=== PATIENT | male | born 1955 | race Caucasian/White ===

== ENCOUNTER 2017-09-18 05:04 | Inpatient (IN) | payer OTHER ==
[~2017-09-18] VITALS: Ht 185.4 cm; Wt 100.8 kg
[2017-09-18] VITALS (7 sets, daily range): BP systolic 146–184; BP diastolic 72–104; PULSE 88–98; RESP 18–32; TEMP 101.2–103; O2SAT 94–100
[~2017-09-18 05:04] MED LIST: GLUC1000 PO
[2017-09-18] MEDS ORDERED: ACETAMINOPHEN 650 MG SUPP RECTAL ONE (05:15)
[2017-09-18 05:51] LABS: AUTOMATED NEUTROPHIL # 14.4 TH/MM3 (1.8-7.7); BASOPHIL % 0.2 % (0.0-2.0); EOSINOPHIL % 0.1 % (0.0-4.0); HEMATOCRIT 41.8 % (39.0-51.0); HEMOGLOBIN 14.5 GM/DL (13.0-17.0); LYMPH % 4.9 % (9.0-44.0); LYMPHOCYTE # 0.8 TH/MM3 (1.0-4.8); MEAN CELL VOLUME 85.2 FL (80.0-100.0); MEAN CORPUSCULAR HEMOGLOBIN 29.6 PG (27.0-34.0); MEAN CORPUSCULAR HGB CONC 34.7 % (32.0-36.0); MEAN PLATELET VOLUME 9.2 FL (7.0-11.0); MONO % 1.8 % (0.0-8.0); MONOCYTE # 0.3 TH/MM3 (0-0.9); PLATELET COUNT 199 TH/MM3 (150-450); RED CELL DISTRIBUTION WIDTH 13.9 % (11.6-17.2); WHITE BLOOD COUNT 15.5 TH/MM3 (4.0-11.0)
[2017-09-18] MEDS ORDERED: cefTRIAXone INJ 2,000 MG in SODIUM CHLORIDE 0.9% INJ 100 ML IV ONE (06:00)
[2017-09-18] MEDS ORDERED: VANCOMYCIN INJ 1,000 MG in SODIUM CHLOR 0.9% 250 ML INJ 250 ML IV ONE (06:00)
--- NOTE | 2017-09-18 06:04 | PD ---
HPI Chief Complaint: Altered Mental Status Time Seen by Provider: 05:13 Travel History International Travel<30 days: No Contact w/Intl Traveler<30days: No Traveled to known affect area: No History of Present Illness HPI Patient is a 62-year-old male who for the last week and half has had an upper respiratory like infection , with coughing & congested. also had similar symptoms. also was in our ER in June had diagnosis meningitis and was admitted However review of her cultures show it did not grow bacterial meningitis. The patient himself is febrile at 102.5 shaking altered mentally.. he is apparently Altered due to a infectious source, of FUO Pt presents for fever and AMS ..I will search for bacterial source by Looking for Lung vs Urine vs viral flu source or spinal fluid source for his altered mental status. ROS and HPI limited due to AMS PFSH Past Medical History Heart Rhythm Problems: No Cancer: No Cardiovascular Problems: Yes (aortic valve stenosis) High Cholesterol: No Chest Pain: No Congestive Heart Failure: No Diabetes: Yes Patient Takes Glucophage: No Endocrine: Yes Gastrointestinal Disorders: Yes Genitourinary: Yes (retention) Hypertension: No Musculoskeletal: No Neurologic: Yes (neuropathy) Psychiatric: No Respiratory: No Immunizations Current: Yes Past Surgical History Cardiac Surgery: Yes (CABG 2014, valve replacement) Other Surgery: Yes (NECK SURGERY) Social History Alcohol Use: No Tobacco Use: No Substance Use: No Allergies-Medications (Allergen,Severity, Reaction): Coded Allergies: bee venom protein (honey bee) (Unverified Allergy, Severe, Anaphylaxis, ) Reported Meds & Prescriptions Reported Meds & Active Scripts Active Glucophage (Metformin HCl) 1,000 Mg Tab 1,000 Mg PO BIDPC With a meal Glucophage 1000 mg (Metformin HCl) 1,000 Mg Tab 1,000 Mg PO BIDPC Review of Systems ROS Limitations: Altered Mental Status Physical Exam Narrative GENERAL: Patient is altered and he is not answering questions he is febrile at 102.5 SKIN: Warm and dry. Warm temperature 102.5 HEAD: Atraumatic. Normocephalic. EYES: Pupils equal and round. No scleral icterus. No injection or drainage. ENT: No nasal bleeding or discharge. Mucous membranes pink and moist. NECK: Trachea midline. No JVD. CARDIOVASCULAR: Regular rate and rhythm. RESPIRATORY: No accessory muscle use. Clear to auscultation. Breath sounds equal bilaterally. GASTROINTESTINAL: Abdomen soft, non-tender, nondistended. Hepatic and splenic margins not palpable. MUSCULOSKELETAL: Extremities without clubbing, cyanosis, or edema. No obvious deformities. NEUROLOGICAL: Awake but lethargic No obvious cranial nerve deficits. Motor grossly within normal limits. Five out of 5 muscle strength in the arms and legs. . PSYCHIATRIC: Patient is altered and is not responding to any questions but eyes are open and he is awake not responding when I call his name however he is looking at me Data Data Last Documented VS Vital Signs Date Time Temp Pulse Resp B/P (MAP) Pulse Ox O2 Delivery O2 Flow Rate FiO2 09/18/17 07:01 102.3 98 28 146/88 (107) 100 Nasal Cannula 2.00 Orders Orders Acetaminophen Supp (Tylenol Supp) (09/18/17 05:15) Complete Blood Count With Diff (09/18/17 05:14) Comprehensive Metabolic Panel (09/18/17 05:14) Lactic Acid Sepsis Protocol (09/18/17 05:14) Troponin I (09/18/17 05:14) Urinalysis - C+S If Indicated (09/18/17 05:14) Blood Culture (09/18/17 05:14) Chest, Single Ap (09/18/17 05:14) Blood Glucose (09/18/17 05:14) Ecg Monitoring (09/18/17 05:14) Iv Access Insert/Monitor (09/18/17 05:14) Oximetry (09/18/17 05:14) Oxygen Administration (09/18/17 05:14) Urinary Catheter Management RADHA.Q8H (09/18/17 05:32) Influenzae A/B Antigen (09/18/17 05:44) Ceftriaxone Inj (Rocephin Inj) (09/18/17 06:00) Vancomycin Inj (Vancomycin Inj) (09/18/17 06:00) Csf Cell Count + Differential (09/18/17 07:04) Glucose, Csf (09/18/17 07:04) Total Protein, Csf (09/18/17 07:04) Csf Culture And Gram Stain (09/18/17 07:04) Lumbar Puncture (09/18/17 ) Sodium Chlor 0.9% 1000 Ml Inj (Ns 1000 M (09/18/17 07:15) Insulin Human Regular Inj (Novolin R Inj (09/18/17 07:15) Electrocardiogram (09/18/17 ) Ondansetron Inj (Zofran Inj) (09/18/17 07:30) Ct Brain W/O Iv Contrast(Rout) (09/18/17 ) Sodium Chlor 0.9% 1000 Ml Inj (Ns 1000 M (09/18/17 07:30) Admit Order (Ed Use Only) (09/18/17 07:44) Labs Laboratory Tests Test 09/18/17 05:15 09/18/17 05:20 09/18/17 05:50 White Blood Count 15.5 TH/MM3 Red Blood Count 4.90 MIL/MM3 Hemoglobin 14.5 GM/DL Hematocrit 41.8 % Mean Corpuscular Volume 85.2 FL Mean Corpuscular Hemoglobin 29.6 PG Mean Corpuscular Hemoglobin Concent 34.7 % Red Cell Distribution Width 13.9 % Platelet Count 199 TH/MM3 Mean Platelet Volume 9.2 FL Neutrophils (%) (Auto) 93.0 % Lymphocytes (%) (Auto) 4.9 % Monocytes (%) (Auto) 1.8 % Eosinophils (%) (Auto) 0.1 % Basophils (%) (Auto) 0.2 % Neutrophils # (Auto) 14.4 TH/MM3 Lymphocytes # (Auto) 0.8 TH/MM3 Monocytes # (Auto) 0.3 TH/MM3 Eosinophils # (Auto) 0.0 TH/MM3 Basophils # (Auto) 0.0 TH/MM3 CBC Comment DIFF FINAL Differential Comment Hemoglobin A1c 13.8 % Blood Urea Nitrogen 25 MG/DL Creatinine 1.36 MG/DL Random Glucose 507 MG/DL Total Protein 7.7 GM/DL Albumin 3.6 GM/DL Calcium Level 8.8 MG/DL Alkaline Phosphatase 101 U/L Aspartate Amino Transf (AST/SGOT) 17 U/L Alanine Aminotransferase (ALT/SGPT) 37 U/L Total Bilirubin 0.7 MG/DL Sodium Level 134 MEQ/L Potassium Level 4.9 MEQ/L Chloride Level 97 MEQ/L Carbon Dioxide Level 23.9 MEQ/L Anion Gap 13 MEQ/L Estimat Glomerular Filtration Rate 53 ML/MIN Lactic Acid Level 3.3 mmol/L Troponin I 0.02 NG/ML Urine Color LIGHT-YELLOW Urine Turbidity CLEAR Urine pH 6.5 Urine Specific [place] 1.031 Urine Protein 100 mg/dL Urine Glucose (UA) 1000 mg/dL Urine Ketones 40 mg/dL Urine Occult Blood SMALL Urine Nitrite NEG Urine Bilirubin NEG Urine Urobilinogen LESS THAN 2.0 MG/DL Urine Leukocyte Esterase NEG Urine RBC 7 /hpf Urine WBC LESS THAN 1 /hpf Urine Mucus FEW /lpf Microscopic Urinalysis Comment CATH-CULT NOT IND MDM Medical Decision Making Medical Screen Exam Complete: Yes Emergency Medical Condition: Yes Differential Diagnosis Viral illness with fever-induced confusion versus meningitis viral versus bacterial versus urosepsis versus pneumonia with sepsis versus other Narrative Course Patient is given ceftriaxone and vancomycin and 2 L of fluid patient's LP is unsuccessful by this M.DAlanna and I order a interventional radiology LP and order CSF culture Gram stain and cell count glucose protein patient still remains altered and febrile in the ER I give report to tHE hospitalist attending in the hospitalist admit Procedures Procedure Narrative LP attempted and was unable to obtain spinal fluid , after 4 needle sticks I decided that IR fluoroscopy would be indicated , Ceftraixone and Vanco started Diagnosis Primary Impression: Altered mental state Additional Impression: Febrile illness Sebastien Lynn MD Sep 18, 2017 06:04
--- NOTE | 2017-09-18 06:06 | RADRPT ---
EXAM DATE/TIME: 09/18/2017 05:22 [facility] COMPARISON: CHEST SINGLE AP, April 01, 2016, 21:23. INDICATIONS : Fever. MEDICAL HISTORY : Cardiovascular disease. Diabetes mellitus type II. SURGICAL HISTORY : CABG. ENCOUNTER: Initial ACUITY: 1 day PAIN SCORE: 0/10 LOCATION: Bilateral chest FINDINGS: A single view of the chest demonstrates the lungs to be symmetrically aerated without evidence of mas s, infiltrate or effusion. The cardiomediastinal contours are unremarkable. Osseous structures are intact. Median sternotomy wires. CONCLUSION: No acute disease. Chad Tristan Jr., MD on September 18, 2017 at 6:04 Board Certified Radiologist. This report was verified electronically.
[2017-09-18 06:07] LABS: LACTIC ACID SEPSIS PROTOCOL 3.3 mmol/L (0.4-2.0)
[2017-09-18 06:11] LABS: BILIRUBIN, URINE NEG (NEG); BLOOD, URINE SMALL (NEG); GLUCOSE,URINE 1000 mg/dL (NEG); KETONE, URINE 40 mg/dL (NEG); MUCUS URINE FEW /lpf (OCC); NITRITE,URINE NEG (NEG); PH, URINE 6.5 (5.0-8.5); URINE COLOR LIGHT-YELLOW (YELLW/STRAW); URINE LEUKOCYTE ESTERASE NEG (NEG)
[2017-09-18 06:17] LABS: ALBUMIN 3.6 GM/DL (3.4-5.0); ALKALINE PHOSPHATASE 101 U/L (45-117); ALT (GPT) 37 U/L (12-78); AST (GOT) 17 U/L (15-37); BICARBONATE 23.9 MEQ/L (21.0-32.0); CALCIUM 8.8 MG/DL (8.5-10.1); CHLORIDE 97 MEQ/L (98-107); CREATININE 1.36 MG/DL (0.60-1.30); GLOMERULAR FILTRATION RATE 53 ML/MIN (>89); GLUCOSE,RANDOM 507 MG/DL (74-106); SODIUM (NA) 134 MEQ/L (136-145); TOTAL BILIRUBIN ADULT 0.7 MG/DL (0.2-1.0); TOTAL PROTEIN 7.7 GM/DL (6.4-8.2); TROPONIN I 0.02 NG/ML (0.02-0.05)
[2017-09-18 06:18] LABS: BLOOD UREA NITROGEN 25 MG/DL (7-18)
[2017-09-18] MEDS ORDERED: SODIUM CHLOR 0.9% 1000 ML INJ 1,000 ML IV ONE ×2 (07:15→07:30)
[2017-09-18] MEDS ORDERED: INSULIN HUMAN REGULAR 1,000 UNITS/10 ML VIAL IV PUSH ONE (07:15)
[2017-09-18] MEDS ORDERED: ONDANSETRON HCL 4 MG/2 ML VIAL IV PUSH ONE (07:30)
--- NOTE | 2017-09-18 08:28 | RADRPT ---
EXAM DATE/TIME: 09/18/2017 08:01 [facility] COMPARISON: CT BRAIN W/O CONTRAST, April 01, 2016, 22:03. INDICATIONS : Altered mental status, fever. RADIATION DOSE: 69.17 CTDIvol (mGy) MEDICAL HISTORY : Cardiovascular disease. Diabetes mellitus type 2. SURGICAL HISTORY : CABG ENCOUNTER: Initial ACUITY: 1 day PAIN SCALE: 0/10 LOCATION: cranial TECHNIQUE: Multiple contiguous axial images were obtained of the head. Using automated exposure control and adj ustment of the mA and/or kV according to patient size, radiation dose was kept as low as reasonably a chievable to obtain optimal diagnostic quality images. DICOM format image data is available electro nically for review and comparison. FINDINGS: Mild periventricular and subcortical white matter small vessel ischemic changes are noted bilaterally . The ventricles, sulci and cisterns are stable. There is no acute infarct, acute hemorrhage, mass ef fect or extra axial fluid collections. There is an air-fluid level within the left maxillary sinus an d a mucus retention cyst within right maxillary sinus. CONCLUSION: 1. Mild periventricular and subcortical white matter small vessel ischemic changes bilaterally. 2. No acute infarct, acute hemorrhage, mass effect or extra axial fluid collections. 3. Air-fluid level within the left maxillary sinus and mucous retention cyst within the right maxilla ry sinus. Bob Batista MD on September 18, 2017 at 8:22 Board Certified Radiologist. This report was verified electronically.
[2017-09-18] MEDS ORDERED: NALOXONE HCL 0.4 MG/ML AMP IV PUSH PRN (09:00)
[2017-09-18] MEDS ORDERED: SODIUM CHLORIDE 0.9% FLUSH 10 ML FLUSH IV FLUSH PRN (09:00)
[2017-09-18] MEDS: DOCUSATE SODIUM 50 MG/SENNA 8.6 MG TAB PO SCH ×2 (09:00→21:00)
[2017-09-18] MEDS ORDERED: ACETAMINOPHEN 325 MG TAB PO PRN ×2 (09:00)
[2017-09-18 09:40] LABS: INTERNATIONAL NORMALIZED RATIO 1.1 RATIO; PROTHROMBIN TIME - PATIENT 10.7 SEC (9.8-11.6)
[2017-09-18] MEDS ORDERED: DEXTROSE 50% IN WATER 50 ML VIAL(D50) IV PUSH PRN (09:45)
[2017-09-18] MEDS ORDERED: GLUCAGON 1 MG/ML VIAL OTHER PRN (09:45)
--- NOTE | 2017-09-18 10:57 | PD.RAD ---
Post Procedure Progress Note Pre Procedure Diagnosis: (1) Mental status change Post Procedure Diagnosis: (1) Mental status change Procedure Date: Sep 18, 2017 Supervising Radiologist: Silas Machuca Proceduralist/Assist: RT Neno(R), RT Mimi(R) Anesthesia: Local Plan of Activity Patient to Unit: Nursing Unit Patient Condition: Poor See PACS Report for procedural detail/treatment Spinal Procedure Lumbar Puncture L3-L4 Fluid Removal (CCs): 10 Fluid Description: Silas Kwon MD Sep 18, 2017 10:57
--- NOTE | 2017-09-18 11:21 | RADRPT ---
EXAM DATE/TIME: 09/18/2017 11:47 [facility] COMPARISON: No previous studies available for comparison. INDICATIONS : Patient who has had a upper respitory infection for aweek and half. Present s to ER with fever and A MS. MEDICAL HISTORY : 1. Aortic valve stenosis 2. urinary retention 3. DM 3. CAD SURGICAL HISTORY : 1. CABG 2. neck surgery ENCOUNTER: Initial ACUITY: 2 days PAIN SCORE: Nonresponsive. LUMBAR PUNCTURE TIME: 1053 hours FLUORO TIME: 0.6 minutes IMAGE SERIES: 1 ACCESS LEVEL: L3-4 FLUID: 10 cc of clear CSF was collected and sent to the laboratory for analysis. PROCEDURE : 1. Fluoroscopic guided lumbar puncture. The risks, benefits and alternatives to the procedure were explained and verbal and written consent w as obtained. The site was prepped in sterile fashion. Full sterile technique was used, including ca p, mask, sterile gloves and gown and a large sterile sheet. Hand hygiene and 2% chlorhexidine and/or betadine/alcohol prep was utilized per protocol for cutaneous antisepsis. The skin and subcutaneous tissues were infiltrated with local anesthetic solution. With fluoroscopic guidance the lumbar thecal sac was punctured at the level above. The fluid describ ed above was removed without difficulty. The patient tolerated the procedure well and there were no complications. CONCLUSION: Uncomplicated fluoroscopically guided lumbar puncture. Silas Machuca MD on September 18, 2017 at 11:19 Board Certified Radiologist. This report was verified electronically.
[2017-09-18 11:44] LABS: TOTAL PROTEIN,CSF 70.8 MG/DL (15.0-45.0)
[2017-09-18] MEDS: INSULIN ASPART SUPPLEMENTAL SCALE SQ SCH ×3 (12:00→21:00)
[2017-09-18] MEDS: SODIUM CHLORIDE 0.9% FLUSH 10 ML FLUSH IV FLUSH SCH ×2 (13:05→21:00)
[2017-09-18] MEDS: SODIUM CHLOR 0.9% 1000 ML INJ 1,000 ML IV SCH ×4 (13:06→22:00)
[2017-09-18 13:08] LABS: SUPERNATE COLOR TUBE #1 CLEAR (CLEAR); VOLUME TUBE # 1 2.5 ML
[2017-09-18 13:09] LABS: CSF LYMPHOCYTES 13 %; CSF MONOCYTES 13 %; CSF NEUTROPHILS 74 %; RBC TUBE #4 3 /MM3; WBC TUBE #4 12 /MM3 (0-10)
[2017-09-18] MEDS ORDERED: Vancomycin Consult Pharmacy 1 EA OTHER SCH ×2 (14:00→20:45)
[2017-09-18] MEDS ORDERED: AMPICILLIN INJ 2,000 MG in SODIUM CHLORIDE 0.9% INJ 100 ML IV SCH (14:00)
[2017-09-18] MEDS ORDERED: ACETAMINOPHEN 650 MG SUPP RECTAL PRN (14:15)
--- NOTE | 2017-09-18 14:15 | HHI.HP ---
[facility] No Primary Care Physician Admission Diagnosis Altered mental status Diagnoses: Chief Complaint: Altered mental status Travel History International Travel<30 Days: No Contact w/Intl Traveler <30 Da: No Traveled to Known Affected Are: No History of Present Illness The patient is a 62-year-old male with a past medical history of diabetes and CAD who is presenting to the hospital with altered mental status. He was unable to provide a history so his gave the history of present illness. Apparently the patient and his came down with the flu a couple of weeks ago. The patient's got better but the patient got worse. He continued to have flulike symptoms and has been sleeping a lot and going to bed early. He recently started vomiting a lot as well. He has been wobbly on ambulation and fell slowly to the ground with help from his . She does not believe he injured himself on that fall. She called for emergency services and they found the patient to have a high blood pressure, high blood sugar and elevated temperature. The patient's mental status started to get poor upon arrival of EMS. He was unable to answer questions correctly and by the time he arrived at the hospital he was completely unresponsive. The patient's states that in June she came down with suspected meningitis but was not told that they were able to find a causative organism. She is currently doing well. She reports that the patient has been having headaches on and off with his flulike prodrome. She mentions the patient has lost his insurance recently and since then his diabetes has been poorly controlled. Review of Systems ROS Limitations: Clinical Condition, Altered Mental Status, Unresponsive Past Family Social History Past Medical History CAD status post CABG 3 Diabetes type 2 Past Surgical History CABG 3 AVR with porcine valve Allergies: Coded Allergies: bee venom protein (honey bee) (Unverified Allergy, Severe, Anaphylaxis, ) Active Ordered Medications Current Medications Medications (Trade) Dose Ordered Sig/Génesis Route Start Time Stop Time Status Last Admin Sodium Chloride 1,000 ml @ 100 mls/hr Q10H IV 09/18/17 10:00 09/18/17 13:06 (NS Flush) 2 ml UNSCH PRN IV FLUSH 09/18/17 09:00 (NS Flush) 2 ml BID IV FLUSH 09/18/17 09:00 09/18/17 13:05 (Zofran Inj) 4 mg Q6H PRN IVP 09/18/17 09:00 (Roxicodone) 10 mg Q4H PRN PO 09/18/17 09:00 (Roxicodone) 5 mg Q4H PRN PO 09/18/17 09:00 (Narcan Inj) 0.4 mg UNSCH PRN IV PUSH 09/18/17 09:00 (Rozina-Colace) 1 tab BID PO 09/18/17 09:00 (NovoLOG SUPPLEMENTAL SCALE) 1 ACHS SLIDING SCALE SQ 09/18/17 12:00 09/18/17 12:00 (D50w (Vial) Inj) 50 ml UNSCH PRN IV PUSH 09/18/17 09:45 (Glucagon Inj) 1 mg UNSCH PRN OTHER 09/18/17 09:45 Ceftriaxone Sodium 2000 mg/ Sodium Chloride 100 ml @ 200 mls/hr Q12H IV 09/18/17 18:00 UNV (Tylenol Supp) 650 mg Q6H PRN RECTAL 09/18/17 14:15 UNV Family History The patient's father in his late 40s from a cardiac bypass procedure Social History The patient does not smoke, drink or use illicit substances. Physical Exam Vital Signs Vital Signs Date Time Temp Pulse Resp B/P (MAP) Pulse Ox O2 Delivery O2 Flow Rate FiO2 09/18/17 10:32 09/18/17 08:45 101.2 96 22 154/82 (106) 98 Nasal Cannula 2.00 09/18/17 08:05 94 24 181/83 (115) 97 Nasal Cannula 09/18/17 07:01 102.3 98 28 146/88 (107) 100 Nasal Cannula 2.00 09/18/17 05:21 99 Nasal Cannula 2.00 09/18/17 05:14 94 Room Air 09/18/17 05:08 102.7 88 32 184/104 (130) 94 Physical Exam GENERAL: Unresponsive. SKIN: Warm and dry. HEAD: Atraumatic. Normocephalic. EYES: Pupils equal and round. No scleral icterus. No injection or drainage. ENT: No nasal bleeding or discharge. Mucous membranes pink and moist. NECK: Trachea midline. No JVD. CARDIOVASCULAR: Tachycardic without obvious murmur. RESPIRATORY: No accessory muscle use. Clear to auscultation. Breath sounds equal bilaterally. GASTROINTESTINAL: Abdomen soft, non-tender, nondistended. Hepatic and splenic margins not palpable. MUSCULOSKELETAL: Extremities without clubbing, cyanosis, or edema. No obvious deformities. NEUROLOGICAL: Unresponsive. Appears to have horizontal nystagmus. Unable to participate in neurologic evaluation at this time. Laboratory Laboratory Tests Test 09/18/17 05:15 09/18/17 05:20 09/18/17 05:50 09/18/17 08:39 White Blood Count 15.5 Red Blood Count 4.90 Hemoglobin 14.5 Hematocrit 41.8 Mean Corpuscular Volume 85.2 Mean Corpuscular Hemoglobin 29.6 Mean Corpuscular Hemoglobin Concent 34.7 Red Cell Distribution Width 13.9 Platelet Count 199 Mean Platelet Volume 9.2 Neutrophils (%) (Auto) 93.0 Lymphocytes (%) (Auto) 4.9 Monocytes (%) (Auto) 1.8 Eosinophils (%) (Auto) 0.1 Basophils (%) (Auto) 0.2 Neutrophils # (Auto) 14.4 Lymphocytes # (Auto) 0.8 Monocytes # (Auto) 0.3 Eosinophils # (Auto) 0.0 Basophils # (Auto) 0.0 CBC Comment DIFF FINAL Differential Comment Blood Urea Nitrogen 25 Creatinine 1.36 Random Glucose 507 Total Protein 7.7 Albumin 3.6 Calcium Level 8.8 Alkaline Phosphatase 101 Aspartate Amino Transf (AST/SGOT) 17 Alanine Aminotransferase (ALT/SGPT) 37 Total Bilirubin 0.7 Sodium Level 134 Potassium Level 4.9 Chloride Level 97 Carbon Dioxide Level 23.9 Anion Gap 13 Estimat Glomerular Filtration Rate 53 Lactic Acid Level 3.3 Troponin I 0.02 Urine Color LIGHT-YELLOW Urine Turbidity CLEAR Urine pH 6.5 Urine Specific [place] 1.031 Urine Protein 100 Urine Glucose (UA) 1000 Urine Ketones 40 Urine Occult Blood SMALL Urine Nitrite NEG Urine Bilirubin NEG Urine Urobilinogen LESS THAN 2.0 Urine Leukocyte Esterase NEG Urine RBC 7 Urine WBC LESS THAN 1 Urine Mucus FEW Microscopic Urinalysis Comment CATH-CULT NOT IND Prothrombin Time 10.7 Prothromb Time International Ratio 1.1 Activated Partial Thromboplast Time 21.0 Test 1/4/18 10:53 CSF Volume (Tube 1) 2.5 CSF Supernatant Color (tube 1) CLEAR CSF Gross Blood (Tube 1) 0 CSF Volume (Tube 2) 2.8 CSF Supernatant Color (tube 2) CLEAR CSF Gross Blood (Tube 2) 0 CSF Volume (Tube 3) 2.0 CSF Supernatant Color (tube 3) CLEAR CSF Gross Blood (Tube 3) 0 CSF Volume (Tube 4) 1.5 CSF Supernatant Color (tube 4) CLEAR CSF Gross Blood (Tube 4) 0 CSF WBC (Tube 4) 12 CSF RBC (Tube 4) 3 CSF Neutrophils 74 CSF Lymphocytes 13 CSF Monocytes 13 CSF Glucose 232 CSF Total Protein 70.8 Date/Time Source Procedure Growth Status 09/18/17 05:20 Blood Peripheral Aerobic Blood Culture Pending Received 09/18/17 05:20 Blood Peripheral Anaerobic Blood Culture Pending Received 09/18/17 10:53 Cerebral Spinal Fluid Lumbar Puncture Gram Stain - Final Resulted 09/18/17 10:53 Cerebral Spinal Fluid Lumbar Puncture CSF Culture Pending Resulted 09/18/17 05:50 Nasal Aspirate Influenza Types A,B Antigen (MARKO) - Final NEGATIVE FOR FLU A AND B ANTIGEN.... Complete Result Diagram: 09/18/17 0515 09/18/17 0520 Imaging Last Impressions Chest X-Ray 09/18/17 0514 Signed Impressions: Service Date/Time: September 05:22 - CONCLUSION: No acute disease. Chad Tristan Jr., MD Lumbar Puncture Fluoroscopy 09/18/17 0000 Signed Impressions: Service Date/Time: September 11:47 - CONCLUSION: Uncomplicated fluoroscopically guided lumbar puncture. Silas Machuca MD Head CT 09/18/17 0000 Signed Impressions: Service Date/Time: September 08:01 - CONCLUSION: 1. Mild periventricular and subcortical white matter small vessel ischemic changes bilaterally. 2. No acute infarct, acute hemorrhage, mass effect or extra axial fluid collections. 3. Air-fluid level within the left maxillary sinus and mucous retention cyst within the right maxillary sinus. Bob Batista MD Captopheri VTE Risk Assessment Caprini VTE Risk Assessment: Mod/High Risk (score >= 2) Caprini Risk Assessment Model Point Value = 1 Point Value = 2 Point Value = 3 Point Value = 5 Age 41-60 Minor surgery BMI > 25 kg/m2 Swollen legs Varicose veins or History of unexplained or recurrent spontaneous Oral contraceptives or hormone replacement Sepsis (< 1 month) Serious lung disease, including pneumonia (< 1 month) Abnormal pulmonary function Acute myocardial infarction Congestive heart failure (< 1 month) History of inflammatory bowel disease Medical patient at bed rest Age 61-74 Arthroscopic surgery Major open surgery (> 45 min) Laparoscopic surgery (> 45 min) Malignancy Confined to bed (> 72 hours) Immobilizing plaster cast Central venous access Age >= 75 History of VTE Family history of VTE Factor V Leiden Prothrombin [id number] Lupus anticoagulant Anticardiolipin antibodies Elevated serum homocysteine Heparin-induced thrombocytopenia Other congenital or acquired thrombophilia Stroke (< 1 month) Elective arthroplasty Hip, pelvis, or leg fracture Acute spinal cord injury (< 1 month) Prophylaxis Regimen Total Risk Factor Score Risk Level Prophylaxis Regimen 0-1 Low Early ambulation 2 Moderate Order ONE of the following: *Sequential Compression Device (SCD) *Heparin 5000 units SQ BID 3-4 Higher Order ONE of the following medications: *Heparin 5000 units SQ TID *Enoxaparin/Lovenox 40 mg SQ daily (WT < 150 kg, CrCl > 30 mL/min) *Enoxaparin/Lovenox 30 mg SQ daily (WT < 150 kg, CrCl > 10-29 mL/min) *Enoxaparin/Lovenox 30 mg SQ BID (WT < 150 kg, CrCl > 30 mL/min) AND/OR *Sequential Compression Device (SCD) 5 or more Highest Order ONE of the following medications: *Heparin 5000 units SQ TID (Preferred with Epidurals) *Enoxaparin/Lovenox 40 mg SQ daily (WT < 150 kg, CrCl > 30 mL/min) *Enoxaparin/Lovenox 30 mg SQ daily (WT < 150 kg, CrCl > 10-29 mL/min) *Enoxaparin/Lovenox 30 mg SQ BID (WT < 150 kg, CrCl > 30 mL/min) AND *Sequential Compression Device (SCD) Assessment and Plan Assessment and Plan Acute metabolic encephalopathy/ Sepsis The patient was in with altered mental status, fever, leukocytosis, tachycardia and tachypnea. He is currently unresponsive. CT of the head was unremarkable except for left maxillary sinusitis. LP performed by interventional radiology not currently indicative of bacterial etiology. He did recently have a viral infection so aseptic meningitis is a possibility. The patient may also be having continuous seizures. - Continue IV ceftriaxone 2 g every 12 hours. - Follow LP studies including culture data. - Blood and urine cultures pending. - Infectious disease consult has been requested. - Neuro checks and seizure precautions. - IV fluids. Keep the patient nothing by mouth. - MRI of the brain requested. - Neurology consult if no improvement. - check an ABG. Uncontrolled type 2 diabetes Glucose was over 500 on admission. He did not have an anion gap. - Continue IV fluids. - Insulin sliding scale along with Levemir 10 units daily. Adjust as needed. - Hold metformin. Hematuria Pinto catheter with reddish urine and what appears to be clots. - Repeat UA. - Follow CBC and transfuse as needed. Acute renal injury Likely prerenal. - IV fluids and follow BMP. - Avoid nephrotoxins. CAD Status post CABG. EKG with sinus tachycardia. The patient is not on medication secondary to lack of insurance. - Telemetry. PPx: SCDs Code Status DNR Discussed Condition With Pt's , nurse, Dr. Lynn Physician Certification 2 Midnight Certification Type: Admission for Inpatient Services Order for Inpatient Services The services are ordered in accordance with Medicare regulations or non- Medicare payer requirements, as applicable. In the case of services not specified as inpatient-only, they are appropriately provided as inpatient services in accordance with the 2-midnight benchmark. Estimated LOS (days): 2 days is the estimated time the patient will need to remain in the hospital, assuming treatment plan goals are met and no additional complications. Post-Hospital Plan: Not yet determined Terrance Kern DO Sep 18, 2017 14:15
[2017-09-18 14:32] LABS: CSF LYMPHOCYTES 19 %; CSF MONOCYTES 4 %; CSF NEUTROPHILS 77 %; SUPERNATE COLOR TUBE #1 CLEAR (CLEAR); VOLUME TUBE # 1 2.5 ML
[2017-09-18 14:33] LABS: RBC TUBE #1 3 /MM3; WBC TUBE #1 13 /MM3 (0-10)
[2017-09-18 15:05] LABS: ALBUMIN 3.4 GM/DL (3.4-5.0); ALKALINE PHOSPHATASE 80 U/L (45-117); ALT (GPT) 31 U/L (12-78); AST (GOT) 17 U/L (15-37); BICARBONATE 20.5 MEQ/L (21.0-32.0); BLOOD UREA NITROGEN 30 MG/DL (7-18); CALCIUM 8.5 MG/DL (8.5-10.1); CHLORIDE 105 MEQ/L (98-107); CREATININE 1.45 MG/DL (0.60-1.30); GLOMERULAR FILTRATION RATE 49 ML/MIN (>89); GLUCOSE,RANDOM 398 MG/DL (74-106); SODIUM (NA) 139 MEQ/L (136-145); TOTAL BILIRUBIN ADULT 0.6 MG/DL (0.2-1.0); TOTAL PROTEIN 7.5 GM/DL (6.4-8.2)
--- NOTE | 2017-09-18 16:15 | MG ---
cc: RAFIQ COTA M.D. AL WILL[facility] Lab No: [id number] Date: 09/18/2017 Age: Sex: M TECHNIQUE 17-channel EEG. DESCRIPTION The background rhythm reveals generalized slowing mainly in delta and theta frequencies ranging from 3-5 Hz. Amplitude is 30-40 microvolts. There is slightly more prominent slowing over the left hemisphere than over the right hemisphere. No other features are seen. No epileptiform discharges are identified. INTERPRETATION Abnormal study consistent with a moderate degree of encephalopathy of generalized slowing, worse over the left hemisphere. Would recommend correlating with an imaging study to rule out structural process of the left hemisphere. MD OBDULIA Conde/FABIO /3:43 PM /3:47 PM
[2017-09-18] MEDS ORDERED: POTASSIUM CHLOR 20 MEQ PREMIX 100 ML IV PRN ×6 (16:30)
[2017-09-18] MEDS ORDERED: POTASSIUM CHLOR 40 MEQ PREMIX 100 ML IV PRN ×2 (16:30)
[2017-09-18] MEDS ORDERED: SODIUM PHOSPHATE INJ 15 MMOL in SODIUM CHLORIDE 0.9% INJ 100 ML IV PRN (16:30)
[2017-09-18] MEDS ORDERED: INSULIN REGULAR (IV INFUSION) 100 UNITS in SODIUM CHLORIDE 0.9% INJ 99 ML IV PRN (16:30)
[2017-09-18] MEDS ORDERED: SODIUM BICARBONATE 8.4% SOLN 50 MEQ/50 ML VIAL IV PUSH PRN ×2 (16:30)
[2017-09-18] MEDS ORDERED: MISCELLANEOUS NURSING INFORMATION XX SCH (16:30)
[2017-09-18] MEDS ORDERED: CHLORHEXIDINE GLUCONATE 2 % 1 PACK (2 CLOTHS) TOP PRN (16:30)
[2017-09-18] MEDS ORDERED: GADODIAMIDE PF 287 MG/ML 5 ML VIAL (for RAD MRI) IV PUSH ONE (16:56)
--- NOTE | 2017-09-18 17:21 | RADRPT ---
EXAM DATE/TIME: 09/18/2017 16:43 [place] COMPARISON: CT BRAIN W/O CONTRAST, September 18, 2017, 8:01. INDICATIONS : Meningitis. CONTRAST: 17 cc Omniscan (gadodiamide) IV MEDICAL HISTORY : Diabetes. SURGICAL HISTORY : Cardiac valve transplant. ENCOUNTER: Subsequent ACUITY: 1 day PAIN SCORE: 0/10 LOCATION: cranial TECHNIQUE: Multiplanar, multisequence MRI of the brain was performed both prior to and following the administrat ion of paramagnetic contrast. FINDINGS: There is no evidence for intracranial hemorrhage, mass effect, mass lesions, edema, or extra-axial fl uid collections. There are no signs of acute infarction for technique. The postcontrast portion is u nremarkable. There is a punctate area of bright signal in the left parietal periventricular white mat ter tract on the diffusion portion probably due to shine through since there is no restriction diffus ion capacity Slight degree of brain atrophy is seen. Slight periventricular white matter changes are seen nonspecific mostly consistent with chronic small vessel ischemic changes. There is opacification of multiple sinuses worse involving the left maxillary sinus chronic in nature. CONCLUSION: Chronic atrophic and small vessel ischemic changes without any evidence for acute hemorrhage or mass effect, and chronic sinusitis. Aaron Nice MD on September 18, 2017 at 17:14 Board Certified Radiologist. This report was verified electronically.
[2017-09-18] MEDS: DEXT 5%-NACL 0.9% 1000 ML INJ 1,000 ML IV SCH ×2 (18:00→23:00)
[2017-09-18] MEDS ORDERED: VANCOMYCIN INJ 1,250 MG in SODIUM CHLOR 0.9% 250 ML INJ 250 ML IV SCH (18:00)
[2017-09-18] MEDS ORDERED: cefTRIAXone INJ 2,000 MG in SODIUM CHLORIDE 0.9% INJ 100 ML IV SCH (18:00)
[2017-09-18] MEDS ORDERED: LORazepam 2 MG/ML VIAL IV PUSH ONE (18:30)
[2017-09-18 18:58] LABS: HEMOGLOBIN A1C 13.8 % (4.3-6.0)
[2017-09-18] MEDS ORDERED: ACETAMINOPHEN 1000 MG/100 ML 65 ML IV ONE (19:30)
--- NOTE | 2017-09-18 20:36 | HHI.PR ---
Addendum to Inpatient Note Additional Information pt seen and examined around 2029 today full note to follow MA/fever/102-103/ mild pleocytosis of CSF sp AVR 2 yrs ago cont CFTX cont vanco add acyclovir P HSV CSF results dw RN, @ b/s Modesta Bhagat MD Sep 18, 2017 20:36
--- NOTE | 2017-09-18 20:39 | PD.ID.CON ---
History of Present Illness Service ID Consult Requested By Dr Kern Reason for Consult meningitis Primary Care Physician No Primary Care Physician Diagnoses: History of Present Illness Pt is obtunded and unable to provide hstory History obtained from @ bedside and from the chart 62 yo male with h/o CABG and AVR 2 yrs ago developped flu like smx simultaneously with his spouse about 2 weeks ago At some point he developped worsening headacha and in the last 24-48 hrs mental status changeHe was admitted to ICU He had MRI that showed nothing acute and a LP that showed elevated protein and mild neutrophilic pleocytosis HIgh fever noted in 102-103 range Blood clx P CSF Gstain showed no organisms Review of Systems ROS Limitations: Altered Mental Status Past Family Social History Allergies: Coded Allergies: bee venom protein (honey bee) (Unverified Allergy, Severe, Anaphylaxis, ) Past Medical History Heart Rhythm Problems: No Cancer: No Cardiovascular Problems: Yes (aortic valve stenosis) High Cholesterol: No Chest Pain: No Congestive Heart Failure: No Diabetes: Yes Patient Takes Glucophage: No Endocrine: Yes Gastrointestinal Disorders: Yes Genitourinary: Yes (retention) Hypertension: No Musculoskeletal: No Neurologic: Yes (neuropathy) Psychiatric: No Respiratory: No Immunizations Current: Yes Past Surgical History Cardiac Surgery: Yes (CABG 2014, aortic valve replacement) Other Surgery: Yes (NECK SURGERY) Active Ordered Medications Medications where reviewed in EMR Antibiotics Include: CFTX 2 g q 12 Family History reviewed Non-Contributory. Social History Alcohol Use: No Tobacco Use: No Substance Use: No Physical Exam Vital Signs Vital Signs Date Time Temp Pulse Resp B/P (MAP) Pulse Ox O2 Delivery O2 Flow Rate FiO2 09/18/17 14:33 102.8 97 18 146/80 (102) 97 09/18/17 10:32 09/18/17 08:45 101.2 96 22 154/82 (106) 98 Nasal Cannula 2.00 09/18/17 08:05 94 24 181/83 (115) 97 Nasal Cannula 09/18/17 07:01 102.3 98 28 146/88 (107) 100 Nasal Cannula 2.00 09/18/17 05:21 99 Nasal Cannula 2.00 09/18/17 05:14 94 Room Air 09/18/17 05:08 102.7 88 32 184/104 (130) 94 Physical Exam CONSTITUTIONAL/GENERAL: This is an adequately nourished patient, in no apparent distress. TUBES/LINES/DRAINS: SKIN: No jaundice, rashes, or lesions. Skin temperature appropriate. Not diaphoretic. No Janeway lesions, no splinter hemorages HEAD: Atraumatic. Normocephalic. EYES: Pupils equal and round and reactive. Extraocular motions intact. No scleral icterus. No injection or drainage. Fundi not examined. ENT: Hearing not tested. Nose without bleeding or purulent drainage. Throat without visible erythema, exudates, masses, or lesions. NECK: Trachea midline. ? neck rigidity present , nontender. No palpable thyroid enlargement or nodularity. CARDIOVASCULAR: Regular rate and rhythm without murmurs, gallops, or rubs. No JVD. Peripheral pulses symmetric. RESPIRATORY/CHEST: Symmetric, unlabored respirations. Clear to auscultation. Breath sounds equal bilaterally. No wheezes, rales, or rhonchi. GASTROINTESTINAL: Abdomen soft, non-tender, nondistended. No hepato-splenomegaly , or palpable masses. No guarding. Bowel sounds present. GENITOURINARY: Without palpable bladder distension. Pinto catheter in place with clear yellow urine MUSCULOSKELETAL: Extremities without clubbing, cyanosis, or edema. No joint tenderness or effusion noted. No calf tenderness. No mottling or clubbing. LYMPHATICS: No palpable cervical or supraclavicular adenopathy. NEUROLOGICAL: Obtunded. Eyes closed. Not follows commands. No verbal response. Moves all extremities. PSYCHIATRIC: unable to assess Laboratory Laboratory Tests Test 09/18/17 05:15 09/18/17 05:20 09/18/17 05:50 09/18/17 08:39 White Blood Count 15.5 Red Blood Count 4.90 Hemoglobin 14.5 Hematocrit 41.8 Mean Corpuscular Volume 85.2 Mean Corpuscular Hemoglobin 29.6 Mean Corpuscular Hemoglobin Concent 34.7 Red Cell Distribution Width 13.9 Platelet Count 199 Mean Platelet Volume 9.2 Neutrophils (%) (Auto) 93.0 Lymphocytes (%) (Auto) 4.9 Monocytes (%) (Auto) 1.8 Eosinophils (%) (Auto) 0.1 Basophils (%) (Auto) 0.2 Neutrophils # (Auto) 14.4 Lymphocytes # (Auto) 0.8 Monocytes # (Auto) 0.3 Eosinophils # (Auto) 0.0 Basophils # (Auto) 0.0 CBC Comment DIFF FINAL Differential Comment Blood Urea Nitrogen 25 Creatinine 1.36 Random Glucose 507 Total Protein 7.7 Albumin 3.6 Calcium Level 8.8 Alkaline Phosphatase 101 Aspartate Amino Transf (AST/SGOT) 17 Alanine Aminotransferase (ALT/SGPT) 37 Total Bilirubin 0.7 Sodium Level 134 Potassium Level 4.9 Chloride Level 97 Carbon Dioxide Level 23.9 Anion Gap 13 Estimat Glomerular Filtration Rate 53 Lactic Acid Level 3.3 Troponin I 0.02 Urine Color LIGHT-YELLOW Urine Turbidity CLEAR Urine pH 6.5 Urine Specific Smith 1.031 Urine Protein 100 Urine Glucose (UA) 1000 Urine Ketones 40 Urine Occult Blood SMALL Urine Nitrite NEG Urine Bilirubin NEG Urine Urobilinogen LESS THAN 2.0 Urine Leukocyte Esterase NEG Urine RBC 7 Urine WBC LESS THAN 1 Urine Mucus FEW Microscopic Urinalysis Comment CATH-CULT NOT IND Prothrombin Time 10.7 Prothromb Time International Ratio 1.1 Activated Partial Thromboplast Time 21.0 Test 09/18/17 10:53 09/18/17 14:21 09/18/17 14:51 CSF Volume (Tube 1) 2.5 CSF Supernatant Color (tube 1) CLEAR CSF Gross Blood (Tube 1) 0 CSF WBC (Tube 1) 13 CSF RBC (Tube 1) 3 CSF Volume (Tube 2) 2.8 CSF Supernatant Color (tube 2) CLEAR CSF Gross Blood (Tube 2) 0 CSF Volume (Tube 3) 2.0 CSF Supernatant Color (tube 3) CLEAR CSF Gross Blood (Tube 3) 0 CSF Volume (Tube 4) 1.5 CSF Supernatant Color (tube 4) CLEAR CSF Gross Blood (Tube 4) 0 CSF WBC (Tube 4) 12 CSF RBC (Tube 4) 3 CSF Neutrophils 77 CSF Lymphocytes 19 CSF Monocytes 4 CSF Glucose 232 CSF Total Protein 70.8 Blood Urea Nitrogen 30 Creatinine 1.45 Random Glucose 398 Total Protein 7.5 Albumin 3.4 Calcium Level 8.5 Alkaline Phosphatase 80 Aspartate Amino Transf (AST/SGOT) 17 Alanine Aminotransferase (ALT/SGPT) 31 Total Bilirubin 0.6 Sodium Level 139 Potassium Level 4.7 Chloride Level 105 Carbon Dioxide Level 20.5 Anion Gap 14 Estimat Glomerular Filtration Rate 49 Lactic Acid Level 1.7 B-Hydroxybutyrate 6.14 Blood Gas Puncture Site LT BRACHIAL Blood Gas Patient Temperature 98.6 Blood Gas HCO3 19 Blood Gas Base Excess -4.5 Blood Gas Oxygen Saturation 91 Arterial Blood pH 7.43 Arterial Blood Partial Pressure CO2 30 Arterial Blood Partial Pressure O2 68 Arterial Blood Oxygen Content 17.5 Arterial Blood Carboxyhemoglobin 1.9 Arterial Blood Methemoglobin 1.3 Blood Gas Hemoglobin 13.6 Oxygen Delivery Device NASAL CANNULA Blood Gas Liter Flow 2 Date/Time Source Procedure Growth Status 09/18/17 05:20 Blood Peripheral Aerobic Blood Culture Pending Received 09/18/17 05:20 Blood Peripheral Anaerobic Blood Culture Pending Received 09/18/17 10:53 Cerebral Spinal Fluid Lumbar Puncture Gram Stain - Final Resulted 09/18/17 10:53 Cerebral Spinal Fluid Lumbar Puncture CSF Culture Pending Resulted 09/18/17 05:50 Nasal Aspirate Influenza Types A,B Antigen (MARKO) - Final NEGATIVE FOR FLU A AND B ANTIGEN.... Complete Result Diagram: 09/18/17 0515 09/18/17 1421 Imaging Last Impressions Chest X-Ray 09/18/17 0514 Signed Impressions: Service Date/Time: September 05:22 - CONCLUSION: No acute disease. Chad Tristan Jr., MD Lumbar Puncture Fluoroscopy 09/18/17 0000 Signed Impressions: Service Date/Time: September 11:47 - CONCLUSION: Uncomplicated fluoroscopically guided lumbar puncture. Silas Machuca MD Head CT 09/18/17 0000 Signed Impressions: Service Date/Time: September 08:01 - CONCLUSION: 1. Mild periventricular and subcortical white matter small vessel ischemic changes bilaterally. 2. No acute infarct, acute hemorrhage, mass effect or extra axial fluid collections. 3. Air-fluid level within the left maxillary sinus and mucous retention cyst within the right maxillary sinus. Bob Batista MD Brain MRI 09/18/17 0000 Signed Impressions: Service Date/Time: September 16:43 - CONCLUSION: Chronic atrophic and small vessel ischemic changes without any evidence for acute hemorrhage or mass effect, and chronic sinusitis. Aaron Nice MD Assessment and Plan Assessment and Plan Febrile illness with mental status change - prosthetic aortic valve ? POssible aseptic/viral meningtitis Acute L maxial sinusitis cont high dose CFTX start vancomycin add acyclovitr P results of HSV fu blood clx fu CSF clx Discussed Condition With RN spouse @ b/s Modesta Bhagat MD Sep 18, 2017 20:39
[2017-09-18] MEDS: CHLORHEXIDINE GLUCONATE 2 % 1 PACK (2 CLOTHS) TOP SCH (21:34)
[2017-09-18] MEDS: ACYCLOVIR IV SCH (22:00)
[2017-09-18] MEDS: VANCOMYCIN INJ 1,500 MG in SODIUM CHLORID 0.9% 500 ML INJ 500 ML IV SCH (22:00)
[2017-09-18] MEDS: SODIUM CHLORIDE 0.9% IV SCH (22:00)
[2017-09-18 22:29] LABS: BICARBONATE 23.2 MEQ/L (21.0-32.0); CALCIUM 8.4 MG/DL (8.5-10.1); CREATININE 1.74 MG/DL (0.60-1.30)
[2017-09-18 22:30] LABS: PHOSPHORUS 1.9 MG/DL (2.5-4.9)
[2017-09-19] VITALS (12 sets, daily range): BP systolic 144–215; BP diastolic 71–97; PULSE 75–100; RESP 21–25; TEMP 98–102.8; O2SAT 97–100
[2017-09-19] MEDS: SODIUM CHLOR 0.9% 1000 ML INJ 1,000 ML IV SCH ×6 (00:47→21:55)
[2017-09-19 03:55] LABS: AUTOMATED NEUTROPHIL # 17.7 TH/MM3 (1.8-7.7); BASOPHIL # 0.1 TH/MM3 (0-0.2); BASOPHIL % 0.6 % (0.0-2.0); EOSINOPHIL % 0.1 % (0.0-4.0); HEMATOCRIT 42.2 % (39.0-51.0); HEMOGLOBIN 14.4 GM/DL (13.0-17.0); LYMPH % 6.4 % (9.0-44.0); LYMPHOCYTE # 1.3 TH/MM3 (1.0-4.8); MEAN CELL VOLUME 83.7 FL (80.0-100.0); MEAN CORPUSCULAR HEMOGLOBIN 28.5 PG (27.0-34.0); MEAN PLATELET VOLUME 8.7 FL (7.0-11.0); MONO % 4.6 % (0.0-8.0); MONOCYTE # 0.9 TH/MM3 (0-0.9); NEUT % 88.3 % (16.0-70.0); PLATELET COUNT 184 TH/MM3 (150-450); RED BLOOD COUNT 5.04 MIL/MM3 (4.50-5.90); RED CELL DISTRIBUTION WIDTH 14.4 % (11.6-17.2)
[2017-09-19 04:22] LABS: ALBUMIN 3.4 GM/DL (3.4-5.0); ALKALINE PHOSPHATASE 67 U/L (45-117); ALT (GPT) 30 U/L (12-78); AST (GOT) 16 U/L (15-37); BICARBONATE 24.8 MEQ/L (21.0-32.0); BICARBONATE 25.3 MEQ/L (21.0-32.0); BLOOD UREA NITROGEN 29 MG/DL (7-18); CALCIUM 8.4 MG/DL (8.5-10.1); CALCIUM 8.5 MG/DL (8.5-10.1); CHLORIDE 110 MEQ/L (98-107); CREATININE 1.33 MG/DL (0.60-1.30); CREATININE 1.46 MG/DL (0.60-1.30); GLOMERULAR FILTRATION RATE 54 ML/MIN (>89); GLUCOSE,RANDOM 181 MG/DL (74-106); MAGNESIUM 2.1 MG/DL (1.5-2.5); PHOSPHORUS 1.3 MG/DL (2.5-4.9); SODIUM (NA) 144 MEQ/L (136-145); TOTAL BILIRUBIN ADULT 0.4 MG/DL (0.2-1.0); TOTAL PROTEIN 7.5 GM/DL (6.4-8.2)
[2017-09-19] MEDS: DEXT 5%-NACL 0.9% 1000 ML INJ 1,000 ML IV SCH (05:33)
[2017-09-19] MEDS ORDERED: LORazepam 2 MG/ML VIAL IV PUSH ONE (06:00)
[2017-09-19] MEDS: ACYCLOVIR IV SCH (06:00)
[2017-09-19] MEDS: SODIUM CHLORIDE 0.9% IV SCH (06:00)
[2017-09-19] MEDS ORDERED: hydrALAZINE HCL 20 MG/ML VIAL IV PUSH ONE (06:30)
[2017-09-19] MEDS ORDERED: PHENYTOIN INJ 1,000 MG in SODIUM CHLORIDE 0.9% INJ 100 ML IV ONE (09:00)
[2017-09-19] MEDS: DOCUSATE SODIUM 50 MG/SENNA 8.6 MG TAB PO SCH ×2 (09:00→19:57)
[2017-09-19] MEDS: SODIUM CHLORIDE 0.9% FLUSH 10 ML FLUSH IV FLUSH SCH ×2 (10:25→21:55)
[2017-09-19] MEDS: INSULIN DETEMIR 100 UNITS/ML VIAL SQ SCH (10:25)
[2017-09-19 10:32] LABS: HSV 1,PCR Negative (Negative)
--- NOTE | 2017-09-19 11:21 | HHI.PR ---
Subjective Remarks The patient's was at the bedside. The patient was able to wake up and shouting pain and also say phrases but was unable to continue a conversation. Discussed with nursing at the bedside. Objective Vitals Vital Signs Date Time Temp Pulse Resp B/P (MAP) Pulse Ox O2 Delivery O2 Flow Rate FiO2 09/19/17 06:00 82 09/19/17 04:00 99.8 86 25 215/97 (136) 99 09/19/17 04:00 86 09/19/17 02:00 90 09/19/17 00:00 102.8 100 23 154/72 (99) 99 09/19/17 00:00 100 09/18/17 22:00 94 09/18/17 20:00 94 09/18/17 20:00 103.0 94 25 148/72 (97) 100 09/18/17 14:33 102.8 97 18 146/80 (102) 97 I/O 09/18/17 09/18/17 09/18/17 09/19/17 09/19/17 09/19/17 07:00 15:00 23:00 07:00 15:00 23:00 Intake Total 1565 ml 1750 ml Output Total 1100 ml 1375 ml Balance -1100 ml 1565 ml 375 ml Intake IV Total 1565 ml 1750 ml Output Urine Total 1100 ml 1375 ml # Bowel Movements 0 Result Diagram: 09/19/17 0337 09/19/17 0337 Imaging Last Impressions Chest X-Ray 09/18/17 0514 Signed Impressions: Service Date/Time: September 05:22 - CONCLUSION: No acute disease. Chad Tristan Jr., MD Lumbar Puncture Fluoroscopy 09/18/17 0000 Signed Impressions: Service Date/Time: September 11:47 - CONCLUSION: Uncomplicated fluoroscopically guided lumbar puncture. Silas Machuca MD Head CT 09/18/17 0000 Signed Impressions: Service Date/Time: September 08:01 - CONCLUSION: 1. Mild periventricular and subcortical white matter small vessel ischemic changes bilaterally. 2. No acute infarct, acute hemorrhage, mass effect or extra axial fluid collections. 3. Air-fluid level within the left maxillary sinus and mucous retention cyst within the right maxillary sinus. Bob Btaista MD Brain MRI 09/18/17 0000 Signed Impressions: Service Date/Time: September 16:43 - CONCLUSION: Chronic atrophic and small vessel ischemic changes without any evidence for acute hemorrhage or mass effect, and chronic sinusitis. Aarno Nice MD Objective Remarks GENERAL: Uncomfortable when awake. SKIN: Warm and dry. HEAD: Atraumatic. Normocephalic. EYES: Pupils equal and round. No scleral icterus. No injection or drainage. ENT: No nasal bleeding or discharge. Mucous membranes pink and moist. NECK: Trachea midline. No JVD. CARDIOVASCULAR: Tachycardic without obvious murmur. RESPIRATORY: No accessory muscle use. Clear to auscultation. Breath sounds equal bilaterally. GASTROINTESTINAL: Abdomen soft, non-tender, nondistended. Hepatic and splenic margins not palpable. MUSCULOSKELETAL: Extremities without clubbing, cyanosis, or edema. No obvious deformities. NEUROLOGICAL: Awakens with sternal rub and cries out in pain. Lethargic. Moves upper and lower extremities. Medications and IVs Current Medications Medications (Trade) Dose Ordered Sig/Génesis Route Start Time Stop Time Status Last Admin Sodium Chloride 1,000 ml @ 150 mls/hr Q6H40M IV 09/18/17 10:00 09/19/17 10:27 (NS Flush) 2 ml UNSCH PRN IV FLUSH 09/18/17 09:00 (NS Flush) 2 ml BID IV FLUSH 09/18/17 09:00 09/19/17 10:25 (Zofran Inj) 4 mg Q6H PRN IVP 09/18/17 09:00 (Roxicodone) 10 mg Q4H PRN PO 09/18/17 09:00 (Roxicodone) 5 mg Q4H PRN PO 09/18/17 09:00 (Narcan Inj) 0.4 mg UNSCH PRN IV PUSH 09/18/17 09:00 (Rozina-Colace) 1 tab BID PO 09/18/17 09:00 (D50w (Vial) Inj) 50 ml UNSCH PRN IV PUSH 09/18/17 09:45 (Glucagon Inj) 1 mg UNSCH PRN OTHER 09/18/17 09:45 Potassium Chloride 100 ml @ 100 mls/hr Q1H PRN IV 09/18/17 16:30 Potassium Chloride 100 ml @ 50 mls/hr Q2H PRN IV 09/18/17 16:30 Potassium Chloride 100 ml @ 100 mls/hr Q1H PRN IV 09/18/17 16:30 Potassium Chloride 100 ml @ 100 mls/hr Q1H PRN IV 09/18/17 16:30 Potassium Chloride 100 ml @ 50 mls/hr Q2H PRN IV 09/18/17 16:30 Potassium Chloride 100 ml @ 50 mls/hr Q2H PRN IV 09/18/17 16:30 Potassium Chloride 100 ml @ 50 mls/hr Q2H PRN IV 09/18/17 16:30 Potassium Chloride 100 ml @ 50 mls/hr Q2H PRN IV 09/18/17 16:30 (Sodium Bicarbonate 8.4% Inj) 100 meq UNSCH PRN IV PUSH 09/18/17 16:30 (Sodium Bicarbonate 8.4% Inj) 50 meq UNSCH PRN IV PUSH 09/18/17 16:30 Sodium Phosphate 15 mmol/Sodium Chloride 105 ml @ 25 mls/hr UNSCH PRN IV 09/18/17 16:30 Miscellaneous Information 1 Q361D XX 09/18/17 16:30 09/18/17 19:30 (Chlorhexidine 2% Cloth) 3 pack Taper DAILY@04 TOP 09/19/17 04:00 09/15/18 03:59 (Chlorhexidine 2% Cloth) 3 pack UNSCH PRN TOP 09/18/17 16:30 Pharmacy Profile Note 0 ml @ 0 mls/hr UNSCH OTHER 09/18/17 20:45 Acyclovir Sodium 880 mg/Sodium Chloride 150 ml @ 150 mls/hr Q8H IV 09/18/17 22:00 09/19/17 06:00 Vancomycin HCl 1500 mg/Sodium Chloride 515 ml @ 250 mls/hr Q18H IV 09/18/17 22:00 09/18/17 22:00 Miscellaneous Information SPECIFIC LAB TO BE DRAWN:[facility] TROUGH DATE TO BE DRAlanna.. ONCE ONCE .XX 09/20/17 09:45 09/20/17 09:46 Ceftriaxone Sodium 2000 mg/ Sodium Chloride 100 ml @ 200 mls/hr Q12H IV 09/19/17 00:00 09/19/17 00:00 (Levemir Inj) 15 units DAILY SQ 09/19/17 09:00 09/19/17 10:25 (NovoLOG SUPPLEMENTAL SCALE) 1 ACHS SLIDING SCALE SQ 09/19/17 12:00 (Apresoline Inj) 10 mg Q4H PRN IV PUSH 09/19/17 08:45 Acetaminophen 100 ml @ 400 mls/hr Q8H PRN IV 09/19/17 08:45 A/P Assessment and Plan Acute metabolic encephalopathy/ Sepsis The patient was in with altered mental status, fever, leukocytosis, tachycardia and tachypnea. He is currently unresponsive. CT of the head was unremarkable except for left maxillary sinusitis. LP performed by interventional radiology not currently indicative of bacterial etiology. He did recently have a viral infection so aseptic meningitis is a possibility. ID consult appreciated. EEG with slowing, worse in the left hemisphere. MRI of the brain without acute process. - Continue IV ceftriaxone 2 g every 12 hours and IV vancomycin per ID. - Follow LP studies including culture data. - Blood and urine cultures pending. - neurology consult pending. - Neuro checks and seizure precautions. - IV fluids. Keep the patient nothing by mouth. - continue monitoring in the ICU. DKA Glucose was over 500 on admission. He did not have an anion gap. Started on DKA protocol and transferred to ICU. - Continue IV fluids. - D/c insulin gtt. Start insulin sliding scale along with Levemir daily. Adjust as needed. - Hold metformin. - follow BMP. Replete electrolytes as needed. Hematuria Pinto catheter with reddish urine and what appears to be clots. - Repeat UA. - Follow CBC and transfuse as needed. Acute renal injury Likely prerenal. Stable. - IV fluids and follow BMP. - Avoid nephrotoxins. CAD Status post CABG. EKG with sinus tachycardia. The patient is not on medication secondary to lack of insurance. - Telemetry. PPx: Heparin, SCDs Terrance Kern DO Sep 19, 2017 11:21
[2017-09-19] MEDS: cefTRIAXone INJ 2,000 MG in SODIUM CHLORIDE 0.9% INJ 100 ML IV SCH ×4 (12:00→23:37)
[2017-09-19] MEDS: INSULIN ASPART SUPPLEMENTAL SCALE SQ SCH ×3 (12:00→21:55)
[2017-09-19 12:57] LABS: BICARBONATE 23.2 MEQ/L (21.0-32.0); CALCIUM 8.1 MG/DL (8.5-10.1); CREATININE 1.25 MG/DL (0.60-1.30); PHOSPHORUS 2.2 MG/DL (2.5-4.9)
[2017-09-19] MEDS: HEPARIN SODIUM - SQ 10,000 UNITS/ML VIAL SQ SCH ×2 (13:08→21:56)
[2017-09-19] MEDS: VANCOMYCIN INJ 1,500 MG in SODIUM CHLORID 0.9% 500 ML INJ 500 ML IV SCH (15:30)
--- NOTE | 2017-09-19 16:20 | ECHRPT ---
Indication: VEGETATIONS CONCLUSIONS Normal LV systolic function LVH No significant valvulopathies No pericardial effusion No vegeations noted BP: 215 / 97 HR: 86 Rhythm: Sinus MEASUREMENTS (Male / Female) Normal Values Technical Quality:Fair 2D ECHO LV Diastolic Diameter PLAX 3.7 cm 4.2 - 5.9 / 3.9 - 5.3 cm LV Systolic Diameter PLAX 2.6 cm IVS Diastolic Thickness 1.2 cm 0.6 - 1.0 / 0.6 - 0.9 cm LVPW Diastolic Thickness 1.2 cm 0.6 - 1.0 / 0.6 - 0.9 cm LV Relative Wall Thickness 0.6 RV Internal Dim ED PLAX 3.0 cm LVOT Diameter 2.2 cm Aortic Root Diameter 2.9 cm DOPPLER AV Peak Velocity 194.5 cm/s AV Peak Gradient 15.1 mmHg AV Mean Gradient 8.5 mmHg AV Velocity Time Integral 35.0 cm LVOT Peak Velocity 118.0 cm/s LVOT Peak Gradient 5.6 mmHg LVOT Velocity Time Integral 24.7 cm LVOT Cardiac Index 3649.0 cm/minm AV Area Cont Eq vti 2.7 cm AV Area Cont Eq pk 2.3 cm Mitral E Point Velocity 107.0 cm/s Mitral A Point Velocity 96.3 cm/s Mitral E to A Ratio 1.1 LV E' Lateral Velocity 14.1 cm/s Mitral E to LV E' Lateral Ratio 7.6 LV E' Septal Velocity 4.8 cm/s Mitral E to LV E' Septal Ratio 22.4 PV Peak Velocity 85.7 cm/s PV Peak Gradient 2.9 mmHg FINDINGS LEFT VENTRICLE Normal left ventricular size. Mild concentric left ventricular hypertrophy. The left ventricular systolic function is normal with an estimated ejection fraction in the range of 55-60%. RIGHT VENTRICLE Normal right ventricular size and systolic function. LEFT ATRIUM The left atrial size is normal. RIGHT ATRIUM The right atrial size is normal. ATRIAL SEPTUM Normal atrial septal thickness without atrial level shunting by limited color doppler interrogation. AORTA The aortic root and proximal ascending aorta are normal in size on limited imaging. MITRAL VALVE No mitral valve regurgitation. AORTIC VALVE Trileaflet aortic valve. No aortic valve stenosis or regurgitation. TRICUSPID VALVE There is trace tricuspid valve regurgitation. PULMONARY VALVE The pulmonary valve is not well visualized. VESSELS The inferior vena cava is normal in size. PERICARDIUM No pericardial effusion. Arie Leiva MD (Electronically Signed) Final Date:19 September 2017 16:18
[2017-09-19] MEDS ORDERED: PHENYTOIN INJ 100 MG/2 ML VIAL IVS SCH (17:00)
[2017-09-19] MEDS: hydrALAZINE HCL 20 MG/ML VIAL IV PUSH PRN (17:33)
--- NOTE | 2017-09-19 17:40 | HHI.IDPN ---
Subjective Subjective Remarks clinically better with improved MS (though still confused, but now talks and follows commands) and much less februile (down to low grade temps) Blood and CSF clx are negative to date HSV 1/2 in CSF negative Antibiotics vanco CFTX high dose Allergies: Coded Allergies: bee venom protein (honey bee) (Unverified Allergy, Severe, Anaphylaxis, ) Objective . Vital Signs Date Time Temp Pulse Resp B/P (MAP) Pulse Ox O2 Delivery O2 Flow Rate FiO2 09/19/17 16:00 98.3 77 25 182/85 (117) 97 09/19/17 16:00 77 09/19/17 14:00 83 09/19/17 12:00 98.6 79 23 153/77 (102) 99 09/19/17 12:00 83 09/19/17 10:00 83 09/19/17 08:00 99.0 77 21 170/79 (109) 100 09/19/17 08:00 100 2.00 09/19/17 08:00 83 09/19/17 06:00 82 09/19/17 04:00 99.8 86 25 215/97 (136) 99 09/19/17 04:00 86 09/19/17 02:00 90 09/19/17 00:00 102.8 100 23 154/72 (99) 99 09/19/17 00:00 100 09/18/17 22:00 94 09/18/17 20:00 94 09/18/17 20:00 103.0 94 25 148/72 (97) 100 . Laboratory Tests Test 09/18/17 05:15 09/19/17 03:37 White Blood Count 15.5 TH/MM3 20.0 TH/MM3 Red Blood Count 4.90 MIL/MM3 5.04 MIL/MM3 Hemoglobin 14.5 GM/DL 14.4 GM/DL Hematocrit 41.8 % 42.2 % Mean Corpuscular Volume 85.2 FL 83.7 FL Mean Corpuscular Hemoglobin 29.6 PG 28.5 PG Mean Corpuscular Hemoglobin Concent 34.7 % 34.0 % Red Cell Distribution Width 13.9 % 14.4 % Platelet Count 199 TH/MM3 184 TH/MM3 Mean Platelet Volume 9.2 FL 8.7 FL Neutrophils (%) (Auto) 93.0 % 88.3 % Lymphocytes (%) (Auto) 4.9 % 6.4 % Monocytes (%) (Auto) 1.8 % 4.6 % Eosinophils (%) (Auto) 0.1 % 0.1 % Basophils (%) (Auto) 0.2 % 0.6 % Neutrophils # (Auto) 14.4 TH/MM3 17.7 TH/MM3 Lymphocytes # (Auto) 0.8 TH/MM3 1.3 TH/MM3 Monocytes # (Auto) 0.3 TH/MM3 0.9 TH/MM3 Eosinophils # (Auto) 0.0 TH/MM3 0.0 TH/MM3 Basophils # (Auto) 0.0 TH/MM3 0.1 TH/MM3 CBC Comment DIFF FINAL DIFF FINAL Differential Comment Laboratory Tests Test 09/18/17 05:15 09/18/17 05:20 09/18/17 14:21 09/18/17 21:30 Hemoglobin A1c 13.8 % Blood Urea Nitrogen 25 MG/DL 30 MG/DL 32 MG/DL Creatinine 1.36 MG/DL 1.45 MG/DL 1.74 MG/DL Random Glucose 507 MG/DL 398 MG/DL 324 MG/DL Total Protein 7.7 GM/DL 7.5 GM/DL Albumin 3.6 GM/DL 3.4 GM/DL Calcium Level 8.8 MG/DL 8.5 MG/DL 8.4 MG/DL Alkaline Phosphatase 101 U/L 80 U/L Aspartate Amino Transf (AST/SGOT) 17 U/L 17 U/L Alanine Aminotransferase (ALT/SGPT) 37 U/L 31 U/L Total Bilirubin 0.7 MG/DL 0.6 MG/DL Sodium Level 134 MEQ/L 139 MEQ/L 140 MEQ/L Potassium Level 4.9 MEQ/L 4.7 MEQ/L 4.0 MEQ/L Chloride Level 97 MEQ/L 105 MEQ/L 106 MEQ/L Carbon Dioxide Level 23.9 MEQ/L 20.5 MEQ/L 23.2 MEQ/L Anion Gap 13 MEQ/L 14 MEQ/L 11 MEQ/L Estimat Glomerular Filtration Rate 53 ML/MIN 49 ML/MIN 40 ML/MIN Lactic Acid Level 3.3 mmol/L 1.7 mmol/L Troponin I 0.02 NG/ML Phosphorus Level 1.9 MG/DL Magnesium Level 2.0 MG/DL Vitamin B12 Level 976 PG/ML Thyroid Stimulating Hormone 3rd Gen 0.964 uIU/ML Test 09/19/17 03:37 09/19/17 11:46 Blood Urea Nitrogen 29 MG/DL 29 MG/DL Creatinine 1.33 MG/DL 1.25 MG/DL Random Glucose 181 MG/DL 274 MG/DL Total Protein 7.5 GM/DL Albumin 3.4 GM/DL Calcium Level 8.4 MG/DL 8.1 MG/DL Phosphorus Level 1.3 MG/DL 2.2 MG/DL Magnesium Level 2.0 MG/DL 2.0 MG/DL Alkaline Phosphatase 67 U/L Aspartate Amino Transf (AST/SGOT) 16 U/L Alanine Aminotransferase (ALT/SGPT) 30 U/L Total Bilirubin 0.4 MG/DL Sodium Level 144 MEQ/L 145 MEQ/L Potassium Level 3.6 MEQ/L 3.7 MEQ/L Chloride Level 110 MEQ/L 112 MEQ/L Carbon Dioxide Level 25.3 MEQ/L 23.2 MEQ/L Anion Gap 9 MEQ/L 10 MEQ/L Estimat Glomerular Filtration Rate 54 ML/MIN 58 ML/MIN Microbiology Date/Time Source Procedure Growth Status 09/18/17 05:20 Blood Peripheral Aerobic Blood Culture - Preliminary NO GROWTH IN 1 DAY Resulted 09/18/17 05:20 Blood Peripheral Anaerobic Blood Culture - Preliminary NO GROWTH IN 1 DAY Resulted 09/18/17 05:15 Blood Peripheral Aerobic Blood Culture - Preliminary NO GROWTH IN 1 DAY Resulted 09/18/17 05:15 Blood Peripheral Anaerobic Blood Culture - Preliminary NO GROWTH IN 1 DAY Resulted 09/18/17 10:53 Cerebral Spinal Fluid Lumbar Puncture Gram Stain - Final Resulted 09/18/17 10:53 Cerebral Spinal Fluid Lumbar Puncture CSF Culture - Preliminary NO GROWTH IN 24 HOURS. Resulted 09/18/17 05:50 Nasal Aspirate Influenza Types A,B Antigen (MARKO) - Final NEGATIVE FOR FLU A AND B ANTIGEN.... Complete 09/18/17 05:50 Urine Clean Catch Legionella Antigen - Final PRESUMPTIVE NEGATIVE FOR LEGIONELLA P... Complete 09/18/17 05:50 Urine Clean Catch Streptococcus pneumoniae Antigen (M - Final PRESUMPTIVE NEGATIVE FOR STREPTOCOCCU... Complete Imaging Last Impressions Chest X-Ray 09/18/17 0514 Signed Impressions: Service Date/Time: September 05:22 - CONCLUSION: No acute disease. Chad Tristan Jr., MD Lumbar Puncture Fluoroscopy 09/18/17 0000 Signed Impressions: Service Date/Time: September 11:47 - CONCLUSION: Uncomplicated fluoroscopically guided lumbar puncture. Silas Machuca MD Head CT 09/18/17 0000 Signed Impressions: Service Date/Time: September 08:01 - CONCLUSION: 1. Mild periventricular and subcortical white matter small vessel ischemic changes bilaterally. 2. No acute infarct, acute hemorrhage, mass effect or extra axial fluid collections. 3. Air-fluid level within the left maxillary sinus and mucous retention cyst within the right maxillary sinus. Bob Batista MD Brain MRI 09/18/17 0000 Signed Impressions: Service Date/Time: September 16:43 - CONCLUSION: Chronic atrophic and small vessel ischemic changes without any evidence for acute hemorrhage or mass effect, and chronic sinusitis. Aaron Nice MD Physical Exam CONSTITUTIONAL/GENERAL: This is an adequately nourished patient, in no apparent distress. TUBES/LINES/DRAINS: SKIN: No jaundice, rashes, or lesions. Skin temperature appropriate. Not diaphoretic. No Janeway lesions, no splinter hemorages HEAD: Atraumatic. Normocephalic. EYES: Pupils equal and round and reactive. Extraocular motions intact. No scleral icterus. No injection or drainage. Fundi not examined. ENT: Hearing not tested. Nose without bleeding or purulent drainage. Throat without visible erythema, exudates, masses, or lesions. NECK: Trachea midline. ? neck rigidity present , nontender. CARDIOVASCULAR: Regular rate and rhythm without murmurs, gallops, or rubs. No JVD. Peripheral pulses symmetric. RESPIRATORY/CHEST: Symmetric, unlabored respirations. Clear to auscultation. Breath sounds equal bilaterally. No wheezes, rales, or rhonchi. GASTROINTESTINAL: Abdomen soft, non-tender, nondistended. No hepato-splenomegaly , or palpable masses. No guarding. Bowel sounds present. GENITOURINARY: Without palpable bladder distension. Pnito catheter in place with clear yellow urine MUSCULOSKELETAL: Extremities without clubbing, cyanosis, or edema. No joint tenderness or effusion noted. No calf tenderness. No mottling or clubbing. NEUROLOGICAL: Lethargic, easily arousabnle Eyes opened. + f ollows commands. + verbal response, incoherent, confused. Moves all extremities. PSYCHIATRIC: calm Assessment & Plan Remarks Febrile illness with mental status change - prosthetic aortic valve 2 D echo negative ? POssible aseptic/viral meningtitis HSV negative Acute L maxial sinusitis cont high dose CFTX cont vancomycin dc acyclovitr fu blood clx untill final fu CSF clx further abx rec's per clx results Modesta Bhagat MD Sep 19, 2017 17:40
[2017-09-19] MEDS ORDERED: POTASSIUM PHOSPHATE INJ 15 MMOL in SODIUM CHLORIDE 0.9% INJ 150 ML IV ONE (18:00)
[2017-09-19] MEDS: LORazepam 2 MG/ML VIAL IV PUSH PRN (18:23)
--- NOTE | 2017-09-19 19:35 | MB ---
cc: RAFIQ COTA M.D. DATE OF CONSULTATION: 09/19/2017. REASON FOR CONSULTATION: Mental status change. HISTORY OF PRESENT ILLNESS: The patient is a 62-year-old man who presents with a two to three day history of mental status decline with decreasing mental status and more confusion. He had flu symptoms a couple weeks ago but improved and then over the past coupe of days became progressively more lethargic and was running fevers and hypertensive. PAST MEDICAL HISTORY: 1. 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 2. CABG x3. 3. Diabetes type 2. ALLERGIES: BEE VENOM. CURRENT MEDICATIONS: 1. Potassium. 2. Subcutaneous heparin 5000 units q. 8 hours. 3. Insulin. 4. Apresoline as needed. 5. Tylenol as needed. 6. Ceftriaxone 2000 milligrams IV q. 12 hours. 7. Vancomycin. 8. Acyclovir. NEUROLOGICAL EXAMINATION: VITAL SIGNS: His blood pressure is 170/79, pulse 77, respiratory rate is 21, temperature is 99 degrees. HIGHER CORTICAL FUNCTIONS: He is alert, disoriented, he follows only simple commands. He is very confused. Very agitated. CRANIAL NERVES: Intact. NECK: The neck is supple. MOTOR EXAM: No focal deficits. He does have swelling of the right hand with pain. REFLEXES: Symmetric. IMAGING STUDIES: Brain MRI shows chronic atrophy. No acute change present. No stroke. CT brain shows mild periventricular small vessel ischemic change. No acute change. LABORATORY DATA: The white count is 20,000, hemoglobin 14.4, hematocrit 42%, platelets 184,000. Sodium is 145, potassium 3.7, chloride 112, CO2 23, the BUN is 29, creatinine 1.25, GFR is 58, glucose 274. TSH 0.96. B12 976. PT of 10.7, INR 1.1, APTT 21. CSF analysis: 13 WBCs are identified, 3 RBCs, glucose 232, protein 70.8. Differential of the WBC count was 77% neutrophils, 19% lymphocytes, 4% monocytes. Herpes simplex PCR is negative. RPR nonreactive. IMPRESSION: Probable aseptic meningitis. RECOMMENDATIONS: 1. Continue antibiotics until cultures come back negative. 2. Will obtain an EEG as well. 3. Herpes negative; therefore, no sign of herpes encephalitis. MD OBDULIA Conde/RENATO /5:43 PM /7:05 PM
[2017-09-19] MEDS: ONDANSETRON HCL 4 MG/2 ML VIAL IVP PRN (21:55)
[2017-09-19] MEDS: ACETAMINOPHEN 1000 MG/100 ML 100 ML IV PRN (21:56)
--- NOTE | 2017-09-19 23:16 | EKG ---
Date Performed: 09/18/2017 Time Performed: 05:08:24 PTAGE: 62 years EKG: Sinus rhythm POSSIBLE LEFT ATRIAL ENLARGEMENT INFERIOR MYOCARDIAL INFARCTION ABNORMAL ECG PREVIOUS TRACING : 04/01/2016 21.54 DOCTOR: Tavon Wynne Interpretating Date/Time 09/19/2017 23:15:45
[2017-09-20] VITALS (12 sets, daily range): BP systolic 133–181; BP diastolic 69–86; PULSE 65–75; RESP 15–27; TEMP 97.2–98.8; O2SAT 96–100
[2017-09-20] MEDS: LORazepam 2 MG/ML VIAL IV PUSH PRN ×3 (02:12→19:56)
[2017-09-20] MEDS: CHLORHEXIDINE GLUCONATE 2 % 1 PACK (2 CLOTHS) TOP SCH (04:00)
[2017-09-20] MEDS: hydrALAZINE HCL 20 MG/ML VIAL IV PUSH PRN (04:04)
[2017-09-20] MEDS: ONDANSETRON HCL 4 MG/2 ML VIAL IVP PRN (04:05)
[2017-09-20] MEDS: SODIUM CHLOR 0.9% 1000 ML INJ 1,000 ML IV SCH ×2 (05:01→10:59)
[2017-09-20] MEDS: HEPARIN SODIUM - SQ 10,000 UNITS/ML VIAL SQ SCH ×3 (05:02→22:00)
[2017-09-20 06:31] LABS: HEMATOCRIT 40.1 % (39.0-51.0); HEMOGLOBIN 13.8 GM/DL (13.0-17.0); MEAN CELL VOLUME 84.3 FL (80.0-100.0); MEAN CORPUSCULAR HGB CONC 34.3 % (32.0-36.0); MEAN PLATELET VOLUME 9.2 FL (7.0-11.0); PLATELET COUNT 131 TH/MM3 (150-450); RED BLOOD COUNT 4.76 MIL/MM3 (4.50-5.90); RED CELL DISTRIBUTION WIDTH 14.7 % (11.6-17.2); WHITE BLOOD COUNT 12.3 TH/MM3 (4.0-11.0)
[2017-09-20 07:16] LABS: BICARBONATE 23.3 MEQ/L (21.0-32.0); CALCIUM 7.9 MG/DL (8.5-10.1); CREATININE 0.96 MG/DL (0.60-1.30); MAGNESIUM 2.1 MG/DL (1.5-2.5)
[2017-09-20] MEDS: INSULIN ASPART SUPPLEMENTAL SCALE SQ SCH ×4 (08:00→20:18)
[2017-09-20] MEDS: DOCUSATE SODIUM 50 MG/SENNA 8.6 MG TAB PO SCH ×2 (09:00→19:56)
[2017-09-20] MEDS: INSULIN DETEMIR 100 UNITS/ML VIAL SQ SCH (09:00)
[2017-09-20] MEDS: SODIUM CHLORIDE 0.9% FLUSH 10 ML FLUSH IV FLUSH SCH ×2 (09:00→19:57)
[2017-09-20] MEDS ORDERED: PHARMACY ORDERED LAB ONE (09:45)
[2017-09-20] MEDS: VANCOMYCIN INJ 1,500 MG in SODIUM CHLORID 0.9% 500 ML INJ 500 ML IV SCH (10:59)
[2017-09-20] MEDS: cefTRIAXone INJ 2,000 MG in SODIUM CHLORIDE 0.9% INJ 100 ML IV SCH ×2 (11:00→23:36)
[2017-09-20] MEDS: SODIUM CHLOR 0.45% 1000 ML INJ 1,000 ML IV SCH ×2 (12:00→21:58)
--- NOTE | 2017-09-20 12:50 | HHI.PR ---
Subjective Remarks The patient was awake and alert. He was confused about what happened. He denied any pain. Discussed with his and nursing at the bedside. Objective Vitals Vital Signs Date Time Temp Pulse Resp B/P (MAP) Pulse Ox O2 Delivery O2 Flow Rate FiO2 09/20/17 07:00 96 Room Air 09/20/17 06:00 75 09/20/17 04:00 97.2 67 24 181/86 (117) 96 09/20/17 04:00 67 09/20/17 02:00 70 09/20/17 00:00 98.8 65 17 133/69 (90) 100 09/20/17 00:00 65 09/19/17 22:00 75 09/19/17 20:00 80 09/19/17 20:00 98.0 80 24 144/71 (95) 98 09/19/17 19:00 99 Nasal Cannula 2.00 09/19/17 18:00 85 09/19/17 16:00 98.3 77 25 182/85 (117) 97 09/19/17 16:00 77 09/19/17 14:00 83 I/O 09/19/17 09/19/17 09/19/17 09/20/17 09/20/17 09/20/17 06:59 14:59 22:59 06:59 14:59 22:59 Intake Total 1750 ml 1100 ml 350 ml 750 ml Output Total 1375 ml 675 ml 325 ml Balance 375 ml 425 ml 25 ml 750 ml Intake IV Total 1750 ml 1100 ml 350 ml 750 ml Output Urine Total 1375 ml 675 ml 325 ml # Bowel Movements 0 Result Diagram: 09/20/17 0600 09/20/17 0600 Imaging Last Impressions Chest X-Ray 09/18/17 0514 Signed Impressions: Service Date/Time: September 05:22 - CONCLUSION: No acute disease. Chad Tristan Jr., MD Lumbar Puncture Fluoroscopy 09/18/17 0000 Signed Impressions: Service Date/Time: September 11:47 - CONCLUSION: Uncomplicated fluoroscopically guided lumbar puncture. Silas Machuca MD Head CT 09/18/17 0000 Signed Impressions: Service Date/Time: September 08:01 - CONCLUSION: 1. Mild periventricular and subcortical white matter small vessel ischemic changes bilaterally. 2. No acute infarct, acute hemorrhage, mass effect or extra axial fluid collections. 3. Air-fluid level within the left maxillary sinus and mucous retention cyst within the right maxillary sinus. Bob Batista MD Brain MRI 09/18/17 0000 Signed Impressions: Service Date/Time: September 16:43 - CONCLUSION: Chronic atrophic and small vessel ischemic changes without any evidence for acute hemorrhage or mass effect, and chronic sinusitis. K. Abdoul Nice MD Objective Remarks GENERAL: Resting comfortably. SKIN: Warm and dry. HEAD: Atraumatic. Normocephalic. EYES: Pupils equal and round. No scleral icterus. No injection or drainage. ENT: No nasal bleeding or discharge. Mucous membranes pink and moist. NECK: Trachea midline. No JVD. CARDIOVASCULAR: Regular rate and rhythm without obvious murmur. RESPIRATORY: No accessory muscle use. Clear to auscultation. Breath sounds equal bilaterally. GASTROINTESTINAL: Abdomen soft, non-tender, nondistended. Hepatic and splenic margins not palpable. MUSCULOSKELETAL: Extremities without clubbing, cyanosis, or edema. No obvious deformities. NEUROLOGICAL: Awake and alert but confused. Moves upper and lower extremities spontaneously. Medications and IVs Current Medications Medications (Trade) Dose Ordered Sig/Génesis Route Start Time Stop Time Status Last Admin (NS Flush) 2 ml UNSCH PRN IV FLUSH 09/18/17 09:00 (NS Flush) 2 ml BID IV FLUSH 09/18/17 09:00 09/20/17 09:00 (Zofran Inj) 4 mg Q6H PRN IVP 09/18/17 09:00 09/20/17 04:05 (Roxicodone) 10 mg Q4H PRN PO 09/18/17 09:00 (Roxicodone) 5 mg Q4H PRN PO 09/18/17 09:00 (Narcan Inj) 0.4 mg UNSCH PRN IV PUSH 09/18/17 09:00 (Rozina-Colace) 1 tab BID PO 09/18/17 09:00 (D50w (Vial) Inj) 50 ml UNSCH PRN IV PUSH 09/18/17 09:45 (Glucagon Inj) 1 mg UNSCH PRN OTHER 09/18/17 09:45 Potassium Chloride 100 ml @ 100 mls/hr Q1H PRN IV 09/18/17 16:30 Potassium Chloride 100 ml @ 50 mls/hr Q2H PRN IV 09/18/17 16:30 Potassium Chloride 100 ml @ 100 mls/hr Q1H PRN IV 09/18/17 16:30 Potassium Chloride 100 ml @ 100 mls/hr Q1H PRN IV 09/18/17 16:30 Potassium Chloride 100 ml @ 50 mls/hr Q2H PRN IV 09/18/17 16:30 Potassium Chloride 100 ml @ 50 mls/hr Q2H PRN IV 09/18/17 16:30 Potassium Chloride 100 ml @ 50 mls/hr Q2H PRN IV 09/18/17 16:30 Potassium Chloride 100 ml @ 50 mls/hr Q2H PRN IV 09/18/17 16:30 (Sodium Bicarbonate 8.4% Inj) 100 meq UNSCH PRN IV PUSH 09/18/17 16:30 (Sodium Bicarbonate 8.4% Inj) 50 meq UNSCH PRN IV PUSH 09/18/17 16:30 Sodium Phosphate 15 mmol/Sodium Chloride 105 ml @ 25 mls/hr UNSCH PRN IV 09/18/17 16:30 Miscellaneous Information 1 Q361D XX 09/18/17 16:30 09/18/17 19:30 (Chlorhexidine 2% Cloth) 3 pack Taper DAILY@04 TOP 09/19/17 04:00 09/15/18 03:59 (Chlorhexidine 2% Cloth) 3 pack UNSCH PRN TOP 09/18/17 16:30 Pharmacy Profile Note 0 ml @ 0 mls/hr UNSCH OTHER 09/18/17 20:45 Vancomycin HCl 1500 mg/Sodium Chloride 515 ml @ 250 mls/hr Q18H IV 09/18/17 22:00 09/20/17 10:59 Ceftriaxone Sodium 2000 mg/ Sodium Chloride 100 ml @ 200 mls/hr Q12H IV 09/19/17 00:00 09/20/17 11:00 (Levemir Inj) 15 units DAILY SQ 09/19/17 09:00 09/19/17 10:25 (NovoLOG SUPPLEMENTAL SCALE) 1 ACHS SLIDING SCALE SQ 09/19/17 12:00 09/20/17 08:00 (Apresoline Inj) 10 mg Q4H PRN IV PUSH 09/19/17 08:45 1/6/18 04:04 Acetaminophen 100 ml @ 400 mls/hr Q8H PRN IV 09/19/17 08:45 09/19/17 21:56 (Heparin Inj) 5,000 units Q8HR SQ 09/19/17 14:00 09/20/17 05:02 (Ativan Inj) 1 mg Q6H PRN IV PUSH 09/19/17 18:00 09/20/17 09:27 Sodium Chloride 1,000 ml @ 100 mls/hr Q10H IV 09/20/17 12:00 09/21/17 07:59 09/20/17 12:00 A/P Assessment and Plan Acute metabolic encephalopathy/ sepsis/ aseptic meningitis The patient was in with altered mental status, fever, leukocytosis, tachycardia and tachypnea. He is currently unresponsive. CT of the head was unremarkable except for left maxillary sinusitis. LP performed by interventional radiology not currently indicative of bacterial etiology. He did recently have a viral infection so aseptic meningitis is a possibility. ID consult appreciated. EEG with slowing, worse in the left hemisphere. MRI of the brain without acute process. Neurology consultation appreciated. - Continue IV ceftriaxone 2 g every 12 hours and IV vancomycin per ID. - Follow LP studies including culture data. - Blood and urine cultures pending. No growth to date. - neurology following. - Neuro checks and seizure precautions. - IV fluids. - Advance diet per speech therapy. Add cognitive evaluation. - PT/ OT requested. DKA Glucose was over 500 on admission. He did not have an anion gap. Started on DKA protocol and transferred to ICU. - Continue IV fluids. - D/c insulin gtt. Start insulin sliding scale along with Levemir daily. Adjust as needed. - Hold metformin. - follow BMP. Replete electrolytes as needed. Hematuria Pinto catheter with reddish urine and what appears to be clots. - Repeat UA. - Follow CBC and transfuse as needed. Acute renal injury Likely prerenal. Resolved with fluids. - IV fluids and follow BMP. - Avoid nephrotoxins. CAD Status post CABG. EKG with sinus tachycardia. The patient is not on medication secondary to lack of insurance. - Telemetry. Hypernatremia Secondary to normal saline and decreased by mouth intake. - Change fluids to half-normal saline and monitor BMP. Start D5W if no improvement. Hypertension May be a stress reaction. - Clonidine as needed. - start PO antihypertensive if sustained. PPx: Heparin, SCDs Discharge Planning Transfer to the floor Terrance Kern DO Sep 20, 2017 12:50
[2017-09-20 13:57] LABS: BACTERIA, URINE MANY /hpf; BILIRUBIN, URINE NEG (NEG); BLOOD, URINE LARGE (NEG); GLUCOSE,URINE 1000 mg/dL (NEG); KETONE, URINE 40 mg/dL (NEG); MUCUS URINE MANY /lpf (OCC); NITRITE,URINE NEG (NEG); PH, URINE 5.5 (5.0-8.5); URINE COLOR RED (YELLW/STRAW); URINE LEUKOCYTE ESTERASE SMALL (NEG)
[2017-09-20] MEDS: cloNIDine HCL 0.1 MG TAB PO PRN (14:32)
--- NOTE | 2017-09-20 15:11 | HHI.PR ---
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 Diagnosis/Plan: Subjective Subjective Comments No acute events reported Active Medications Current Medications Medications (Trade) Dose Ordered Sig/Génesis Route Start Time Stop Time Status Last Admin (NS Flush) 2 ml UNSCH PRN IV FLUSH 09/18/17 09:00 (NS Flush) 2 ml BID IV FLUSH 09/18/17 09:00 09/20/17 09:00 (Zofran Inj) 4 mg Q6H PRN IVP 09/18/17 09:00 09/20/17 04:05 (Roxicodone) 10 mg Q4H PRN PO 09/18/17 09:00 (Roxicodone) 5 mg Q4H PRN PO 09/18/17 09:00 (Narcan Inj) 0.4 mg UNSCH PRN IV PUSH 09/18/17 09:00 (Rozina-Colace) 1 tab BID PO 09/18/17 09:00 (D50w (Vial) Inj) 50 ml UNSCH PRN IV PUSH 09/18/17 09:45 (Glucagon Inj) 1 mg UNSCH PRN OTHER 09/18/17 09:45 Potassium Chloride 100 ml @ 100 mls/hr Q1H PRN IV 09/18/17 16:30 Potassium Chloride 100 ml @ 50 mls/hr Q2H PRN IV 09/18/17 16:30 Potassium Chloride 100 ml @ 100 mls/hr Q1H PRN IV 09/18/17 16:30 Potassium Chloride 100 ml @ 100 mls/hr Q1H PRN IV 09/18/17 16:30 Potassium Chloride 100 ml @ 50 mls/hr Q2H PRN IV 09/18/17 16:30 Potassium Chloride 100 ml @ 50 mls/hr Q2H PRN IV 09/18/17 16:30 Potassium Chloride 100 ml @ 50 mls/hr Q2H PRN IV 09/18/17 16:30 Potassium Chloride 100 ml @ 50 mls/hr Q2H PRN IV 09/18/17 16:30 (Sodium Bicarbonate 8.4% Inj) 100 meq UNSCH PRN IV PUSH 09/18/17 16:30 (Sodium Bicarbonate 8.4% Inj) 50 meq UNSCH PRN IV PUSH 09/18/17 16:30 Sodium Phosphate 15 mmol/Sodium Chloride 105 ml @ 25 mls/hr UNSCH PRN IV 09/18/17 16:30 Miscellaneous Information 1 Q361D XX 09/18/17 16:30 09/18/17 19:30 (Chlorhexidine 2% Cloth) 3 pack Taper DAILY@04 TOP 09/19/17 04:00 09/15/18 03:59 (Chlorhexidine 2% Cloth) 3 pack UNSCH PRN TOP 09/18/17 16:30 Pharmacy Profile Note 0 ml @ 0 mls/hr UNSCH OTHER 09/18/17 20:45 Vancomycin HCl 1500 mg/Sodium Chloride 515 ml @ 250 mls/hr Q18H IV 09/18/17 22:00 09/20/17 10:59 Ceftriaxone Sodium 2000 mg/ Sodium Chloride 100 ml @ 200 mls/hr Q12H IV 09/19/17 00:00 09/20/17 11:00 (Levemir Inj) 15 units DAILY SQ 09/19/17 09:00 09/19/17 10:25 (NovoLOG SUPPLEMENTAL SCALE) 1 ACHS SLIDING SCALE SQ 09/19/17 12:00 09/20/17 08:00 Acetaminophen 100 ml @ 400 mls/hr Q8H PRN IV 09/19/17 08:45 09/19/17 21:56 (Heparin Inj) 5,000 units Q8HR SQ 09/19/17 14:00 09/20/17 14:32 (Ativan Inj) 1 mg Q6H PRN IV PUSH 09/19/17 18:00 09/20/17 09:27 Sodium Chloride 1,000 ml @ 100 mls/hr Q10H IV 09/20/17 12:00 09/21/17 07:59 09/20/17 12:00 (Catapres) 0.1 mg Q6H PRN PO 09/20/17 13:00 09/20/17 14:32 Allergies Allergies Coded Allergies bee venom protein (honey bee) (Unverified Allergy, Severe, Anaphylaxis, ) Exam I&O / VS 09/20/17 09/20/17 09/21/17 15:00 23:00 07:00 Intake Total 750 ml Balance 750 ml Intake IV Total 750 ml Vital Signs Date Time Temp Pulse Resp B/P (MAP) Pulse Ox O2 Delivery O2 Flow Rate FiO2 09/20/17 08:00 72 09/20/17 08:00 97.9 72 27 168/77 (107) 98 09/20/17 07:00 96 Room Air 09/20/17 06:00 75 09/20/17 04:00 97.2 67 24 181/86 (117) 96 09/20/17 04:00 67 09/20/17 02:00 70 09/20/17 00:00 98.8 65 17 133/69 (90) 100 09/20/17 00:00 65 09/19/17 22:00 75 09/19/17 20:00 80 09/19/17 20:00 98.0 80 24 144/71 (95) 98 09/19/17 19:00 99 Nasal Cannula 2.00 09/19/17 18:00 85 09/19/17 16:00 98.3 77 25 182/85 (117) 97 09/19/17 16:00 77 Exam Comments more alert, disoriented to place and date Cn intact Motor 5/5 BUE and BLE Objective Micro and Labs Laboratory Tests Test 09/20/17 06:00 09/20/17 10:06 09/20/17 13:37 White Blood Count 12.3 Red Blood Count 4.76 Hemoglobin 13.8 Hematocrit 40.1 Mean Corpuscular Volume 84.3 Mean Corpuscular Hemoglobin 29.0 Mean Corpuscular Hemoglobin Concent 34.3 Red Cell Distribution Width 14.7 Platelet Count 131 Mean Platelet Volume 9.2 Blood Urea Nitrogen 29 Creatinine 0.96 Random Glucose 204 Calcium Level 7.9 Magnesium Level 2.1 Sodium Level 149 Potassium Level 4.0 Chloride Level 116 Carbon Dioxide Level 23.3 Anion Gap 10 Estimat Glomerular Filtration Rate 79 Phosphorus Level 2.6 Vancomycin Level Trough 9.8 Urine Color RED Urine Turbidity CLOUDY Urine pH 5.5 Urine Specific [place] 1.024 Urine Protein 100 Urine Glucose (UA) 1000 Urine Ketones 40 Urine Occult Blood LARGE Urine Nitrite NEG Urine Bilirubin NEG Urine Urobilinogen LESS THAN 2.0 Urine Leukocyte Esterase SMALL Urine RBC Urine WBC 46 Urine Bacteria MANY Urine Mucus MANY Urine Yeast (Budding) MANY Microscopic Urinalysis Comment CATH-CULTURE IND Date/Time Source Procedure Growth Status 09/18/17 05:20 Blood Peripheral Aerobic Blood Culture - Preliminary NO GROWTH IN 2 DAYS Resulted 09/18/17 05:20 Blood Peripheral Anaerobic Blood Culture - Preliminary NO GROWTH IN 2 DAYS Resulted 09/18/17 10:53 Cerebral Spinal Fluid Lumbar Puncture Gram Stain - Final Resulted 09/18/17 10:53 Cerebral Spinal Fluid Lumbar Puncture CSF Culture - Preliminary NO GROWTH IN 48 HOURS. Resulted 09/18/17 05:50 Nasal Aspirate Influenza Types A,B Antigen (MARKO) - Final NEGATIVE FOR FLU A AND B ANTIGEN.... Complete 09/20/17 13:37 Urine Catheterized Urine Urine Culture Pending Received Néstor Covarrubias MD PhD Sep 20, 2017 15:11
--- NOTE | 2017-09-20 16:08 | MG ---
cc: RAFIQ COTA M.D. Lab No: [id number] Date: 09/20/2017 Age: Sex: M Race: TECHNIQUE: This is a 17 channel EEG. DESCRIPTION: Background rhythm reveals symmetrical alpha rhythm. Frequency 8 to 9 Hz. There is slowing as well in the tracing in the theta range. There are no lateralizing features. There are no epileptiform features present. There is some muscle artifact present. Photic results in a fairly well-developed driving response. INTERPRETATION: Overall normal EEG. MD OBDULIA Conde/RENATO /3:45 PM /3:52 PM
[2017-09-20 18:41] LABS: BICARBONATE 24.2 MEQ/L (21.0-32.0); CALCIUM 7.5 MG/DL (8.5-10.1); CREATININE 0.89 MG/DL (0.60-1.30)
[2017-09-20 23:07] LABS: ENTEROVIRUS PCR RESULT Negative (Negative); ENTEROVIRUS PCR SPEC SOURCE CSF
[2017-09-21] VITALS (12 sets, daily range): BP systolic 107–197; BP diastolic 58–95; PULSE 57–70; RESP 16–20; TEMP 96.2–98.6; O2SAT 96–99
[2017-09-21] MEDS: ACETAMINOPHEN 1000 MG/100 ML 100 ML IV PRN (01:37)
[2017-09-21] MEDS: VANCOMYCIN INJ 1,500 MG in SODIUM CHLORID 0.9% 500 ML INJ 500 ML IV SCH ×2 (01:37→14:27)
[2017-09-21] MEDS: CHLORHEXIDINE GLUCONATE 2 % 1 PACK (2 CLOTHS) TOP SCH (01:43)
[2017-09-21] MEDS: HEPARIN SODIUM - SQ 10,000 UNITS/ML VIAL SQ SCH ×3 (05:29→20:07)
[2017-09-21 06:05] LABS: HEMATOCRIT 32.1 % (39.0-51.0); HEMOGLOBIN 11.2 GM/DL (13.0-17.0); MEAN CORPUSCULAR HEMOGLOBIN 29.4 PG (27.0-34.0); MEAN PLATELET VOLUME 9.4 FL (7.0-11.0); PLATELET COUNT 125 TH/MM3 (150-450); RED BLOOD COUNT 3.82 MIL/MM3 (4.50-5.90); RED CELL DISTRIBUTION WIDTH 13.7 % (11.6-17.2); WHITE BLOOD COUNT 7.5 TH/MM3 (4.0-11.0)
[2017-09-21 06:31] LABS: BICARBONATE 23.4 MEQ/L (21.0-32.0); CALCIUM 7.3 MG/DL (8.5-10.1); CREATININE 0.66 MG/DL (0.60-1.30); MAGNESIUM 1.8 MG/DL (1.5-2.5)
[2017-09-21 06:58] LABS: CALCIUM-PROTEIN CORRECTED 8.5 MG/DL (8.5-10.1)
[2017-09-21] MEDS: INSULIN ASPART SUPPLEMENTAL SCALE SQ SCH ×4 (08:00→20:12)
[2017-09-21] MEDS: DOCUSATE SODIUM 50 MG/SENNA 8.6 MG TAB PO SCH ×2 (09:00→20:06)
[2017-09-21] MEDS: SODIUM CHLORIDE 0.9% FLUSH 10 ML FLUSH IV FLUSH SCH ×2 (09:00→20:07)
[2017-09-21] MEDS: INSULIN DETEMIR 100 UNITS/ML VIAL SQ SCH (09:00)
--- NOTE | 2017-09-21 10:06 | HHI.PR ---
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 Diagnosis/Plan: Subjective Subjective Comments No acute events reported No headache more alert today Active Medications Current Medications Medications (Trade) Dose Ordered Sig/Génesis Route Start Time Stop Time Status Last Admin (NS Flush) 2 ml UNSCH PRN IV FLUSH 09/18/17 09:00 (NS Flush) 2 ml BID IV FLUSH 09/18/17 09:00 09/20/17 19:57 (Zofran Inj) 4 mg Q6H PRN IVP 09/18/17 09:00 09/20/17 04:05 (Roxicodone) 10 mg Q4H PRN PO 09/18/17 09:00 (Roxicodone) 5 mg Q4H PRN PO 09/18/17 09:00 (Narcan Inj) 0.4 mg UNSCH PRN IV PUSH 09/18/17 09:00 (Rozina-Colace) 1 tab BID PO 09/18/17 09:00 09/20/17 19:56 (D50w (Vial) Inj) 50 ml UNSCH PRN IV PUSH 09/18/17 09:45 (Glucagon Inj) 1 mg UNSCH PRN OTHER 09/18/17 09:45 Potassium Chloride 100 ml @ 100 mls/hr Q1H PRN IV 09/18/17 16:30 Potassium Chloride 100 ml @ 50 mls/hr Q2H PRN IV 09/18/17 16:30 Potassium Chloride 100 ml @ 100 mls/hr Q1H PRN IV 09/18/17 16:30 Potassium Chloride 100 ml @ 100 mls/hr Q1H PRN IV 09/18/17 16:30 Potassium Chloride 100 ml @ 50 mls/hr Q2H PRN IV 09/18/17 16:30 Potassium Chloride 100 ml @ 50 mls/hr Q2H PRN IV 09/18/17 16:30 Potassium Chloride 100 ml @ 50 mls/hr Q2H PRN IV 09/18/17 16:30 Potassium Chloride 100 ml @ 50 mls/hr Q2H PRN IV 09/18/17 16:30 (Sodium Bicarbonate 8.4% Inj) 100 meq UNSCH PRN IV PUSH 09/18/17 16:30 (Sodium Bicarbonate 8.4% Inj) 50 meq UNSCH PRN IV PUSH 1/4/18 16:30 Sodium Phosphate 15 mmol/Sodium Chloride 105 ml @ 25 mls/hr UNSCH PRN IV 09/18/17 16:30 Miscellaneous Information 1 Q361D XX 09/18/17 16:30 09/18/17 19:30 (Chlorhexidine 2% Cloth) 3 pack Taper DAILY@04 TOP 09/19/17 04:00 09/15/18 03:59 (Chlorhexidine 2% Cloth) 3 pack UNSCH PRN TOP 09/18/17 16:30 Pharmacy Profile Note 0 ml @ 0 mls/hr UNSCH OTHER 09/18/17 20:45 Ceftriaxone Sodium 2000 mg/ Sodium Chloride 100 ml @ 200 mls/hr Q12H IV 09/19/17 00:00 09/20/17 23:36 (Levemir Inj) 15 units DAILY SQ 09/19/17 09:00 09/19/17 10:25 (NovoLOG SUPPLEMENTAL SCALE) 1 ACHS SLIDING SCALE SQ 09/19/17 12:00 09/20/17 20:18 Acetaminophen 100 ml @ 400 mls/hr Q8H PRN IV 09/19/17 08:45 09/21/17 01:37 (Heparin Inj) 5,000 units Q8HR SQ 09/19/17 14:00 09/21/17 05:29 (Ativan Inj) 1 mg Q6H PRN IV PUSH 09/19/17 18:00 09/20/17 19:56 (Catapres) 0.1 mg Q6H PRN PO 09/20/17 13:00 09/20/17 14:32 Vancomycin HCl 1500 mg/Sodium Chloride 515 ml @ 250 mls/hr Q12H IV 09/21/17 02:00 09/21/17 01:37 Allergies Allergies Coded Allergies bee venom protein (honey bee) (Unverified Allergy, Severe, Anaphylaxis, ) Exam I&O / VS 09/21/17 09/21/17 09/22/17 15:00 23:00 07:00 Intake Total 150 ml Balance 150 ml IV Total 150 ml Vital Signs Date Time Temp Pulse Resp B/P (MAP) Pulse Ox O2 Delivery O2 Flow Rate FiO2 09/21/17 07:00 99 Room Air 09/21/17 06:00 68 09/21/17 04:00 98.0 57 16 107/58 (74) 96 09/21/17 04:00 57 09/21/17 02:00 65 09/21/17 00:00 67 09/21/17 00:00 97.9 67 20 146/65 (92) 97 09/20/17 22:00 65 09/20/17 20:00 67 09/20/17 20:00 97.6 67 18 150/76 (100) 97 09/20/17 20:00 97 Room Air 09/20/17 18:00 74 09/20/17 16:00 97.8 74 15 162/76 (104) 99 09/20/17 16:00 74 09/20/17 14:00 70 09/20/17 12:00 74 09/20/17 12:00 97.3 74 17 179/85 (116) 99 Exam Comments more alert, disoriented to place not to date. speech is fluent and he follows commands Cn intact Motor 5/5 BUE and BLE Objective Micro and Labs Laboratory Tests Test 09/20/17 10:06 09/20/17 13:37 09/20/17 17:44 09/21/17 04:42 Vancomycin Level Trough 9.8 Urine Color RED Urine Turbidity CLOUDY Urine pH 5.5 Urine Specific [place] 1.024 Urine Protein 100 Urine Glucose (UA) 1000 Urine Ketones 40 Urine Occult Blood LARGE Urine Nitrite NEG Urine Bilirubin NEG Urine Urobilinogen LESS THAN 2.0 Urine Leukocyte Esterase SMALL Urine RBC Urine WBC 46 Urine Bacteria MANY Urine Mucus MANY Urine Yeast (Budding) MANY Microscopic Urinalysis Comment CATH-CULTURE IND Blood Urea Nitrogen 22 19 Creatinine 0.89 0.66 Random Glucose 211 145 Calcium Level 7.5 7.3 Sodium Level 141 142 Potassium Level 3.7 3.6 Chloride Level 111 111 Carbon Dioxide Level 24.2 23.4 Anion Gap 6 8 Estimat Glomerular Filtration Rate 86 122 White Blood Count 7.5 Red Blood Count 3.82 Hemoglobin 11.2 Hematocrit 32.1 Mean Corpuscular Volume 84.0 Mean Corpuscular Hemoglobin 29.4 Mean Corpuscular Hemoglobin Concent 35.0 Red Cell Distribution Width 13.7 Platelet Count 125 Mean Platelet Volume 9.4 Total Protein 5.0 Magnesium Level 1.8 Protein Corrected Calcium 8.5 Date/Time Source Procedure Growth Status 09/18/17 05:20 Blood Peripheral Aerobic Blood Culture - Preliminary NO GROWTH IN 2 DAYS Resulted 09/18/17 05:20 Blood Peripheral Anaerobic Blood Culture - Preliminary NO GROWTH IN 2 DAYS Resulted 09/18/17 10:53 Cerebral Spinal Fluid Lumbar Puncture Gram Stain - Final Complete 09/18/17 10:53 Cerebral Spinal Fluid Lumbar Puncture CSF Culture - Final NO GROWTH IN 72 HOURS Complete 09/18/17 05:50 Nasal Aspirate Influenza Types A,B Antigen (MARKO) - Final NEGATIVE FOR FLU A AND B ANTIGEN.... Complete 09/20/17 13:37 Urine Catheterized Urine Urine Culture Pending Received Néstor Covarrubias MD PhD Sep 21, 2017 10:06
[2017-09-21] MEDS: cefTRIAXone INJ 2,000 MG in SODIUM CHLORIDE 0.9% INJ 100 ML IV SCH ×2 (11:50→23:28)
[2017-09-21] MEDS: cloNIDine HCL 0.1 MG TAB PO PRN (16:00)
--- NOTE | 2017-09-21 16:09 | HHI.PR ---
Subjective Remarks The patient was awake and alert, but had a hard time getting certain words and questions out. Family at the bedside. The patient wants a regular diet. Discussed with nursing. Objective Vitals Vital Signs Date Time Temp Pulse Resp B/P (MAP) Pulse Ox O2 Delivery O2 Flow Rate FiO2 09/21/17 14:00 66 09/21/17 12:00 97.9 68 18 162/82 (108) 96 09/21/17 12:00 68 09/21/17 10:00 68 09/21/17 08:00 69 09/21/17 08:00 98.6 69 19 127/59 (81) 96 09/21/17 07:00 99 Room Air 09/21/17 06:00 68 09/21/17 04:00 98.0 57 16 107/58 (74) 96 09/21/17 04:00 57 09/21/17 02:00 65 09/21/17 00:00 67 09/21/17 00:00 97.9 67 20 146/65 (92) 97 09/20/17 22:00 65 09/20/17 20:00 67 09/20/17 20:00 97.6 67 18 150/76 (100) 97 09/20/17 20:00 97 Room Air 09/20/17 18:00 74 I/O 09/20/17 09/20/17 09/20/17 09/21/17 09/21/17 09/21/17 07:00 15:00 23:00 07:00 15:00 23:00 Intake Total 350 ml 1350 ml 2520 ml 915 ml 150 ml Output Total 325 ml 700 ml 500 ml Balance 25 ml 1350 ml 1820 ml 415 ml 150 ml Intake Oral 960 ml 200 ml IV Total 350 ml 1350 ml 1560 ml 715 ml 150 ml Output Urine Total 325 ml 700 ml 500 ml Result Diagram: 09/21/172 09/21/17 0442 Imaging Last Impressions Chest X-Ray 09/18/17 0514 Signed Impressions: Service Date/Time: September 05:22 - CONCLUSION: No acute disease. Chad Tristan Jr., MD Lumbar Puncture Fluoroscopy 09/18/17 0000 Signed Impressions: Service Date/Time: September 11:47 - CONCLUSION: Uncomplicated fluoroscopically guided lumbar puncture. Silas Machuca MD Head CT 09/18/17 0000 Signed Impressions: Service Date/Time: September 08:01 - CONCLUSION: 1. Mild periventricular and subcortical white matter small vessel ischemic changes bilaterally. 2. No acute infarct, acute hemorrhage, mass effect or extra axial fluid collections. 3. Air-fluid level within the left maxillary sinus and mucous retention cyst within the right maxillary sinus. Bob Batista MD Brain MRI 09/18/17 0000 Signed Impressions: Service Date/Time: September 16:43 - CONCLUSION: Chronic atrophic and small vessel ischemic changes without any evidence for acute hemorrhage or mass effect, and chronic sinusitis. Aaron Nice MD Objective Remarks GENERAL: Resting comfortably. SKIN: Warm and dry. HEAD: Atraumatic. Normocephalic. EYES: Pupils equal and round. No scleral icterus. No injection or drainage. ENT: No nasal bleeding or discharge. Mucous membranes pink and moist. NECK: Trachea midline. No JVD. CARDIOVASCULAR: Regular rate and rhythm without obvious murmur. RESPIRATORY: No accessory muscle use. Clear to auscultation. Breath sounds equal bilaterally. GASTROINTESTINAL: Abdomen soft, non-tender, nondistended. Hepatic and splenic margins not palpable. MUSCULOSKELETAL: Extremities without clubbing, cyanosis, or edema. No obvious deformities. NEUROLOGICAL: Awake and alert but has a hard time getting questions out. Moves upper and lower extremities spontaneously. Medications and IVs Current Medications Medications (Trade) Dose Ordered Sig/Génesis Route Start Time Stop Time Status Last Admin (NS Flush) 2 ml UNSCH PRN IV FLUSH 09/18/17 09:00 (NS Flush) 2 ml BID IV FLUSH 09/18/17 09:00 09/21/17 09:00 (Zofran Inj) 4 mg Q6H PRN IVP 09/18/17 09:00 09/20/17 04:05 (Roxicodone) 10 mg Q4H PRN PO 09/18/17 09:00 (Roxicodone) 5 mg Q4H PRN PO 09/18/17 09:00 (Narcan Inj) 0.4 mg UNSCH PRN IV PUSH 09/18/17 09:00 (Rozina-Colace) 1 tab BID PO 09/18/17 09:00 09/21/17 09:00 (D50w (Vial) Inj) 50 ml UNSCH PRN IV PUSH 09/18/17 09:45 (Glucagon Inj) 1 mg UNSCH PRN OTHER 09/18/17 09:45 Potassium Chloride 100 ml @ 100 mls/hr Q1H PRN IV 09/18/17 16:30 Potassium Chloride 100 ml @ 50 mls/hr Q2H PRN IV 09/18/17 16:30 Potassium Chloride 100 ml @ 100 mls/hr Q1H PRN IV 09/18/17 16:30 Potassium Chloride 100 ml @ 100 mls/hr Q1H PRN IV 09/18/17 16:30 Potassium Chloride 100 ml @ 50 mls/hr Q2H PRN IV 09/18/17 16:30 Potassium Chloride 100 ml @ 50 mls/hr Q2H PRN IV 09/18/17 16:30 Potassium Chloride 100 ml @ 50 mls/hr Q2H PRN IV 09/18/17 16:30 Potassium Chloride 100 ml @ 50 mls/hr Q2H PRN IV 09/18/17 16:30 (Sodium Bicarbonate 8.4% Inj) 100 meq UNSCH PRN IV PUSH 09/18/17 16:30 (Sodium Bicarbonate 8.4% Inj) 50 meq UNSCH PRN IV PUSH 09/18/17 16:30 Sodium Phosphate 15 mmol/Sodium Chloride 105 ml @ 25 mls/hr UNSCH PRN IV 09/18/17 16:30 Miscellaneous Information 1 Q361D XX 09/18/17 16:30 09/18/17 19:30 (Chlorhexidine 2% Cloth) 3 pack Taper DAILY@04 TOP 09/19/17 04:00 09/15/18 03:59 (Chlorhexidine 2% Cloth) 3 pack UNSCH PRN TOP 09/18/17 16:30 Pharmacy Profile Note 0 ml @ 0 mls/hr UNSCH OTHER 09/18/17 20:45 Ceftriaxone Sodium 2000 mg/ Sodium Chloride 100 ml @ 200 mls/hr Q12H IV 09/19/17 00:00 09/21/17 11:50 (Levemir Inj) 15 units DAILY SQ 09/19/17 09:00 09/21/17 09:00 (NovoLOG SUPPLEMENTAL SCALE) 1 ACHS SLIDING SCALE SQ 09/19/17 12:00 1/7/18 11:51 Acetaminophen 100 ml @ 400 mls/hr Q8H PRN IV 09/19/17 08:45 09/21/17 01:37 (Heparin Inj) 5,000 units Q8HR SQ 09/19/17 14:00 09/21/17 14:27 (Ativan Inj) 1 mg Q6H PRN IV PUSH 09/19/17 18:00 09/20/17 19:56 (Catapres) 0.1 mg Q6H PRN PO 09/20/17 13:00 09/21/17 16:00 Vancomycin HCl 1500 mg/Sodium Chloride 515 ml @ 250 mls/hr Q12H IV 09/21/17 02:00 09/21/17 14:27 Miscellaneous Information SPECIFIC LAB TO BE DRAWN:VANCOMYCIN TROUGH DATE TO... ONCE ONCE .XX 09/22/17 13:45 09/22/17 13:46 A/P Assessment and Plan Acute metabolic encephalopathy/ sepsis/ aseptic meningitis The patient was in with altered mental status, fever, leukocytosis, tachycardia and tachypnea. He is currently unresponsive. CT of the head was unremarkable except for left maxillary sinusitis. LP performed by interventional radiology not currently indicative of bacterial etiology. He did recently have a viral infection so aseptic meningitis is a possibility. ID consult appreciated. EEG with slowing, worse in the left hemisphere. MRI of the brain without acute process. Neurology consultation appreciated. - Continue IV ceftriaxone 2 g every 12 hours and IV vancomycin per ID. - Follow LP studies and culture data. No growth to date. - neurology following. - Neuro checks and seizure precautions. - Status post IV fluids. - Advance diet per speech therapy. Added cognitive evaluation. - PT/ OT requested. DKA Glucose was over 500 on admission. He did not have an anion gap. Started on DKA protocol and transferred to ICU. Hemoglobin A1c 13.8%. Glucose is well- controlled at this time. - D/c insulin gtt. Start insulin sliding scale along with Levemir daily. Adjust as needed. - Hold metformin. - follow BMP. Replete electrolytes as needed. Hematuria Pinto catheter with reddish urine and what appears to be clots. Repeat UA indicative of an infection. - Follow CBC and transfuse as needed. - continue antibiotics and follow urine culture. Acute renal injury Likely prerenal. Resolved with fluids. - follow BMP. - Avoid nephrotoxins. CAD Status post CABG. EKG with sinus tachycardia. The patient is not on medication secondary to lack of insurance. - Telemetry. Hypernatremia Secondary to normal saline and decreased by mouth intake. - Changed fluids to half-normal saline. Improved. Monitor. Hypertension May be a stress reaction. - Clonidine as needed. - start PO antihypertensive if sustained. PPx: Heparin, SCDs Discharge Planning Transfer to the floor. D/c home when cleared by ID and neurology. Will likely need rehab. Terrance Kern DO Sep 21, 2017 16:09
[2017-09-21] MEDS ORDERED: ENALAPRILAT 2.5 MG/2 ML VIAL IV PUSH PRN (18:00)
[2017-09-21] MEDS: LISINOPRIL 10 MG TAB PO SCH (20:12)
[2017-09-21] MEDS: ACETAMINOPHEN 325 MG TAB PO PRN (23:27)
[2017-09-22] VITALS (7 sets, daily range): BP systolic 129–177; BP diastolic 60–89; PULSE 67–86; RESP 18–20; TEMP 95.1–97.9; O2SAT 95–98
[2017-09-22] MEDS: CHLORHEXIDINE GLUCONATE 2 % 1 PACK (2 CLOTHS) TOP SCH (02:11)
[2017-09-22] MEDS: VANCOMYCIN INJ 1,500 MG in SODIUM CHLORID 0.9% 500 ML INJ 500 ML IV SCH (03:22)
[2017-09-22] MEDS: HEPARIN SODIUM - SQ 10,000 UNITS/ML VIAL SQ SCH ×3 (06:21→21:25)
[2017-09-22 07:28] LABS: HEMATOCRIT 32.6 % (39.0-51.0); HEMOGLOBIN 11.3 GM/DL (13.0-17.0); MEAN CELL VOLUME 83.6 FL (80.0-100.0); MEAN CORPUSCULAR HGB CONC 34.7 % (32.0-36.0); MEAN PLATELET VOLUME 9.4 FL (7.0-11.0); PLATELET COUNT 132 TH/MM3 (150-450); RED CELL DISTRIBUTION WIDTH 13.9 % (11.6-17.2); WHITE BLOOD COUNT 5.5 TH/MM3 (4.0-11.0)
[2017-09-22 07:46] LABS: BICARBONATE 23.5 MEQ/L (21.0-32.0); CALCIUM 7.7 MG/DL (8.5-10.1); CREATININE 0.73 MG/DL (0.60-1.30); MAGNESIUM 1.9 MG/DL (1.5-2.5)
[2017-09-22] MEDS: INSULIN ASPART SUPPLEMENTAL SCALE SQ SCH ×4 (08:00→21:00)
[2017-09-22] MEDS: LISINOPRIL 10 MG TAB PO SCH ×2 (09:03→21:19)
[2017-09-22] MEDS: DOCUSATE SODIUM 50 MG/SENNA 8.6 MG TAB PO SCH ×2 (09:03→21:19)
[2017-09-22] MEDS: INSULIN DETEMIR 100 UNITS/ML VIAL SQ SCH (09:03)
[2017-09-22] MEDS: SODIUM CHLORIDE 0.9% FLUSH 10 ML FLUSH IV FLUSH SCH ×2 (09:04→21:19)
--- NOTE | 2017-09-22 10:49 | HHI.PR ---
Subjective Remarks seen with at bedside still with occasional headaches, no neck pain still having difficulty with word finding and expression but defiitely per marked improvement and more spontaneous no difficulty swallowing Objective Vitals Vital Signs Date Time Temp Pulse Resp B/P (MAP) Pulse Ox O2 Delivery O2 Flow Rate FiO2 09/22/17 07:53 95.1 67 18 177/78 (111) 95 09/22/17 05:20 97.6 75 18 134/62 (86) 97 09/22/17 00:21 96.3 86 20 168/88 (114) 97 09/21/17 20:19 Room Air 09/21/17 20:03 96.2 69 152/78 (102) 99 09/21/17 20:00 70 09/21/17 18:02 182/90 (120) 09/21/17 16:30 96.7 67 19 197/95 (129) 98 09/21/17 14:00 66 09/21/17 12:00 97.9 68 18 162/82 (108) 96 09/21/17 12:00 68 I/O 09/21/17 09/21/17 09/21/17 09/22/17 09/22/17 09/22/17 07:00 15:00 23:00 07:00 15:00 23:00 Intake Total 915 ml 150 ml 515 ml 680 ml Output Total 500 ml 125 ml 800 ml Balance 415 ml 150 ml 390 ml -120 ml Intake Oral 200 ml 580 ml IV Total 715 ml 150 ml 515 ml 100 ml Output Urine Total 500 ml 125 ml 800 ml # Voids 1 Result Diagram: 09/22/17 0545 09/22/17 0545 Imaging Last Impressions Chest X-Ray 09/18/17 0514 Signed Impressions: Service Date/Time: September 05:22 - CONCLUSION: No acute disease. Chad Tristan Jr., MD Lumbar Puncture Fluoroscopy 09/18/17 0000 Signed Impressions: Service Date/Time: September 11:47 - CONCLUSION: Uncomplicated fluoroscopically guided lumbar puncture. Silas Machuca MD Head CT 09/18/17 0000 Signed Impressions: Service Date/Time: September 08:01 - CONCLUSION: 1. Mild periventricular and subcortical white matter small vessel ischemic changes bilaterally. 2. No acute infarct, acute hemorrhage, mass effect or extra axial fluid collections. 3. Air-fluid level within the left maxillary sinus and mucous retention cyst within the right maxillary sinus. Bob Batista MD Brain MRI 09/18/17 0000 Signed Impressions: Service Date/Time: September 16:43 - CONCLUSION: Chronic atrophic and small vessel ischemic changes without any evidence for acute hemorrhage or mass effect, and chronic sinusitis. Aaron Nice MD Objective Remarks awake and alert, oriented x 3, mild expressive aphasia- some difficulty with word finding anicteric no nuchal rigidity no rales regular rhythm abdomen soft, nontender extremities no edema motor- 5/5 all extremities gait slow but steady Procedures 09/18- LP A/P Assessment and Plan 62 years old male Acute encephalopathy/ sepsis/ aseptic meningitis - MS much improved The patient was in with altered mental status, fever, leukocytosis, tachycardia and tachypnea. He is currently unresponsive. CT of the head was unremarkable except for left maxillary sinusitis. LP performed by interventional radiology not currently indicative of bacterial etiology. He did recently have a viral infection so aseptic meningitis is a possibility. ID consult appreciated. EEG with slowing, worse in the left hemisphere. MRI of the brain without acute process. Neurology consultation appreciated. - Continue IV ceftriaxone 2 g every 12 hours and IV vancomycin per ID. - Follow LP studies culture data. No growth to date. - neurology following. - Neuro checks and seizure precautions. - Status post IV fluids. - Speech therapy ff- for cognitive evaluation - PT/ OT requested. DM type 2 uncontrolled DKA- resolved Glucose was over 500 on admission. He did not have an anion gap. Started on DKA protocol and transferred to ICU. Hemoglobin A1c 13.8%. Glucose is well-controlled at this time. - Started insulin sliding scale along with Levemir daily. - will d/w diabetes nurse- - no insurance Adjust as needed. - Hold metformin. - follow BMP. Replete electrolytes as needed. - center consultant consult Hematuria- resolved Pinto catheter with reddish urine and what appears to be clots. Repeat UA indicative of an infection. - Follow CBC and transfuse as needed. - continue antibiotics and follow urine culture. Acute renal injury- Likely prerenal. Resolved with fluids. - follow BMP. - Avoid nephrotoxins. CAD Status post CABG. EKG with sinus tachycardia. The patient is not on medication secondary to lack of insurance. HYpertesnion - Telemetry. - Lisinorpil 10 mg po- up to bid Hypernatremia- resolved Secondary to normal saline and decreased by mouth intake. - Changed fluids to half-normal saline. Improved. Monitor. PPx: Heparin, SCDs Discharge Planning CM consult Will likely need rehab. Tony Lopez MD Sep 22, 2017 10:49
[2017-09-22] MEDS ORDERED: POTASSIUM CHLORIDE 10 MEQ CONTROLLED RELEASE TAB PO ONE (11:00)
[2017-09-22] MEDS ORDERED: POTASSIUM CHLOR 10 MEQ PREMIX 100 ML IV ONE (12:00)
--- NOTE | 2017-09-22 13:12 | HHI.IDPN ---
Subjective Subjective Remarks doing well Fully awake, ambulating, talks normally no fever co dizziness, balance issues All cultures remain negative (CSF and blood) Antibiotics vanco CFTX high dose Allergies: Coded Allergies: bee venom protein (honey bee) (Unverified Allergy, Severe, Anaphylaxis, ) Objective . Vital Signs Date Time Temp Pulse Resp B/P (MAP) Pulse Ox O2 Delivery O2 Flow Rate FiO2 09/22/17 12:00 96.2 69 18 170/80 (110) 98 09/22/17 08:30 Room Air 09/22/17 07:53 95.1 67 18 177/78 (111) 95 09/22/17 05:20 97.6 75 18 134/62 (86) 97 09/22/17 00:21 96.3 86 20 168/88 (114) 97 09/21/17 20:19 Room Air 09/21/17 20:03 96.2 69 152/78 (102) 99 09/21/17 20:00 70 09/21/17 18:02 182/90 (120) 09/21/17 16:30 96.7 67 19 197/95 (129) 98 09/21/17 14:00 66 . Laboratory Tests Test 09/21/17 04:42 09/22/17 05:45 White Blood Count 7.5 TH/MM3 5.5 TH/MM3 Red Blood Count 3.82 MIL/MM3 3.90 MIL/MM3 Hemoglobin 11.2 GM/DL 11.3 GM/DL Hematocrit 32.1 % 32.6 % Mean Corpuscular Volume 84.0 FL 83.6 FL Mean Corpuscular Hemoglobin 29.4 PG 29.0 PG Mean Corpuscular Hemoglobin Concent 35.0 % 34.7 % Red Cell Distribution Width 13.7 % 13.9 % Platelet Count 125 TH/MM3 132 TH/MM3 Mean Platelet Volume 9.4 FL 9.4 FL Laboratory Tests Test 09/20/17 17:44 09/21/17 04:42 09/22/17 05:45 Blood Urea Nitrogen 22 MG/DL 19 MG/DL 14 MG/DL Creatinine 0.89 MG/DL 0.66 MG/DL 0.73 MG/DL Random Glucose 211 MG/DL 145 MG/DL 79 MG/DL Calcium Level 7.5 MG/DL 7.3 MG/DL 7.7 MG/DL Sodium Level 141 MEQ/L 142 MEQ/L 142 MEQ/L Potassium Level 3.7 MEQ/L 3.6 MEQ/L 3.1 MEQ/L Chloride Level 111 MEQ/L 111 MEQ/L 109 MEQ/L Carbon Dioxide Level 24.2 MEQ/L 23.4 MEQ/L 23.5 MEQ/L Anion Gap 6 MEQ/L 8 MEQ/L 10 MEQ/L Estimat Glomerular Filtration Rate 86 ML/MIN 122 ML/MIN 108 ML/MIN Total Protein 5.0 GM/DL Magnesium Level 1.8 MG/DL 1.9 MG/DL Protein Corrected Calcium 8.5 MG/DL Microbiology Date/Time Source Procedure Growth Status 09/20/17 13:37 Urine Catheterized Urine Urine Culture - Final NO GROWTH IN 48 HOURS. Complete Imaging Last Impressions Chest X-Ray 09/18/17 0514 Signed Impressions: Service Date/Time: September 05:22 - CONCLUSION: No acute disease. Chad Tristan Jr., MD Lumbar Puncture Fluoroscopy 09/18/17 0000 Signed Impressions: Service Date/Time: September 11:47 - CONCLUSION: Uncomplicated fluoroscopically guided lumbar puncture. Silas Machuca MD Head CT 09/18/17 0000 Signed Impressions: Service Date/Time: September 08:01 - CONCLUSION: 1. Mild periventricular and subcortical white matter small vessel ischemic changes bilaterally. 2. No acute infarct, acute hemorrhage, mass effect or extra axial fluid collections. 3. Air-fluid level within the left maxillary sinus and mucous retention cyst within the right maxillary sinus. Bob Batista MD Brain MRI 09/18/17 0000 Signed Impressions: Service Date/Time: September 16:43 - CONCLUSION: Chronic atrophic and small vessel ischemic changes without any evidence for acute hemorrhage or mass effect, and chronic sinusitis. Aaron Nice MD Physical Exam CONSTITUTIONAL/GENERAL: This is an adequately nourished patient, in no apparent distress. TUBES/LINES/DRAINS: SKIN: No jaundice, rashes, or lesions. Skin temperature appropriate. Not diaphoretic. No [place] lesions, no splinter hemorages CARDIOVASCULAR: Regular rate and rhythm without murmurs, gallops, or rubs. No JVD. Peripheral pulses symmetric. RESPIRATORY/CHEST: Symmetric, unlabored respirations. Clear to auscultation. Breath sounds equal bilaterally. No wheezes, rales, or rhonchi. GASTROINTESTINAL: Abdomen soft, non-tender, nondistended. No hepato-splenomegaly , or palpable masses. No guarding. Bowel sounds present. GENITOURINARY: Without palpable bladder distension. Pinto catheter in place with clear yellow urine MUSCULOSKELETAL: Extremities without clubbing, cyanosis, or edema. No joint tenderness or effusion noted. No calf tenderness. No mottling or clubbing. NEUROLOGICAL: awake, alert, non focal, fully oriented follows commands; + normal speech PSYCHIATRIC: calm and cooperative Assessment & Plan Remarks Febrile illness with mental status change - prosthetic aortic valve 2 D echo negative ? POssible aseptic/viral meningtitis HSV negative Acute L maxial sinusitis change abx to augmentin to complete sinusitis tx dw pt, @ b/s Modesta Bhagat MD Sep 22, 2017 13:12
[2017-09-22] MEDS ORDERED: PHARMACY ORDERED LAB ONE (13:45)
[2017-09-22] MEDS: AMOXICILLIN/CLAVULANATE K 500 MG TAB PO SCH ×2 (15:37→21:24)
[2017-09-22] MEDS: INSULIN HUMAN NPH/R 70/30 1,000 UNITS/10 ML VIAL SQ SCH (17:25)
[2017-09-23] VITALS (8 sets, daily range): BP systolic 112–184; BP diastolic 60–91; PULSE 60–83; RESP 17–18; TEMP 96.7–99.5; O2SAT 94–97
[2017-09-23] MEDS: CHLORHEXIDINE GLUCONATE 2 % 1 PACK (2 CLOTHS) TOP SCH ×2 (03:29→22:33)
[2017-09-23] MEDS: HEPARIN SODIUM - SQ 10,000 UNITS/ML VIAL SQ SCH ×3 (06:10→22:27)
[2017-09-23] MEDS: AMOXICILLIN/CLAVULANATE K 500 MG TAB PO SCH ×3 (06:10→22:25)
[2017-09-23] MEDS: INSULIN ASPART SUPPLEMENTAL SCALE SQ SCH ×4 (08:00→22:33)
[2017-09-23 08:03] LABS: BICARBONATE 27.9 MEQ/L (21.0-32.0); CALCIUM 8.5 MG/DL (8.5-10.1); CREATININE 0.9 MG/DL (0.60-1.30)
--- NOTE | 2017-09-23 09:20 | HHI.PR ---
Subjective Remarks feels and looks great no complains except for slight congestion around nasal area no fever no chills, no sputum production Objective Vitals Vital Signs Date Time Temp Pulse Resp B/P (MAP) Pulse Ox O2 Delivery O2 Flow Rate FiO2 09/23/17 07:56 97.2 68 17 180/90 (120) 97 09/23/17 04:00 96.7 62 18 130/60 (83) 96 09/23/17 00:00 99.5 83 18 112/69 (83) 94 09/22/17 20:00 97.9 70 18 176/89 (118) 96 09/22/17 18:38 Room Air 09/22/17 16:00 96.3 73 18 129/60 (83) 96 09/22/17 12:00 96.2 69 18 170/80 (110) 98 I/O 09/22/17 09/22/17 09/22/17 09/23/17 09/23/17 09/23/17 07:00 15:00 23:00 07:00 15:00 23:00 Intake Total 680 ml 960 ml 360 ml Output Total 800 ml Balance -120 ml 960 ml 360 ml Intake Oral 580 ml 960 ml 360 ml IV Total 100 ml Output Urine Total 800 ml # Voids 3 3 # Bowel Movements 1 0 Result Diagram: 09/22/17 0545 09/23/17 0710 Imaging Last Impressions Chest X-Ray 09/18/17 0514 Signed Impressions: Service Date/Time: September 05:22 - CONCLUSION: No acute disease. Chad Tristan Jr., MD Lumbar Puncture Fluoroscopy 09/18/17 Signed Impressions: Service Date/Time: September 11:47 - CONCLUSION: Uncomplicated fluoroscopically guided lumbar puncture. Silas Machuca MD Head CT 09/18/17 Signed Impressions: Service Date/Time: September 08:01 - CONCLUSION: 1. Mild periventricular and subcortical white matter small vessel ischemic changes bilaterally. 2. No acute infarct, acute hemorrhage, mass effect or extra axial fluid collections. 3. Air-fluid level within the left maxillary sinus and mucous retention cyst within the right maxillary sinus. Bob Batista MD Brain MRI 09/18/17 Signed Impressions: Service Date/Time: September 16:43 - CONCLUSION: Chronic atrophic and small vessel ischemic changes without any evidence for acute hemorrhage or mass effect, and chronic sinusitis. Aaron Nice MD Objective Remarks awake and alert, oriented x 3, speech more spontaneous anicteric no nuchal rigidity no rales regular rhythm abdomen soft, nontender extremities no edema motor- 5/5 all extremities gait slow but steady Procedures /- LP A/P Assessment and Plan 62 years old male Acute encephalopathy/ sepsis/ aseptic meningitis - MS - improved, speech improved The patient was in with altered mental status, fever, leukocytosis, tachycardia and tachypnea. He is currently unresponsive. CT of the head was unremarkable except for left maxillary sinusitis. LP performed by interventional radiology not currently indicative of bacterial etiology. He did recently have a viral infection so aseptic meningitis is a possibility. ID consult appreciated. EEG with slowing, worse in the left hemisphere. MRI of the brain without acute process. Neurology consultation appreciated. - Continue IV ceftriaxone 2 g every 12 hours and IV vancomycin per ID. - Follow LP studies culture data. No growth to date. - neurology following. - Neuro checks and seizure precautions. - Status post IV fluids. - Speech therapy ff- for cognitive evaluation - PT/ OT requested. DM type 2 uncontrolled DKA- resolved Glucose was over 500 on admission. He did not have an anion gap. Started on DKA protocol and transferred to ICU. Hemoglobin A1c 13.8%. Glucose is well-controlled at this time. - Started insulin sliding scale along with Levemir daily. - will d/w diabetes nurse- - no insurance Adjust as needed. - follow BMP. Replete electrolytes as needed. - dietitian consulted - started on 70/30 5 units SQ bid - had a long discussion with them- they want to be switched back to Metformin- on further discussion in the past was on Insulin and improved and switched to metformin 2x- d/w them that his A1C is very high on Metformin alone - and not well controlled- they admit too - non compliance with diet Hematuria- resolved Pinto catheter with reddish urine and what appears to be clots. Repeat UA indicative of an infection. - Follow CBC and transfuse as needed. - continue antibiotics and follow urine culture. Acute renal injury- Likely prerenal. Resolved with fluids. - follow BMP. - Avoid nephrotoxins. CAD Status post CABG. EKG with sinus tachycardia. The patient is not on medication secondary to lack of insurance. HYpertension - start Lisinopril 10 mg bid - ASA 81 mg daily Hypernatremia- resolved PPx: Heparin, SCDs Discharge Planning CM consult Will likely need rehab. d/w and patient- no insurance- needs a PCP and meds that are free in [facility] Tony Lopez MD Sep 23, 2017 09:20
[2017-09-23] MEDS: INSULIN HUMAN NPH/R 70/30 1,000 UNITS/10 ML VIAL SQ SCH ×2 (09:35→17:57)
[2017-09-23] MEDS: LISINOPRIL 10 MG TAB PO SCH ×2 (09:35→22:25)
[2017-09-23] MEDS: SODIUM CHLORIDE 0.9% FLUSH 10 ML FLUSH IV FLUSH SCH ×2 (09:36→22:30)
[2017-09-23] MEDS: DOCUSATE SODIUM 50 MG/SENNA 8.6 MG TAB PO SCH ×2 (09:36→22:25)
[2017-09-23] MEDS: FLUTICASONE PROPIONATE 50 MCG/ACT 16 GM NASAL SPRAY NASAL SCH ×2 (12:45→22:25)
[2017-09-23] MEDS: cloNIDine HCL 0.1 MG TAB PO PRN (12:50)
[2017-09-24] VITALS: BP 171/80; PULSE 65; RESP 18; TEMP 97.7; O2SAT 96
[2017-09-24 04:00] VITALS: BP 143/73; PULSE 66; RESP 18; TEMP 97.3; O2SAT 94
[2017-09-24] MEDS: AMOXICILLIN/CLAVULANATE K 500 MG TAB PO SCH (05:43)
[2017-09-24] MEDS: HEPARIN SODIUM - SQ 10,000 UNITS/ML VIAL SQ SCH (05:43)
[2017-09-24] MEDS: ACETAMINOPHEN 325 MG TAB PO PRN (06:06)
[2017-09-24 06:22] VITALS: PULSE 59
[2017-09-24 08:00] VITALS: BP 156/83; PULSE 65; PULSE 66; RESP 16; TEMP 97.7; O2SAT 96
[2017-09-24] MEDS: INSULIN HUMAN NPH/R 70/30 1,000 UNITS/10 ML VIAL SQ SCH (08:30)
[2017-09-24] MEDS: INSULIN ASPART SUPPLEMENTAL SCALE SQ SCH (08:32)
[2017-09-24] MEDS: FLUTICASONE PROPIONATE 50 MCG/ACT 16 GM NASAL SPRAY NASAL SCH (08:33)
[2017-09-24] MEDS: DOCUSATE SODIUM 50 MG/SENNA 8.6 MG TAB PO SCH (08:35)
[2017-09-24] MEDS: LISINOPRIL 10 MG TAB PO SCH (08:36)
[2017-09-24] MEDS: SODIUM CHLORIDE 0.9% FLUSH 10 ML FLUSH IV FLUSH SCH (08:37)
[2017-09-24] MEDS ORDERED: ASPIRIN 81 MG CHEW TAB CHEW SCH (09:00)
--- NOTE | 2017-09-24 09:46 | HHI.PR ---
Subjective Remarks no fever or chills no headaches no nauea or vomiting speech clear Objective Vitals Vital Signs Date Time Temp Pulse Resp B/P (MAP) Pulse Ox O2 Delivery O2 Flow Rate FiO2 09/24/17 08:00 97.7 66 16 156/83 (107) 96 09/24/17 06:22 59 09/24/17 04:00 97.3 66 18 143/73 (96) 94 09/24/17 00:00 97.7 65 18 171/80 (110) 96 09/23/17 20:00 97.4 82 18 177/88 (117) 96 09/23/17 17:55 177/91 (119) 09/23/17 16:00 60 09/23/17 16:00 96.9 64 17 184/82 (116) 95 09/23/17 12:00 97.2 69 17 170/80 (110) 95 I/O 09/23/17 09/23/17 09/23/17 09/24/17 09/24/17 09/24/17 07:00 15:00 23:00 07:00 15:00 23:00 Intake Total 360 ml 960 ml 720 ml Balance 360 ml 960 ml 720 ml Intake Oral 360 ml 960 ml 720 ml # Voids 3 3 4 # Bowel Movements 0 0 0 Result Diagram: 09/22/17 0545 09/23/17 0710 Imaging Last Impressions Chest X-Ray 09/18/17 0514 Signed Impressions: Service Date/Time: September 05:22 - CONCLUSION: No acute disease. Chad Tristan Jr., MD Lumbar Puncture Fluoroscopy 09/18/17 0000 Signed Impressions: Service Date/Time: September 11:47 - CONCLUSION: Uncomplicated fluoroscopically guided lumbar puncture. Silas Machuca MD Head CT 09/18/17 0000 Signed Impressions: Service Date/Time: September 08:01 - CONCLUSION: 1. Mild periventricular and subcortical white matter small vessel ischemic changes bilaterally. 2. No acute infarct, acute hemorrhage, mass effect or extra axial fluid collections. 3. Air-fluid level within the left maxillary sinus and mucous retention cyst within the right maxillary sinus. Bob Batista MD Brain MRI 09/18/17 0000 Signed Impressions: Service Date/Time: September 16:43 - CONCLUSION: Chronic atrophic and small vessel ischemic changes without any evidence for acute hemorrhage or mass effect, and chronic sinusitis. Aaron Nice MD Objective Remarks awake and alert, oriented x 3, speech clear and spontaneous anicteric no nuchal rigidity no rales regular rhythm abdomen soft, nontender extremities no edema motor- 5/5 all extremities gait slow but steady Procedures /- LP A/P Assessment and Plan 62 years old male Acute encephalopathy/ sepsis/ aseptic meningitis - MS - improved, speech improved The patient was in with altered mental status, fever, leukocytosis, tachycardia and tachypnea. He is currently unresponsive. CT of the head was unremarkable except for left maxillary sinusitis. LP performed by interventional radiology not currently indicative of bacterial etiology. He did recently have a viral infection so aseptic meningitis is a possibility. ID consult appreciated. EEG with slowing, worse in the left hemisphere. MRI of the brain without acute process. Neurology consultation appreciated. - Continue IV ceftriaxone 2 g every 12 hours and IV vancomycin per ID. - Follow LP studies culture data. No growth to date. - neurology following. - Neuro checks and seizure precautions. - Status post IV fluids. - Speech therapy ff- for cognitive evaluation - PT daily DM type 2 uncontrolled DKA- resolved Glucose was over 500 on admission. He did not have an anion gap. Started on DKA protocol and transferred to ICU. Hemoglobin A1c 13.8%. Glucose is well-controlled at this time. - Started insulin sliding scale along with Levemir daily. - will d/w diabetes nurse- - no insurance Adjust as needed. - follow BMP. Replete electrolytes as needed. - dietitian consulted - started on 70/30 5 units SQ bid- better readings - had a long discussion with them- they want to be switched back to Metformin- on further discussion in the past was on Insulin and improved and switched to metformin 2x- d/w them that his A1C is very high on Metformin alone - and not well controlled- they admit too - non compliance with diet Hematuria- resolved Pinto catheter with reddish urine and what appears to be clots. Repeat UA indicative of an infection. - Follow CBC and transfuse as needed. - continue antibiotics and follow urine culture. Acute renal injury- Likely prerenal. Resolved with fluids. - follow BMP. - Avoid nephrotoxins. CAD, HYpertension Status post CABG. EKG with sinus tachycardia. The patient is not on medication secondary to lack of insurance. HYpertension - start Lisinopril 10 mg bid- increase to 20 mg bid - ASA 81 mg daily Hypernatremia- resolved PPx: Heparin, SCDs Discharge Planning CM consult- jayne for OP PT- free visits d/w and patient- no insurance- needs a PCP and meds that are free in [facility] Tony Lopez MD Sep 24, 2017 09:46
[2017-09-24] MEDS ORDERED: NOVO7030P2 SQ (09:56)
[2017-09-24] MEDS ORDERED: FLUT50SP NASAL (09:56)
[2017-09-24] MEDS ORDERED: LISI-515 PO (09:56)
[2017-09-24] MEDS ORDERED: ASPI81 CHEW (09:56)
[2017-09-24] MEDS ORDERED: Amoxicil-Clavulanate PO (09:56)
[2017-09-24] MEDS ORDERED: WALKER WHEELS/F1 MIS (09:59)
--- NOTE | 2017-09-24 10:43 | HHI.FF ---
Face to Face Verification Diagnosis: (1) aseptic menhingtis (2) DM Home Health Nursing Order: Medical education Signs/symptoms of disease process Nursing assessment with vital signs [employer] Order: To Evaluate: Living conditions/environment, Support services Order: To Provide: Community services I have seen patient Néstor Anderson on 09/24/17. My clinical findings support the need for the requested home health care services because: Ltd mobility - disease progression Need for psychosocial assistance I certify that my clinical findings support that this patient is homebound because: Need for psychosocial assistance Tony Lopez MD Sep 24, 2017 10:43
--- NOTE | 2017-09-24 10:45 | HHI.DS ---
Discharge Summary Admission Date Sep 18, 2017 at 07:48 Discharge Date: Sep 24, 2017 Admitting Diagnosis Altered mental status (1) aseptic menhingtis Diagnosis: Principal (2) DM Diagnosis: Secondary Procedures 09/18- LP Brief History - From Admission The patient is a 62-year-old male with a past medical history of diabetes and CAD who is presenting to the hospital with altered mental status. He was unable to provide a history so his gave the history of present illness. Apparently the patient and his came down with the flu a couple of weeks ago. The patient's got better but the patient got worse. He continued to have flulike symptoms and has been sleeping a lot and going to bed early. He recently started vomiting a lot as well. He has been wobbly on ambulation and fell slowly to the ground with help from his . She does not believe he injured himself on that fall. She called for emergency services and they found the patient to have a high blood pressure, high blood sugar and elevated temperature. The patient's mental status started to get poor upon arrival of EMS. He was unable to answer questions correctly and by the time he arrived at the hospital he was completely unresponsive. The patient's states that in June she came down with suspected meningitis but was not told that they were able to find a causative organism. She is currently doing well. She reports that the patient has been having headaches on and off with his flulike prodrome. She mentions the patient has lost his insurance recently and since then his diabetes has been poorly controlled. CBC/BMP: 09/22/17 0545 09/23/17 0710 Significant Findings Laboratory Tests Test 09/22/17 05:45 09/23/17 07:10 Red Blood Count 3.90 MIL/MM3 (4.50-5.90) Hemoglobin 11.3 GM/DL (13.0-17.0) Hematocrit 32.6 % (39.0-51.0) Platelet Count 132 TH/MM3 (150-450) Calcium Level 7.7 MG/DL (8.5-10.1) Potassium Level 3.1 MEQ/L (3.5-5.1) Chloride Level 109 MEQ/L (98-107) 109 MEQ/L (98-107) Random Glucose 129 MG/DL (74-106) Estimat Glomerular Filtration Rate 85 ML/MIN (>89) Imaging Last Impressions Chest X-Ray 09/18/17 0514 Signed Impressions: Service Date/Time: September 05:22 - CONCLUSION: No acute disease. Chad Tristan Jr., MD Lumbar Puncture Fluoroscopy 09/18/17 0000 Signed Impressions: Service Date/Time: September 11:47 - CONCLUSION: Uncomplicated fluoroscopically guided lumbar puncture. Silas Machuca MD Head CT 09/18/17 0000 Signed Impressions: Service Date/Time: September 08:01 - CONCLUSION: 1. Mild periventricular and subcortical white matter small vessel ischemic changes bilaterally. 2. No acute infarct, acute hemorrhage, mass effect or extra axial fluid collections. 3. Air-fluid level within the left maxillary sinus and mucous retention cyst within the right maxillary sinus. Bob Batista MD Brain MRI 09/18/17 Signed Impressions: Service Date/Time: September 16:43 - CONCLUSION: Chronic atrophic and small vessel ischemic changes without any evidence for acute hemorrhage or mass effect, and chronic sinusitis. Aaron Nice MD PE at Discharge awake and alert, oriented x 3, speech clear and spontaneous anicteric no nuchal rigidity no rales regular rhythm abdomen soft, nontender extremities no edema motor- 5/5 all extremities gait slow but steady Pt update on day of discharge awake and alert, oriented x 3 speech spontaneous Hospital Course 62 years old male Acute encephalopathy/ sepsis/ aseptic meningitis - MS - improved, speech improved The patient was in with altered mental status, fever, leukocytosis, tachycardia and tachypnea. He is currently unresponsive. CT of the head was unremarkable except for left maxillary sinusitis. LP performed by interventional radiology not currently indicative of bacterial etiology. He did recently have a viral infection so aseptic meningitis is a possibility. ID consult appreciated. EEG with slowing, worse in the left hemisphere. MRI of the brain without acute process. Neurology consultation appreciated. - Continue IV ceftriaxone 2 g every 12 hours and IV vancomycin per ID. - Follow LP studies culture data. No growth to date. - neurology following. - Neuro checks and seizure precautions. - Status post IV fluids. - Speech therapy ff- for cognitive evaluation - PT daily DM type 2 uncontrolled DKA- resolved Glucose was over 500 on admission. He did not have an anion gap. Started on DKA protocol and transferred to ICU. Hemoglobin A1c 13.8%. Glucose is well-controlled at this time. - Started insulin sliding scale along with Levemir daily. - will d/w diabetes nurse- - no insurance Adjust as needed. - follow BMP. Replete electrolytes as needed. - dietitian consulted - started on 70/30 5 units SQ bid- better readings - had a long discussion with them- they want to be switched back to Metformin- on further discussion in the past was on Insulin and improved and switched to metformin 2x- d/w them that his A1C is very high on Metformin alone - and not well controlled- they admit too - non compliance with diet Hematuria- resolved Acute renal injury- Likely prerenal. Resolved with fluids. - follow BMP. - Avoid nephrotoxins. CAD, HYpertension Status post CABG. EKG with sinus tachycardia. The patient is not on medication secondary to lack of insurance. HYpertension - start Lisinopril 10 mg bid- increase to 20 mg bid - ASA 81 mg daily Hypernatremia- resolved PPx: Heparin, SCDs Discharge Planning CM consult- jayne for OP PT- free visits d/w and patient- no insurance- needs a PCP and meds that are free in [facility] Pt Condition on Discharge: Stable Discharge Disposition: Disch w/ Home Health Serv Discharge Time: <= 30 minutes Discharge Instructions DIET: Follow Instructions for: Heart Healthy Diet, Diabetic Diet Speech Therapy-Diet Recommends: Regular Activities you can perform: Weight Bearing as Sayra Follow up Referrals: PCP Follow-up - 1 Week with PCP[facility] PCP Follow-up New Medications: Walker with Front Wheels (Walker with Front Wheels) 1 Mis Mis EA .ROUTE DIRECTED for ambu, #1 0 Refills Aspirin (Tgt Aspirin) 81 Mg Chw 81 MG CHEW DAILY for CAD for 30 Days, #10 EA Fluticasone Nasal [place] (Fluticasone Nasal [place]) 50 Mcg/Act Naspr 1 SPRAY NASAL BID for RHI for 30 Days, #1 BOTTLE 50 mcg/spray Insulin Human Isophane-Regular 70-30 Inj (Novolin 70-30 Inj) 1,000 Unit/10 Ml Vial 5 UNITS SQ BID@08,17 for DM for 30 Days, INJECTION Lisinopril (Lisinopril) 20 Mg Tab 20 MG PO Q12HR for HTN for 30 Days, TAB [Amoxicil-Clavulanate] () 500 MG TAB 500 MG PO Q8HR for Infection for 6 Days Tony Lopez MD Sep 24, 2017 10:45
[2017-09-24] MEDS ORDERED: LISINOPRIL 20 MG TAB PO SCH (21:00)
[2017-09-25] MEDS ORDERED: LISINOPRIL 20 MG TAB PO SCH (09:00)
== END 2017-09-24 11:52 | disposition home health service (06) | DRG 871 ==
LOC: NEPC 05:04 → NEDA 07:48 → N05A 11:28 → N03B 16:25 → N03A 18:30 → N07A 09-21 16:27
PROVIDERS: ADMIT Internal Medicine; ATTEND Internal Medicine
PROC: 009U3ZX Drainage of Spinal Canal, Percutaneous Approach, Diagnostic (ICD-10-PCS; principal; 2017-09-18)
PROC: 00JU3ZZ Inspection of Spinal Canal, Percutaneous Approach (ICD-10-PCS; 2017-09-18)
DX: A41.9 Sepsis, unspecified organism (principal); G93.41 Metabolic encephalopathy; E11.10 Type 2 diabetes mellitus with ketoacidosis without coma; G03.0 Nonpyogenic meningitis; N17.9 Acute kidney failure, unspecified; E87.0 Hyperosmolality and hypernatremia; E11.42 Type 2 diabetes mellitus with diabetic polyneuropathy; I25.10 Atherosclerotic heart disease of native coronary artery without angina pectoris; R00.0 Tachycardia, unspecified; R31.9 Hematuria, unspecified; Z66 Do not resuscitate; J01.00 Acute maxillary sinusitis, unspecified; R06.82 Tachypnea, not elsewhere classified; I10 Essential (primary) hypertension; Z79.84 Long term (current) use of oral hypoglycemic drugs; Z95.1 Presence of aortocoronary bypass graft; Z95.3 Presence of xenogenic heart valve
CPT/HCPCS: 36600; 51702; 62270; 70450; 70553; 71045; 76937; 77003; 80048; 80053; 80202; 81001; 82010; 82607; 82805; 82945; 82948; 83036; 83605; 83735; 84100; 84155; 84157; 84443; 84484; 85025; 85027; 85610; 85730; 86592; 87040; 87070; 87086; 87205; 87449; 87498; 87529; 87804; 89051; 93005; 93308; 95819; 96365; 96375; A9579; J0131; J0133; J0360; J0696; J1644; J1815; J1817; J2060; J2405; J3370; J3480; J7030; J7040; J7042; J7050

== ENCOUNTER 2018-05-22 13:39 | Inpatient (IN) ==
[2018-05-22] MEDS ORDERED: Sod Chloride 0.9% Inj 1,000 ML IV.SIG ONE (16:51)
[2018-05-22] MEDS ORDERED: Vancomycin Inj 1 GM/200 ML PIGGYBACK IV.SIG ONE (16:51)
[2018-05-22] MEDS ORDERED: Piperacil/Tazo 4.5 GM Premix 4.5 GM/100 ML BAG IV.SIG ONE (16:51)
[2018-05-22] MEDS ORDERED: Morphine Inj 4 MG/ML Vial IV.PUSH ONE (16:53)
--- NOTE | 2018-05-22 16:57 | ED ---
HPI General Chief Complaint: Extremity Injury, Lower Stated Complaint: R Foot Complaint Time Seen by Provider: 05/22/18 16:21 Source: patient Mode of arrival: ambulatory Limitations: no limitations History of Present Illness HPI Narrative: 63-year-old man with PMH of CHF, bovine MVR, DM, neuropathy presents to the ED for "weeks long" history of wound of the right foot. The patient states that the wounds started as blisters, no known injury. He states that he has been treated outpatient with cipro, bactrim and clindamycin with some improvement of redness, but no resolution of the wounds. HE states that his PCP ([facility]) told him that his wound cultures grew MRSA and was sent today for IV antibiotics. On presentation he endorses chills. He endorses 8/10 pain in the right foot. He reports increased edema of the right lower extremity. He reports decreased activity since the onset of this problem. He denies headaches, dizziness, chest pain, palpitations, shortness of breath, abdominal pain, nausea, vomiting, dysuria. The pain is aching, worsened by touch. No alleviating factors reported. He treated at home with clindamycin with no improvement of symptoms. Related Data Home Medications Medication Instructions Recorded Confirmed aspirin [Aspir-81] 81 mg PO DAILY 05/22/18 06/04/18 benzonatate [Tessalon Perles] 200 mg PO BID PRN 05/22/18 06/04/18 fluconazole 150 mg PO WEEKLY 05/22/18 06/04/18 furosemide [Lasix] 40 mg PO DAILY 05/22/18 06/04/18 rosuvastatin 20 mg PO DAILY 05/22/18 06/04/18 Previous Rx's Medication Instructions Recorded amlodipine [Norvasc] 5 mg PO DAILY tab 06/02/18 hydrocodone-acetaminophen 1 tab PO Q4H PRN #20 tab 06/02/18 insulin detemir U-100 [Levemir 16 unit SUB-Q BID ml 06/02/18 U-100 Insulin] lisinopril 20 mg PO DAILY tab 06/02/18 metoprolol tartrate 25 mg PO BID tab 06/02/18 metronidazole [Flagyl] 500 mg PO QID #120 tab 06/02/18 tamsulosin 0.4 mg PO DAILY cap 06/02/18 vancomycin 1,750 mg IV Q24H ea 06/02/18 Allergies Allergy/AdvReac Type Severity Reaction Status Date / Time bee venom protein (honey bee) Allergy Severe Anaphylaxis Verified 05/22/18 20:28 Review of Systems ROS: all other systems reviewed are negative PMFSH Social History Social History Substance History: No History of Abuse Second Hand Smoke Exposure: No Smoking Status: Never smoker How Often Do You Have a Drink Containing Alcohol: Never Hx Recent Travel: No Recent Travel in [facility] [[email or web address]] within the Last 8 Weeks: No Recent Out of Country Travel within the Last 8 Weeks: No Exam Narrative Exam Narrative: GENERAL: Well-nourished, well-developed white male in no acute distress. SKIN: Focused skin assessment warm/dry. Multiple shallow wounds of the dorsum of the foot with surrounding erythema, edema, tenderness and warmth. There is a line of demarcation of the distal third of the calf. Focused right lower extremity exam: HEAD: Atraumatic. Normocephalic. EYES: Pupils equal and round. No scleral icterus. No injection or drainage. ENT: No nasal bleeding or discharge. Mucous membranes pink and moist. NECK: Trachea midline. No JVD. CARDIOVASCULAR: Regular rate and rhythm. No murmur appreciated. RESPIRATORY: No accessory muscle use. Clear to auscultation. Breath sounds equal bilaterally. GASTROINTESTINAL: Abdomen soft, non-tender, nondistended. Hepatic and splenic margins not palpable. MUSCULOSKELETAL: No obvious deformities. No clubbing. No cyanosis. No edema. FOCUSED RIGHT LOWER EXTREMITY EXAM: 2+ DP pulse. Homans sign positive. Patient retains flexion and extension of the ankle. He is able to wiggle the toes. Neurovascularly intact distally. NEUROLOGICAL: Awake and alert. No obvious cranial nerve deficits. Motor grossly within normal limits. Normal speech. PSYCHIATRIC: Appropriate mood and affect; insight and judgment normal. Course Initial Documented Vital Signs Temperature 98.2 F 05/22/18 13:51 Pulse Rate 62 05/22/18 13:51 Respiratory Rate 16 05/22/18 13:51 Blood Pressure 119/60 05/22/18 13:51 Pulse Oximetry 99 05/22/18 13:51 Last Documented Vital Signs Temperature 97.7 F 06/04/18 12:00 Pulse Rate 53 L 06/04/18 12:00 Respiratory Rate 16 06/04/18 12:00 Blood Pressure 154/73 H 06/04/18 12:00 Pulse Oximetry 99 06/04/18 12:00 Medical Decision Making MDM Narrative Medical decision making narrative: 63-year-old diabetic male presents the ED for evaluation of chronic foot wounds of the right foot. Present for 3 weeks, treated outpatient with Cipro, Bactrim and clindamycin. His [place] doctors called him today and told him that his cultures grew MRSA, instructed to come to the emergency room. Afebrile on presentation. There are several shallow wounds of the right foot with cellulitic changes that extend to the distal calf. There is tender edema to the knee. IV was established. Patient was ministered 4 mg morphine, 4 mg Zofran, 1 L normal saline. Blood cultures and wound cultures were acquired. IV vancomycin and Zosyn was administered. X-ray of the foot reveals no evidence of osteomyelitis. Ultrasound reveals no evidence of DVT. Lab work revealed leukocytosis, acute kidney injury. I discussed the results of workup with the patient as well as the recommendation for admission. He and his are agreeable. Consult placed with Dr. Carson , information writer. I spoke with Dr. Gonzales who agrees to accept the patient the medicine service. Please see medicine notes for disposition. Medical Screen Exam Complete: Yes Emergency Medical Condition: Yes Differential Diagnosis Differential Diagnosis: Diabetic foot wound versus cellulitis versus sepsis versus DVT versus CHF exacerbation versus other Lab Data Result diagrams: 06/01/18 06:03 06/01/18 06:03 Lab Results 05/22/18 05/22/18 05/22/18 Range/Units 17:15 17:15 17:15 WBC 15.6 H (4.0-11.0) th/mm3 RBC 3.50 L (4.50-5.90) mil/mm3 Hgb 10.1 L (13.0-17.0) gm/dL Hct 29.2 L (39.0-51.0) % MCV 83.5 (80.0-100.0) fL MCH 28.8 (27.0-34.0) pg MCHC 34.5 (32.0-36.0) % RDW 13.1 (11.6-17.2) % Plt Count 241 (150-450) th/mm3 MPV 8.4 (7.0-11.0) fL Neut % (Auto) 86.7 H (16.0-70.0) % Lymph % (Auto) 5.3 L (9.0-44.0) % [place] % (Auto) 7.2 (0.0-8.0) % Eos % (Auto) 0.6 (0.0-4.0) % Baso % (Auto) 0.2 (0.0-2.0) % Neut # (Auto) 13.5 H (1.8-7.7) th/mm3 Lymph # (Auto) 0.8 L (1.0-4.8) th/mm3 [place] # (Auto) 1.1 H (0.0-0.9) th/mm3 Eos # (Auto) 0.1 (0.0-0.4) th/mm3 Baso # (Auto) 0.0 (0.0-0.2) th/mm3 WBC Differential . Differential Comment Auto diff final ESR (0-20) mm/hr PT (9.8-11.6) sec INR Ratio Sodium 134 L (136-145) meq/L Potassium 5.1 (3.5-5.1) meq/L Chloride 100 (98-107) meq/L Carbon Dioxide 24.2 (21.0-32.0) meq/L Anion Gap 10 (5-15) meq/L BUN 51 H (7-18) mg/dL Creatinine 2.44 H (0.60-1.30) mg/dL Estimated GFR 27 L (>89) mL/min POC Glucose (68-110) mg/dl Random Glucose 346 H (74-106) mg/dL Hemoglobin A1c (4.3-6.0) % Lactic Acid 0.9 (0.4-2.0) mmol/L Calcium 8.6 (8.5-10.1) mg/dL Phosphorus (2.5-4.9) mg/dL Magnesium (1.5-2.5) mg/dL Total Bilirubin (0.2-1.0) mg/dL AST (15-37) U/L ALT (12-78) U/L Alkaline Phosphatase (45-117) U/L Total Creatine Kinase (39-308) U/L C-Reactive Protein (0.00-0.30) mg/dL B-Natriuretic Peptide (0-100) pg/mL Total Protein (6.4-8.2) g/dL Albumin (3.4-5.0) g/dL TSH (0.358-3.740) uIU/mL Free T4 (0.76-1.46) ng/dL Vancomycin Trough (5.0-10.0) mcg/mL Random Vancomycin Comment 05/22/18 05/22/18 05/22/18 Range/Units 17:15 17:15 17:15 WBC (4.0-11.0) th/mm3 RBC (4.50-5.90) mil/mm3 Hgb (13.0-17.0) gm/dL Hct (39.0-51.0) % MCV (80.0-100.0) fL MCH (27.0-34.0) pg MCHC (32.0-36.0) % RDW (11.6-17.2) % Plt Count (150-450) th/mm3 MPV (7.0-11.0) fL Neut % (Auto) (16.0-70.0) % Lymph % (Auto) (9.0-44.0) % [place] % (Auto) (0.0-8.0) % Eos % (Auto) (0.0-4.0) % Baso % (Auto) (0.0-2.0) % Neut # (Auto) (1.8-7.7) th/mm3 Lymph # (Auto) (1.0-4.8) th/mm3 [place] # (Auto) (0.0-0.9) th/mm3 Eos # (Auto) (0.0-0.4) th/mm3 Baso # (Auto) (0.0-0.2) th/mm3 WBC Differential Differential Comment ESR Greater than 140 H (0-20) mm/hr PT (9.8-11.6) sec INR Ratio Sodium (136-145) meq/L Potassium (3.5-5.1) meq/L Chloride (98-107) meq/L Carbon Dioxide (21.0-32.0) meq/L Anion Gap (5-15) meq/L BUN (7-18) mg/dL Creatinine (0.60-1.30) mg/dL Estimated GFR (>89) mL/min POC Glucose (68-110) mg/dl Random Glucose (74-106) mg/dL Hemoglobin A1c (4.3-6.0) % Lactic Acid (0.4-2.0) mmol/L Calcium (8.5-10.1) mg/dL Phosphorus (2.5-4.9) mg/dL Magnesium (1.5-2.5) mg/dL Total Bilirubin (0.2-1.0) mg/dL AST (15-37) U/L ALT (12-78) U/L Alkaline Phosphatase (45-117) U/L Total Creatine Kinase (39-308) U/L C-Reactive Protein 17.00 H (0.00-0.30) mg/dL B-Natriuretic Peptide 269 H (0-100) pg/mL Total Protein (6.4-8.2) g/dL Albumin (3.4-5.0) g/dL TSH (0.358-3.740) uIU/mL Free T4 (0.76-1.46) ng/dL Vancomycin Trough (5.0-10.0) mcg/mL Random Vancomycin Comment 05/22/18 05/23/18 05/23/18 Range/Units 20:41 02:48 04:38 WBC 12.2 H (4.0-11.0) th/mm3 RBC 2.93 L (4.50-5.90) mil/mm3 Hgb 8.3 L (13.0-17.0) gm/dL Hct 24.6 L (39.0-51.0) % MCV 84.1 (80.0-100.0) fL MCH 28.3 (27.0-34.0) pg MCHC 33.7 (32.0-36.0) % RDW 13.2 (11.6-17.2) % Plt Count 209 (150-450) th/mm3 MPV 8.5 (7.0-11.0) fL Neut % (Auto) 85.2 H (16.0-70.0) % Lymph % (Auto) 6.5 L (9.0-44.0) % [place] % (Auto) 7.5 (0.0-8.0) % Eos % (Auto) 0.4 (0.0-4.0) % Baso % (Auto) 0.4 (0.0-2.0) % Neut # (Auto) 10.4 H (1.8-7.7) th/mm3 Lymph # (Auto) 0.8 L (1.0-4.8) th/mm3 [place] # (Auto) 0.9 (0.0-0.9) th/mm3 Eos # (Auto) 0.0 (0.0-0.4) th/mm3 Baso # (Auto) 0.1 (0.0-0.2) th/mm3 WBC Differential . Differential Comment Auto diff final ESR (0-20) mm/hr PT (9.8-11.6) sec INR Ratio Sodium (136-145) meq/L Potassium (3.5-5.1) meq/L Chloride (98-107) meq/L Carbon Dioxide (21.0-32.0) meq/L Anion Gap (5-15) meq/L BUN (7-18) mg/dL Creatinine (0.60-1.30) mg/dL Estimated GFR (>89) mL/min POC Glucose 322 H 186 H (68-110) mg/dl Random Glucose (74-106) mg/dL Hemoglobin A1c (4.3-6.0) % Lactic Acid (0.4-2.0) mmol/L Calcium (8.5-10.1) mg/dL Phosphorus (2.5-4.9) mg/dL Magnesium (1.5-2.5) mg/dL Total Bilirubin (0.2-1.0) mg/dL AST (15-37) U/L ALT (12-78) U/L Alkaline Phosphatase (45-117) U/L Total Creatine Kinase (39-308) U/L C-Reactive Protein (0.00-0.30) mg/dL B-Natriuretic Peptide (0-100) pg/mL Total Protein (6.4-8.2) g/dL Albumin (3.4-5.0) g/dL TSH (0.358-3.740) uIU/mL Free T4 (0.76-1.46) ng/dL Vancomycin Trough (5.0-10.0) mcg/mL Random Vancomycin Comment 05/23/18 05/23/18 05/23/18 Range/Units 04:38 04:38 04:38 WBC (4.0-11.0) th/mm3 RBC (4.50-5.90) mil/mm3 Hgb (13.0-17.0) gm/dL Hct (39.0-51.0) % MCV (80.0-100.0) fL MCH (27.0-34.0) pg MCHC (32.0-36.0) % RDW (11.6-17.2) % Plt Count (150-450) th/mm3 MPV (7.0-11.0) fL Neut % (Auto) (16.0-70.0) % Lymph % (Auto) (9.0-44.0) % [place] % (Auto) (0.0-8.0) % Eos % (Auto) (0.0-4.0) % Baso % (Auto) (0.0-2.0) % Neut # (Auto) (1.8-7.7) th/mm3 Lymph # (Auto) (1.0-4.8) th/mm3 [place] # (Auto) (0.0-0.9) th/mm3 Eos # (Auto) (0.0-0.4) th/mm3 Baso # (Auto) (0.0-0.2) th/mm3 WBC Differential Differential Comment ESR (0-20) mm/hr PT 11.1 (9.8-11.6) sec INR 1.1 Ratio Sodium 140 (136-145) meq/L Potassium 5.1 (3.5-5.1) meq/L Chloride 107 (98-107) meq/L Carbon Dioxide 22.6 (21.0-32.0) meq/L Anion Gap 10 (5-15) meq/L BUN 44 H (7-18) mg/dL Creatinine 2.02 H (0.60-1.30) mg/dL Estimated GFR 33 L (>89) mL/min POC Glucose (68-110) mg/dl Random Glucose 151 H D (74-106) mg/dL Hemoglobin A1c 8.6 H (4.3-6.0) % Lactic Acid (0.4-2.0) mmol/L Calcium 7.8 L D (8.5-10.1) mg/dL Phosphorus 3.3 (2.5-4.9) mg/dL Magnesium 2.3 (1.5-2.5) mg/dL Total Bilirubin 0.2 (0.2-1.0) mg/dL AST 9 L (15-37) U/L ALT 16 (12-78) U/L Alkaline Phosphatase 62 (45-117) U/L Total Creatine Kinase (39-308) U/L C-Reactive Protein (0.00-0.30) mg/dL B-Natriuretic Peptide (0-100) pg/mL Total Protein 6.6 (6.4-8.2) g/dL Albumin 2.2 L (3.4-5.0) g/dL TSH 0.984 (0.358-3.740) uIU/mL Free T4 1.21 (0.76-1.46) ng/dL Vancomycin Trough (5.0-10.0) mcg/mL Random Vancomycin 7.2 Comment 05/23/18 05/23/18 05/23/18 Range/Units 08:05 11:44 13:49 WBC (4.0-11.0) th/mm3 RBC (4.50-5.90) mil/mm3 Hgb (13.0-17.0) gm/dL Hct (39.0-51.0) % MCV (80.0-100.0) fL MCH (27.0-34.0) pg MCHC (32.0-36.0) % RDW (11.6-17.2) % Plt Count (150-450) th/mm3 MPV (7.0-11.0) fL Neut % (Auto) (16.0-70.0) % Lymph % (Auto) (9.0-44.0) % [place] % (Auto) (0.0-8.0) % Eos % (Auto) (0.0-4.0) % Baso % (Auto) (0.0-2.0) % Neut # (Auto) (1.8-7.7) th/mm3 Lymph # (Auto) (1.0-4.8) th/mm3 [place] # (Auto) (0.0-0.9) th/mm3 Eos # (Auto) (0.0-0.4) th/mm3 Baso # (Auto) (0.0-0.2) th/mm3 WBC Differential Differential Comment ESR (0-20) mm/hr PT (9.8-11.6) sec INR Ratio Sodium (136-145) meq/L Potassium (3.5-5.1) meq/L Chloride (98-107) meq/L Carbon Dioxide (21.0-32.0) meq/L Anion Gap (5-15) meq/L BUN (7-18) mg/dL Creatinine (0.60-1.30) mg/dL Estimated GFR (>89) mL/min POC Glucose 155 H 173 H 188 H (68-110) mg/dl Random Glucose (74-106) mg/dL Hemoglobin A1c (4.3-6.0) % Lactic Acid (0.4-2.0) mmol/L Calcium (8.5-10.1) mg/dL Phosphorus (2.5-4.9) mg/dL Magnesium (1.5-2.5) mg/dL Total Bilirubin (0.2-1.0) mg/dL AST (15-37) U/L ALT (12-78) U/L Alkaline Phosphatase (45-117) U/L Total Creatine Kinase (39-308) U/L C-Reactive Protein (0.00-0.30) mg/dL B-Natriuretic Peptide (0-100) pg/mL Total Protein (6.4-8.2) g/dL Albumin (3.4-5.0) g/dL TSH (0.358-3.740) uIU/mL Free T4 (0.76-1.46) ng/dL Vancomycin Trough (5.0-10.0) mcg/mL Random Vancomycin Comment 05/23/18 05/23/18 05/24/18 Range/Units 16:43 20:22 04:26 WBC (4.0-11.0) th/mm3 RBC (4.50-5.90) mil/mm3 Hgb (13.0-17.0) gm/dL Hct (39.0-51.0) % MCV (80.0-100.0) fL MCH (27.0-34.0) pg MCHC (32.0-36.0) % RDW (11.6-17.2) % Plt Count (150-450) th/mm3 MPV (7.0-11.0) fL Neut % (Auto) (16.0-70.0) % Lymph % (Auto) (9.0-44.0) % [place] % (Auto) (0.0-8.0) % Eos % (Auto) (0.0-4.0) % Baso % (Auto) (0.0-2.0) % Neut # (Auto) (1.8-7.7) th/mm3 Lymph # (Auto) (1.0-4.8) th/mm3 [place] # (Auto) (0.0-0.9) th/mm3 Eos # (Auto) (0.0-0.4) th/mm3 Baso # (Auto) (0.0-0.2) th/mm3 WBC Differential Differential Comment ESR (0-20) mm/hr PT (9.8-11.6) sec INR Ratio Sodium (136-145) meq/L Potassium (3.5-5.1) meq/L Chloride (98-107) meq/L Carbon Dioxide (21.0-32.0) meq/L Anion Gap (5-15) meq/L BUN (7-18) mg/dL Creatinine (0.60-1.30) mg/dL Estimated GFR (>89) mL/min POC Glucose 175 H 157 H 113 H (68-110) mg/dl Random Glucose (74-106) mg/dL Hemoglobin A1c (4.3-6.0) % Lactic Acid (0.4-2.0) mmol/L Calcium (8.5-10.1) mg/dL Phosphorus (2.5-4.9) mg/dL Magnesium (1.5-2.5) mg/dL Total Bilirubin (0.2-1.0) mg/dL AST (15-37) U/L ALT (12-78) U/L Alkaline Phosphatase (45-117) U/L Total Creatine Kinase (39-308) U/L C-Reactive Protein (0.00-0.30) mg/dL B-Natriuretic Peptide (0-100) pg/mL Total Protein (6.4-8.2) g/dL Albumin (3.4-5.0) g/dL TSH (0.358-3.740) uIU/mL Free T4 (0.76-1.46) ng/dL Vancomycin Trough (5.0-10.0) mcg/mL Random Vancomycin Comment 05/24/18 05/24/18 05/24/18 Range/Units 04:41 04:41 07:29 WBC 12.6 H (4.0-11.0) th/mm3 RBC 3.31 L (4.50-5.90) mil/mm3 Hgb 9.3 L (13.0-17.0) gm/dL Hct 28.3 L (39.0-51.0) % MCV 85.5 (80.0-100.0) fL MCH 28.1 (27.0-34.0) pg MCHC 32.8 (32.0-36.0) % RDW 13.2 (11.6-17.2) % Plt Count 267 (150-450) th/mm3 MPV 8.6 (7.0-11.0) fL Neut % (Auto) 83.4 H (16.0-70.0) % Lymph % (Auto) 9.1 (9.0-44.0) % [place] % (Auto) 6.1 (0.0-8.0) % Eos % (Auto) 0.5 (0.0-4.0) % Baso % (Auto) 0.9 (0.0-2.0) % Neut # (Auto) 10.5 H (1.8-7.7) th/mm3 Lymph # (Auto) 1.1 (1.0-4.8) th/mm3 [place] # (Auto) 0.8 (0.0-0.9) th/mm3 Eos # (Auto) 0.1 (0.0-0.4) th/mm3 Baso # (Auto) 0.1 (0.0-0.2) th/mm3 WBC Differential . Differential Comment Auto diff final ESR (0-20) mm/hr PT (9.8-11.6) sec INR Ratio Sodium 138 (136-145) meq/L Potassium 5.1 (3.5-5.1) meq/L Chloride 107 (98-107) meq/L Carbon Dioxide 23.1 (21.0-32.0) meq/L Anion Gap 8 (5-15) meq/L BUN 38 H (7-18) mg/dL Creatinine 1.78 H (0.60-1.30) mg/dL Estimated GFR 39 L (>89) mL/min POC Glucose 136 H (68-110) mg/dl Random Glucose 97 (74-106) mg/dL Hemoglobin A1c (4.3-6.0) % Lactic Acid (0.4-2.0) mmol/L Calcium 8.6 D (8.5-10.1) mg/dL Phosphorus (2.5-4.9) mg/dL Magnesium (1.5-2.5) mg/dL Total Bilirubin (0.2-1.0) mg/dL AST (15-37) U/L ALT (12-78) U/L Alkaline Phosphatase (45-117) U/L Total Creatine Kinase (39-308) U/L C-Reactive Protein (0.00-0.30) mg/dL B-Natriuretic Peptide (0-100) pg/mL Total Protein (6.4-8.2) g/dL Albumin (3.4-5.0) g/dL TSH (0.358-3.740) uIU/mL Free T4 (0.76-1.46) ng/dL Vancomycin Trough (5.0-10.0) mcg/mL Random Vancomycin Comment 05/24/18 05/24/18 05/24/18 Range/Units 11:40 16:33 21:49 WBC (4.0-11.0) th/mm3 RBC (4.50-5.90) mil/mm3 Hgb (13.0-17.0) gm/dL Hct (39.0-51.0) % MCV (80.0-100.0) fL MCH (27.0-34.0) pg MCHC (32.0-36.0) % RDW (11.6-17.2) % Plt Count (150-450) th/mm3 MPV (7.0-11.0) fL Neut % (Auto) (16.0-70.0) % Lymph % (Auto) (9.0-44.0) % [place] % (Auto) (0.0-8.0) % Eos % (Auto) (0.0-4.0) % Baso % (Auto) (0.0-2.0) % Neut # (Auto) (1.8-7.7) th/mm3 Lymph # (Auto) (1.0-4.8) th/mm3 [place] # (Auto) (0.0-0.9) th/mm3 Eos # (Auto) (0.0-0.4) th/mm3 Baso # (Auto) (0.0-0.2) th/mm3 WBC Differential Differential Comment ESR (0-20) mm/hr PT (9.8-11.6) sec INR Ratio Sodium (136-145) meq/L Potassium (3.5-5.1) meq/L Chloride (98-107) meq/L Carbon Dioxide (21.0-32.0) meq/L Anion Gap (5-15) meq/L BUN (7-18) mg/dL Creatinine (0.60-1.30) mg/dL Estimated GFR (>89) mL/min POC Glucose 152 H 209 H 175 H (68-110) mg/dl Random Glucose (74-106) mg/dL Hemoglobin A1c (4.3-6.0) % Lactic Acid (0.4-2.0) mmol/L Calcium (8.5-10.1) mg/dL Phosphorus (2.5-4.9) mg/dL Magnesium (1.5-2.5) mg/dL Total Bilirubin (0.2-1.0) mg/dL AST (15-37) U/L ALT (12-78) U/L Alkaline Phosphatase (45-117) U/L Total Creatine Kinase (39-308) U/L C-Reactive Protein (0.00-0.30) mg/dL B-Natriuretic Peptide (0-100) pg/mL Total Protein (6.4-8.2) g/dL Albumin (3.4-5.0) g/dL TSH (0.358-3.740) uIU/mL Free T4 (0.76-1.46) ng/dL Vancomycin Trough (5.0-10.0) mcg/mL Random Vancomycin Comment 05/25/18 05/25/18 05/25/18 Range/Units 02:36 05:30 05:30 WBC 8.0 (4.0-11.0) th/mm3 RBC 2.98 L (4.50-5.90) mil/mm3 Hgb 8.6 L (13.0-17.0) gm/dL Hct 24.4 L (39.0-51.0) % MCV 81.9 D (80.0-100.0) fL MCH 28.9 (27.0-34.0) pg MCHC 35.3 (32.0-36.0) % RDW 13.5 (11.6-17.2) % Plt Count 221 (150-450) th/mm3 MPV 8.1 (7.0-11.0) fL Neut % (Auto) 76.4 H (16.0-70.0) % Lymph % (Auto) 12.4 (9.0-44.0) % [place] % (Auto) 8.8 H (0.0-8.0) % Eos % (Auto) 1.5 (0.0-4.0) % Baso % (Auto) 0.9 (0.0-2.0) % Neut # (Auto) 6.1 (1.8-7.7) th/mm3 Lymph # (Auto) 1.0 (1.0-4.8) th/mm3 [place] # (Auto) 0.7 (0.0-0.9) th/mm3 Eos # (Auto) 0.1 (0.0-0.4) th/mm3 Baso # (Auto) 0.1 (0.0-0.2) th/mm3 WBC Differential . Differential Comment Auto diff final ESR (0-20) mm/hr PT (9.8-11.6) sec INR Ratio Sodium 139 (136-145) meq/L Potassium 4.9 (3.5-5.1) meq/L Chloride 106 (98-107) meq/L Carbon Dioxide 23.1 (21.0-32.0) meq/L Anion Gap 10 (5-15) meq/L BUN 31 H (7-18) mg/dL Creatinine 1.58 H (0.60-1.30) mg/dL Estimated GFR 44 L (>89) mL/min POC Glucose 138 H (68-110) mg/dl Random Glucose 134 H (74-106) mg/dL Hemoglobin A1c (4.3-6.0) % Lactic Acid (0.4-2.0) mmol/L Calcium 8.4 L (8.5-10.1) mg/dL Phosphorus (2.5-4.9) mg/dL Magnesium (1.5-2.5) mg/dL Total Bilirubin (0.2-1.0) mg/dL AST (15-37) U/L ALT (12-78) U/L Alkaline Phosphatase (45-117) U/L Total Creatine Kinase (39-308) U/L C-Reactive Protein (0.00-0.30) mg/dL B-Natriuretic Peptide (0-100) pg/mL Total Protein (6.4-8.2) g/dL Albumin (3.4-5.0) g/dL TSH (0.358-3.740) uIU/mL Free T4 (0.76-1.46) ng/dL Vancomycin Trough (5.0-10.0) mcg/mL Random Vancomycin Comment 05/25/18 05/25/18 05/25/18 Range/Units 05:30 07:32 11:25 WBC (4.0-11.0) th/mm3 RBC (4.50-5.90) mil/mm3 Hgb (13.0-17.0) gm/dL Hct (39.0-51.0) % MCV (80.0-100.0) fL MCH (27.0-34.0) pg MCHC (32.0-36.0) % RDW (11.6-17.2) % Plt Count (150-450) th/mm3 MPV (7.0-11.0) fL Neut % (Auto) (16.0-70.0) % Lymph % (Auto) (9.0-44.0) % [place] % (Auto) (0.0-8.0) % Eos % (Auto) (0.0-4.0) % Baso % (Auto) (0.0-2.0) % Neut # (Auto) (1.8-7.7) th/mm3 Lymph # (Auto) (1.0-4.8) th/mm3 [place] # (Auto) (0.0-0.9) th/mm3 Eos # (Auto) (0.0-0.4) th/mm3 Baso # (Auto) (0.0-0.2) th/mm3 WBC Differential Differential Comment ESR (0-20) mm/hr PT (9.8-11.6) sec INR Ratio Sodium (136-145) meq/L Potassium (3.5-5.1) meq/L Chloride (98-107) meq/L Carbon Dioxide (21.0-32.0) meq/L Anion Gap (5-15) meq/L BUN (7-18) mg/dL Creatinine (0.60-1.30) mg/dL Estimated GFR (>89) mL/min POC Glucose 163 H 134 H (68-110) mg/dl Random Glucose (74-106) mg/dL Hemoglobin A1c (4.3-6.0) % Lactic Acid (0.4-2.0) mmol/L Calcium (8.5-10.1) mg/dL Phosphorus (2.5-4.9) mg/dL Magnesium (1.5-2.5) mg/dL Total Bilirubin (0.2-1.0) mg/dL AST (15-37) U/L ALT (12-78) U/L Alkaline Phosphatase (45-117) U/L Total Creatine Kinase 92 (39-308) U/L C-Reactive Protein (0.00-0.30) mg/dL B-Natriuretic Peptide (0-100) pg/mL Total Protein (6.4-8.2) g/dL Albumin (3.4-5.0) g/dL TSH (0.358-3.740) uIU/mL Free T4 (0.76-1.46) ng/dL Vancomycin Trough (5.0-10.0) mcg/mL Random Vancomycin Comment 05/25/18 05/25/18 05/26/18 Range/Units 16:28 20:04 02:40 WBC (4.0-11.0) th/mm3 RBC (4.50-5.90) mil/mm3 Hgb (13.0-17.0) gm/dL Hct (39.0-51.0) % MCV (80.0-100.0) fL MCH (27.0-34.0) pg MCHC (32.0-36.0) % RDW (11.6-17.2) % Plt Count (150-450) th/mm3 MPV (7.0-11.0) fL Neut % (Auto) (16.0-70.0) % Lymph % (Auto) (9.0-44.0) % [place] % (Auto) (0.0-8.0) % Eos % (Auto) (0.0-4.0) % Baso % (Auto) (0.0-2.0) % Neut # (Auto) (1.8-7.7) th/mm3 Lymph # (Auto) (1.0-4.8) th/mm3 [place] # (Auto) (0.0-0.9) th/mm3 Eos # (Auto) (0.0-0.4) th/mm3 Baso # (Auto) (0.0-0.2) th/mm3 WBC Differential Differential Comment ESR (0-20) mm/hr PT (9.8-11.6) sec INR Ratio Sodium (136-145) meq/L Potassium (3.5-5.1) meq/L Chloride (98-107) meq/L Carbon Dioxide (21.0-32.0) meq/L Anion Gap (5-15) meq/L BUN (7-18) mg/dL Creatinine (0.60-1.30) mg/dL Estimated GFR (>89) mL/min POC Glucose 155 H 166 H 117 H (68-110) mg/dl Random Glucose (74-106) mg/dL Hemoglobin A1c (4.3-6.0) % Lactic Acid (0.4-2.0) mmol/L Calcium (8.5-10.1) mg/dL Phosphorus (2.5-4.9) mg/dL Magnesium (1.5-2.5) mg/dL Total Bilirubin (0.2-1.0) mg/dL AST (15-37) U/L ALT (12-78) U/L Alkaline Phosphatase (45-117) U/L Total Creatine Kinase (39-308) U/L C-Reactive Protein (0.00-0.30) mg/dL B-Natriuretic Peptide (0-100) pg/mL Total Protein (6.4-8.2) g/dL Albumin (3.4-5.0) g/dL TSH (0.358-3.740) uIU/mL Free T4 (0.76-1.46) ng/dL Vancomycin Trough (5.0-10.0) mcg/mL Random Vancomycin Comment 05/26/18 05/26/18 05/26/18 Range/Units 04:35 07:20 12:25 WBC (4.0-11.0) th/mm3 RBC (4.50-5.90) mil/mm3 Hgb (13.0-17.0) gm/dL Hct (39.0-51.0) % MCV (80.0-100.0) fL MCH (27.0-34.0) pg MCHC (32.0-36.0) % RDW (11.6-17.2) % Plt Count (150-450) th/mm3 MPV (7.0-11.0) fL Neut % (Auto) (16.0-70.0) % Lymph % (Auto) (9.0-44.0) % [place] % (Auto) (0.0-8.0) % Eos % (Auto) (0.0-4.0) % Baso % (Auto) (0.0-2.0) % Neut # (Auto) (1.8-7.7) th/mm3 Lymph # (Auto) (1.0-4.8) th/mm3 [place] # (Auto) (0.0-0.9) th/mm3 Eos # (Auto) (0.0-0.4) th/mm3 Baso # (Auto) (0.0-0.2) th/mm3 WBC Differential Differential Comment ESR (0-20) mm/hr PT (9.8-11.6) sec INR Ratio Sodium (136-145) meq/L Potassium (3.5-5.1) meq/L Chloride (98-107) meq/L Carbon Dioxide (21.0-32.0) meq/L Anion Gap (5-15) meq/L BUN (7-18) mg/dL Creatinine 1.66 H (0.60-1.30) mg/dL Estimated GFR 42 L (>89) mL/min POC Glucose 152 H 113 H (68-110) mg/dl Random Glucose (74-106) mg/dL Hemoglobin A1c (4.3-6.0) % Lactic Acid (0.4-2.0) mmol/L Calcium (8.5-10.1) mg/dL Phosphorus (2.5-4.9) mg/dL Magnesium (1.5-2.5) mg/dL Total Bilirubin (0.2-1.0) mg/dL AST (15-37) U/L ALT (12-78) U/L Alkaline Phosphatase (45-117) U/L Total Creatine Kinase (39-308) U/L C-Reactive Protein (0.00-0.30) mg/dL B-Natriuretic Peptide (0-100) pg/mL Total Protein (6.4-8.2) g/dL Albumin (3.4-5.0) g/dL TSH (0.358-3.740) uIU/mL Free T4 (0.76-1.46) ng/dL Vancomycin Trough (5.0-10.0) mcg/mL Random Vancomycin Comment 05/26/18 05/26/18 05/27/18 Range/Units 16:21 20:17 04:38 WBC (4.0-11.0) th/mm3 RBC (4.50-5.90) mil/mm3 Hgb (13.0-17.0) gm/dL Hct (39.0-51.0) % MCV (80.0-100.0) fL MCH (27.0-34.0) pg MCHC (32.0-36.0) % RDW (11.6-17.2) % Plt Count (150-450) th/mm3 MPV (7.0-11.0) fL Neut % (Auto) (16.0-70.0) % Lymph % (Auto) (9.0-44.0) % [place] % (Auto) (0.0-8.0) % Eos % (Auto) (0.0-4.0) % Baso % (Auto) (0.0-2.0) % Neut # (Auto) (1.8-7.7) th/mm3 Lymph # (Auto) (1.0-4.8) th/mm3 [place] # (Auto) (0.0-0.9) th/mm3 Eos # (Auto) (0.0-0.4) th/mm3 Baso # (Auto) (0.0-0.2) th/mm3 WBC Differential Differential Comment ESR (0-20) mm/hr PT (9.8-11.6) sec INR Ratio Sodium (136-145) meq/L Potassium (3.5-5.1) meq/L Chloride (98-107) meq/L Carbon Dioxide (21.0-32.0) meq/L Anion Gap (5-15) meq/L BUN (7-18) mg/dL Creatinine (0.60-1.30) mg/dL Estimated GFR (>89) mL/min POC Glucose 101 234 H 197 H (68-110) mg/dl Random Glucose (74-106) mg/dL Hemoglobin A1c (4.3-6.0) % Lactic Acid (0.4-2.0) mmol/L Calcium (8.5-10.1) mg/dL Phosphorus (2.5-4.9) mg/dL Magnesium (1.5-2.5) mg/dL Total Bilirubin (0.2-1.0) mg/dL AST (15-37) U/L ALT (12-78) U/L Alkaline Phosphatase (45-117) U/L Total Creatine Kinase (39-308) U/L C-Reactive Protein (0.00-0.30) mg/dL B-Natriuretic Peptide (0-100) pg/mL Total Protein (6.4-8.2) g/dL Albumin (3.4-5.0) g/dL TSH (0.358-3.740) uIU/mL Free T4 (0.76-1.46) ng/dL Vancomycin Trough (5.0-10.0) mcg/mL Random Vancomycin Comment 05/27/18 05/27/18 05/27/18 Range/Units 05:44 07:50 11:52 WBC (4.0-11.0) th/mm3 RBC (4.50-5.90) mil/mm3 Hgb (13.0-17.0) gm/dL Hct (39.0-51.0) % MCV (80.0-100.0) fL MCH (27.0-34.0) pg MCHC (32.0-36.0) % RDW (11.6-17.2) % Plt Count (150-450) th/mm3 MPV (7.0-11.0) fL Neut % (Auto) (16.0-70.0) % Lymph % (Auto) (9.0-44.0) % [place] % (Auto) (0.0-8.0) % Eos % (Auto) (0.0-4.0) % Baso % (Auto) (0.0-2.0) % Neut # (Auto) (1.8-7.7) th/mm3 Lymph # (Auto) (1.0-4.8) th/mm3 [place] # (Auto) (0.0-0.9) th/mm3 Eos # (Auto) (0.0-0.4) th/mm3 Baso # (Auto) (0.0-0.2) th/mm3 WBC Differential Differential Comment ESR (0-20) mm/hr PT (9.8-11.6) sec INR Ratio Sodium (136-145) meq/L Potassium (3.5-5.1) meq/L Chloride (98-107) meq/L Carbon Dioxide (21.0-32.0) meq/L Anion Gap (5-15) meq/L BUN (7-18) mg/dL Creatinine 1.45 H (0.60-1.30) mg/dL Estimated GFR 49 L (>89) mL/min POC Glucose 199 H 194 H (68-110) mg/dl Random Glucose (74-106) mg/dL Hemoglobin A1c (4.3-6.0) % Lactic Acid (0.4-2.0) mmol/L Calcium (8.5-10.1) mg/dL Phosphorus (2.5-4.9) mg/dL Magnesium (1.5-2.5) mg/dL Total Bilirubin (0.2-1.0) mg/dL AST (15-37) U/L ALT (12-78) U/L Alkaline Phosphatase (45-117) U/L Total Creatine Kinase (39-308) U/L C-Reactive Protein (0.00-0.30) mg/dL B-Natriuretic Peptide (0-100) pg/mL Total Protein (6.4-8.2) g/dL Albumin (3.4-5.0) g/dL TSH (0.358-3.740) uIU/mL Free T4 (0.76-1.46) ng/dL Vancomycin Trough (5.0-10.0) mcg/mL Random Vancomycin Comment 05/27/18 05/27/18 05/27/18 Range/Units 14:45 17:21 20:39 WBC (4.0-11.0) th/mm3 RBC (4.50-5.90) mil/mm3 Hgb (13.0-17.0) gm/dL Hct (39.0-51.0) % MCV (80.0-100.0) fL MCH (27.0-34.0) pg MCHC (32.0-36.0) % RDW (11.6-17.2) % Plt Count (150-450) th/mm3 MPV (7.0-11.0) fL Neut % (Auto) (16.0-70.0) % Lymph % (Auto) (9.0-44.0) % [place] % (Auto) (0.0-8.0) % Eos % (Auto) (0.0-4.0) % Baso % (Auto) (0.0-2.0) % Neut # (Auto) (1.8-7.7) th/mm3 Lymph # (Auto) (1.0-4.8) th/mm3 [place] # (Auto) (0.0-0.9) th/mm3 Eos # (Auto) (0.0-0.4) th/mm3 Baso # (Auto) (0.0-0.2) th/mm3 WBC Differential Differential Comment ESR (0-20) mm/hr PT (9.8-11.6) sec INR Ratio Sodium (136-145) meq/L Potassium (3.5-5.1) meq/L Chloride (98-107) meq/L Carbon Dioxide (21.0-32.0) meq/L Anion Gap (5-15) meq/L BUN (7-18) mg/dL Creatinine (0.60-1.30) mg/dL Estimated GFR (>89) mL/min POC Glucose 217 H 233 H (68-110) mg/dl Random Glucose (74-106) mg/dL Hemoglobin A1c (4.3-6.0) % Lactic Acid (0.4-2.0) mmol/L Calcium (8.5-10.1) mg/dL Phosphorus (2.5-4.9) mg/dL Magnesium (1.5-2.5) mg/dL Total Bilirubin (0.2-1.0) mg/dL AST (15-37) U/L ALT (12-78) U/L Alkaline Phosphatase (45-117) U/L Total Creatine Kinase (39-308) U/L C-Reactive Protein (0.00-0.30) mg/dL B-Natriuretic Peptide (0-100) pg/mL Total Protein (6.4-8.2) g/dL Albumin (3.4-5.0) g/dL TSH (0.358-3.740) uIU/mL Free T4 (0.76-1.46) ng/dL Vancomycin Trough 14.9 H (5.0-10.0) mcg/mL Random Vancomycin Comment 05/28/18 05/28/18 05/28/18 Range/Units 03:29 04:30 07:44 WBC (4.0-11.0) th/mm3 RBC (4.50-5.90) mil/mm3 Hgb (13.0-17.0) gm/dL Hct (39.0-51.0) % MCV (80.0-100.0) fL MCH (27.0-34.0) pg MCHC (32.0-36.0) % RDW (11.6-17.2) % Plt Count (150-450) th/mm3 MPV (7.0-11.0) fL Neut % (Auto) (16.0-70.0) % Lymph % (Auto) (9.0-44.0) % [place] % (Auto) (0.0-8.0) % Eos % (Auto) (0.0-4.0) % Baso % (Auto) (0.0-2.0) % Neut # (Auto) (1.8-7.7) th/mm3 Lymph # (Auto) (1.0-4.8) th/mm3 [place] # (Auto) (0.0-0.9) th/mm3 Eos # (Auto) (0.0-0.4) th/mm3 Baso # (Auto) (0.0-0.2) th/mm3 WBC Differential Differential Comment ESR (0-20) mm/hr PT (9.8-11.6) sec INR Ratio Sodium (136-145) meq/L Potassium (3.5-5.1) meq/L Chloride (98-107) meq/L Carbon Dioxide (21.0-32.0) meq/L Anion Gap (5-15) meq/L BUN (7-18) mg/dL Creatinine 1.49 H (0.60-1.30) mg/dL Estimated GFR 47 L (>89) mL/min POC Glucose 182 H 163 H (68-110) mg/dl Random Glucose (74-106) mg/dL Hemoglobin A1c (4.3-6.0) % Lactic Acid (0.4-2.0) mmol/L Calcium (8.5-10.1) mg/dL Phosphorus (2.5-4.9) mg/dL Magnesium (1.5-2.5) mg/dL Total Bilirubin (0.2-1.0) mg/dL AST (15-37) U/L ALT (12-78) U/L Alkaline Phosphatase (45-117) U/L Total Creatine Kinase (39-308) U/L C-Reactive Protein (0.00-0.30) mg/dL B-Natriuretic Peptide (0-100) pg/mL Total Protein (6.4-8.2) g/dL Albumin (3.4-5.0) g/dL TSH (0.358-3.740) uIU/mL Free T4 (0.76-1.46) ng/dL Vancomycin Trough (5.0-10.0) mcg/mL Random Vancomycin Comment 05/28/18 05/28/18 05/28/18 Range/Units 11:20 16:48 20:11 WBC (4.0-11.0) th/mm3 RBC (4.50-5.90) mil/mm3 Hgb (13.0-17.0) gm/dL Hct (39.0-51.0) % MCV (80.0-100.0) fL MCH (27.0-34.0) pg MCHC (32.0-36.0) % RDW (11.6-17.2) % Plt Count (150-450) th/mm3 MPV (7.0-11.0) fL Neut % (Auto) (16.0-70.0) % Lymph % (Auto) (9.0-44.0) % [place] % (Auto) (0.0-8.0) % Eos % (Auto) (0.0-4.0) % Baso % (Auto) (0.0-2.0) % Neut # (Auto) (1.8-7.7) th/mm3 Lymph # (Auto) (1.0-4.8) th/mm3 [place] # (Auto) (0.0-0.9) th/mm3 Eos # (Auto) (0.0-0.4) th/mm3 Baso # (Auto) (0.0-0.2) th/mm3 WBC Differential Differential Comment ESR (0-20) mm/hr PT (9.8-11.6) sec INR Ratio Sodium (136-145) meq/L Potassium (3.5-5.1) meq/L Chloride (98-107) meq/L Carbon Dioxide (21.0-32.0) meq/L Anion Gap (5-15) meq/L BUN (7-18) mg/dL Creatinine (0.60-1.30) mg/dL Estimated GFR (>89) mL/min POC Glucose 99 149 H 193 H (68-110) mg/dl Random Glucose (74-106) mg/dL Hemoglobin A1c (4.3-6.0) % Lactic Acid (0.4-2.0) mmol/L Calcium (8.5-10.1) mg/dL Phosphorus (2.5-4.9) mg/dL Magnesium (1.5-2.5) mg/dL Total Bilirubin (0.2-1.0) mg/dL AST (15-37) U/L ALT (12-78) U/L Alkaline Phosphatase (45-117) U/L Total Creatine Kinase (39-308) U/L C-Reactive Protein (0.00-0.30) mg/dL B-Natriuretic Peptide (0-100) pg/mL Total Protein (6.4-8.2) g/dL Albumin (3.4-5.0) g/dL TSH (0.358-3.740) uIU/mL Free T4 (0.76-1.46) ng/dL Vancomycin Trough (5.0-10.0) mcg/mL Random Vancomycin Comment 05/29/18 05/29/18 05/29/18 Range/Units 02:09 05:59 07:36 WBC (4.0-11.0) th/mm3 RBC (4.50-5.90) mil/mm3 Hgb (13.0-17.0) gm/dL Hct (39.0-51.0) % MCV (80.0-100.0) fL MCH (27.0-34.0) pg MCHC (32.0-36.0) % RDW (11.6-17.2) % Plt Count (150-450) th/mm3 MPV (7.0-11.0) fL Neut % (Auto) (16.0-70.0) % Lymph % (Auto) (9.0-44.0) % [place] % (Auto) (0.0-8.0) % Eos % (Auto) (0.0-4.0) % Baso % (Auto) (0.0-2.0) % Neut # (Auto) (1.8-7.7) th/mm3 Lymph # (Auto) (1.0-4.8) th/mm3 [place] # (Auto) (0.0-0.9) th/mm3 Eos # (Auto) (0.0-0.4) th/mm3 Baso # (Auto) (0.0-0.2) th/mm3 WBC Differential Differential Comment ESR (0-20) mm/hr PT (9.8-11.6) sec INR Ratio Sodium 142 (136-145) meq/L Potassium 4.5 (3.5-5.1) meq/L Chloride 108 H (98-107) meq/L Carbon Dioxide 26.9 (21.0-32.0) meq/L Anion Gap 7 (5-15) meq/L BUN 23 H (7-18) mg/dL Creatinine 1.37 H (0.60-1.30) mg/dL Estimated GFR 52 L (>89) mL/min POC Glucose 131 H 140 H (68-110) mg/dl Random Glucose 123 H (74-106) mg/dL Hemoglobin A1c (4.3-6.0) % Lactic Acid (0.4-2.0) mmol/L Calcium 8.3 L (8.5-10.1) mg/dL Phosphorus (2.5-4.9) mg/dL Magnesium (1.5-2.5) mg/dL Total Bilirubin (0.2-1.0) mg/dL AST (15-37) U/L ALT (12-78) U/L Alkaline Phosphatase (45-117) U/L Total Creatine Kinase (39-308) U/L C-Reactive Protein (0.00-0.30) mg/dL B-Natriuretic Peptide (0-100) pg/mL Total Protein (6.4-8.2) g/dL Albumin (3.4-5.0) g/dL TSH (0.358-3.740) uIU/mL Free T4 (0.76-1.46) ng/dL Vancomycin Trough (5.0-10.0) mcg/mL Random Vancomycin Comment 05/29/18 05/29/18 05/29/18 Range/Units 11:48 17:38 21:49 WBC (4.0-11.0) th/mm3 RBC (4.50-5.90) mil/mm3 Hgb (13.0-17.0) gm/dL Hct (39.0-51.0) % MCV (80.0-100.0) fL MCH (27.0-34.0) pg MCHC (32.0-36.0) % RDW (11.6-17.2) % Plt Count (150-450) th/mm3 MPV (7.0-11.0) fL Neut % (Auto) (16.0-70.0) % Lymph % (Auto) (9.0-44.0) % [place] % (Auto) (0.0-8.0) % Eos % (Auto) (0.0-4.0) % Baso % (Auto) (0.0-2.0) % Neut # (Auto) (1.8-7.7) th/mm3 Lymph # (Auto) (1.0-4.8) th/mm3 [place] # (Auto) (0.0-0.9) th/mm3 Eos # (Auto) (0.0-0.4) th/mm3 Baso # (Auto) (0.0-0.2) th/mm3 WBC Differential Differential Comment ESR (0-20) mm/hr PT (9.8-11.6) sec INR Ratio Sodium (136-145) meq/L Potassium (3.5-5.1) meq/L Chloride (98-107) meq/L Carbon Dioxide (21.0-32.0) meq/L Anion Gap (5-15) meq/L BUN (7-18) mg/dL Creatinine (0.60-1.30) mg/dL Estimated GFR (>89) mL/min POC Glucose 149 H 176 H 181 H (68-110) mg/dl Random Glucose (74-106) mg/dL Hemoglobin A1c (4.3-6.0) % Lactic Acid (0.4-2.0) mmol/L Calcium (8.5-10.1) mg/dL Phosphorus (2.5-4.9) mg/dL Magnesium (1.5-2.5) mg/dL Total Bilirubin (0.2-1.0) mg/dL AST (15-37) U/L ALT (12-78) U/L Alkaline Phosphatase (45-117) U/L Total Creatine Kinase (39-308) U/L C-Reactive Protein (0.00-0.30) mg/dL B-Natriuretic Peptide (0-100) pg/mL Total Protein (6.4-8.2) g/dL Albumin (3.4-5.0) g/dL TSH (0.358-3.740) uIU/mL Free T4 (0.76-1.46) ng/dL Vancomycin Trough (5.0-10.0) mcg/mL Random Vancomycin Comment 05/30/18 05/30/18 05/30/18 Range/Units 03:00 04:27 07:37 WBC (4.0-11.0) th/mm3 RBC (4.50-5.90) mil/mm3 Hgb (13.0-17.0) gm/dL Hct (39.0-51.0) % MCV (80.0-100.0) fL MCH (27.0-34.0) pg MCHC (32.0-36.0) % RDW (11.6-17.2) % Plt Count (150-450) th/mm3 MPV (7.0-11.0) fL Neut % (Auto) (16.0-70.0) % Lymph % (Auto) (9.0-44.0) % [place] % (Auto) (0.0-8.0) % Eos % (Auto) (0.0-4.0) % Baso % (Auto) (0.0-2.0) % Neut # (Auto) (1.8-7.7) th/mm3 Lymph # (Auto) (1.0-4.8) th/mm3 [place] # (Auto) (0.0-0.9) th/mm3 Eos # (Auto) (0.0-0.4) th/mm3 Baso # (Auto) (0.0-0.2) th/mm3 WBC Differential Differential Comment ESR (0-20) mm/hr PT (9.8-11.6) sec INR Ratio Sodium 143 (136-145) meq/L Potassium 4.5 (3.5-5.1) meq/L Chloride 109 H (98-107) meq/L Carbon Dioxide 26.3 (21.0-32.0) meq/L Anion Gap 8 (5-15) meq/L BUN 19 H (7-18) mg/dL Creatinine 1.45 H (0.60-1.30) mg/dL Estimated GFR 49 L (>89) mL/min POC Glucose 148 H 145 H (68-110) mg/dl Random Glucose 128 H (74-106) mg/dL Hemoglobin A1c (4.3-6.0) % Lactic Acid (0.4-2.0) mmol/L Calcium 8.5 (8.5-10.1) mg/dL Phosphorus (2.5-4.9) mg/dL Magnesium (1.5-2.5) mg/dL Total Bilirubin (0.2-1.0) mg/dL AST (15-37) U/L ALT (12-78) U/L Alkaline Phosphatase (45-117) U/L Total Creatine Kinase (39-308) U/L C-Reactive Protein (0.00-0.30) mg/dL B-Natriuretic Peptide (0-100) pg/mL Total Protein (6.4-8.2) g/dL Albumin (3.4-5.0) g/dL TSH (0.358-3.740) uIU/mL Free T4 (0.76-1.46) ng/dL Vancomycin Trough (5.0-10.0) mcg/mL Random Vancomycin Comment 05/30/18 05/30/18 05/30/18 Range/Units 11:31 16:05 18:29 WBC 10.5 (4.0-11.0) th/mm3 RBC 4.03 L (4.50-5.90) mil/mm3 Hgb 11.4 L (13.0-17.0) gm/dL Hct 34.1 L (39.0-51.0) % MCV 84.7 (80.0-100.0) fL MCH 28.2 (27.0-34.0) pg MCHC 33.3 (32.0-36.0) % RDW 13.5 (11.6-17.2) % Plt Count 312 D (150-450) th/mm3 MPV 7.5 (7.0-11.0) fL Neut % (Auto) 80.8 H (16.0-70.0) % Lymph % (Auto) 11.0 (9.0-44.0) % [place] % (Auto) 6.0 (0.0-8.0) % Eos % (Auto) 1.0 (0.0-4.0) % Baso % (Auto) 1.2 (0.0-2.0) % Neut # (Auto) 8.5 H (1.8-7.7) th/mm3 Lymph # (Auto) 1.2 (1.0-4.8) th/mm3 [place] # (Auto) 0.6 (0.0-0.9) th/mm3 Eos # (Auto) 0.1 (0.0-0.4) th/mm3 Baso # (Auto) 0.1 (0.0-0.2) th/mm3 WBC Differential . Differential Comment Auto diff final ESR (0-20) mm/hr PT (9.8-11.6) sec INR Ratio Sodium (136-145) meq/L Potassium (3.5-5.1) meq/L Chloride (98-107) meq/L Carbon Dioxide (21.0-32.0) meq/L Anion Gap (5-15) meq/L BUN (7-18) mg/dL Creatinine (0.60-1.30) mg/dL Estimated GFR (>89) mL/min POC Glucose 138 H 124 H (68-110) mg/dl Random Glucose (74-106) mg/dL Hemoglobin A1c (4.3-6.0) % Lactic Acid (0.4-2.0) mmol/L Calcium (8.5-10.1) mg/dL Phosphorus (2.5-4.9) mg/dL Magnesium (1.5-2.5) mg/dL Total Bilirubin (0.2-1.0) mg/dL AST (15-37) U/L ALT (12-78) U/L Alkaline Phosphatase (45-117) U/L Total Creatine Kinase (39-308) U/L C-Reactive Protein (0.00-0.30) mg/dL B-Natriuretic Peptide (0-100) pg/mL Total Protein (6.4-8.2) g/dL Albumin (3.4-5.0) g/dL TSH (0.358-3.740) uIU/mL Free T4 (0.76-1.46) ng/dL Vancomycin Trough (5.0-10.0) mcg/mL Random Vancomycin Comment 05/30/18 05/30/18 05/31/18 Range/Units 18:29 21:28 03:42 WBC (4.0-11.0) th/mm3 RBC (4.50-5.90) mil/mm3 Hgb (13.0-17.0) gm/dL Hct (39.0-51.0) % MCV (80.0-100.0) fL MCH (27.0-34.0) pg MCHC (32.0-36.0) % RDW (11.6-17.2) % Plt Count (150-450) th/mm3 MPV (7.0-11.0) fL Neut % (Auto) (16.0-70.0) % Lymph % (Auto) (9.0-44.0) % [place] % (Auto) (0.0-8.0) % Eos % (Auto) (0.0-4.0) % Baso % (Auto) (0.0-2.0) % Neut # (Auto) (1.8-7.7) th/mm3 Lymph # (Auto) (1.0-4.8) th/mm3 [place] # (Auto) (0.0-0.9) th/mm3 Eos # (Auto) (0.0-0.4) th/mm3 Baso # (Auto) (0.0-0.2) th/mm3 WBC Differential Differential Comment ESR (0-20) mm/hr PT (9.8-11.6) sec INR Ratio Sodium 141 (136-145) meq/L Potassium 4.2 (3.5-5.1) meq/L Chloride 105 (98-107) meq/L Carbon Dioxide 25.9 (21.0-32.0) meq/L Anion Gap 10 (5-15) meq/L BUN 15 (7-18) mg/dL Creatinine 1.25 (0.60-1.30) mg/dL Estimated GFR 58 L (>89) mL/min POC Glucose 128 H 129 H (68-110) mg/dl Random Glucose 119 H (74-106) mg/dL Hemoglobin A1c (4.3-6.0) % Lactic Acid (0.4-2.0) mmol/L Calcium 8.8 (8.5-10.1) mg/dL Phosphorus (2.5-4.9) mg/dL Magnesium (1.5-2.5) mg/dL Total Bilirubin 0.5 (0.2-1.0) mg/dL AST 34 (15-37) U/L ALT 36 (12-78) U/L Alkaline Phosphatase 56 (45-117) U/L Total Creatine Kinase (39-308) U/L C-Reactive Protein (0.00-0.30) mg/dL B-Natriuretic Peptide (0-100) pg/mL Total Protein 7.4 (6.4-8.2) g/dL Albumin 2.8 L (3.4-5.0) g/dL TSH (0.358-3.740) uIU/mL Free T4 (0.76-1.46) ng/dL Vancomycin Trough (5.0-10.0) mcg/mL Random Vancomycin Comment 05/31/18 05/31/18 05/31/18 Range/Units 05:34 07:21 11:13 WBC (4.0-11.0) th/mm3 RBC (4.50-5.90) mil/mm3 Hgb (13.0-17.0) gm/dL Hct (39.0-51.0) % MCV (80.0-100.0) fL MCH (27.0-34.0) pg MCHC (32.0-36.0) % RDW (11.6-17.2) % Plt Count (150-450) th/mm3 MPV (7.0-11.0) fL Neut % (Auto) (16.0-70.0) % Lymph % (Auto) (9.0-44.0) % [place] % (Auto) (0.0-8.0) % Eos % (Auto) (0.0-4.0) % Baso % (Auto) (0.0-2.0) % Neut # (Auto) (1.8-7.7) th/mm3 Lymph # (Auto) (1.0-4.8) th/mm3 [place] # (Auto) (0.0-0.9) th/mm3 Eos # (Auto) (0.0-0.4) th/mm3 Baso # (Auto) (0.0-0.2) th/mm3 WBC Differential Differential Comment ESR (0-20) mm/hr PT (9.8-11.6) sec INR Ratio Sodium 140 (136-145) meq/L Potassium 3.8 (3.5-5.1) meq/L Chloride 105 (98-107) meq/L Carbon Dioxide 27.9 (21.0-32.0) meq/L Anion Gap 7 (5-15) meq/L BUN 14 (7-18) mg/dL Creatinine 1.23 (0.60-1.30) mg/dL Estimated GFR 59 L (>89) mL/min POC Glucose 127 H 125 H (68-110) mg/dl Random Glucose 113 H (74-106) mg/dL Hemoglobin A1c (4.3-6.0) % Lactic Acid (0.4-2.0) mmol/L Calcium 8.8 (8.5-10.1) mg/dL Phosphorus (2.5-4.9) mg/dL Magnesium (1.5-2.5) mg/dL Total Bilirubin (0.2-1.0) mg/dL AST (15-37) U/L ALT (12-78) U/L Alkaline Phosphatase (45-117) U/L Total Creatine Kinase (39-308) U/L C-Reactive Protein (0.00-0.30) mg/dL B-Natriuretic Peptide (0-100) pg/mL Total Protein (6.4-8.2) g/dL Albumin (3.4-5.0) g/dL TSH (0.358-3.740) uIU/mL Free T4 (0.76-1.46) ng/dL Vancomycin Trough (5.0-10.0) mcg/mL Random Vancomycin Comment 05/31/18 05/31/18 06/01/18 Range/Units 16:12 19:48 02:52 WBC (4.0-11.0) th/mm3 RBC (4.50-5.90) mil/mm3 Hgb (13.0-17.0) gm/dL Hct (39.0-51.0) % MCV (80.0-100.0) fL MCH (27.0-34.0) pg MCHC (32.0-36.0) % RDW (11.6-17.2) % Plt Count (150-450) th/mm3 MPV (7.0-11.0) fL Neut % (Auto) (16.0-70.0) % Lymph % (Auto) (9.0-44.0) % [place] % (Auto) (0.0-8.0) % Eos % (Auto) (0.0-4.0) % Baso % (Auto) (0.0-2.0) % Neut # (Auto) (1.8-7.7) th/mm3 Lymph # (Auto) (1.0-4.8) th/mm3 [place] # (Auto) (0.0-0.9) th/mm3 Eos # (Auto) (0.0-0.4) th/mm3 Baso # (Auto) (0.0-0.2) th/mm3 WBC Differential Differential Comment ESR (0-20) mm/hr PT (9.8-11.6) sec INR Ratio Sodium (136-145) meq/L Potassium (3.5-5.1) meq/L Chloride (98-107) meq/L Carbon Dioxide (21.0-32.0) meq/L Anion Gap (5-15) meq/L BUN (7-18) mg/dL Creatinine (0.60-1.30) mg/dL Estimated GFR (>89) mL/min POC Glucose 128 H 145 H 103 (68-110) mg/dl Random Glucose (74-106) mg/dL Hemoglobin A1c (4.3-6.0) % Lactic Acid (0.4-2.0) mmol/L Calcium (8.5-10.1) mg/dL Phosphorus (2.5-4.9) mg/dL Magnesium (1.5-2.5) mg/dL Total Bilirubin (0.2-1.0) mg/dL AST (15-37) U/L ALT (12-78) U/L Alkaline Phosphatase (45-117) U/L Total Creatine Kinase (39-308) U/L C-Reactive Protein (0.00-0.30) mg/dL B-Natriuretic Peptide (0-100) pg/mL Total Protein (6.4-8.2) g/dL Albumin (3.4-5.0) g/dL TSH (0.358-3.740) uIU/mL Free T4 (0.76-1.46) ng/dL Vancomycin Trough (5.0-10.0) mcg/mL Random Vancomycin Comment 06/01/1818 06/01/18 Range/Units 06:03 06:03 09:08 WBC 9.0 (4.0-11.0) th/mm3 RBC 3.42 L (4.50-5.90) mil/mm3 Hgb 9.6 L (13.0-17.0) gm/dL Hct 29.3 L (39.0-51.0) % MCV 85.5 (80.0-100.0) fL MCH 28.1 (27.0-34.0) pg MCHC 32.9 (32.0-36.0) % RDW 13.9 (11.6-17.2) % Plt Count 251 (150-450) th/mm3 MPV 7.7 (7.0-11.0) fL Neut % (Auto) 80.1 H (16.0-70.0) % Lymph % (Auto) 9.6 (9.0-44.0) % [place] % (Auto) 8.2 H (0.0-8.0) % Eos % (Auto) 1.6 (0.0-4.0) % Baso % (Auto) 0.5 (0.0-2.0) % Neut # (Auto) 7.2 (1.8-7.7) th/mm3 Lymph # (Auto) 0.9 L (1.0-4.8) th/mm3 [place] # (Auto) 0.7 (0.0-0.9) th/mm3 Eos # (Auto) 0.1 (0.0-0.4) th/mm3 Baso # (Auto) 0.0 (0.0-0.2) th/mm3 WBC Differential . Differential Comment Auto diff final ESR (0-20) mm/hr PT (9.8-11.6) sec INR Ratio Sodium 142 (136-145) meq/L Potassium 4.0 (3.5-5.1) meq/L Chloride 107 (98-107) meq/L Carbon Dioxide 26.1 (21.0-32.0) meq/L Anion Gap 9 (5-15) meq/L BUN 15 (7-18) mg/dL Creatinine 1.20 (0.60-1.30) mg/dL Estimated GFR 61 L (>89) mL/min POC Glucose 103 (68-110) mg/dl Random Glucose 91 (74-106) mg/dL Hemoglobin A1c (4.3-6.0) % Lactic Acid (0.4-2.0) mmol/L Calcium 8.2 L (8.5-10.1) mg/dL Phosphorus (2.5-4.9) mg/dL Magnesium (1.5-2.5) mg/dL Total Bilirubin (0.2-1.0) mg/dL AST (15-37) U/L ALT (12-78) U/L Alkaline Phosphatase (45-117) U/L Total Creatine Kinase (39-308) U/L C-Reactive Protein (0.00-0.30) mg/dL B-Natriuretic Peptide (0-100) pg/mL Total Protein (6.4-8.2) g/dL Albumin (3.4-5.0) g/dL TSH (0.358-3.740) uIU/mL Free T4 (0.76-1.46) ng/dL Vancomycin Trough (5.0-10.0) mcg/mL Random Vancomycin Comment 06/01/18 06/02/18 06/02/18 Range/Units 19:51 02:53 07:54 WBC (4.0-11.0) th/mm3 RBC (4.50-5.90) mil/mm3 Hgb (13.0-17.0) gm/dL Hct (39.0-51.0) % MCV (80.0-100.0) fL MCH (27.0-34.0) pg MCHC (32.0-36.0) % RDW (11.6-17.2) % Plt Count (150-450) th/mm3 MPV (7.0-11.0) fL Neut % (Auto) (16.0-70.0) % Lymph % (Auto) (9.0-44.0) % [place] % (Auto) (0.0-8.0) % Eos % (Auto) (0.0-4.0) % Baso % (Auto) (0.0-2.0) % Neut # (Auto) (1.8-7.7) th/mm3 Lymph # (Auto) (1.0-4.8) th/mm3 [place] # (Auto) (0.0-0.9) th/mm3 Eos # (Auto) (0.0-0.4) th/mm3 Baso # (Auto) (0.0-0.2) th/mm3 WBC Differential Differential Comment ESR (0-20) mm/hr PT (9.8-11.6) sec INR Ratio Sodium (136-145) meq/L Potassium (3.5-5.1) meq/L Chloride (98-107) meq/L Carbon Dioxide (21.0-32.0) meq/L Anion Gap (5-15) meq/L BUN (7-18) mg/dL Creatinine (0.60-1.30) mg/dL Estimated GFR (>89) mL/min POC Glucose 79 75 88 (68-110) mg/dl Random Glucose (74-106) mg/dL Hemoglobin A1c (4.3-6.0) % Lactic Acid (0.4-2.0) mmol/L Calcium (8.5-10.1) mg/dL Phosphorus (2.5-4.9) mg/dL Magnesium (1.5-2.5) mg/dL Total Bilirubin (0.2-1.0) mg/dL AST (15-37) U/L ALT (12-78) U/L Alkaline Phosphatase (45-117) U/L Total Creatine Kinase (39-308) U/L C-Reactive Protein (0.00-0.30) mg/dL B-Natriuretic Peptide (0-100) pg/mL Total Protein (6.4-8.2) g/dL Albumin (3.4-5.0) g/dL TSH (0.358-3.740) uIU/mL Free T4 (0.76-1.46) ng/dL Vancomycin Trough (5.0-10.0) mcg/mL Random Vancomycin Comment 06/02/18 06/02/18 06/02/18 Range/Units 11:28 15:00 16:34 WBC (4.0-11.0) th/mm3 RBC (4.50-5.90) mil/mm3 Hgb (13.0-17.0) gm/dL Hct (39.0-51.0) % MCV (80.0-100.0) fL MCH (27.0-34.0) pg MCHC (32.0-36.0) % RDW (11.6-17.2) % Plt Count (150-450) th/mm3 MPV (7.0-11.0) fL Neut % (Auto) (16.0-70.0) % Lymph % (Auto) (9.0-44.0) % [place] % (Auto) (0.0-8.0) % Eos % (Auto) (0.0-4.0) % Baso % (Auto) (0.0-2.0) % Neut # (Auto) (1.8-7.7) th/mm3 Lymph # (Auto) (1.0-4.8) th/mm3 [place] # (Auto) (0.0-0.9) th/mm3 Eos # (Auto) (0.0-0.4) th/mm3 Baso # (Auto) (0.0-0.2) th/mm3 WBC Differential Differential Comment ESR (0-20) mm/hr PT (9.8-11.6) sec INR Ratio Sodium (136-145) meq/L Potassium (3.5-5.1) meq/L Chloride (98-107) meq/L Carbon Dioxide (21.0-32.0) meq/L Anion Gap (5-15) meq/L BUN (7-18) mg/dL Creatinine (0.60-1.30) mg/dL Estimated GFR (>89) mL/min POC Glucose 96 173 H (68-110) mg/dl Random Glucose (74-106) mg/dL Hemoglobin A1c (4.3-6.0) % Lactic Acid (0.4-2.0) mmol/L Calcium (8.5-10.1) mg/dL Phosphorus (2.5-4.9) mg/dL Magnesium (1.5-2.5) mg/dL Total Bilirubin (0.2-1.0) mg/dL AST (15-37) U/L ALT (12-78) U/L Alkaline Phosphatase (45-117) U/L Total Creatine Kinase (39-308) U/L C-Reactive Protein (0.00-0.30) mg/dL B-Natriuretic Peptide (0-100) pg/mL Total Protein (6.4-8.2) g/dL Albumin (3.4-5.0) g/dL TSH (0.358-3.740) uIU/mL Free T4 (0.76-1.46) ng/dL Vancomycin Trough 16.0 H (5.0-10.0) mcg/mL Random Vancomycin Comment 06/02/18 06/03/18 06/03/18 Range/Units 21:10 03:42 07:36 WBC (4.0-11.0) th/mm3 RBC (4.50-5.90) mil/mm3 Hgb (13.0-17.0) gm/dL Hct (39.0-51.0) % MCV (80.0-100.0) fL MCH (27.0-34.0) pg MCHC (32.0-36.0) % RDW (11.6-17.2) % Plt Count (150-450) th/mm3 MPV (7.0-11.0) fL Neut % (Auto) (16.0-70.0) % Lymph % (Auto) (9.0-44.0) % [place] % (Auto) (0.0-8.0) % Eos % (Auto) (0.0-4.0) % Baso % (Auto) (0.0-2.0) % Neut # (Auto) (1.8-7.7) th/mm3 Lymph # (Auto) (1.0-4.8) th/mm3 [place] # (Auto) (0.0-0.9) th/mm3 Eos # (Auto) (0.0-0.4) th/mm3 Baso # (Auto) (0.0-0.2) th/mm3 WBC Differential Differential Comment ESR (0-20) mm/hr PT (9.8-11.6) sec INR Ratio Sodium (136-145) meq/L Potassium (3.5-5.1) meq/L Chloride (98-107) meq/L Carbon Dioxide (21.0-32.0) meq/L Anion Gap (5-15) meq/L BUN (7-18) mg/dL Creatinine (0.60-1.30) mg/dL Estimated GFR (>89) mL/min POC Glucose 198 H 116 H 101 (68-110) mg/dl Random Glucose (74-106) mg/dL Hemoglobin A1c (4.3-6.0) % Lactic Acid (0.4-2.0) mmol/L Calcium (8.5-10.1) mg/dL Phosphorus (2.5-4.9) mg/dL Magnesium (1.5-2.5) mg/dL Total Bilirubin (0.2-1.0) mg/dL AST (15-37) U/L ALT (12-78) U/L Alkaline Phosphatase (45-117) U/L Total Creatine Kinase (39-308) U/L C-Reactive Protein (0.00-0.30) mg/dL B-Natriuretic Peptide (0-100) pg/mL Total Protein (6.4-8.2) g/dL Albumin (3.4-5.0) g/dL TSH (0.358-3.740) uIU/mL Free T4 (0.76-1.46) ng/dL Vancomycin Trough (5.0-10.0) mcg/mL Random Vancomycin Comment 06/03/18 06/03/18 06/03/18 Range/Units 11:02 17:39 21:11 WBC (4.0-11.0) th/mm3 RBC (4.50-5.90) mil/mm3 Hgb (13.0-17.0) gm/dL Hct (39.0-51.0) % MCV (80.0-100.0) fL MCH (27.0-34.0) pg MCHC (32.0-36.0) % RDW (11.6-17.2) % Plt Count (150-450) th/mm3 MPV (7.0-11.0) fL Neut % (Auto) (16.0-70.0) % Lymph % (Auto) (9.0-44.0) % [place] % (Auto) (0.0-8.0) % Eos % (Auto) (0.0-4.0) % Baso % (Auto) (0.0-2.0) % Neut # (Auto) (1.8-7.7) th/mm3 Lymph # (Auto) (1.0-4.8) th/mm3 [place] # (Auto) (0.0-0.9) th/mm3 Eos # (Auto) (0.0-0.4) th/mm3 Baso # (Auto) (0.0-0.2) th/mm3 WBC Differential Differential Comment ESR (0-20) mm/hr PT (9.8-11.6) sec INR Ratio Sodium (136-145) meq/L Potassium (3.5-5.1) meq/L Chloride (98-107) meq/L Carbon Dioxide (21.0-32.0) meq/L Anion Gap (5-15) meq/L BUN (7-18) mg/dL Creatinine (0.60-1.30) mg/dL Estimated GFR (>89) mL/min POC Glucose 133 H 175 H 178 H (68-110) mg/dl Random Glucose (74-106) mg/dL Hemoglobin A1c (4.3-6.0) % Lactic Acid (0.4-2.0) mmol/L Calcium (8.5-10.1) mg/dL Phosphorus (2.5-4.9) mg/dL Magnesium (1.5-2.5) mg/dL Total Bilirubin (0.2-1.0) mg/dL AST (15-37) U/L ALT (12-78) U/L Alkaline Phosphatase (45-117) U/L Total Creatine Kinase (39-308) U/L C-Reactive Protein (0.00-0.30) mg/dL B-Natriuretic Peptide (0-100) pg/mL Total Protein (6.4-8.2) g/dL Albumin (3.4-5.0) g/dL TSH (0.358-3.740) uIU/mL Free T4 (0.76-1.46) ng/dL Vancomycin Trough (5.0-10.0) mcg/mL Random Vancomycin Comment 06/04/18 06/04/18 06/04/18 Range/Units 03:10 07:40 11:22 WBC (4.0-11.0) th/mm3 RBC (4.50-5.90) mil/mm3 Hgb (13.0-17.0) gm/dL Hct (39.0-51.0) % MCV (80.0-100.0) fL MCH (27.0-34.0) pg MCHC (32.0-36.0) % RDW (11.6-17.2) % Plt Count (150-450) th/mm3 MPV (7.0-11.0) fL Neut % (Auto) (16.0-70.0) % Lymph % (Auto) (9.0-44.0) % [place] % (Auto) (0.0-8.0) % Eos % (Auto) (0.0-4.0) % Baso % (Auto) (0.0-2.0) % Neut # (Auto) (1.8-7.7) th/mm3 Lymph # (Auto) (1.0-4.8) th/mm3 [place] # (Auto) (0.0-0.9) th/mm3 Eos # (Auto) (0.0-0.4) th/mm3 Baso # (Auto) (0.0-0.2) th/mm3 WBC Differential Differential Comment ESR (0-20) mm/hr PT (9.8-11.6) sec INR Ratio Sodium (136-145) meq/L Potassium (3.5-5.1) meq/L Chloride (98-107) meq/L Carbon Dioxide (21.0-32.0) meq/L Anion Gap (5-15) meq/L BUN (7-18) mg/dL Creatinine (0.60-1.30) mg/dL Estimated GFR (>89) mL/min POC Glucose 124 H 119 H 111 H (68-110) mg/dl Random Glucose (74-106) mg/dL Hemoglobin A1c (4.3-6.0) % Lactic Acid (0.4-2.0) mmol/L Calcium (8.5-10.1) mg/dL Phosphorus (2.5-4.9) mg/dL Magnesium (1.5-2.5) mg/dL Total Bilirubin (0.2-1.0) mg/dL AST (15-37) U/L ALT (12-78) U/L Alkaline Phosphatase (45-117) U/L Total Creatine Kinase (39-308) U/L C-Reactive Protein (0.00-0.30) mg/dL B-Natriuretic Peptide (0-100) pg/mL Total Protein (6.4-8.2) g/dL Albumin (3.4-5.0) g/dL TSH (0.358-3.740) uIU/mL Free T4 (0.76-1.46) ng/dL Vancomycin Trough (5.0-10.0) mcg/mL Random Vancomycin Comment 06/04/18 06/04/18 Range/Units 15:40 16:59 WBC (4.0-11.0) th/mm3 RBC (4.50-5.90) mil/mm3 Hgb (13.0-17.0) gm/dL Hct (39.0-51.0) % MCV (80.0-100.0) fL MCH (27.0-34.0) pg MCHC (32.0-36.0) % RDW (11.6-17.2) % Plt Count (150-450) th/mm3 MPV (7.0-11.0) fL Neut % (Auto) (16.0-70.0) % Lymph % (Auto) (9.0-44.0) % [place] % (Auto) (0.0-8.0) % Eos % (Auto) (0.0-4.0) % Baso % (Auto) (0.0-2.0) % Neut # (Auto) (1.8-7.7) th/mm3 Lymph # (Auto) (1.0-4.8) th/mm3 [place] # (Auto) (0.0-0.9) th/mm3 Eos # (Auto) (0.0-0.4) th/mm3 Baso # (Auto) (0.0-0.2) th/mm3 WBC Differential Differential Comment ESR (0-20) mm/hr PT (9.8-11.6) sec INR Ratio Sodium (136-145) meq/L Potassium (3.5-5.1) meq/L Chloride (98-107) meq/L Carbon Dioxide (21.0-32.0) meq/L Anion Gap (5-15) meq/L BUN (7-18) mg/dL Creatinine (0.60-1.30) mg/dL Estimated GFR (>89) mL/min POC Glucose 163 H (68-110) mg/dl Random Glucose (74-106) mg/dL Hemoglobin A1c (4.3-6.0) % Lactic Acid (0.4-2.0) mmol/L Calcium (8.5-10.1) mg/dL Phosphorus (2.5-4.9) mg/dL Magnesium (1.5-2.5) mg/dL Total Bilirubin (0.2-1.0) mg/dL AST (15-37) U/L ALT (12-78) U/L Alkaline Phosphatase (45-117) U/L Total Creatine Kinase (39-308) U/L C-Reactive Protein (0.00-0.30) mg/dL B-Natriuretic Peptide (0-100) pg/mL Total Protein (6.4-8.2) g/dL Albumin (3.4-5.0) g/dL TSH (0.358-3.740) uIU/mL Free T4 (0.76-1.46) ng/dL Vancomycin Trough 15.6 H (5.0-10.0) mcg/mL Random Vancomycin Comment Imaging Data Radiologist's impression: Foot MRI 05/22/18 00:00 CONCLUSION: 1. Subcutaneous collection of air and fluid along the medial aspect of the right foot adjacent to the distal shaft and head of the first metatarsal which measures 2.4 x 1.8 cm raising possibility of abscess. Contrast-enhanced MRI would be helpful for confirmation if clinically indicated. No definite underlying marrow edema to suggest osteomyelitis is noted. 2. 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 Chest X-Ray 05/22/18 16:51 CONCLUSION: No evidence of pneumonia. Foot X-Ray 05/22/18 16:51 CONCLUSION: Negative Venous Doppler Study 05/22/18 16:58 CONCLUSION: 1. No evidence of thrombus, however, there is extensive subcutaneous edema identified throughout the right calf. Abdomen X-Ray 05/25/18 00:00 CONCLUSION: Nonspecific bowel gas pattern with moderate stool throughout the colon Abdomen/Bladder Ultrasound 05/28/18 00:00 CONCLUSION: 1. Urinary bladder is distended despite attempted voiding. 2. Heterogeneous prostate enlargement Abdomen X-Ray 05/30/18 00:00 CONCLUSION: Moderate amount of stool. Abdomen/Pelvis CT 05/30/18 00:00 CONCLUSION: 1. Bilateral pleural effusions right greater than left and anasarca. Question fluid overload or hypoalbuminemia. 2. Markedly enlarged prostate and distended urinary bladder. 3. Osteoarthritic findings of the hips and degenerative findings of the lumbar spine. Knee X-Ray 06/01/18 00:00 CONCLUSION: 1. Mild osteoarthritis involving the patellofemoral and femorotibial joints. 2. No acute fracture or dislocation. Discharge Plan Discharge Disposition Patient Disposition: 01 Discharge Home Discharge Condition Condition: Good Discharge Order Discharge Orders: Discharge Order (Routine); Ordered 06/02/18 Ordered By: Luiz Lafleur Discharge Details Anticipated Discharge Date: 06/02/18 Discharge Comment: discharge when cleared by infectious disease and antibiotics RX is in. Diagnosis: Cellulitis of leg, right, Acute kidney injury Physicians Team ED Provider: Bob Beyer ED Midlevel Provider: Phyllis Zacarias Primary Care Provider: Primary Care Adriana Jeffrey Attending Provider: Luiz Lafleur Other Providers: Modesta Bhagat ; Jose Martin Carson ; Vee Baxter ; Michele [facility] ; Lisa Becerra Status ED Status: Left Department Discharge Information Discharge Date/Time: 05/22/18 21:50
--- NOTE | 2018-05-22 17:24 | XR ---
EXAM DATE: 05/22/2018 5:22 PM EDT AGE/SEX: 63 years / Male INDICATIONS: Fever. CLINICAL DATA: This is the patient's initial encounter. Patient reports that signs and symptoms have been present for 1 day and indicates a pain score of 0/10. MEDICAL/SURGICAL HISTORY: Diabetes mellitus type II. Congestive heart failure. CABG. COMPARISON: No prior exams available for comparison. FINDINGS: Single AP portable upright view of the chest demonstrates intact median sternotomy wires. Heart size appears normal. The lungs are mildly hypoinflated but clear. Osseous structures are unremarkable. CONCLUSION: No evidence of pneumonia. Electronically signed by: Selena Craven MD 05/22/2018 5:22 PM EDT
--- NOTE | 2018-05-22 17:38 | XR ---
EXAM DATE: 05/22/2018 5:27 PM EDT AGE/SEX: 63 years / Male INDICATIONS: Right foot pain, swelling and redness. No injury. CLINICAL DATA: This is the patient's initial encounter. Patient reports that signs and symptoms have been present for 1 day and indicates a pain score of 10/10. MEDICAL/SURGICAL HISTORY: Diabetes mellitus type II. Congestive heart failure. CABG. COMPARISON: [facility], XR FOOT (MIN 3 VIEWS), RIGHT, 05/13/2018. . FINDINGS: Bone density is normal lungs anatomic fracture not appreciated. CONCLUSION: Negative Electronically signed by: Oli Sarmiento MD 05/22/2018 5:36 PM EDT
[2018-05-22] MEDS ORDERED: Vancomycin Inj 1,000 MG in Sodium Chlor 0.9% Inj 250 ML IV.SIG ONE (17:45)
[2018-05-22 17:49] LABS: Baso % (Auto) 0.2 % (0.0-2.0); Eos # (Auto) 0.1 th/mm3 (0.0-0.4); Eos % (Auto) 0.6 % (0.0-4.0); Hematocrit 29.2 % (39.0-51.0); Hemoglobin 10.1 gm/dL (13.0-17.0); Lymph # (Auto) 0.8 th/mm3 (1.0-4.8); Lymph % (Auto) 5.3 % (9.0-44.0); Mean Corpuscular HGB Conc 34.5 % (32.0-36.0); Mean Corpuscular Hemoglobin 28.8 pg (27.0-34.0); Mean Corpuscular Volume 83.5 fL (80.0-100.0); Mean Platelet Volume 8.4 fL (7.0-11.0); Mono # (Auto) 1.1 th/mm3 (0.0-0.9); Mono % (Auto) 7.2 % (0.0-8.0); Neut # (Auto) 13.5 th/mm3 (1.8-7.7); Neut % (Auto) 86.7 % (16.0-70.0); Platelet Count 241 th/mm3 (150-450); Red Cell Distribution Width 13.1 % (11.6-17.2); White Blood Count 15.6 th/mm3 (4.0-11.0)
--- NOTE | 2018-05-22 17:58 | US ---
EXAM DATE: 05/22/2018 5:55 PM EDT AGE/SEX: 63 years / Male INDICATIONS: Right leg swelling. CLINICAL DATA: This is the patient's initial encounter. Patient reports that signs and symptoms have been present for 3 weeks and indicates a pain score of 8/10. MEDICAL/SURGICAL HISTORY: None. None. COMPARISON: No prior exams available for comparison. TECHNIQUE: Venous ultrasound of both lower extremities was performed from the inguinal ligament to t he proximal calf. Real-time, color Doppler and spectral tracing, compression and augmentation techni ques were used. FINDINGS: Normal compression of the deep venous system from the inguinal region to the proximal calf . No echogenic clot is seen. Normal response of the venous system to augmentation and respiration. Th ere is extensive subcutaneous edema identified within the posterior soft tissues of the right calf. CONCLUSION: 1. No evidence of thrombus, however, there is extensive subcutaneous edema identified throughout the right calf. Electronically signed by: Selena Craven MD 05/22/2018 5:57 PM EDT
[2018-05-22 18:04] LABS: Calcium 8.6 mg/dL (8.5-10.1); Carbon Dioxide 24.2 meq/L (21.0-32.0); Potassium 5.1 meq/L (3.5-5.1)
[2018-05-22] MEDS ORDERED: Temazepam 15 MG Capsule PO PRN (18:39)
[2018-05-22] MEDS ORDERED: Bisacodyl 10 MG Supp RECTAL PRN (18:39)
[2018-05-22] MEDS ORDERED: Acetaminophen 325 MG Tablet PO PRN (18:39)
[2018-05-22] MEDS ORDERED: Vancomycin Consult Pharmacy OTHER PRN (18:42)
[2018-05-22] MEDS ORDERED: Dextrose 50% in Water 50 ML Vial IV.PUSH PRN (18:43)
--- NOTE | 2018-05-22 19:06 | P.HPIM ---
History of Present Illness Service: [facility] Primary Care Physician: No Primary Care Physician Chief Complaint: RIGHT FOOT DIABETIC FOOT WOUND REPORTED MRSA POSITIVE PER OUTPT CULTURES History of Present Illness: Patient is a 63-year-old male past medical history of CHF and history of bullying mitral valve replacement and CABG of 3 vessels as well as diabetes mellitus and neuropathy who presented to the emergency department for multiple weeks long history of a wound on the right foot. Patient states the wound started as a blisters cannot tell why he had an injury but was walking multiple miles a day. He states that is been treated outpatient with Cipro, Bactrim and now clindamycin. With only some mild improvement of the redness. But no resolution of the wounds. He states that his PCP which is [facility] told him that his wound cultures grew MRSA and was sent today for IV antibiotics. He states that he has had some chills. An 8 out of 10 pain in the right foot. Has had increased edema of the right lower extremity. Has had decreased activity since the onset of this problem. He denies any headache or dizziness or chest pain or palpitations or shortness of breath or abdominal pain or nausea or vomiting or dysuria. He describes the pain is aching worsened by touch. No alleviating factors. He was treated with clindamycin without any real improvement as well as the Bactrim and the Cipro. Found to be in acute renal failure on labs We will continue with fluids and hold his lisinopril and Lasix Has been started on vancomycin and Zosyn Podiatry has been consult Family history of hypertension and diabetes Inpatient Certification: I certify that the inpatient services were ordered in accordance with Medicare regulations governing the order. This includes certification that hospital inpatient services are reasonable and necessary and in the case of services not specified as inpatient-only under 42 CFR 419.22(n), that they are appropriately provided as inpatient services in accordance to with the 2-midnight benchmark under 43 CFR 412.3(e) Estimated Total Length of Stay (Days): 5 Plans for Post Hospital Care: Not yet determined Review of Systems All other systems reviewed negative except as stated in HPI PMFSH - History History Provided By: Patient, Family Member - Medical History Medical History: Medical History (Last Updated 05/22/18 @ 18:59 by Oli Gonzales DO) CAD (coronary artery disease) Diabetes Diabetic foot infection Diabetic neuropathy Hyperlipidemia Hypertension - Surgical History Surgical History: Surgical History (Last Updated 05/22/18 @ 18:59 by Oli Gonzales DO) Mitral valve replaced S/P CABG x 3 - Family History Family History: Family History (Last Updated 05/22/18 @ 18:59 by Oli Gonzales DO) Other Family history of diabetes mellitus Family history of hypertension - Tobacco History Second Hand Smoke Exposure: No Tobacco Use In Past 30 Days: No Smoking Status: Never smoker - Alcohol History How Often Do You Have a Drink Containing Alcohol: Never - Substance Use History Substance History: No History of Abuse - Travel History History of Recent Travel: No Recent Travel in the [place] Within the Last 8 Weeks: No Recent Travel Out of the Country Within the Last 8 Weeks: No - Immunization History Tetanus Immunization: <5 Years Medications and Allergies Active Medications: Active Medications Acetaminophen (Tylenol) 650 mg PO Q4H PRN PRN Reason: Temp > 100.4 Al Hydroxide/Mg Hydroxide (Milk Of Magnesia Liq) 30 ml PO Q12H PRN PRN Reason: Mild Constipation Aspirin (Ecotrin) 81 mg PO DAILY EBONY Bisacodyl (Dulcolax Supp) 10 mg RECTAL DAILY PRN PRN Reason: SEVERE CONSITIPATION Dextrose (D50w Vial) 50 ml IV.PUSH UNSCH PRN PRN Reason: PER HYPOGLYCEMIA PROTOCOL Glucagon (Glucagon Inj) 1 mg OTHER PRN PRN PRN Reason: for Hypoglycemia Protocol Heparin Sodium (Porcine) (Heparin Inj) 5,000 units SQ Q12H EBONY Sodium Chloride (Ns Inj) 1,000 mls @ 100 mls/hr IV.CONT .Q10H [facility] Pharmacy Profile Note (Vancomycin Consult Pharmacy) 0 mls @ 0 mls/hr OTHER UNSCH EBONY Piperacillin/Tazobactam/Dextrose (Zosyn 3.375 Gm Premix) 50 mls @ 100 mls/hr IV.SIG Q8H EBONY Insulin Aspart (Novolog Insulin Correctional Sugar Inj) 0 unit SQ ACHS AND 3AM EBONY; Protocol Lactulose (Lactulose Liq) 30 ml PO DAILY PRN PRN Reason: SEVERE CONSITIPATION Metoprolol Tartrate (Lopressor) 25 mg PO DAILY EBONY Non-Formulary Medication (Insulin Degludec [Tresiba Flextouch U-100]) 8 unit SQ DAILY EBONY Non-Formulary Medication (Rosuvastatin [Rosuvastatin]) 20 mg PO DAILY EBONY Ondansetron HCl (Zofran Inj) 4 mg IV.PUSH Q6H PRN PRN Reason: NAUSEA OR VOMITING Pharmacy Profile Note (Vancomycin Consult Pharmacy) 1 each OTHER UNSCH PRN PRN Reason: Pharmacy to dose Senna/Docusate Sodium (Rozina-Colace) 1 tab PO BID EBONY Sennosides (Senokot) 17.2 mg PO Q12H PRN PRN Reason: Moderate Constipation Temazepam (Restoril) 15 mg PO HS PRN PRN Reason: INSOMNIA Allergies Allergy/AdvReac Type Severity Reaction Status Date / Time bee venom protein (honey bee) Allergy Severe Anaphylaxis Unverified 04/30/17 01: 56 Home Medications Medication Instructions Recorded Confirmed Type aspirin [Aspir-81] 81 mg PO DAILY 05/22/18 05/22/18 History benzonatate [Tessalon Perles] 200 mg PO BID PRN 05/22/18 05/22/18 History clindamycin HCl 300 mg PO QID 05/22/18 05/22/18 History fluconazole 150 mg PO WEEKLY 05/22/18 05/22/18 History furosemide [Lasix] 40 mg PO DAILY 05/22/18 05/22/18 History insulin degludec [Tresiba 8 unit SUB-Q DAILY 05/22/18 05/22/18 History FlexTouch U-100] lisinopril 5 mg PO DAILY 05/22/18 05/22/18 History metoprolol tartrate 25 mg PO DAILY 05/22/18 05/22/18 History rosuvastatin 20 mg PO DAILY 05/22/18 05/22/18 History Exam Vital signs: Vital Signs 05/22/18 13:51 05/22/18 16:20 Temperature 98.2 F 98.6 F Pulse Rate 62 82 Respiratory Rate 16 18 Blood Pressure 119/60 143/67 H Pulse Oximetry 99 96 Intake & Output 05/21/18 05/22/18 05/22/18 18:59 06:59 18:59 Intake Total 1100 / 1100 Balance 1100 / 1100 Weight 95.254 kg Intake: IV 1100 / 1100 Zosyn 4.5 GM Premix 4.5 gm In 100 / 100 100 ml @ 200 mls/hr IV.SIG ONCE ONE Rx#:[id number] NS Inj 1,000 ML @ Wide Open IV. 1000 / 1000 SIG BOLUS ONE Rx#:[id number] Narrative: GENERAL: Awake alert and oriented 3 talkative and cooperative quite anxious SKIN: Warm and dry. Right diabetic foot wound on the medial aspect of the plantar region with large 4-5 cm wound with necrosis HEAD: Atraumatic. Normocephalic. EYES: Pupils equal and round. No scleral icterus. No injection or drainage. EOMI ENT: No nasal bleeding or discharge. Mucous membranes pink and moist. Tongue is midline NECK: Trachea midline. No JVD. Supple CARDIOVASCULAR: Regular rate and rhythm. S1-S2 no S3 or S4 RESPIRATORY: No accessory muscle use. Clear to auscultation. Breath sounds equal bilaterally. GASTROINTESTINAL: Abdomen soft, non-tender, nondistended. Hepatic and splenic margins not palpable. Obese MUSCULOSKELETAL: Extremities without clubbing, cyanosis, positive edema of the right lower extremity 2-3+ edema with pitting and the large diabetic foot wound- - no obvious deformities. NEUROLOGICAL: Awake and alert. No obvious cranial nerve deficits. Motor grossly within normal limits. Five out of 5 muscle strength in the arms and legs. Normal speech. PSYCHIATRIC: Appropriate mood and affect; insight and judgment normal. Results - Labs CBC & Chem 7: 05/22/18 17:15 05/22/18 17:15 Labs: Short CBC 05/22/18 Range/Units 17:15 WBC 15.6 H (4.0-11.0) th/mm3 Hgb 10.1 L (13.0-17.0) gm/dL Hct 29.2 L (39.0-51.0) % Plt Count 241 (150-450) th/mm3 BMP 05/22/18 17:15 Sodium 134 L Potassium 5.1 Chloride 100 Carbon Dioxide 24.2 BUN 51 H Creatinine 2.44 H Calcium 8.6 - Imaging Impressions Chest X-Ray 05/22/18 16:51 CONCLUSION: No evidence of pneumonia. Foot X-Ray 05/22/18 16:51 CONCLUSION: Negative Venous Doppler Study 05/22/18 16:58 CONCLUSION: 1. No evidence of thrombus, however, there is extensive subcutaneous edema identified throughout the right calf. Caprini VTE Risk Assessment Caprini VTE Risk Assessment: Moderate/High Risk (score >= 2) Caprini Risk Assessment Model: Point Value = 1 Point Value = 2 Point Value = 3 Point Value = 5 Age 41-60 Minor surgery BMI > 25 kg/m2 Swollen legs Varicose veins or History of unexplained or recurrent spontaneous Oral contraceptives or hormone replacement Sepsis (< 1 month) Serious lung disease, including pneumonia (< 1 month) Abnormal pulmonary function Acute myocardial infarction Congestive heart failure (< 1 month) History of inflammatory bowel disease Medical patient at bed rest Age 61-74 Arthroscopic surgery Major open surgery (> 45 min) Laparoscopic surgery (> 45 min) Malignancy Confined to bed (> 72 hours) Immobilizing plaster cast Central venous access Age >= 75 History of VTE Family history of VTE Factor V Leiden Prothrombin [id number] Lupus anticoagulant Anticardiolipin antibodies Elevated serum homocysteine Heparin-induced thrombocytopenia Other congenital or acquired thrombophilia Stroke (< 1 month) Elective arthroplasty Hip, pelvis, or leg fracture Acute spinal cord injury (< 1 month) Prophylaxis Regimen: Total Risk Factor Score Risk Level Prophylaxis Regimen 0-1 Low Early ambulation 2 Moderate Order ONE of the following: *Sequential Compression Device (SCD) *Heparin 5000 units SQ BID 3-4 Higher Order ONE of the following medications: *Heparin 5000 units SQ TID *Enoxaparin/Lovenox 40 mg SQ daily (WT < 150 kg, CrCl > 30 mL/min) *Enoxaparin/Lovenox 30 mg SQ daily (WT < 150 kg, CrCl > 10-29 mL/min) *Enoxaparin/Lovenox 30 mg SQ BID (WT < 150 kg, CrCl > 30 mL/min) AND/OR *Sequential Compression Device (SCD) 5 or more Highest Order ONE of the following medications: *Heparin 5000 units SQ TID (Preferred with Epidurals) *Enoxaparin/Lovenox 40 mg SQ daily (WT < 150 kg, CrCl > 30 mL/min) *Enoxaparin/Lovenox 30 mg SQ daily (WT < 150 kg, CrCl > 10-29 mL/min) *Enoxaparin/Lovenox 30 mg SQ BID (WT < 150 kg, CrCl > 30 mL/min) AND *Sequential Compression Device (SCD) Assessment and Plan - Plan Diabetic foot wound medial aspect of right plantar region chronically ongoing for at least 3 weeks Cellulitis Failed outpatient therapy Possible history of MRSA Consult infectious disease Continue with vancomycin and Zosyn with pharmacy to dose the vancomycin Consult podiatry Wound cultures have been ordered Acute renal failure Continue on fluids Discontinue MEGAN inhibitors and Lasix A.m. labs Leukocytosis suspect secondary to the diabetic foot wound Continue on antibiotics Had the failed outpatient treatment Anemia monitor labs Uncontrolled diabetes Continue on Accu-Cheks before meals and at bedtime and q. 3 AM Sliding scale coverage Continue on long-acting insulin Diabetic cardiac diet Hyperlipidemia continue on statin Hypertension continue on metoprolol We will hold lisinopril and Lasix at this time due to renal insufficiency/ failure DVT prophylaxis with subcu heparin GI prophylaxis with Pepcid Code Status: Full code Discussed Condition With: RN and patient and and emergency room physician legal document assistant Discharge Planning: Pending clearance by infectious disease and podiatry
[2018-05-22] MEDS ORDERED: Morphine Inj 4 MG/ML Vial IV.PUSH PRN (19:07)
[2018-05-22] MEDS ORDERED: Morphine Sulfate Inj 2 MG/ML Vial IV.PUSH PRN (19:07)
[2018-05-22] MEDS ORDERED: oxyCODONE/Acetaminophen 10/325 Tablet PO PRN (19:07)
[2018-05-22] MEDS ORDERED: Naloxone Inj 0.4 MG/ML Vial IV.PUSH PRN (19:07)
[2018-05-22] MEDS ORDERED: Vancomycin Consult Pharmacy 1 EACH OTHER SCH (20:30)
[2018-05-22] MEDS: Insulin NovoLOG Aspart Correctional Sugar Inj SQ SCH (20:50)
[2018-05-22] MEDS: Sod Chloride 0.9% Inj 1,000 ML IV.CONT SCH (21:20)
[2018-05-22] MEDS: Famotidine 20 MG Tablet PO SCH (22:43)
[2018-05-22] MEDS: Heparin - SQ 10,000 UNITS/ML Vial SQ SCH (22:44)
[2018-05-22] MEDS: Senna/Docusate Sodium 8.6/50 MG Tablet PO SCH (22:44)
--- NOTE | 2018-05-22 22:59 | MR ---
EXAM DATE: 05/22/2018 10:14 PM EDT AGE/SEX: 63 years / Male INDICATIONS: . Cellulitis on entire planter surface by MTPJ. CLINICAL DATA: This is the patient's initial encounter. Patient reports that signs and symptoms have been present for 3 weeks and indicates a pain score of 9/10. MEDICAL/SURGICAL HISTORY: Hypertension. Diabetes mellitus type II. CABG. Left foot sx. [place] [facility] [place]22/[place]. . TECHNIQUE: Multiplanar, multisequence MRI examination was performed without contrast. FINDINGS: Bones: The osseous structures are in normal alignment. No evidence of fracture or bony edema. There are no obvious erosions present. Mild osteoarthritis is noted involving the right first metatarsophal angeal joint. Joint Spaces: No joint effusion or loose bodies are seen. The joint spaces are preserved. Tendons: The flexor tendons are intact. Soft Tissues: There is a subcutaneous collection of air and fluid along the medial aspect of the righ t foot adjacent to the distal shaft and head of the first metatarsal which measures 2.4 x 1.8 cm rais ing possibility of abscess. Contrast-enhanced MRI would be helpful for confirmation if clinically ind icated. Other: The plantar fascia is intact. No signal abnormalities are seen in the plantar musculature. CONCLUSION: 1. Subcutaneous collection of air and fluid along the medial aspect of the right foot adjacent to th e distal shaft and head of the first metatarsal which measures 2.4 x 1.8 cm raising possibility of ab scess. Contrast-enhanced MRI would be helpful for confirmation if clinically indicated. No definite u nderlying marrow edema to suggest osteomyelitis is noted. 2. 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 Electronically signed by: Bob Batista MD 05/22/2018 10:57 PM EDT
[2018-05-23] MEDS: Piperacil/Tazo 3.375 GM Premix 50 ML IV.SIG SCH ×3 (02:44→17:04)
[2018-05-23] MEDS: Insulin NovoLOG Aspart Correctional Sugar Inj SQ SCH ×5 (02:50→20:38)
[2018-05-23] MEDS: Sod Chloride 0.9% Inj 1,000 ML IV.CONT SCH (05:05)
[2018-05-23] MEDS ORDERED: Pharmacy Ordered Lab Info OTHER ONE (06:00)
[2018-05-23] MEDS ORDERED: Chlorhexidine Gluconate 2% 1 Pack (2 Cloths) TOPICAL ONE (06:28)
[2018-05-23 07:24] LABS: Baso # (Auto) 0.1 th/mm3 (0.0-0.2); Baso % (Auto) 0.4 % (0.0-2.0); Eos % (Auto) 0.4 % (0.0-4.0); Hematocrit 24.6 % (39.0-51.0); Hemoglobin 8.3 gm/dL (13.0-17.0); Lymph # (Auto) 0.8 th/mm3 (1.0-4.8); Lymph % (Auto) 6.5 % (9.0-44.0); Mean Corpuscular HGB Conc 33.7 % (32.0-36.0); Mean Corpuscular Hemoglobin 28.3 pg (27.0-34.0); Mean Corpuscular Volume 84.1 fL (80.0-100.0); Mean Platelet Volume 8.5 fL (7.0-11.0); Mono # (Auto) 0.9 th/mm3 (0.0-0.9); Mono % (Auto) 7.5 % (0.0-8.0); Neut # (Auto) 10.4 th/mm3 (1.8-7.7); Neut % (Auto) 85.2 % (16.0-70.0); Platelet Count 209 th/mm3 (150-450); Red Blood Count 2.93 mil/mm3 (4.50-5.90); Red Cell Distribution Width 13.2 % (11.6-17.2); White Blood Count 12.2 th/mm3 (4.0-11.0)
[2018-05-23 07:31] LABS: INR 1.1 Ratio; Prothrombin Time 11.1 sec (9.8-11.6)
[2018-05-23] MEDS: Heparin - SQ 10,000 UNITS/ML Vial SQ SCH ×2 (07:47→20:19)
[2018-05-23 08:35] LABS: Alanine Aminotransferase 16 U/L (12-78); Albumin 2.2 g/dL (3.4-5.0); Alkaline Phosphatase 62 U/L (45-117); Anion Gap 10 meq/L (5-15); Aspartate Aminotransferase 9 U/L (15-37); Blood Urea Nitrogen 44 mg/dL (7-18); Calcium 7.8 mg/dL (8.5-10.1); Carbon Dioxide 22.6 meq/L (21.0-32.0); Chloride 107 meq/L (98-107); Free T4 (Free Thyroxine) 1.21 ng/dL (0.76-1.46); Glomerular Filtration Rate 33 mL/min (>89); Glucose,Random 151 mg/dL (74-106); Magnesium 2.3 mg/dL (1.5-2.5); Phosphorus 3.3 mg/dL (2.5-4.9); Potassium 5.1 meq/L (3.5-5.1); Sodium 140 meq/L (136-145); Thyroid Stimulating Hormone 0.984 uIU/mL (0.358-3.740); Total Protein 6.6 g/dL (6.4-8.2); Vancomycin,Random 7.2 Comment
[2018-05-23] MEDS ORDERED: INSULIN DEGLUDEC SQ SCH (09:00)
[2018-05-23] MEDS ORDERED: Metoprolol Tartrate 25 MG Tablet PO SCH (09:00)
[2018-05-23] MEDS: Famotidine 20 MG Tablet PO SCH ×2 (09:54→21:48)
[2018-05-23] MEDS: Senna/Docusate Sodium 8.6/50 MG Tablet PO SCH ×2 (09:57→21:48)
--- NOTE | 2018-05-23 10:38 | P.PNIM ---
Subjective Interval history: Follow-up for right foot infection. at bedside. Patient was told he may be having surgery today and is nervous. He has been having lower extremity swelling lately, and PCP has referred him to his cardiothoracic surgeon, Dr. Hogan to [facility] for CHF, patient was to have echocardiogram this week. Physical Exam Vital signs: Vital Signs 05/22/18 13:51 05/22/18 16:20 05/22/18 18:40 Temperature 98.2 F 98.6 F Pulse Rate 62 82 82 Respiratory Rate 16 18 17 Blood Pressure 119/60 143/67 H 143/67 H Pulse Oximetry 99 96 96 05/22/18 21:14 05/23/18 00:17 05/23/18 01:00 Temperature 98.6 F 98.0 F Pulse Rate 64 66 Respiratory Rate 19 18 18 Blood Pressure 159/72 H 158/72 H Pulse Oximetry 94 L 05/23/18 01:46 05/23/18 08:00 Temperature 97.7 F Pulse Rate 57 L Respiratory Rate 19 Blood Pressure 160/77 H Pulse Oximetry 94 L 94 L Intake & Output 05/22/18 05/23/18 05/23/18 18:59 06:59 18:59 Intake Total 1100 / 1100 300 / 300 1000 / 1000 Output Total 500 / 500 Balance 1100 / 1100 -200 / -200 1000 / 1000 Weight 210 lb 209 lb 7.026 oz Intake: IV 1100 / 1100 300 / 300 1000 / 1000 NS Inj 1,000 ML @ 100 mls/hr IV 1000 / 1000 .CONT .Q10H [facility] Rx#:[id number] Zosyn 3.375 GM Premix 50 ML @ 50 / 50 100 mls/hr IV.SIG Q8H [facility] Rx#: [id number] Zosyn 4.5 GM Premix 4.5 gm In 100 / 100 100 ml @ 200 mls/hr IV.SIG ONCE ONE Rx#:[id number] NS Inj 1,000 ML @ Wide Open IV. 1000 / 1000 SIG BOLUS ONE Rx#:[id number] Vancomycin Inj 1,000 MG In NS 250 / 250 Inj 250 ML @ 250 mls/hr IV.SIG ONCE ONE Rx#:[id number] Output: Urine 500 / 500 Other: Date of Last Bowel Movement 05/22/18 Narrative: GENERAL: Well-developed well-nourished. In no acute distress. SKIN: Warm and dry. No lesions noted. CARDIOVASCULAR: Regular rate and rhythm. 2/6 systolic murmur appreciated. RESPIRATORY: No accessory muscle use. Clear to auscultation. Breath sounds equal bilaterally. GASTROINTESTINAL: Abdomen soft, non-tender, nondistended. Bowel sounds x4. MUSCULOSKELETAL: Right foot plantar wound with serous drainage on dressing. 3+ edema in the left leg and 2+ on the right. NEUROLOGICAL: Awake and alert. Moves upper and lower extremities spontaneously. Normal speech. PSYCHIATRIC: Appropriate mood and affect; insight and judgment normal. Results - Labs CBC & Chem 7: 05/23/18 04:38 05/23/18 04:38 Laboratory Results - last 24 hr 05/22/18 05/22/18 05/22/18 17:15 17:15 17:15 WBC 15.6 H RBC 3.50 L Hgb 10.1 L Hct 29.2 L MCV 83.5 MCH 28.8 MCHC 34.5 RDW 13.1 Plt Count 241 MPV 8.4 Neut % (Auto) 86.7 H Lymph % (Auto) 5.3 L [place] % (Auto) 7.2 Eos % (Auto) 0.6 Baso % (Auto) 0.2 Neut # (Auto) 13.5 H Lymph # (Auto) 0.8 L [place] # (Auto) 1.1 H Eos # (Auto) 0.1 Baso # (Auto) 0.0 WBC Differential . Differential Comment Auto diff final ESR PT INR Sodium 134 L Potassium 5.1 Chloride 100 Carbon Dioxide 24.2 Anion Gap 10 BUN 51 H Creatinine 2.44 H Estimated GFR 27 L POC Glucose Random Glucose 346 H Lactic Acid 0.9 Calcium 8.6 Phosphorus Magnesium Total Bilirubin AST ALT Alkaline Phosphatase C-Reactive Protein B-Natriuretic Peptide Total Protein Albumin TSH Free T4 Random Vancomycin 05/22/18 05/22/18 05/22/18 17:15 17:15 17:15 WBC RBC Hgb Hct MCV MCH MCHC RDW Plt Count MPV Neut % (Auto) Lymph % (Auto) [place] % (Auto) Eos % (Auto) Baso % (Auto) Neut # (Auto) Lymph # (Auto) [place] # (Auto) Eos # (Auto) Baso # (Auto) WBC Differential Differential Comment ESR Greater than 140 H PT INR Sodium Potassium Chloride Carbon Dioxide Anion Gap BUN Creatinine Estimated GFR POC Glucose Random Glucose Lactic Acid Calcium Phosphorus Magnesium Total Bilirubin AST ALT Alkaline Phosphatase C-Reactive Protein 17.00 H B-Natriuretic Peptide 269 H Total Protein Albumin TSH Free T4 Random Vancomycin 05/22/18 05/23/18 05/23/18 20:41 02:48 04:38 WBC 12.2 H RBC 2.93 L Hgb 8.3 L Hct 24.6 L MCV 84.1 MCH 28.3 MCHC 33.7 RDW 13.2 Plt Count 209 MPV 8.5 Neut % (Auto) 85.2 H Lymph % (Auto) 6.5 L [place] % (Auto) 7.5 Eos % (Auto) 0.4 Baso % (Auto) 0.4 Neut # (Auto) 10.4 H Lymph # (Auto) 0.8 L [place] # (Auto) 0.9 Eos # (Auto) 0.0 Baso # (Auto) 0.1 WBC Differential . Differential Comment Auto diff final ESR PT INR Sodium Potassium Chloride Carbon Dioxide Anion Gap BUN Creatinine Estimated GFR POC Glucose 322 H 186 H Random Glucose Lactic Acid Calcium Phosphorus Magnesium Total Bilirubin AST ALT Alkaline Phosphatase C-Reactive Protein B-Natriuretic Peptide Total Protein Albumin TSH Free T4 Random Vancomycin 05/23/18 05/23/18 05/23/18 04:38 04:38 08:05 WBC RBC Hgb Hct MCV MCH MCHC RDW Plt Count MPV Neut % (Auto) Lymph % (Auto) [place] % (Auto) Eos % (Auto) Baso % (Auto) Neut # (Auto) Lymph # (Auto) [place] # (Auto) Eos # (Auto) Baso # (Auto) WBC Differential Differential Comment ESR PT 11.1 INR 1.1 Sodium 140 Potassium 5.1 Chloride 107 Carbon Dioxide 22.6 Anion Gap 10 BUN 44 H Creatinine 2.02 H Estimated GFR 33 L POC Glucose 155 H Random Glucose 151 H D Lactic Acid Calcium 7.8 L D Phosphorus 3.3 Magnesium 2.3 Total Bilirubin 0.2 AST 9 L ALT 16 Alkaline Phosphatase 62 C-Reactive Protein B-Natriuretic Peptide Total Protein 6.6 Albumin 2.2 L TSH 0.984 Free T4 1.21 Random Vancomycin 7.2 Microbiology 05/22/18 17:00 Wound - Foot Gram Stain - Final - Imaging Impressions Foot MRI 05/22/18 00:00 CONCLUSION: 1. Subcutaneous collection of air and fluid along the medial aspect of the right foot adjacent to the distal shaft and head of the first metatarsal which measures 2.4 x 1.8 cm raising possibility of abscess. Contrast-enhanced MRI would be helpful for confirmation if clinically indicated. No definite underlying marrow edema to suggest osteomyelitis is noted. 2. 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 Chest X-Ray 05/22/18 16:51 CONCLUSION: No evidence of pneumonia. Foot X-Ray 05/22/18 16:51 CONCLUSION: Negative Venous Doppler Study 05/22/18 16:58 CONCLUSION: 1. No evidence of thrombus, however, there is extensive subcutaneous edema identified throughout the right calf. Assessment and Plan - Plan Diabetic foot wound ongoing for at least 3 weeks Foot MRI concerning for first metatarsal abscess, no osteomyelitis noted Failed outpatient antibiotic therapy Reportedly outpatient culture showed MRSA -Consulted infectious disease -Continue with vancomycin and Zosyn with pharmacy to dose the vancomycin -Consulted podiatry, n.p.o. for probable intervention -Cultures pending Acute renal failure Creatinine trending down with IVF -DC IVF with lower extremity edema -Discontinue MEGAN inhibitors and Lasix -A.m. labs Leukocytosis suspect secondary to the diabetic foot wound -Continue on antibiotics -Monitor CBC Anemia, normocytic probable delusional component -monitor labs Diabetes mellitus -Continue on Accu-Cheks before meals and at bedtime and q. 3 AM -Sliding scale coverage -Continue on long-acting insulin -Diabetic cardiac diet Hyperlipidemia -continue on statin Hypertension -continue on metoprolol -We will hold lisinopril and Lasix at this time due to renal insufficiency/ failure Lower extremity swelling -Recommend compression stockings -Monitor volume status History of prosthetic valve replacement -Monitor volume status -Continue plans for outpatient follow-up with CT surgery DVT prophylaxis with subcu heparin GI prophylaxis with Pepcid
[2018-05-23] MEDS ORDERED: Neomycin/Polymyxin G.U. Irrigant 1 ML Ampul ONE (12:29)
[2018-05-23] MEDS ORDERED: Succinylcholine Inj 100 MG/5 ML Syringe IV.PUSH ONE (12:50)
[2018-05-23] MEDS ORDERED: Lidocaine PF 1% Inj 5 ML Syringe INFILTRATN ONE (12:50)
--- NOTE | 2018-05-23 12:55 | P.CONPOD ---
History of Present Illness Service: Podiatry Consult date: 05/23/18 Reason for Consult: right foot infection Primary Care Provider: No Primary Care Physician Chief Complaint: RIGHT FOOT DIABETIC FOOT WOUND REPORTED MRSA POSITIVE PER OUTPT CULTURES History of Present Illness: Patient states about 2-3 weeks history of wound to medial/plantar right foot. He has been on oral antibiotics and says the infection started worsening. He has also been feeling very sick and throwing up today Review of Systems All other systems reviewed negative except as stated in HPI PMFSH - History History Provided By: Patient - Medical History Medical History: Medical History (Last Updated 05/22/18 @ 18:59 by Oli Gonzales DO) CAD (coronary artery disease) Diabetes Diabetic foot infection Diabetic neuropathy Hyperlipidemia Hypertension - Surgical History Surgical History: Surgical History (Last Updated 05/22/18 @ 18:59 by Oli Gonzales DO) Mitral valve replaced S/P CABG x 3 - Family History Family History: Family History (Last Updated 05/22/18 @ 18:59 by Oli Gonzales DO) Other Family history of diabetes mellitus Family history of hypertension - Tobacco History Second Hand Smoke Exposure: No Tobacco Use In Past 30 Days: No Smoking Status: Never smoker - Alcohol History How Often Do You Have a Drink Containing Alcohol: Never - Substance Use History Substance History: No History of Abuse - Travel History History of Recent Travel: No Recent Travel in the [place] Within the Last 8 Weeks: No Recent Travel Out of the Country Within the Last 8 Weeks: No - Immunization History Tetanus Immunization: <5 Years Hx Influenza Vaccine This Season: No Medications and Allergies Active Medications: Active Medications Acetaminophen (Tylenol) 650 mg PO Q4H PRN PRN Reason: Temp > 100.4 Al Hydroxide/Mg Hydroxide (Milk Of Geovanni Jaime) 30 ml PO Q12H PRN PRN Reason: Mild Constipation Aspirin (Ecotrin) 81 mg PO DAILY [facility] Last Admin: 05/23/18 09:53 Dose: Not Given Atorvastatin Calcium (Lipitor) 40 mg PO DAILY [facility] Last Admin: 05/23/18 09:54 Dose: 40 mg Bisacodyl (Dulcolax Supp) 10 mg RECTAL DAILY PRN PRN Reason: SEVERE CONSITIPATION Dextrose (D50w Vial) 50 ml IV.PUSH UNSCH PRN PRN Reason: PER HYPOGLYCEMIA PROTOCOL Famotidine (Pepcid) 10 mg PO BID [facility] Last Admin: 05/23/18 09:54 Dose: 10 mg Glucagon (Glucagon Inj) 1 mg OTHER PRN PRN PRN Reason: for Hypoglycemia Protocol Heparin Sodium (Porcine) (Heparin Inj) 5,000 units SQ Q12H [facility] Last Admin: 05/23/18 07:47 Dose: Not Given Pharmacy Profile Note (Vancomycin Consult Pharmacy) 0 mls @ 0 mls/hr OTHER UNSCH [facility] Piperacillin/Tazobactam/Dextrose (Zosyn 3.375 Gm Premix) 50 mls @ 100 mls/hr IV.SIG Q8H [facility] Last Infusion: 05/23/18 10:32 Dose: Infused Lactated Ringer's (Lr 1000 Ml Inj) 1,000 mls @ 30 mls/hr IV.SIG .Q24H [facility] Stop: 05/24/18 06:29 Last Admin: 05/23/18 07:49 Dose: Not Given Insulin Aspart (Novolog Insulin Correctional Sugar Inj) 0 unit SQ ACHS AND 3AM [facility]; Protocol Last Admin: 05/23/18 11:48 Dose: Not Given Lactulose (Lactulose Liq) 30 ml PO DAILY PRN PRN Reason: SEVERE CONSITIPATION Metoprolol Tartrate (Lopressor) 25 mg PO BID [facility] Miscellaneous (Pill Splitter) 1 each OTHER UNSCH PRN PRN Reason: SEE LABEL COMMENTS Morphine Sulfate (Morphine Inj) 2 mg IV.PUSH Q3H PRN PRN Reason: PAIN 3-5; IF UABLE TO TAKE PO Last Admin: 05/22/18 21:13 Dose: 2 mg Morphine Sulfate (Morphine Inj) 4 mg IV.PUSH Q3H PRN PRN Reason: PAIN 6-10;IF UNABLE TO TAKE PO Morphine Sulfate (Morphine Inj) 4 mg IV.PUSH Q3H PRN PRN Reason: BREAKTHROUGH PAIN Last Admin: 05/23/18 05:26 Dose: 4 mg Naloxone HCl (Narcan Inj) 0.4 mg IV.PUSH UNSCH PRN PRN Reason: SEE LABEL COMMENTS Ondansetron HCl (Zofran Inj) 4 mg IV.PUSH Q6H PRN PRN Reason: NAUSEA OR VOMITING Last Admin: 05/23/18 10:02 Dose: 4 mg Oxycodone/Acetaminophen (Percocet 10/325 Mg) 1 tab PO Q6H PRN PRN Reason: PAIN SCALE 6 TO 10 Last Admin: 05/23/18 10:02 Dose: 1 tab Oxycodone/Acetaminophen (Percocet 5/325 Mg) 1 tab PO Q6H PRN PRN Reason: PAIN SCALE 3 TO 5 Last Admin: 05/23/18 02:51 Dose: 1 tab Patient Own Medication - Insulin Degludec [Tresiba Flextouch U-100] 8 Units Sq Daily 0 each SQ DAILY [facility] Senna/Docusate Sodium (Rozina-Colace) 1 tab PO BID [facility] Last Admin: 05/23/18 09:57 Dose: Not Given Sennosides (Senokot) 17.2 mg PO Q12H PRN PRN Reason: Moderate Constipation Temazepam (Restoril) 15 mg PO HS PRN PRN Reason: INSOMNIA Allergies Allergy/AdvReac Type Severity Reaction Status Date / Time bee venom protein (honey bee) Allergy Severe Anaphylaxis Verified 05/22/18 20:28 Home Medications Medication Instructions Recorded Confirmed Type aspirin [Aspir-81] 81 mg PO DAILY 05/22/18 05/22/18 History benzonatate [Tessalon Perles] 200 mg PO BID PRN 05/22/18 05/22/18 History clindamycin HCl 300 mg PO QID 05/22/18 05/22/18 History fluconazole 150 mg PO WEEKLY 05/22/18 05/22/18 History furosemide [Lasix] 40 mg PO DAILY 05/22/18 05/22/18 History insulin degludec [Tresiba 8 unit SUB-Q DAILY 05/22/18 05/22/18 History FlexTouch U-100] lisinopril 5 mg PO DAILY 05/22/18 05/22/18 History metoprolol tartrate 25 mg PO DAILY 05/22/18 05/22/18 History rosuvastatin 20 mg PO DAILY 05/22/18 05/22/18 History Physical Exam Vital signs: Vital Signs 05/22/18 13:51 05/22/18 16:20 05/22/18 18:40 Temperature 98.2 F 98.6 F Pulse Rate 62 82 82 Respiratory Rate 16 18 17 Blood Pressure 119/60 143/67 H 143/67 H Pulse Oximetry 99 96 96 05/22/18 21:14 05/23/18 00:17 05/23/18 01:00 Temperature 98.6 F 98.0 F Pulse Rate 64 66 Respiratory Rate 19 18 18 Blood Pressure 159/72 H 158/72 H Pulse Oximetry 94 L 05/23/18 01:46 05/23/18 08:00 Temperature 97.7 F Pulse Rate 57 L Respiratory Rate 19 Blood Pressure 160/77 H Pulse Oximetry 94 L 94 L Intake & Output 05/22/18 05/23/18 05/23/18 18:59 06:59 18:59 Intake Total 1100 / 1100 300 / 300 1050 / 1050 Output Total 500 / 500 Balance 1100 / 1100 -200 / -200 1050 / 1050 Weight 95.254 kg 95 kg Intake: IV 1100 / 1100 300 / 300 1050 / 1050 NS Inj 1,000 ML @ 100 mls/hr IV 1000 / 1000 .CONT .Q10H [facility] Rx#:[id number] Zosyn 3.375 GM Premix 50 ML @ 50 / 50 50 / 50 100 mls/hr IV.SIG Q8H [facility] Rx#: [id number] Zosyn 4.5 GM Premix 4.5 gm In 100 / 100 100 ml @ 200 mls/hr IV.SIG ONCE ONE Rx#:[id number] NS Inj 1,000 ML @ Wide Open IV. 1000 / 1000 SIG BOLUS ONE Rx#:[id number] Vancomycin Inj 1,000 MG In NS 250 / 250 Inj 250 ML @ 250 mls/hr IV.SIG ONCE ONE Rx#:[id number] Output: Urine 500 / 500 Other: Date of Last Bowel Movement 05/22/18 05/22/18 Results - Labs CBC & Chem 7: 05/23/18 04:38 05/23/18 04:38 Laboratory Results - last 24 hr 05/22/18 05/22/18 05/22/18 17:15 17:15 17:15 WBC 15.6 H RBC 3.50 L Hgb 10.1 L Hct 29.2 L MCV 83.5 MCH 28.8 MCHC 34.5 RDW 13.1 Plt Count 241 MPV 8.4 Neut % (Auto) 86.7 H Lymph % (Auto) 5.3 L [place] % (Auto) 7.2 Eos % (Auto) 0.6 Baso % (Auto) 0.2 Neut # (Auto) 13.5 H Lymph # (Auto) 0.8 L [place] # (Auto) 1.1 H Eos # (Auto) 0.1 Baso # (Auto) 0.0 WBC Differential . Differential Comment Auto diff final ESR PT INR Sodium 134 L Potassium 5.1 Chloride 100 Carbon Dioxide 24.2 Anion Gap 10 BUN 51 H Creatinine 2.44 H Estimated GFR 27 L POC Glucose Random Glucose 346 H Lactic Acid 0.9 Calcium 8.6 Phosphorus Magnesium Total Bilirubin AST ALT Alkaline Phosphatase C-Reactive Protein B-Natriuretic Peptide Total Protein Albumin TSH Free T4 Random Vancomycin 05/22/18 05/22/18 05/22/18 17:15 17:15 17:15 WBC RBC Hgb Hct MCV MCH MCHC RDW Plt Count MPV Neut % (Auto) Lymph % (Auto) [place] % (Auto) Eos % (Auto) Baso % (Auto) Neut # (Auto) Lymph # (Auto) [place] # (Auto) Eos # (Auto) Baso # (Auto) WBC Differential Differential Comment ESR Greater than 140 H PT INR Sodium Potassium Chloride Carbon Dioxide Anion Gap BUN Creatinine Estimated GFR POC Glucose Random Glucose Lactic Acid Calcium Phosphorus Magnesium Total Bilirubin AST ALT Alkaline Phosphatase C-Reactive Protein 17.00 H B-Natriuretic Peptide 269 H Total Protein Albumin TSH Free T4 Random Vancomycin 05/22/18 05/23/18 05/23/18 20:41 02:48 04:38 WBC 12.2 H RBC 2.93 L Hgb 8.3 L Hct 24.6 L MCV 84.1 MCH 28.3 MCHC 33.7 RDW 13.2 Plt Count 209 MPV 8.5 Neut % (Auto) 85.2 H Lymph % (Auto) 6.5 L [place] % (Auto) 7.5 Eos % (Auto) 0.4 Baso % (Auto) 0.4 Neut # (Auto) 10.4 H Lymph # (Auto) 0.8 L [place] # (Auto) 0.9 Eos # (Auto) 0.0 Baso # (Auto) 0.1 WBC Differential . Differential Comment Auto diff final ESR PT INR Sodium Potassium Chloride Carbon Dioxide Anion Gap BUN Creatinine Estimated GFR POC Glucose 322 H 186 H Random Glucose Lactic Acid Calcium Phosphorus Magnesium Total Bilirubin AST ALT Alkaline Phosphatase C-Reactive Protein B-Natriuretic Peptide Total Protein Albumin TSH Free T4 Random Vancomycin 05/23/18 05/23/18 05/23/18 04:38 04:38 08:05 WBC RBC Hgb Hct MCV MCH MCHC RDW Plt Count MPV Neut % (Auto) Lymph % (Auto) [place] % (Auto) Eos % (Auto) Baso % (Auto) Neut # (Auto) Lymph # (Auto) [place] # (Auto) Eos # (Auto) Baso # (Auto) WBC Differential Differential Comment ESR PT 11.1 INR 1.1 Sodium 140 Potassium 5.1 Chloride 107 Carbon Dioxide 22.6 Anion Gap 10 BUN 44 H Creatinine 2.02 H Estimated GFR 33 L POC Glucose 155 H Random Glucose 151 H D Lactic Acid Calcium 7.8 L D Phosphorus 3.3 Magnesium 2.3 Total Bilirubin 0.2 AST 9 L ALT 16 Alkaline Phosphatase 62 C-Reactive Protein B-Natriuretic Peptide Total Protein 6.6 Albumin 2.2 L TSH 0.984 Free T4 1.21 Random Vancomycin 7.2 05/23/18 11:44 WBC RBC Hgb Hct MCV MCH MCHC RDW Plt Count MPV Neut % (Auto) Lymph % (Auto) [place] % (Auto) Eos % (Auto) Baso % (Auto) Neut # (Auto) Lymph # (Auto) [place] # (Auto) Eos # (Auto) Baso # (Auto) WBC Differential Differential Comment ESR PT INR Sodium Potassium Chloride Carbon Dioxide Anion Gap BUN Creatinine Estimated GFR POC Glucose 173 H Random Glucose Lactic Acid Calcium Phosphorus Magnesium Total Bilirubin AST ALT Alkaline Phosphatase C-Reactive Protein B-Natriuretic Peptide Total Protein Albumin TSH Free T4 Random Vancomycin Microbiology 05/22/18 17:20 Blood - Line Aerobic Blood Culture - Preliminary No growth in 1 day 05/22/18 17:20 Blood - Line Anaerobic Blood Culture - Preliminary No growth in 1 day 05/22/18 17:15 Blood - Line Aerobic Blood Culture - Preliminary No growth in 1 day 05/22/18 17:15 Blood - Line Anaerobic Blood Culture - Preliminary No growth in 1 day 05/22/18 17:00 Wound - Foot Gram Stain - Final - Imaging Impressions Foot MRI 05/22/18 00:00 CONCLUSION: 1. Subcutaneous collection of air and fluid along the medial aspect of the right foot adjacent to the distal shaft and head of the first metatarsal which measures 2.4 x 1.8 cm raising possibility of abscess. Contrast-enhanced MRI would be helpful for confirmation if clinically indicated. No definite underlying marrow edema to suggest osteomyelitis is noted. 2. 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 Chest X-Ray 05/22/18 16:51 CONCLUSION: No evidence of pneumonia. Foot X-Ray 05/22/18 16:51 CONCLUSION: Negative Venous Doppler Study 05/22/18 16:58 CONCLUSION: 1. No evidence of thrombus, however, there is extensive subcutaneous edema identified throughout the right calf. 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
[2018-05-23 13:45] LABS: Hemoglobin A1c 8.6 % (4.3-6.0)
[2018-05-23] MEDS ORDERED: fentaNYL Citrate Inj 100 MCG/2 ML Ampul ONE (13:51)
--- NOTE | 2018-05-23 14:01 | P.BOP ---
- Preoperative Diagnosis (1) Abscess of right foot (2) Gas gangrene - Postoperative Diagnosis (1) Abscess of right foot (2) Gas gangrene Date of procedure: 05/23/18 Procedure: Incision and drainage right foot with wound vac. Incision made to medial 1st MTP joint level and purulent drainage, foul odor, and necrotic tissue present down to level but not including 1st MTP joint capsule. Abscess extended plantar to sesamoid apparatus plantarly and to level of 1st metatarsal neck/shaft medially. Necrotic tissue excised, rongeur, curette, and irrigation with 3L normal saline with . Small wound vac at 125mmHg medium continuous setting Will examine wound tomorrow. Anticipate need for further surgery with possible graft, to be determined Await cultures Surgeon: Jose Martin Carson DPM Estimated blood loss (mL): 5 Pathology: other (culture right foot) Condition: stable Disposition: PACU
[2018-05-23] MEDS ORDERED: *Ondansetron Inj 4 MG/2 ML Vial PERIprocedural Use ONLY ONE (14:05)
[2018-05-23] MEDS ORDERED: Vancomycin Inj 1,750 MG in Sodium Chlor 0.9% Inj 500 ML IV.SIG ONE (15:00)
--- NOTE | 2018-05-23 18:28 | P.CONID ---
History of Present Illness Service: ID Consult date: 05/23/18 Requesting Physician: Oli Gonzales Reason for Consult: MRSA R foot infection Primary Care Provider: No Primary Care Physician Chief Complaint: RIGHT FOOT DIABETIC FOOT WOUND REPORTED MRSA POSITIVE PER OUTPT CULTURES History of Present Illness: 63 yo diabetic malnayeli developped a blister 2.5 weeks ago on his R foot. He took bactrim with no eefect x 10days, then he was told that wound cultures were positive for MRSA, switche dot clindamycin and again failed treatment He was admitted with wqorsening R foot pain, redness and swelling now extending to the anlkle, subjective fever, chills Afebrile on admission, WBC 15K, ESR >140 MRI showed abscess, no osteo sp Incision and drainage right foot with wound vac. on 05/[address] Pedraza Intraop findings include purulent drainage, foul odor, and necrotic tissue present down to level but not including 1st MTP joint capsule. Abscess extended plantar to sesamoid apparatus plantarly and to level of 1st metatarsal neck/shaft medially. Clx growing MRSA - preliminary Blood clx negative Pt on vanco, zosyn More debridements planned Review of Systems All other systems reviewed negative except as stated in HPI PMFSH - History History Provided By: Patient - Medical History Medical History: Medical History (Last Reviewed 05/24/18 @ 01:26 by Modesta Bhagat MD) CAD (coronary artery disease) Diabetes Diabetic foot infection Diabetic neuropathy Hyperlipidemia Hypertension - Surgical History Surgical History: Surgical History (Last Reviewed 05/24/18 @ 01:26 by Modesta Bhagat MD) Mitral valve replaced S/P CABG x 3 - Family History Family History: Family History (Last Reviewed 05/24/18 @ 01:26 by Modesta Bhagat MD) Other Family history of diabetes mellitus Family history of hypertension - Social History I have reviewed the patient's Social History: Yes - Tobacco History Second Hand Smoke Exposure: No Tobacco Use In Past 30 Days: No Smoking Status: Never smoker - Alcohol History How Often Do You Have a Drink Containing Alcohol: Never - Substance Use History Substance History: No History of Abuse - Travel History History of Recent Travel: No Recent Travel in the [place] Within the Last 8 Weeks: No Recent Travel Out of the Country Within the Last 8 Weeks: No - Immunization History Tetanus Immunization: <5 Years Hx Influenza Vaccine This Season: No Medications and Allergies Active Medications: Active Medications Acetaminophen (Tylenol) 650 mg PO Q4H PRN PRN Reason: Temp > 100.4 Al Hydroxide/Mg Hydroxide (Milk Of Magnesia Liq) 30 ml PO Q12H PRN PRN Reason: Mild Constipation Aspirin (Ecotrin) 81 mg PO DAILY [facility] Last Admin: 05/23/18 09:53 Dose: Not Given Atorvastatin Calcium (Lipitor) 40 mg PO DAILY [facility] Last Admin: 05/23/18 09:54 Dose: 40 mg Bisacodyl (Dulcolax Supp) 10 mg RECTAL DAILY PRN PRN Reason: SEVERE CONSITIPATION Dextrose (D50w Vial) 50 ml IV.PUSH UNSCH PRN PRN Reason: PER HYPOGLYCEMIA PROTOCOL Famotidine (Pepcid) 10 mg PO BID [facility] Last Admin: 05/23/18 09:54 Dose: 10 mg Glucagon (Glucagon Inj) 1 mg OTHER PRN PRN PRN Reason: for Hypoglycemia Protocol Heparin Sodium (Porcine) (Heparin Inj) 5,000 units SQ Q12H [facility] Last Admin: 05/23/18 07:47 Dose: Not Given Pharmacy Profile Note (Vancomycin Consult Pharmacy) 0 mls @ 0 mls/hr OTHER UNSCH [facility] Piperacillin/Tazobactam/Dextrose (Zosyn 3.375 Gm Premix) 50 mls @ 100 mls/hr IV.SIG Q8H [facility] Last Infusion: 05/23/18 17:56 Dose: Infused Lactated Ringer's (Lr 1000 Ml Inj) 1,000 mls @ 30 mls/hr IV.SIG .Q24H [facility] Stop: 05/24/18 06:29 Last Admin: 05/23/18 07:49 Dose: Not Given Insulin Aspart (Novolog Insulin Correctional Sugar Inj) 0 unit SQ ACHS AND 3AM [facility]; Protocol Last Admin: 05/23/18 17:35 Dose: 2 unit Lactulose (Lactulose Liq) 30 ml PO DAILY PRN PRN Reason: SEVERE CONSITIPATION Metoprolol Tartrate (Lopressor) 25 mg PO BID [facility] Miscellaneous (Pill Splitter) 1 each OTHER UNSCH PRN PRN Reason: SEE LABEL COMMENTS Miscellaneous Information (Misc Nursing Information) 1 each OTHER UNSCH PRN PRN Reason: SEE LABEL COMMENTS Stop: 05/24/18 13:45 Morphine Sulfate (Morphine Inj) 2 mg IV.PUSH Q3H PRN PRN Reason: PAIN 3-5; IF UABLE TO TAKE PO Last Admin: 05/22/18 21:13 Dose: 2 mg Morphine Sulfate (Morphine Inj) 4 mg IV.PUSH Q3H PRN PRN Reason: PAIN 6-10;IF UNABLE TO TAKE PO Morphine Sulfate (Morphine Inj) 4 mg IV.PUSH Q3H PRN PRN Reason: BREAKTHROUGH PAIN Last Admin: 05/23/18 05:26 Dose: 4 mg Naloxone HCl (Narcan Inj) 0.4 mg IV.PUSH UNSCH PRN PRN Reason: SEE LABEL COMMENTS Ondansetron HCl (Zofran Inj) 4 mg IV.PUSH Q6H PRN PRN Reason: NAUSEA OR VOMITING Last Admin: 05/23/18 10:02 Dose: 4 mg Oxycodone/Acetaminophen (Percocet 10/325 Mg) 1 tab PO Q6H PRN PRN Reason: PAIN SCALE 6 TO 10 Last Admin: 05/23/18 10:02 Dose: 1 tab Oxycodone/Acetaminophen (Percocet 5/325 Mg) 1 tab PO Q6H PRN PRN Reason: PAIN SCALE 3 TO 5 Last Admin: 05/23/18 02:51 Dose: 1 tab Patient Own Medication - Insulin Degludec [Tresiba Flextouch U-100] 8 Units Sq Daily 0 each SQ DAILY [facility] Senna/Docusate Sodium (Rozina-Colace) 1 tab PO BID [facility] Last Admin: 05/23/18 09:57 Dose: Not Given Sennosides (Senokot) 17.2 mg PO Q12H PRN PRN Reason: Moderate Constipation Temazepam (Restoril) 15 mg PO HS PRN PRN Reason: INSOMNIA Allergies Allergy/AdvReac Type Severity Reaction Status Date / Time bee venom protein (honey bee) Allergy Severe Anaphylaxis Verified 05/22/18 20:28 Home Medications Medication Instructions Recorded Confirmed Type aspirin [Aspir-81] 81 mg PO DAILY 05/22/18 05/22/18 History benzonatate [Tessalon Perles] 200 mg PO BID PRN 05/22/18 05/22/18 History clindamycin HCl 300 mg PO QID 05/22/18 05/22/18 History fluconazole 150 mg PO WEEKLY 05/22/18 05/22/18 History furosemide [Lasix] 40 mg PO DAILY 05/22/18 05/22/18 History insulin degludec [Tresiba 8 unit SUB-Q DAILY 05/22/18 05/22/18 History FlexTouch U-100] lisinopril 5 mg PO DAILY 05/22/18 05/22/18 History metoprolol tartrate 25 mg PO DAILY 05/22/18 05/22/18 History rosuvastatin 20 mg PO DAILY 05/22/18 05/22/18 History Exam Vital signs: Vital Signs 05/22/18 18:40 05/22/18 21:14 05/23/18 00:17 Temperature 98.6 F 98.0 F Pulse Rate 82 64 66 Respiratory Rate 17 19 18 Blood Pressure 143/67 H 159/72 H 158/72 H Pulse Oximetry 96 94 L 05/23/18 01:00 05/23/18 01:46 05/23/18 08:00 Temperature 97.7 F Pulse Rate 57 L Respiratory Rate 18 19 Blood Pressure 160/77 H Pulse Oximetry 94 L 94 L 05/23/18 12:00 05/23/18 13:45 05/23/18 14:00 Temperature 97.3 F L 97.5 F L Pulse Rate 50 L 47 L 47 L Respiratory Rate 19 16 10 L Blood Pressure 162/77 H 109/57 L 137/64 Pulse Oximetry 95 97 97 05/23/18 14:15 05/23/18 16:00 Temperature 97.5 F L 97.1 F L Pulse Rate 47 L 49 L Respiratory Rate 12 19 Blood Pressure 137/64 166/73 H Pulse Oximetry 97 94 L Intake & Output 05/22/18 05/23/18 05/23/18 18:59 06:59 18:59 Intake Total 1100 / 1100 300 / 300 2097.5 / 2097.5 Output Total 500 / 500 Balance 1100 / 1100 -200 / -200 7.5 / 2096.5 Weight 95.254 kg 95 kg Intake: IV 1100 / 1100 300 / 300 1617.5 / 1617.5 NS Inj 1,000 ML @ 100 mls/hr IV 1000 / 1000 .CONT .Q10H [facility] Rx#:[id number] Zosyn 3.375 GM Premix 50 ML @ 50 / 50 100 / 100 100 mls/hr IV.SIG Q8H [facility] Rx#: [id number] Zosyn 4.5 GM Premix 4.5 gm In 100 / 100 100 ml @ 200 mls/hr IV.SIG ONCE ONE Rx#:[id number] NS Inj 1,000 ML @ Wide Open IV. 1000 / 1000 SIG BOLUS ONE Rx#:[id number] Vancomycin Inj 1,000 MG In NS 250 / 250 Inj 250 ML @ 250 mls/hr IV.SIG ONCE ONE Rx#:[id number] Vancomycin Inj 1,750 MG In NS 517.5 / 517.5 Inj 500 ML @ 250 mls/hr IV.SIG ONCE ONE Rx#:[id number] Oral 480 / 480 Output: Urine 500 / 500 Other: Mode Setting Right Foot Continuous # Voids 3 Date of Last Bowel Movement 05/22/18 05/22/18 - Constitutional no acute distress, average body habitus - Routine HEENT Exam Head: Present: normocephalic, atraumatic Eye: Present: EOMI, PERRL ENT: Present: mucous membranes moist, oropharynx clear - Routine Neck Exam Present: supple, full ROM - Routine Respiratory Exam Present: decreased breath sounds, CTA bilaterally - Routine Cardiovascular Exam Present: RRR, S1, S2 Comments: median sternotomy scar wekll healed - Routine Abdominal Exam Present: soft, normoactive bowel sounds Comments: not tender not distended no organomegaly no masses - Routine Extremities Exam Comments: no cyanosis no clubbing post op dressing, VAC with serosang dc in place R foot some erythema extending to ankle noted proximally to the dressing + ipsilateral Lymphadenopathy - Routine Skin Exam Present: intact, dry, warm - Routine Neurological Exam Present: alert, oriented X3, CN II-XII intact, moving all extremities, vision grossly intact, hearing grossly intact, normal speech - Routine Psychiatric Exam Present: normal affect, normal thought process, cooperative Results - Labs CBC & Chem 7: 05/23/18 04:38 05/23/18 04:38 Labs: Laboratory Results - last 24 hr 05/22/18 05/22/18 05/22/18 17:15 17:15 20:41 WBC RBC Hgb Hct MCV MCH MCHC RDW Plt Count MPV Neut % (Auto) Lymph % (Auto) [place] % (Auto) Eos % (Auto) Baso % (Auto) Neut # (Auto) Lymph # (Auto) [place] # (Auto) Eos # (Auto) Baso # (Auto) WBC Differential Differential Comment ESR Greater than 140 H PT INR Sodium Potassium Chloride Carbon Dioxide Anion Gap BUN Creatinine Estimated GFR POC Glucose 322 H Random Glucose Hemoglobin A1c Calcium Phosphorus Magnesium Total Bilirubin AST ALT Alkaline Phosphatase B-Natriuretic Peptide 269 H Total Protein Albumin TSH Free T4 Random Vancomycin 05/23/18 05/23/18 05/23/18 02:48 04:38 04:38 WBC 12.2 H RBC 2.93 L Hgb 8.3 L Hct 24.6 L MCV 84.1 MCH 28.3 MCHC 33.7 RDW 13.2 Plt Count 209 MPV 8.5 Neut % (Auto) 85.2 H Lymph % (Auto) 6.5 L [place] % (Auto) 7.5 Eos % (Auto) 0.4 Baso % (Auto) 0.4 Neut # (Auto) 10.4 H Lymph # (Auto) 0.8 L [place] # (Auto) 0.9 Eos # (Auto) 0.0 Baso # (Auto) 0.1 WBC Differential . Differential Comment Auto diff final ESR PT 11.1 INR 1.1 Sodium Potassium Chloride Carbon Dioxide Anion Gap BUN Creatinine Estimated GFR POC Glucose 186 H Random Glucose Hemoglobin A1c Calcium Phosphorus Magnesium Total Bilirubin AST ALT Alkaline Phosphatase B-Natriuretic Peptide Total Protein Albumin TSH Free T4 Random Vancomycin 05/23/18 05/23/18 05/23/18 04:38 04:38 08:05 WBC RBC Hgb Hct MCV MCH MCHC RDW Plt Count MPV Neut % (Auto) Lymph % (Auto) [place] % (Auto) Eos % (Auto) Baso % (Auto) Neut # (Auto) Lymph # (Auto) [place] # (Auto) Eos # (Auto) Baso # (Auto) WBC Differential Differential Comment ESR PT INR Sodium 140 Potassium 5.1 Chloride 107 Carbon Dioxide 22.6 Anion Gap 10 BUN 44 H Creatinine 2.02 H Estimated GFR 33 L POC Glucose 155 H Random Glucose 151 H D Hemoglobin A1c 8.6 H Calcium 7.8 L D Phosphorus 3.3 Magnesium 2.3 Total Bilirubin 0.2 AST 9 L ALT 16 Alkaline Phosphatase 62 B-Natriuretic Peptide Total Protein 6.6 Albumin 2.2 L TSH 0.984 Free T4 1.21 Random Vancomycin 7.2 05/23/18 05/23/18 05/23/18 11:44 13:49 16:43 WBC RBC Hgb Hct MCV MCH MCHC RDW Plt Count MPV Neut % (Auto) Lymph % (Auto) [place] % (Auto) Eos % (Auto) Baso % (Auto) Neut # (Auto) Lymph # (Auto) [place] # (Auto) Eos # (Auto) Baso # (Auto) WBC Differential Differential Comment ESR PT INR Sodium Potassium Chloride Carbon Dioxide Anion Gap BUN Creatinine Estimated GFR POC Glucose 173 H 188 H 175 H Random Glucose Hemoglobin A1c Calcium Phosphorus Magnesium Total Bilirubin AST ALT Alkaline Phosphatase B-Natriuretic Peptide Total Protein Albumin TSH Free T4 Random Vancomycin - Imaging Impressions Foot MRI 05/22/18 00:00 CONCLUSION: 1. Subcutaneous collection of air and fluid along the medial aspect of the right foot adjacent to the distal shaft and head of the first metatarsal which measures 2.4 x 1.8 cm raising possibility of abscess. Contrast-enhanced MRI would be helpful for confirmation if clinically indicated. No definite underlying marrow edema to suggest osteomyelitis is noted. 2. 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 Assessment and Plan - Plan DFI, R foot ? contigious osteomyelitis MRSA Malodorous drainage encounted during surgery sugg of anaerobic coinfx cont zosyn and vancomycin further rec's to follow
[2018-05-23] MEDS: Morphine Inj 4 MG/ML Vial IV.PUSH PRN (20:17)
[2018-05-23] MEDS: Metoprolol Tartrate 25 MG Tablet PO SCH (21:49)
[2018-05-24] MEDS: Morphine Inj 4 MG/ML Vial IV.PUSH PRN ×3 (00:11→09:24)
[2018-05-24] MEDS: Insulin NovoLOG Aspart Correctional Sugar Inj SQ SCH ×5 (03:26→21:56)
[2018-05-24] MEDS: Piperacil/Tazo 3.375 GM Premix 50 ML IV.SIG SCH ×3 (04:20→18:09)
[2018-05-24 06:59] LABS: Baso # (Auto) 0.1 th/mm3 (0.0-0.2); Baso % (Auto) 0.9 % (0.0-2.0); Eos # (Auto) 0.1 th/mm3 (0.0-0.4); Eos % (Auto) 0.5 % (0.0-4.0); Hematocrit 28.3 % (39.0-51.0); Hemoglobin 9.3 gm/dL (13.0-17.0); Lymph # (Auto) 1.1 th/mm3 (1.0-4.8); Lymph % (Auto) 9.1 % (9.0-44.0); Mean Corpuscular HGB Conc 32.8 % (32.0-36.0); Mean Corpuscular Hemoglobin 28.1 pg (27.0-34.0); Mean Corpuscular Volume 85.5 fL (80.0-100.0); Mean Platelet Volume 8.6 fL (7.0-11.0); Mono # (Auto) 0.8 th/mm3 (0.0-0.9); Mono % (Auto) 6.1 % (0.0-8.0); Neut # (Auto) 10.5 th/mm3 (1.8-7.7); Neut % (Auto) 83.4 % (16.0-70.0); Platelet Count 267 th/mm3 (150-450); Red Blood Count 3.31 mil/mm3 (4.50-5.90); Red Cell Distribution Width 13.2 % (11.6-17.2); White Blood Count 12.6 th/mm3 (4.0-11.0)
[2018-05-24 07:29] LABS: Calcium 8.6 mg/dL (8.5-10.1); Carbon Dioxide 23.1 meq/L (21.0-32.0); Potassium 5.1 meq/L (3.5-5.1)
[2018-05-24] MEDS: Famotidine 20 MG Tablet PO SCH ×2 (09:25→21:44)
[2018-05-24] MEDS: Metoprolol Tartrate 25 MG Tablet PO SCH ×2 (09:25→21:43)
[2018-05-24] MEDS: Heparin - SQ 10,000 UNITS/ML Vial SQ SCH ×2 (09:26→21:44)
[2018-05-24] MEDS: Senna/Docusate Sodium 8.6/50 MG Tablet PO SCH ×2 (09:26→21:45)
--- NOTE | 2018-05-24 10:58 | P.PNPOD ---
Subjective Interval history: s/p I&D R Yamileth enamorado 05/23/18 Physical Exam Vital signs: Vital Signs 05/23/18 12:00 05/23/18 13:45 05/23/18 14:00 Temperature 97.3 F L 97.5 F L Pulse Rate 50 L 47 L 47 L Respiratory Rate 19 16 10 L Blood Pressure 162/77 H 109/57 L 137/64 Pulse Oximetry 95 97 97 05/23/18 14:15 05/23/18 16:00 05/23/18 20:00 Temperature 97.5 F L 97.1 F L 97.7 F Pulse Rate 47 L 49 L 55 L Respiratory Rate 12 19 20 Blood Pressure 137/64 166/73 H 190/85 H Pulse Oximetry 97 94 L 100 05/24/18 00:00 Temperature 98.4 F Pulse Rate 57 L Respiratory Rate 20 Blood Pressure 125/78 Pulse Oximetry 93 L Intake & Output 05/23/18 05/24/18 05/24/18 18:59 06:59 18:59 Intake Total 2097.5 / 2097.5 50 / 50 Output Total 400 / 400 Balance 2097.5 / 2097.5 -350 / -350 Weight 108.1 kg Intake: IV 1617.5 / 1617.5 50 / 50 NS Inj 1,000 ML @ 100 mls/hr IV 1000 / 1000 .CONT .Q10H [facility] Rx#:[id number] Zosyn 3.375 GM Premix 50 ML @ 100 / 100 50 / 50 100 mls/hr IV.SIG Q8H [facility] [place] Rx#: [id number] Vancomycin Inj 1,750 MG In NS 517.5 / 517.5 Inj 500 ML @ 250 mls/hr IV.SIG ONCE ONE Rx#:[id number] Oral 480 / 480 Output: Urine 400 / 400 Wound Vac Amount 0 / 0 Right Foot 0 / 0 Other: Mode Setting Right Foot Continuous Continuous # Voids 3 Date of Last Bowel Movement 05/22/18 Narrative: Right medial 1st metatarsal head area with ulceration 3cm x 2cm 1cm depth down to level of 1st MTP joint capsule. No purulence. Tissue appears viable. Reduced erythema and edema. Medications and Allergies Active Medications: Active Medications Acetaminophen (Tylenol) 650 mg PO Q4H PRN PRN Reason: Temp > 100.4 Hydrocodone Bitart/Acetaminophen ([place] 5/325) 1 tab PO Q4H PRN PRN Reason: pain 1-5 Hydrocodone Bitart/Acetaminophen ([place] 10/325) 1 tab PO Q4H PRN PRN Reason: Pain 6-10. Al Hydroxide/Mg Hydroxide (Milk Of Magnesia Liq) 30 ml PO Q12H PRN PRN Reason: Mild Constipation Aspirin (Ecotrin) 81 mg PO DAILY [facility] Last Admin: 05/24/18 09:26 Dose: 81 mg Atorvastatin Calcium (Lipitor) 40 mg PO DAILY [facility] [place] Last Admin: 05/24/18 09:25 Dose: 40 mg Bisacodyl (Dulcolax Supp) 10 mg RECTAL DAILY PRN PRN Reason: SEVERE CONSITIPATION Dextrose (D50w Vial) 50 ml IV.PUSH UNSCH PRN PRN Reason: PER HYPOGLYCEMIA PROTOCOL Famotidine (Pepcid) 10 mg PO BID [facility] [place] Last Admin: 05/24/18 09:25 Dose: 10 mg Glucagon (Glucagon Inj) 1 mg OTHER PRN PRN PRN Reason: for Hypoglycemia Protocol Heparin Sodium (Porcine) (Heparin Inj) 5,000 units SQ Q12H [facility] [place] Last Admin: 05/24/18 09:26 Dose: 5,000 units Hydromorphone HCl (Dilaudid Pf Inj) 0.5 mg IV.PUSH Q4H PRN PRN Reason: BREAKTHROUGH PAIN Pharmacy Profile Note (Vancomycin Consult Pharmacy) 0 mls @ 0 mls/hr OTHER UNSCH [facility] Piperacillin/Tazobactam/Dextrose (Zosyn 3.375 Gm Premix) 50 mls @ 100 mls/hr IV.SIG Q8H [facility] [place] Last Infusion: 05/24/18 04:35 Dose: Infused Insulin Aspart (Novolog Insulin Correctional Sugar Inj) 0 unit SQ ACHS AND 3AM [facility] [place]; Protocol Last Admin: 05/24/18 07:38 Dose: Not Given Lactulose (Lactulose Liq) 30 ml PO DAILY PRN PRN Reason: SEVERE CONSITIPATION Metoprolol Tartrate (Lopressor) 25 mg PO BID [facility] [place] Last Admin: 05/24/18 09:25 Dose: 25 mg Miscellaneous (Pill Splitter) 1 each OTHER UNSCH PRN PRN Reason: SEE LABEL COMMENTS Miscellaneous Information (Misc Nursing Information) 1 each OTHER UNSCH PRN PRN Reason: SEE LABEL COMMENTS Stop: 05/24/18 13:45 Naloxone HCl (Narcan Inj) 0.4 mg IV.PUSH UNSCH PRN PRN Reason: SEE LABEL COMMENTS Ondansetron HCl (Zofran Inj) 4 mg IV.PUSH Q6H PRN PRN Reason: MILD NAUSEA OR VOMITING Last Admin: 05/24/18 06:04 Dose: 4 mg Patient Own Medication - Insulin Degludec [Tresiba Flextouch U-100] 8 Units Sq Daily 0 each SQ DAILY [facility] Prochlorperazine Edisylate (Compazine Inj) 5 mg IV.PUSH Q4H PRN PRN Reason: MODERATE NAUSEA OR VOMITING Last Admin: 05/24/18 09:25 Dose: 5 mg Senna/Docusate Sodium (Rozina-Colace) 1 tab PO BID [facility] Last Admin: 05/24/18 09:26 Dose: 1 tab Sennosides (Senokot) 17.2 mg PO Q12H PRN PRN Reason: Moderate Constipation Tamsulosin HCl (Flomax) 0.4 mg PO DAILY [facility] Temazepam (Restoril) 15 mg PO HS PRN PRN Reason: INSOMNIA Allergies Allergy/AdvReac Type Severity Reaction Status Date / Time bee venom protein (honey bee) Allergy Severe Anaphylaxis Verified 05/22/18 20:28 Home Medications Medication Instructions Recorded Confirmed Type aspirin [Aspir-81] 81 mg PO DAILY 05/22/18 05/22/18 History benzonatate [Tessalon Perles] 200 mg PO BID PRN 05/22/18 05/22/18 History clindamycin HCl 300 mg PO QID 05/22/18 05/22/18 History fluconazole 150 mg PO WEEKLY 05/22/18 05/22/18 History furosemide [Lasix] 40 mg PO DAILY 05/22/18 05/22/18 History insulin degludec [Tresiba 8 unit SUB-Q DAILY 05/22/18 05/22/18 History FlexTouch U-100] lisinopril 5 mg PO DAILY 05/22/18 05/22/18 History metoprolol tartrate 25 mg PO DAILY 05/22/18 05/22/18 History rosuvastatin 20 mg PO DAILY 05/22/18 05/22/18 History Results - Labs CBC & Chem 7: 05/24/18 04:41 05/24/18 04:41 Laboratory Results - last 24 hr 05/23/18 05/23/18 05/23/18 04:38 11:44 13:49 WBC RBC Hgb Hct MCV MCH MCHC RDW Plt Count MPV Neut % (Auto) Lymph % (Auto) [place] % (Auto) Eos % (Auto) Baso % (Auto) Neut # (Auto) Lymph # (Auto) [place] # (Auto) Eos # (Auto) Baso # (Auto) WBC Differential Differential Comment Sodium Potassium Chloride Carbon Dioxide Anion Gap BUN Creatinine Estimated GFR POC Glucose 173 H 188 H Random Glucose Hemoglobin A1c 8.6 H Calcium 05/23/18 05/23/18 05/24/18 16:43 20:22 04:26 WBC RBC Hgb Hct MCV MCH MCHC RDW Plt Count MPV Neut % (Auto) Lymph % (Auto) [place] % (Auto) Eos % (Auto) Baso % (Auto) Neut # (Auto) Lymph # (Auto) [place] # (Auto) Eos # (Auto) Baso # (Auto) WBC Differential Differential Comment Sodium Potassium Chloride Carbon Dioxide Anion Gap BUN Creatinine Estimated GFR POC Glucose 175 H 157 H 113 H Random Glucose Hemoglobin A1c Calcium 05/24/18 05/24/18 05/24/18 04:41 04:41 07:29 WBC 12.6 H RBC 3.31 L Hgb 9.3 L Hct 28.3 L MCV 85.5 MCH 28.1 MCHC 32.8 RDW 13.2 Plt Count 267 MPV 8.6 Neut % (Auto) 83.4 H Lymph % (Auto) 9.1 [place] % (Auto) 6.1 Eos % (Auto) 0.5 Baso % (Auto) 0.9 Neut # (Auto) 10.5 H Lymph # (Auto) 1.1 [place] # (Auto) 0.8 Eos # (Auto) 0.1 Baso # (Auto) 0.1 WBC Differential . Differential Comment Auto diff final Sodium 138 Potassium 5.1 Chloride 107 Carbon Dioxide 23.1 Anion Gap 8 BUN 38 H Creatinine 1.78 H Estimated GFR 39 L POC Glucose 136 H Random Glucose 97 Hemoglobin A1c Calcium 8.6 D Microbiology 05/22/18 17:00 Wound - Foot Gram Stain - Final 05/22/18 17:00 Wound - Foot Wound Culture - Preliminary S. 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 Reduced erythema/edema and no foul odor present, no necrotic tissue present today. Mild maceration around wound area. Discussed with patient he will require another debridement and graft to the area and may have a wound vac in place when discharged. Discussed will attempt salvage unless condition deteriorates to require amputation. Dr Dorado will take over care tomorrow. Continue IV antibiotics Heel contact weightbearing only to right foot.
--- NOTE | 2018-05-24 12:09 | P.PNIM ---
Subjective Interval history: Follow-up for right foot infection. at bedside. Patient reports nausea and vomiting. Per RN patient seems to become nauseated after pain medication Physical Exam Vital signs: Vital Signs 05/23/18 13:45 05/23/18 14:00 05/23/18 14:15 Temperature 97.5 F L 97.5 F L Pulse Rate 47 L 47 L 47 L Respiratory Rate 16 10 L 12 Blood Pressure 109/57 L 137/64 137/64 Pulse Oximetry 97 97 97 05/23/18 16:00 05/23/18 20:00 05/24/18 00:00 Temperature 97.1 F L 97.7 F 98.4 F Pulse Rate 49 L 55 L 57 L Respiratory Rate 19 20 20 Blood Pressure 166/73 H 190/85 H 125/78 Pulse Oximetry 94 L 100 93 L Intake & Output 05/23/18 05/24/18 05/24/18 18:59 06:59 18:59 Intake Total 2097.5 / 2097.5 50 / 50 50 / 50 Output Total 400 / 400 Balance 2097.5 / 2097.5 -350 / -350 50 / 50 Weight 108.1 kg Intake: IV 1617.5 / 1617.5 50 / 50 50 / 50 NS Inj 1,000 ML @ 100 mls/hr IV 1000 / 1000 .CONT .Q10H [facility] Rx#:[id number] Zosyn 3.375 GM Premix 50 ML @ 100 / 100 50 / 50 50 / 50 100 mls/hr IV.SIG Q8H [facility] Rx#: [id number] Vancomycin Inj 1,750 MG In NS 517.5 / 517.5 Inj 500 ML @ 250 mls/hr IV.SIG ONCE ONE Rx#:[id number] Oral 480 / 480 Output: Urine 400 / 400 Wound Vac Amount 0 / 0 Right Foot 0 / 0 Other: Mode Setting Right Foot Continuous Continuous # Voids 3 Date of Last Bowel Movement 05/22/18 Narrative: GENERAL: Well-developed well-nourished. In no acute distress. SKIN: Warm and dry. No lesions noted. CARDIOVASCULAR: Regular rate and rhythm. 2/6 systolic murmur appreciated. RESPIRATORY: No accessory muscle use. Clear to auscultation. Breath sounds equal bilaterally. GASTROINTESTINAL: Abdomen soft, non-tender, nondistended. Bowel sounds x4. MUSCULOSKELETAL: Right foot plantar wound with serous drainage on dressing. 3+ edema in the left leg and 2+ on the right. NEUROLOGICAL: Awake and alert. Moves upper and lower extremities spontaneously. Normal speech. PSYCHIATRIC: Appropriate mood and affect; insight and judgment normal. Results - Labs CBC & Chem 7: 05/24/18 04:41 05/24/18 04:41 Laboratory Results - last 24 hr 05/23/18 05/23/18 05/23/18 04:38 13:49 16:43 WBC RBC Hgb Hct MCV MCH MCHC RDW Plt Count MPV Neut % (Auto) Lymph % (Auto) [place] % (Auto) Eos % (Auto) Baso % (Auto) Neut # (Auto) Lymph # (Auto) [place] # (Auto) Eos # (Auto) Baso # (Auto) WBC Differential Differential Comment Sodium Potassium Chloride Carbon Dioxide Anion Gap BUN Creatinine Estimated GFR POC Glucose 188 H 175 H Random Glucose Hemoglobin A1c 8.6 H Calcium 05/23/18 05/24/18 05/24/18 20:22 04:26 04:41 WBC 12.6 H RBC 3.31 L Hgb 9.3 L Hct 28.3 L MCV 85.5 MCH 28.1 MCHC 32.8 RDW 13.2 Plt Count 267 MPV 8.6 Neut % (Auto) 83.4 H Lymph % (Auto) 9.1 [place] % (Auto) 6.1 Eos % (Auto) 0.5 Baso % (Auto) 0.9 Neut # (Auto) 10.5 H Lymph # (Auto) 1.1 [place] # (Auto) 0.8 Eos # (Auto) 0.1 Baso # (Auto) 0.1 WBC Differential . Differential Comment Auto diff final Sodium Potassium Chloride Carbon Dioxide Anion Gap BUN Creatinine Estimated GFR POC Glucose 157 H 113 H Random Glucose Hemoglobin A1c Calcium 05/24/18 05/24/18 04:41 07:29 WBC RBC Hgb Hct MCV MCH MCHC RDW Plt Count MPV Neut % (Auto) Lymph % (Auto) [place] % (Auto) Eos % (Auto) Baso % (Auto) Neut # (Auto) Lymph # (Auto) [place] # (Auto) Eos # (Auto) Baso # (Auto) WBC Differential Differential Comment Sodium 138 Potassium 5.1 Chloride 107 Carbon Dioxide 23.1 Anion Gap 8 BUN 38 H Creatinine 1.78 H Estimated GFR 39 L POC Glucose 136 H Random Glucose 97 Hemoglobin A1c Calcium 8.6 D Microbiology 05/22/18 17:20 Blood - Line Aerobic Blood Culture - Preliminary No growth in 2 days 05/22/18 17:20 Blood - Line Anaerobic Blood Culture - Preliminary No growth in 2 days 05/22/18 17:15 Blood - Line Aerobic Blood Culture - Preliminary No growth in 2 days 05/22/18 17:15 Blood - Line Anaerobic Blood Culture - Preliminary No growth in 2 days 05/22/18 17:00 Wound - Foot Gram Stain - Final 05/22/18 17:00 Wound - Foot Wound Culture - Preliminary S. aureus MRSA 05/23/18 13:16 Wound - Foot Gram Stain - Final 05/23/18 13:16 Wound - Foot Fungal Smear - Final No fungal elements seen Assessment and Plan - Plan Diabetic foot wound ongoing for at least 3 weeks Foot MRI concerning for first metatarsal abscess, no osteomyelitis noted Failed outpatient antibiotic therapy Reportedly outpatient culture showed MRSA -Consulted infectious disease -Continue with vancomycin and Zosyn with pharmacy to dose the vancomycin -Consulted podiatry, appreciate input patient is status post incision and drainage of right foot with wound VAC placement 05/23/[address] Carson - Per Podiatry: Discussed with patient he will require another debridement and graft to the area and may have a wound vac in place when discharged. Discussed will attempt salvage unless condition deteriorates to require amputation. Dr Dorado will take over care tomorrow. Continue IV antibiotics Heel contact weightbearing only to right foot. -Cultures 05/23 pending Acute renal failure Creatinine trending down with IVF Creatinine omission 2.02 -> 1.78 (05/24) -DC IVF with lower extremity edema -Discontinue MEGAN inhibitors and Lasix -Recheck BMP in a.m. Leukocytosis suspect secondary to the diabetic foot wound -Continue on antibiotics -Monitor CBC Anemia, normocytic probable delusional component -monitor labs -CBC in AM Diabetes mellitus -Continue on Accu-Cheks before meals and at bedtime and q. 3 AM -Sliding scale coverage -Continue on long-acting insulin -Diabetic cardiac diet Hyperlipidemia -continue on statin Hypertension -continue on metoprolol -We will hold lisinopril and Lasix at this time due to renal insufficiency/ failure Lower extremity swelling -Recommend compression stockings -Echocardiogram ordered and pending -Monitor volume status History of prosthetic valve replacement -Monitor volume status -Echocardiogram ordered and pending -Continue plans for outpatient follow-up with CT surgery Nausea/vomiting likely secondary to narcotic pain medication -Will DC Percocet and morphine -Start [place] as needed with Dilaudid 0.5 mg IV for breakthrough pain DVT prophylaxis with subcu heparin GI prophylaxis with Pepcid Discussed case with supervising physician Dr. Johnston
--- NOTE | 2018-05-24 12:47 | ECG ---
Date Performed: 05/23/2018 Time Performed: 10:15:35 PTAGE: 63 years EKG: SINUS BRADYCARDIA BORDERLINE ECG Compared to PREVIOUS TRACING Q waves previously noted in the inferior leads has resolved Clinical co rrelation is recommended PREVIOUS TRACIN09/18/2017 05.08 DOCTOR: Silas Acosta Interpretating Date/Time 05/24/2018 12:45:27
[2018-05-24] MEDS: Vancomycin Inj 1,750 MG in Sodium Chlor 0.9% Inj 500 ML IV.SIG SCH (15:26)
[2018-05-24] MEDS: HYDROmorphone PF Inj 2 MG/ML Vial IV.PUSH PRN (17:25)
[2018-05-25] MEDS: Piperacil/Tazo 3.375 GM Premix 50 ML IV.SIG SCH ×3 (02:34→18:03)
[2018-05-25] MEDS: Insulin NovoLOG Aspart Correctional Sugar Inj SQ SCH ×5 (03:00→20:54)
[2018-05-25] MEDS: HYDROmorphone PF Inj 2 MG/ML Vial IV.PUSH PRN ×2 (03:16→14:02)
[2018-05-25 06:50] LABS: Baso # (Auto) 0.1 th/mm3 (0.0-0.2); Baso % (Auto) 0.9 % (0.0-2.0); Eos # (Auto) 0.1 th/mm3 (0.0-0.4); Eos % (Auto) 1.5 % (0.0-4.0); Hematocrit 24.4 % (39.0-51.0); Hemoglobin 8.6 gm/dL (13.0-17.0); Lymph % (Auto) 12.4 % (9.0-44.0); Mean Corpuscular HGB Conc 35.3 % (32.0-36.0); Mean Corpuscular Hemoglobin 28.9 pg (27.0-34.0); Mean Corpuscular Volume 81.9 fL (80.0-100.0); Mean Platelet Volume 8.1 fL (7.0-11.0); Mono # (Auto) 0.7 th/mm3 (0.0-0.9); Mono % (Auto) 8.8 % (0.0-8.0); Neut # (Auto) 6.1 th/mm3 (1.8-7.7); Neut % (Auto) 76.4 % (16.0-70.0); Platelet Count 221 th/mm3 (150-450); Red Blood Count 2.98 mil/mm3 (4.50-5.90); Red Cell Distribution Width 13.5 % (11.6-17.2)
[2018-05-25 07:43] LABS: Calcium 8.4 mg/dL (8.5-10.1); Carbon Dioxide 23.1 meq/L (21.0-32.0); Potassium 4.9 meq/L (3.5-5.1)
[2018-05-25] MEDS: Heparin - SQ 10,000 UNITS/ML Vial SQ SCH ×2 (08:28→21:03)
[2018-05-25] MEDS: Famotidine 20 MG Tablet PO SCH ×2 (08:32→20:53)
[2018-05-25] MEDS: Metoprolol Tartrate 25 MG Tablet PO SCH ×2 (08:33→20:53)
[2018-05-25] MEDS: Senna/Docusate Sodium 8.6/50 MG Tablet PO SCH ×2 (08:33→20:53)
[2018-05-25] MEDS: hydrALAZINE 25 MG Tablet PO SCH ×3 (09:32→18:03)
--- NOTE | 2018-05-25 09:44 | P.PN ---
Subjective Interval history: Follow-up visit for right foot infection, diabetes mellitus and hypertension. Patient seen and examined resting in bed comfortably, appears to be in no acute distress. He reports that today he is feeling lousy. Complains of constipation , positive flatus, generalized belly tenderness, patient also reports that he continues to have nausea, no longer vomiting yesterday or today. Continues to have right foot pain, pain control with IV pain medication. 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 Reports intermittent cough for which she was taking a "GI cocktail" patient reports that cough is nonproductive , denies any shortness of breath or chest pains. Physical Exam Vital signs: Vital Signs 05/24/18 12:00 05/24/18 16:00 05/24/18 20:00 Temperature 97.8 F 98.2 F 98.1 F Pulse Rate 58 L 54 L 58 L Respiratory Rate 19 19 20 Blood Pressure 184/79 H 191/84 H 179/78 H Pulse Oximetry 95 98 94 L 05/25/18 00:00 Temperature 97.8 F Pulse Rate 56 L Respiratory Rate 20 Blood Pressure 172/74 H Pulse Oximetry 91 L Intake & Output 05/24/18 05/25/18 05/25/18 18:59 06:59 18:59 Intake Total 1617.5 / 1617.5 480 / 480 50 / 50 Output Total 350 / 350 Balance 1617.5 / 1617.5 130 / 130 50 / 50 Intake: IV 617.5 / 617.5 50 / 50 Zosyn 3.375 GM Premix 50 ML @ 100 / 100 50 / 50 100 mls/hr IV.SIG Q8H [facility] Rx#: [id number] Vancomycin Inj 1,750 MG In NS 517.5 / 517.5 Inj 500 ML @ 250 mls/hr IV.SIG Q24H [facility] Rx#:[id number] Oral 1000 / 1000 480 / 480 Output: Urine 350 / 350 Other: Mode Setting Right Foot Continuous Date of Last Bowel Movement 05/22/18 05/25/18 Narrative: GENERAL: Well-developed well-nourished. In no acute distress. SKIN: Warm and dry. No lesions noted. CARDIOVASCULAR: Regular rate and rhythm. 2/6 systolic murmur appreciated. RESPIRATORY: No accessory muscle use. Clear to auscultation. Breath sounds equal bilaterally. GASTROINTESTINAL: Abdomen soft, distended, positive bowel sounds in all quadrants. MUSCULOSKELETAL: Right foot with Fabricio wrap dressing. 3+ left leg edema with erythema and slight warmth noted. + Toe movement, sensation, capillary refill less than 3 seconds. NEUROLOGICAL: Awake and alert. Moves upper and lower extremities spontaneously. Normal speech. PSYCHIATRIC: Appropriate mood and affect; insight and judgment normal. Results - Labs CBC & Chem 7: 05/25/18 05:30 05/25/18 05:30 Laboratory Results - last 24 hr 05/24/18 05/24/18 05/24/18 11:40 16:33 21:49 WBC RBC Hgb Hct MCV MCH MCHC RDW Plt Count MPV Neut % (Auto) Lymph % (Auto) [place] % (Auto) Eos % (Auto) Baso % (Auto) Neut # (Auto) Lymph # (Auto) [place] # (Auto) Eos # (Auto) Baso # (Auto) WBC Differential Differential Comment Sodium Potassium Chloride Carbon Dioxide Anion Gap BUN Creatinine Estimated GFR POC Glucose 152 H 209 H 175 H Random Glucose Calcium 05/25/18 05/25/18 05/25/18 02:36 05:30 05:30 WBC 8.0 RBC 2.98 L Hgb 8.6 L Hct 24.4 L MCV 81.9 D MCH 28.9 MCHC 35.3 RDW 13.5 Plt Count 221 MPV 8.1 Neut % (Auto) 76.4 H Lymph % (Auto) 12.4 [place] % (Auto) 8.8 H Eos % (Auto) 1.5 Baso % (Auto) 0.9 Neut # (Auto) 6.1 Lymph # (Auto) 1.0 [place] # (Auto) 0.7 Eos # (Auto) 0.1 Baso # (Auto) 0.1 WBC Differential . Differential Comment Auto diff final Sodium 139 Potassium 4.9 Chloride 106 Carbon Dioxide 23.1 Anion Gap 10 BUN 31 H Creatinine 1.58 H Estimated GFR 44 L POC Glucose 138 H Random Glucose 134 H Calcium 8.4 L 05/25/18 07:32 WBC RBC Hgb Hct MCV MCH MCHC RDW Plt Count MPV Neut % (Auto) Lymph % (Auto) [place] % (Auto) Eos % (Auto) Baso % (Auto) Neut # (Auto) Lymph # (Auto) [place] # (Auto) Eos # (Auto) Baso # (Auto) WBC Differential Differential Comment Sodium Potassium Chloride Carbon Dioxide Anion Gap BUN Creatinine Estimated GFR POC Glucose 163 H Random Glucose Calcium Microbiology 05/22/18 17:00 Wound - Foot Gram Stain - Final 05/22/18 17:00 Wound - Foot Wound Culture - Final S. aureus MRSA 05/23/18 13:16 Wound - Foot Gram Stain - Final 05/23/18 13:16 Wound - Foot Wound Culture - Preliminary S. aureus MRSA 05/22/18 17:20 Blood - Line Aerobic Blood Culture - Preliminary No growth in 2 days 05/22/18 17:20 Blood - Line Anaerobic Blood Culture - Preliminary No growth in 2 days 05/22/18 17:15 Blood - Line Aerobic Blood Culture - Preliminary No growth in 2 days 05/22/18 17:15 Blood - Line Anaerobic Blood Culture - Preliminary No growth in 2 days 05/23/18 13:16 Wound - Foot Fungal Smear - Final No fungal elements seen Assessment and Plan - Plan Diabetic foot wound ongoing for at least 3 weeks Foot MRI concerning for first metatarsal abscess, no osteomyelitis noted Failed outpatient antibiotic therapy Reportedly outpatient culture showed MRSA -Consulted infectious disease -Continue with vancomycin and Zosyn with pharmacy to dose the vancomycin -Consulted podiatry, appreciate input patient is status post incision and drainage of right foot with wound VAC placement 05/23/[address] Carson - Per Podiatry: Discussed with patient he will require another debridement and graft to the area and may have a wound vac in place when discharged. Discussed will attempt salvage unless condition deteriorates to require amputation. Dr Dorado to continue follow-up. Continue IV antibiotics Heel contact weightbearing only to right foot. -CBC improved, afebrile, pending wound cultures. Acute renal failure Creatinine trending down with IVF Creatinine omission 2.02 -> improving today 1.58 -Discontinue FABRICIO inhibitors and Lasix -Continue on antibiotics Anemia, normocytic probable dilutional component -monitor labs -CBC in AM Diabetes mellitus -Continue on Accu-Cheks before meals and at bedtime and q. 3 AM -hematology nurse educator following, to bring in true CIBA for patient to continue while hospitalized. -Sliding scale coverage -Continue on long-acting insulin -Diabetic cardiac diet Hyperlipidemia -continue on statin Hypertension -continue on metoprolol -Continue to hold lisinopril and Lasix due to ARF, start hydralazine 25 mg 3 times daily due to hypertension. Lower extremity swelling -Recommend compression stockings -Echocardiogram pending History of prosthetic valve replacement -Monitor volume status -Echocardiogram ordered and pending -Continue plans for outpatient follow-up with CT surgery Nausea/vomiting likely secondary to narcotic pain medication Constipation - Percocet and morphine DCed -Continue [place] as needed with Dilaudid 0.5 mg IV for breakthrough pain. Intermittent nausea with no vomiting. -KUB 9/10 with nonspecific bowel gas pattern and moderate stool throughout the colon. Encourage patient to get up and out of bed, as needed laxatives for bowel movement. DVT prophylaxis with subcu heparin GI prophylaxis with Pepcid Discussed Condition With: Discussed with patient, and Dr. Johnston. Discharge Planning: Patient will return to OR for debridement of foot once again by podiatry, will need final ID recommendations for antibiotics.
--- NOTE | 2018-05-25 11:16 | XR ---
EXAM DATE: 05/25/2018 11:03 AM EDT AGE/SEX: 63 years / Male INDICATIONS: Constipation. CLINICAL DATA: This is the patient's initial encounter. Patient reports that signs and symptoms have been present for 4 - 6 days and indicates a pain score of 0/10. MEDICAL/SURGICAL HISTORY: . Hypertension. Diabetes mellitus type II. CABG. . Left foot surgery . COMPARISON: [facility] [place], [facility], 07/28/2015. . FINDINGS: The abdominal bowel gas pattern is normal. Moderate stool throughout the colon. No abnormal masses, calcifications, or organomegaly is seen. Degenerative changes lower lumbar spine and both hips CONCLUSION: Nonspecific bowel gas pattern with moderate stool throughout the colon Electronically signed by: Oli Sarmiento MD 05/25/2018 11:15 AM EDT
[2018-05-25] MEDS: Vancomycin Inj 1,750 MG in Sodium Chlor 0.9% Inj 500 ML IV.SIG SCH (14:04)
--- NOTE | 2018-05-25 17:59 | ECHRPT ---
Indication: HEART FAILURE CONCLUSIONS The left ventricular systolic function is normal with an estimated ejection fraction in the range of 55-60%. Trace mitral valve regurgitation. The aortic valve prosthesis is normal to two-dimensional, color flow and Doppler interrogation. Gradients appear normal for bioprosthetic aortic valve (peak grad 15, mean grad 8, MARIO ALBERTO 1.9). There is trace tricuspid valve regurgitation. BP: / HR: Rhythm: MEASUREMENTS (Male / Female) Normal Values Technical Quality:Good 2D ECHO LV Diastolic Diameter PLAX 5.6 cm 4.2 - 5.9 / 3.9 - 5.3 cm LV Systolic Diameter PLAX 3.3 cm IVS Diastolic Thickness 0.9 cm 0.6 - 1.0 / 0.6 - 0.9 cm LVPW Diastolic Thickness 1.0 cm 0.6 - 1.0 / 0.6 - 0.9 cm LV Relative Wall Thickness 0.3 RV Internal Dim ED PLAX 2.8 cm LVOT Diameter 2.0 cm Aortic Root Diameter 3.3 cm LA Systolic Diameter LX 3.5 cm 3.0 - 4.0 / 2.7 - 3.8 cm DOPPLER AV Peak Velocity 199.0 cm/s AV Peak Gradient 15.8 mmHg AV Mean Gradient 8.3 mmHg AV Velocity Time Integral 48.3 cm LVOT Peak Velocity 123.0 cm/s LVOT Peak Gradient 6.1 mmHg AV Area Cont Eq pk 1.9 cm Mitral E Point Velocity 133.5 cm/s Mitral A Point Velocity 89.1 cm/s Mitral E to A Ratio 1.5 LV E' Lateral Velocity 12.8 cm/s Mitral E to LV E' Lateral Ratio 10.4 LV E' Septal Velocity 8.0 cm/s Mitral E to LV E' Septal Ratio 16.7 TR Peak Velocity 210.0 cm/s TR Peak Gradient 17.6 mmHg Right Atrial Pressure 10.0 mmHg Pulmonary Artery Systolic Pressu 27.6 mmHg Right Ventricular Systolic Press 27.6 mmHg PV Peak Velocity 75.0 cm/s PV Peak Gradient 2.3 mmHg FINDINGS LEFT VENTRICLE Normal left ventricular size. Wall thickness is normal. The left ventricular systolic function is normal with an estimated ejection fraction in the range of 55-60%. RIGHT VENTRICLE Normal right ventricular size and systolic function. LEFT ATRIUM The left atrial size is normal. RIGHT ATRIUM The right atrial size is normal. ATRIAL SEPTUM Normal atrial septal thickness without atrial level shunting by limited color doppler interrogation. AORTA The aortic root and proximal ascending aorta are normal in size on limited imaging. MITRAL VALVE Structurally normal mitral valve. No mitral valve stenosis. Trace mitral valve regurgitation. AORTIC VALVE The aortic valve prosthesis is normal to two-dimensional, color flow and Doppler interrogation. Gradients appear normal for bioprosthetic aortic valve (peak grad 15, mean grad 8, MARIO ALBERTO 1.9) TRICUSPID VALVE Structurally normal tricuspid valve. There is trace tricuspid valve regurgitation. The estimated pulmonary arterial pressure is 27 mmHg. PULMONARY VALVE No pulmonary valve regurgitation or stenosis. VESSELS The inferior vena cava is normal in size. PERICARDIUM No pericardial effusion. Wilfrido White DO (Electronically Signed) Final Date:25 May 2018 17:59
--- NOTE | 2018-05-25 18:51 | P.PNPOD ---
Subjective Interval history: Patient seen bedside with present. Denies any nausea vomiting fevers or chills. Resting comfortably. Physical Exam Vital signs: Vital Signs 05/24/18 20:00 05/25/18 00:00 05/25/18 08:00 Temperature 98.1 F 97.8 F 97.9 F Pulse Rate 58 L 56 L 58 L Respiratory Rate 20 20 18 Blood Pressure 179/78 H 172/74 H 172/72 H Pulse Oximetry 94 L 91 L 92 L 05/25/18 12:00 05/25/18 16:00 Temperature 98.0 F 98.5 F Pulse Rate 87 52 L Respiratory Rate 18 18 Blood Pressure 150/70 H 173/81 H Pulse Oximetry 92 L 97 Intake & Output 05/24/18 05/25/18 05/25/18 18:59 06:59 18:59 Intake Total 1617.5 / 1617.5 480 / 480 1627.5 / 1627.5 Output Total 350 / 350 Balance 1617.5 / 1617.5 130 / 130 1627.5 / 1627.5 Intake: IV 617.5 / 617.5 667.5 / 667.5 Zosyn 3.375 GM Premix 50 ML @ 100 / 100 150 / 150 100 mls/hr IV.SIG Q8H [facility] Rx#: [id number] Vancomycin Inj 1,750 MG In NS 517.5 / 517.5 517.5 / 517.5 Inj 500 ML @ 250 mls/hr IV.SIG Q24H [facility] Rx#:[id number] Oral 1000 / 1000 480 / 480 960 / 960 Output: Urine 350 / 350 Other: Mode Setting Right Foot Continuous # Voids 3 Date of Last Bowel Movement 05/22/18 05/25/18 Narrative: Right foot segment 5 ulceration fibrotic base noted with purulent drainage. Official nature and measuring approximately 1 cm x 1 cm with 0.2 depth. Right foot medial first metatarsal ulceration noted with exposed first metatarsal head and continued serous/purulent drainage, mixed granular fibrotic base with some necrosis present. Medications and Allergies Active Medications: Active Medications Acetaminophen (Tylenol) 650 mg PO Q4H PRN PRN Reason: Temp > 100.4 Hydrocodone Bitart/Acetaminophen ([place] 5/325) 1 tab PO Q4H PRN PRN Reason: pain 1-5 Hydrocodone Bitart/Acetaminophen ([place] 10/325) 1 tab PO Q4H PRN PRN Reason: Pain 6-10. Last Admin: 05/25/18 16:26 Dose: 1 tab Al Hydroxide/Mg Hydroxide (Milk Of Magnesia Liq) 30 ml PO Q12H PRN PRN Reason: Mild Constipation Aspirin (Ecotrin) 81 mg PO DAILY [facility] Last Admin: 05/25/18 08:31 Dose: 81 mg Atorvastatin Calcium (Lipitor) 40 mg PO DAILY [facility] Last Admin: 05/25/18 08:32 Dose: 40 mg Bisacodyl (Dulcolax Supp) 10 mg RECTAL DAILY PRN PRN Reason: SEVERE CONSITIPATION Dextrose (D50w Vial) 50 ml IV.PUSH UNSCH PRN PRN Reason: PER HYPOGLYCEMIA PROTOCOL Famotidine (Pepcid) 10 mg PO BID [facility] Last Admin: 05/25/18 08:32 Dose: 10 mg Glucagon (Glucagon Inj) 1 mg OTHER PRN PRN PRN Reason: for Hypoglycemia Protocol Heparin Sodium (Porcine) (Heparin Inj) 5,000 units SQ Q12H [facility] Last Admin: 05/25/18 08:28 Dose: 5,000 units Hydralazine HCl (Apresoline) 25 mg PO TID [facility] Last Admin: 05/25/18 18:03 Dose: 25 mg Hydromorphone HCl (Dilaudid Pf Inj) 0.5 mg IV.PUSH Q4H PRN PRN Reason: BREAKTHROUGH PAIN Last Admin: 05/25/18 14:02 Dose: 0.5 mg Pharmacy Profile Note (Vancomycin Consult Pharmacy) 0 mls @ 0 mls/hr OTHER UNSCH [facility] Piperacillin/Tazobactam/Dextrose (Zosyn 3.375 Gm Premix) 50 mls @ 100 mls/hr IV.SIG Q8H [facility] Last Infusion: 05/25/18 18:33 Dose: Infused Vancomycin HCl 1,750 mg/ (Sodium Chloride) 517.5 mls @ 250 mls/hr IV.SIG Q24H [facility] Last Infusion: 05/25/18 17:34 Dose: Infused Insulin Aspart (Novolog Insulin Correctional Sugar Inj) 0 unit SQ ACHS AND 3AM [facility]; Protocol Last Admin: 05/25/18 18:02 Dose: 2 unit Lactulose (Lactulose Liq) 30 ml PO DAILY PRN PRN Reason: SEVERE CONSITIPATION Metoprolol Tartrate (Lopressor) 25 mg PO BID [facility] Last Admin: 05/25/18 08:33 Dose: 25 mg Miscellaneous (Pill Splitter) 1 each OTHER UNSCH PRN PRN Reason: SEE LABEL COMMENTS Miscellaneous Information ([facility] [place] [facility] Ordered Lab Info) 0 each OTHER ONCE ONE Stop: 05/26/18 14:46 Naloxone HCl (Narcan Inj) 0.4 mg IV.PUSH UNSCH PRN PRN Reason: SEE LABEL COMMENTS Ondansetron HCl (Zofran Inj) 4 mg IV.PUSH Q6H PRN PRN Reason: MILD NAUSEA OR VOMITING Last Admin: 05/25/18 08:30 Dose: 4 mg Patient Own Medication - Insulin Degludec [Tresiba Flextouch U-100] 8 Units Sq Daily 0 each SQ DAILY [facility] Prochlorperazine Edisylate (Compazine Inj) 5 mg IV.PUSH Q4H PRN PRN Reason: MODERATE NAUSEA OR VOMITING Last Admin: 05/24/18 09:25 Dose: 5 mg Senna/Docusate Sodium (Rozina-Colace) 1 tab PO BID [facility] Last Admin: 05/25/18 08:33 Dose: 1 tab Sennosides (Senokot) 17.2 mg PO Q12H PRN PRN Reason: Moderate Constipation Tamsulosin HCl (Flomax) 0.4 mg PO DAILY [facility] Last Admin: 05/25/18 08:31 Dose: 0.4 mg Temazepam (Restoril) 15 mg PO HS PRN PRN Reason: INSOMNIA Allergies Allergy/AdvReac Type Severity Reaction Status Date / Time bee venom protein (honey bee) Allergy Severe Anaphylaxis Verified 05/22/18 20:28 Home Medications Medication Instructions Recorded Confirmed Type aspirin [Aspir-81] 81 mg PO DAILY 05/22/18 05/22/18 History benzonatate [Tessalon Perles] 200 mg PO BID PRN 05/22/18 05/22/18 History clindamycin HCl 300 mg PO QID 05/22/18 05/22/18 History fluconazole 150 mg PO WEEKLY 05/22/18 05/22/18 History furosemide [Lasix] 40 mg PO DAILY 05/22/18 05/22/18 History insulin degludec [Tresiba 8 unit SUB-Q DAILY 05/22/18 05/22/18 History FlexTouch U-100] lisinopril 5 mg PO DAILY 05/22/18 05/22/18 History metoprolol tartrate 25 mg PO DAILY 05/22/18 05/22/18 History rosuvastatin 20 mg PO DAILY 05/22/18 05/22/18 History Results - Labs CBC & Chem 7: 05/25/18 05:30 05/25/18 05:30 Laboratory Results - last 24 hr 05/24/18 05/25/18 05/25/18 21:49 02:36 05:30 WBC 8.0 RBC 2.98 L Hgb 8.6 L Hct 24.4 L MCV 81.9 D MCH 28.9 MCHC 35.3 RDW 13.5 Plt Count 221 MPV 8.1 Neut % (Auto) 76.4 H Lymph % (Auto) 12.4 [place] % (Auto) 8.8 H Eos % (Auto) 1.5 Baso % (Auto) 0.9 Neut # (Auto) 6.1 Lymph # (Auto) 1.0 [place] # (Auto) 0.7 Eos # (Auto) 0.1 Baso # (Auto) 0.1 WBC Differential . Differential Comment Auto diff final Sodium Potassium Chloride Carbon Dioxide Anion Gap BUN Creatinine Estimated GFR POC Glucose 175 H 138 H Random Glucose Calcium Total Creatine Kinase 05/25/18 05/25/18 05/25/18 05:30 05:30 07:32 WBC RBC Hgb Hct MCV MCH MCHC RDW Plt Count MPV Neut % (Auto) Lymph % (Auto) [place] % (Auto) Eos % (Auto) Baso % (Auto) Neut # (Auto) Lymph # (Auto) [place] # (Auto) Eos # (Auto) Baso # (Auto) WBC Differential Differential Comment Sodium 139 Potassium 4.9 Chloride 106 Carbon Dioxide 23.1 Anion Gap 10 BUN 31 H Creatinine 1.58 H Estimated GFR 44 L POC Glucose 163 H Random Glucose 134 H Calcium 8.4 L Total Creatine Kinase 92 05/25/18 05/25/18 11:25 16:28 WBC RBC Hgb Hct MCV MCH MCHC RDW Plt Count MPV Neut % (Auto) Lymph % (Auto) [place] % (Auto) Eos % (Auto) Baso % (Auto) Neut # (Auto) Lymph # (Auto) [place] # (Auto) Eos # (Auto) Baso # (Auto) WBC Differential Differential Comment Sodium Potassium Chloride Carbon Dioxide Anion Gap BUN Creatinine Estimated GFR POC Glucose 134 H 155 H Random Glucose Calcium Total Creatine Kinase Microbiology 05/23/18 13:16 Wound - Foot Acid Fast Bacilli Smear - Final No acid fast bacilli seen 05/22/18 17:20 Blood - Line Aerobic Blood Culture - Preliminary No growth in 3 days 05/22/18 17:20 Blood - Line Anaerobic Blood Culture - Preliminary No growth in 3 days 05/22/18 17:15 Blood - Line Aerobic Blood Culture - Preliminary No growth in 3 days 05/22/18 17:15 Blood - Line Anaerobic Blood Culture - Preliminary No growth in 3 days 05/23/18 13:16 Wound - Foot Gram Stain - Final 05/23/18 13:16 Wound - Foot Wound Culture - Final S. aureus MRSA 05/22/18 17:00 Wound - Foot Gram Stain - Final 05/22/18 17:00 Wound - Foot Wound Culture - Final S. aureus MRSA - Imaging Impressions Abdomen X-Ray 05/25/18 00:00 CONCLUSION: Nonspecific bowel gas pattern with moderate stool throughout the colon Assessment and Plan - Assessment (1) Abscess of right foot Code(s): L02.611 - Cutaneous abscess of right foot Status: Acute Plan: 63-year-old male status post incision and drainage of right foot by Dr. Carson Patient 2 OR tomorrow for repeat debridement irrigation of right foot first metatarsal ulceration as well as sub-met 5 ulceration N.p.o. after midnight Please obtain consent Consent to read right foot debridement and irrigation with wound VAC placement Nonweightbearing to right foot (2) Gas gangrene Code(s): A48.0 - Gas gangrene Status: Acute
[2018-05-26] MEDS ORDERED: Chlorhexidine Gluconate 2% 1 Pack (2 Cloths) TOPICAL ONE (00:04)
[2018-05-26] MEDS: Piperacil/Tazo 3.375 GM Premix 50 ML IV.SIG SCH ×2 (02:37→09:14)
[2018-05-26] MEDS: Insulin NovoLOG Aspart Correctional Sugar Inj SQ SCH ×5 (02:41→20:40)
[2018-05-26] MEDS: Heparin - SQ 10,000 UNITS/ML Vial SQ SCH ×2 (07:22→20:41)
[2018-05-26] MEDS: Senna/Docusate Sodium 8.6/50 MG Tablet PO SCH ×2 (09:12→20:40)
[2018-05-26] MEDS: Famotidine 20 MG Tablet PO SCH ×2 (09:12→20:40)
[2018-05-26] MEDS: Metoprolol Tartrate 25 MG Tablet PO SCH ×2 (09:13→20:41)
[2018-05-26] MEDS: hydrALAZINE 25 MG Tablet PO SCH ×3 (09:18→18:07)
--- NOTE | 2018-05-26 10:46 | P.PNIM ---
Subjective Interval history: Patient is reporting pain is controlled. He is ready for surgery today. He would like to take on home insulin Tresiba which he usually takes 16 units in the morning. Physical Exam Vital signs: Vital Signs 05/25/18 12:00 05/25/18 16:00 05/25/18 20:00 Temperature 98.0 F 98.5 F 97.9 F Pulse Rate 87 52 L 61 Respiratory Rate 18 18 20 Blood Pressure 150/70 H 173/81 H 156/70 H Pulse Oximetry 92 L 97 95 05/26/18 00:00 Temperature 97.7 F Pulse Rate 58 L Respiratory Rate 18 Blood Pressure 122/59 L Pulse Oximetry 92 L Intake & Output 05/25/18 05/26/18 05/26/18 18:59 06:59 18:59 Intake Total 1627.5 / 1627.5 50 / 50 50 / 50 Output Total 750 / 750 Balance 1627.5 / 1627.5 -700 / -700 50 / 50 Weight 105.8 kg Intake: IV 667.5 / 667.5 50 / 50 50 / 50 Zosyn 3.375 GM Premix 50 ML @ 150 / 150 50 / 50 50 / 50 100 mls/hr IV.SIG Q8H [facility] Rx#: [id number] Vancomycin Inj 1,750 MG In NS 517.5 / 517.5 Inj 500 ML @ 250 mls/hr IV.SIG Q24H [facility] Rx#:[id number] Oral 960 / 960 Output: Urine 750 / 750 Other: # Voids 3 Date of Last Bowel Movement 05/25/18 Narrative: GENERAL: Well-developed well-nourished. In no acute distress. SKIN: Warm and dry. No lesions noted. CARDIOVASCULAR: Regular rate and rhythm. 2/6 systolic murmur appreciated. RESPIRATORY: No accessory muscle use. Clear to auscultation. Breath sounds equal bilaterally. GASTROINTESTINAL: Abdomen soft, distended, positive bowel sounds in all quadrants. MUSCULOSKELETAL: Right foot with Fabricio wrap dressing. 3+ left leg edema with erythema and slight warmth noted. + Toe movement, sensation, capillary refill less than 3 seconds. NEUROLOGICAL: Awake and alert. Moves upper and lower extremities spontaneously. Normal speech. Results - Labs CBC & Chem 7: 05/25/18 05:30 05/26/18 04:35 Laboratory Results - last 24 hr 05/25/18 05/25/18 05/25/18 05:30 11:25 16:28 Creatinine Estimated GFR POC Glucose 134 H 155 H Total Creatine Kinase 92 05/25/18 05/26/18 05/26/18 20:04 02:40 04:35 Creatinine 1.66 H Estimated GFR 42 L POC Glucose 166 H 117 H Total Creatine Kinase 05/26/18 07:20 Creatinine Estimated GFR POC Glucose 152 H Total Creatine Kinase Microbiology 05/23/18 13:16 Wound - Foot Acid Fast Bacilli Smear - Final No acid fast bacilli seen 05/22/18 17:20 Blood - Line Aerobic Blood Culture - Preliminary No growth in 3 days 05/22/18 17:20 Blood - Line Anaerobic Blood Culture - Preliminary No growth in 3 days 05/22/18 17:15 Blood - Line Aerobic Blood Culture - Preliminary No growth in 3 days 05/22/18 17:15 Blood - Line Anaerobic Blood Culture - Preliminary No growth in 3 days 05/23/18 13:16 Wound - Foot Gram Stain - Final 05/23/18 13:16 Wound - Foot Wound Culture - Final S. aureus MRSA 05/22/18 17:00 Wound - Foot Gram Stain - Final 05/22/18 17:00 Wound - Foot Wound Culture - Final S. aureus MRSA - Imaging Impressions Abdomen X-Ray 05/25/18 00:00 CONCLUSION: Nonspecific bowel gas pattern with moderate stool throughout the colon Assessment and Plan - Plan Diabetic foot wound ongoing for at least 3 weeks Foot MRI concerning for first metatarsal abscess, no osteomyelitis noted Failed outpatient antibiotic therapy Reportedly outpatient culture showed MRSA -Consulted infectious disease -Continue with vancomycin and Zosyn with pharmacy to dose the vancomycin -Consulted podiatry, appreciate input patient is status post incision and drainage of right foot with wound VAC placement 05/23/[address] Carson - Per Podiatry: Discussed with patient he will require another debridement and graft to the area and may have a wound vac in place when discharged. Discussed will attempt salvage unless condition deteriorates to require amputation. Dr Dorado to continue follow-up. Continue IV antibiotics vancomycin and Zosyn Heel contact weightbearing only to right foot. -CBC improved, afebrile, pending wound cultures. Acute renal failure superimposed on chronic kidney disease stage III Creatinine trending down with IVF Creatinine omission 2.02 -> stable today at 1.66 -Discontinue FABRICIO inhibitors and Lasix -Continue on antibiotics Anemia, normocytic probable dilutional component -monitor labs Diabetes mellitus, type II, insulin-dependent, with underlying diabetic nephropathy -Continue on Accu-Cheks before meals and at bedtime and q. 3 AM -nursing educator following, to bring in Tresiba for patient to continue while hospitalized. Patient states that he was on 16 units subcu every morning -Sliding scale coverage -Continue on long-acting insulin -Diabetic cardiac diet Hyperlipidemia -continue on statin Hypertension, chronic essential -continue on metoprolol -Continue to hold lisinopril and Lasix due to ARF, start hydralazine 25 mg 3 times daily due to hypertension. Lower extremity swelling -Recommend compression stockings -Echocardiogram shows EF of 55-60% History of prosthetic valve replacement -Monitor volume status -Echocardiogram results reviewed. -Continue plans for outpatient follow-up with CT surgery Nausea/vomiting likely secondary to narcotic pain medicationthis has resolved improved. Constipation -Continue Willis as needed with Dilaudid 0.5 mg IV for breakthrough pain. Intermittent nausea with no vomiting. -KUB 9/10 with nonspecific bowel gas pattern and moderate stool throughout the colon. Encourage patient to get up and out of bed, as needed laxatives for bowel movement. DVT prophylaxis with subcu heparin GI prophylaxis with Pepcid Discussed Condition With: Patient and at bedside
[2018-05-26] MEDS ORDERED: Bupivacaine PF 0.25% Inj 30 ML Vial ONE (12:59)
--- NOTE | 2018-05-26 13:07 | P.PNPOD ---
Subjective Interval history: Patient seen bedside in preop. Denies any discomfort or N,V,F,Ch. Physical Exam Vital signs: Vital Signs 05/25/18 16:00 05/25/18 20:00 05/26/18 00:00 Temperature 98.5 F 97.9 F 97.7 F Pulse Rate 52 L 61 58 L Respiratory Rate 18 20 18 Blood Pressure 173/81 H 156/70 H 122/59 L Pulse Oximetry 97 95 92 L Intake & Output 05/25/18 05/26/18 05/26/18 18:59 06:59 18:59 Intake Total 1627.5 / 1627.5 50 / 50 50 / 50 Output Total 750 / 750 Balance 1627.5 / 1627.5 -700 / -700 50 / 50 Weight 105.8 kg Intake: IV 667.5 / 667.5 50 / 50 50 / 50 Zosyn 3.375 GM Premix 50 ML @ 150 / 150 50 / 50 50 / 50 100 mls/hr IV.SIG Q8H [facility] Rx#: [id number] Vancomycin Inj 1,750 MG In NS 517.5 / 517.5 Inj 500 ML @ 250 mls/hr IV.SIG Q24H [facility] Rx#:[id number] Oral 960 / 960 Output: Urine 750 / 750 Other: # Voids 3 Date of Last Bowel Movement 05/25/18 Narrative: Dressing to right LE clean, dry and intact. [employer] under 3 secs to digits x5 right foot. No ascending cellulitis noted above right ankle. Medications and Allergies Active Medications: Active Medications Acetaminophen (Tylenol) 650 mg PO Q4H PRN PRN Reason: Temp > 100.4 Hydrocodone Bitart/Acetaminophen ([place] 5/325) 1 tab PO Q4H PRN PRN Reason: pain 1-5 Hydrocodone Bitart/Acetaminophen ([place] 10/325) 1 tab PO Q4H PRN PRN Reason: Pain 6-10. Last Admin: 05/26/18 10:03 Dose: 1 tab Al Hydroxide/Mg Hydroxide (Milk Of Magnesia Liq) 30 ml PO Q12H PRN PRN Reason: Mild Constipation Aspirin (Ecotrin) 81 mg PO DAILY [facility] Last Admin: 05/26/18 09:13 Dose: 81 mg Atorvastatin Calcium (Lipitor) 40 mg PO DAILY [facility] Last Admin: 05/26/18 09:12 Dose: 40 mg Bisacodyl (Dulcolax Supp) 10 mg RECTAL DAILY PRN PRN Reason: SEVERE CONSITIPATION Dextrose (D50w Vial) 50 ml IV.PUSH UNSCH PRN PRN Reason: PER HYPOGLYCEMIA PROTOCOL Famotidine (Pepcid) 10 mg PO BID [facility] Last Admin: 05/26/18 09:12 Dose: 10 mg Glucagon (Glucagon Inj) 1 mg OTHER PRN PRN PRN Reason: for Hypoglycemia Protocol Heparin Sodium (Porcine) (Heparin Inj) 5,000 units SQ Q12H [facility] Last Admin: 05/26/18 07:22 Dose: Not Given Hydralazine HCl (Apresoline) 25 mg PO TID [facility] Last Admin: 05/26/18 12:38 Dose: Not Given Hydromorphone HCl (Dilaudid Pf Inj) 0.5 mg IV.PUSH Q4H PRN PRN Reason: BREAKTHROUGH PAIN Last Admin: 05/25/18 14:02 Dose: 0.5 mg Pharmacy Profile Note (Vancomycin Consult Pharmacy) 0 mls @ 0 mls/hr OTHER UNSCH [facility] Piperacillin/Tazobactam/Dextrose (Zosyn 3.375 Gm Premix) 50 mls @ 100 mls/hr IV.SIG Q8H [facility] Last Infusion: 05/26/18 10:00 Dose: Infused Vancomycin HCl 1,750 mg/ (Sodium Chloride) 517.5 mls @ 250 mls/hr IV.SIG Q24H [facility] Last Infusion: 05/25/18 17:34 Dose: Infused Lactated Ringer's (Lr 1000 Ml Inj) 1,000 mls @ 30 mls/hr IV.SIG .Q24H [facility] Stop: 05/27/18 00:14 Last Admin: 05/26/18 02:35 Dose: Not Given Insulin Aspart (Novolog Insulin Correctional Sugar Inj) 0 unit SQ ACHS AND 3AM [facility]; Protocol Last Admin: 05/26/18 12:38 Dose: Not Given Lactulose (Lactulose Liq) 30 ml PO DAILY PRN PRN Reason: SEVERE CONSITIPATION Metoprolol Tartrate (Lopressor) 25 mg PO BID [facility] Last Admin: 05/26/18 09:13 Dose: 25 mg Miscellaneous (Pill Splitter) 1 each OTHER UNSCH PRN PRN Reason: SEE LABEL COMMENTS Miscellaneous Information ([facility] [place] Ordered Lab Info) 0 each OTHER ONCE ONE Stop: 05/26/18 14:46 Naloxone HCl (Narcan Inj) 0.4 mg IV.PUSH UNSCH PRN PRN Reason: SEE LABEL COMMENTS Ondansetron HCl (Zofran Inj) 4 mg IV.PUSH Q6H PRN PRN Reason: MILD NAUSEA OR VOMITING Last Admin: 05/25/18 08:30 Dose: 4 mg Patient Own Medication - Insulin Degludec [Tresiba Flextouch U-100] 8 Units Sq Daily 0 each SQ DAILY [facility] Prochlorperazine Edisylate (Compazine Inj) 5 mg IV.PUSH Q4H PRN PRN Reason: MODERATE NAUSEA OR VOMITING Last Admin: 05/24/18 09:25 Dose: 5 mg Senna/Docusate Sodium (Rozina-Colace) 1 tab PO BID [facility] Last Admin: 05/26/18 09:12 Dose: 1 tab Sennosides (Senokot) 17.2 mg PO Q12H PRN PRN Reason: Moderate Constipation Tamsulosin HCl (Flomax) 0.4 mg PO DAILY [facility] Last Admin: 05/26/18 09:12 Dose: 0.4 mg Allergies Allergy/AdvReac Type Severity Reaction Status Date / Time bee venom protein (honey bee) Allergy Severe Anaphylaxis Verified 05/22/18 20:28 Home Medications Medication Instructions Recorded Confirmed Type aspirin [Aspir-81] 81 mg PO DAILY 05/22/18 05/22/18 History benzonatate [Tessalon Perles] 200 mg PO BID PRN 05/22/18 05/22/18 History clindamycin HCl 300 mg PO QID 05/22/18 05/22/18 History fluconazole 150 mg PO WEEKLY 05/22/18 05/22/18 History furosemide [Lasix] 40 mg PO DAILY 05/22/18 05/22/18 History insulin degludec [Tresiba 8 unit SUB-Q DAILY 05/22/18 05/22/18 History FlexTouch U-100] lisinopril 5 mg PO DAILY 05/22/18 05/22/18 History metoprolol tartrate 25 mg PO DAILY 05/22/18 05/22/18 History rosuvastatin 20 mg PO DAILY 05/22/18 05/22/18 History Results - Labs CBC & Chem 7: 05/25/18 05:30 05/26/18 04:35 Laboratory Results - last 24 hr 05/25/18 05/25/18 05/26/18 16:28 20:04 02:40 Creatinine Estimated GFR POC Glucose 155 H 166 H 117 H 05/26/18 05/26/18 05/26/18 04:35 07:20 12:25 Creatinine 1.66 H Estimated GFR 42 L POC Glucose 152 H 113 H Microbiology 05/22/18 17:20 Blood - Line Aerobic Blood Culture - Preliminary No growth in 4 days 05/22/18 17:20 Blood - Line Anaerobic Blood Culture - Preliminary No growth in 4 days 05/22/18 17:15 Blood - Line Aerobic Blood Culture - Preliminary No growth in 4 days 05/22/18 17:15 Blood - Line Anaerobic Blood Culture - Preliminary No growth in 4 days 05/23/18 13:16 Wound - Foot Acid Fast Bacilli Smear - Final No acid fast bacilli seen 05/23/18 13:16 Wound - Foot Gram Stain - Final 05/23/18 13:16 Wound - Foot Wound Culture - Final S. aureus MRSA Assessment and Plan - Assessment (1) Abscess of right foot Code(s): L02.611 - Cutaneous abscess of right foot Status: Acute Plan: 63-year-old male status post incision and drainage of right foot by Dr. Carson Patient 2 OR today for repeat debridement irrigation of right foot first metatarsal ulceration as well as sub-met 5 ulceration Anticipate return to OR for graft placement later in week N.p.o. after midnight Consent signed and reviewed with patient, patient agrees with planned procedure Consent to read right foot debridement and irrigation with wound VAC placement Nonweightbearing to right foot (2) Gas gangrene Code(s): A48.0 - Gas gangrene Status: Acute
--- NOTE | 2018-05-26 13:12 | P.PNID ---
Subjective Remarks: pt is upset about his foot not getting better scheduled for another I+D today + some abd pain no diarrhea afebrile WBC wnl Antibiotics: zosyn vancomycin Allergies/Adverse Reactions: Allergies bee venom protein (honey bee) Allergy (Severe, Verified 05/22/18 20:28) Anaphylaxis Objective Vital Signs 05/25/18 16:00 05/25/18 20:00 05/26/18 00:00 Temperature 98.5 F 97.9 F 97.7 F Pulse Rate 52 L 61 58 L Respiratory Rate 18 20 18 Blood Pressure 173/81 H 156/70 H 122/59 L Pulse Oximetry 97 95 92 L Intake & Output 05/25/18 05/26/18 05/26/18 18:59 06:59 18:59 Intake Total 1627.5 / 1627.5 50 / 50 50 / 50 Output Total 750 / 750 Balance 1627.5 / 1627.5 -700 / -700 50 / 50 Weight 105.8 kg Intake: IV 667.5 / 667.5 50 / 50 50 / 50 Zosyn 3.375 GM Premix 50 ML @ 150 / 150 50 / 50 50 / 50 100 mls/hr IV.SIG Q8H [facility] Rx#: [id number] Vancomycin Inj 1,750 MG In NS 517.5 / 517.5 Inj 500 ML @ 250 mls/hr IV.SIG Q24H [facility] Rx#:[id number] Oral 960 / 960 Output: Urine 750 / 750 Other: # Voids 3 Date of Last Bowel Movement 05/25/18 05/22/18 17:20 Blood - Line Aerobic Blood Culture - Preliminary No growth in 4 days 05/22/18 17:20 Blood - Line Anaerobic Blood Culture - Preliminary No growth in 4 days 05/22/18 17:15 Blood - Line Aerobic Blood Culture - Preliminary No growth in 4 days 05/22/18 17:15 Blood - Line Anaerobic Blood Culture - Preliminary No growth in 4 days 05/23/18 13:16 Wound - Foot Acid Fast Bacilli Smear - Final No acid fast bacilli seen 05/23/18 13:16 Wound - Foot Mycobacterial Culture - Pending 05/23/18 13:16 Wound - Foot Gram Stain - Final 05/23/18 13:16 Wound - Foot Wound Culture - Final S. aureus MRSA 05/22/18 17:00 Wound - Foot Gram Stain - Final 05/22/18 17:00 Wound - Foot Wound Culture - Final S. aureus MRSA 05/23/18 13:16 Wound - Foot Fungal Smear - Final No fungal elements seen 05/23/18 13:16 Wound - Foot Fungal Culture - Pending Lab - Hematology Results 05/25/18 05:30 WBC 8.0 RBC 2.98 L Hgb 8.6 L Hct 24.4 L MCV 81.9 D MCH 28.9 MCHC 35.3 RDW 13.5 Plt Count 221 MPV 8.1 Neut % (Auto) 76.4 H Lymph % (Auto) 12.4 [place] % (Auto) 8.8 H Eos % (Auto) 1.5 Baso % (Auto) 0.9 Neut # (Auto) 6.1 Lymph # (Auto) 1.0 [place] # (Auto) 0.7 Eos # (Auto) 0.1 Baso # (Auto) 0.1 WBC Differential . Differential Comment Auto diff final Lab - Chemistry Results 05/24/18 05/24/18 05/25/18 16:33 21:49 02:36 Sodium Potassium Chloride Carbon Dioxide Anion Gap BUN Creatinine Estimated GFR POC Glucose 209 H 175 H 138 H Random Glucose Calcium Total Creatine Kinase 05/25/18 05/25/18 05/25/18 05:30 05:30 07:32 Sodium 139 Potassium 4.9 Chloride 106 Carbon Dioxide 23.1 Anion Gap 10 BUN 31 H Creatinine 1.58 H Estimated GFR 44 L POC Glucose 163 H Random Glucose 134 H Calcium 8.4 L Total Creatine Kinase 92 05/25/18 05/25/18 05/25/18 11:25 16:28 20:04 Sodium Potassium Chloride Carbon Dioxide Anion Gap BUN Creatinine Estimated GFR POC Glucose 134 H 155 H 166 H Random Glucose Calcium Total Creatine Kinase 05/26/18 05/26/18 05/26/18 02:40 04:35 07:20 Sodium Potassium Chloride Carbon Dioxide Anion Gap BUN Creatinine 1.66 H Estimated GFR 42 L POC Glucose 117 H 152 H Random Glucose Calcium Total Creatine Kinase 05/26/18 12:25 Sodium Potassium Chloride Carbon Dioxide Anion Gap BUN Creatinine Estimated GFR POC Glucose 113 H Random Glucose Calcium Total Creatine Kinase Imaging: ITS Impressions Foot MRI 05/22/18 00:00 CONCLUSION: 1. Subcutaneous collection of air and fluid along the medial aspect of the right foot adjacent to the distal shaft and head of the first metatarsal which measures 2.4 x 1.8 cm raising possibility of abscess. Contrast-enhanced MRI would be helpful for confirmation if clinically indicated. No definite underlying marrow edema to suggest osteomyelitis is noted. 2. 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 Chest X-Ray 05/22/18 16:51 CONCLUSION: No evidence of pneumonia. Foot X-Ray 05/22/18 16:51 CONCLUSION: Negative Venous Doppler Study 05/22/18 16:58 CONCLUSION: 1. No evidence of thrombus, however, there is extensive subcutaneous edema identified throughout the right calf. Abdomen X-Ray 05/25/18 00:00 CONCLUSION: Nonspecific bowel gas pattern with moderate stool throughout the colon Physical Exam: GENERAL: NAD SKIN: Warm and dry. HEAD: Atraumatic. Normocephalic. EYES: Pupils equal and round. No scleral icterus. No injection or drainage. ENT: No nasal bleeding or discharge. Mucous membranes pink and moist. NECK: Trachea midline. No JVD. CARDIOVASCULAR: Regular rate and rhythm. RESPIRATORY: No accessory muscle use. Clear to auscultation. Breath sounds equal bilaterally. GASTROINTESTINAL: Abdomen soft, mildly tender w/o guarding or rebound and mildly distended. Hepatic and splenic margins not palpable. MUSCULOSKELETAL: Extremities without clubbing, cyanosis, R foot with large plantar wound over [address] st MT head with purulence and necrotc tissue, visible deep structures + erythema of sole extending almost to the heal NEUROLOGICAL: Awake and alert. No obvious cranial nerve deficits. Motor grossly within normal limits. Five out of 5 muscle strength in the arms and legs. Normal speech. PSYCHIATRIC: Appropriate mood and affect; insight and judgment normal. 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
[2018-05-26] MEDS ORDERED: Lidocaine PF 1% Inj 5 ML Syringe INFILTRATN ONE (14:30)
[2018-05-26] MEDS ORDERED: Pharmacy Ordered Lab Info OTHER ONE (14:45)
[2018-05-26] MEDS ORDERED: Misc Info for Pharmacy OTHER STA (15:16)
[2018-05-26] MEDS ORDERED: fentaNYL Citrate Inj 100 MCG/2 ML Ampul ONE (15:22)
[2018-05-26] MEDS: Vancomycin Inj 1,750 MG in Sodium Chlor 0.9% Inj 500 ML IV.SIG SCH (15:28)
--- NOTE | 2018-05-26 15:31 | P.PCN ---
Date of procedure: 05/26/18 Pre-op diagnosis: Right foot ulcer medial first metatarsal; Right foot submetatarsal 5 ulcer Procedure: Right foot debridement and irrigation with wound vac placement Anesthesia: SHERRILL Surgeon: Nidia Dorado Estimated blood loss (mL): 10 Pathology: none sent Condition: stable Disposition: PACU (with VSS and NVS intact to the right foot)
[2018-05-26] MEDS ORDERED: Benzonatate 100 MG Capsule PO PRN (17:01)
[2018-05-26] MEDS ORDERED: Fluconazole 100 MG Tablet PO SCH (17:15)
[2018-05-26] MEDS: amLODIPine 5 MG Tablet PO SCH (20:41)
[2018-05-27] MEDS: Insulin NovoLOG Aspart Correctional Sugar Inj SQ SCH ×5 (04:50→21:00)
--- NOTE | 2018-05-27 07:48 | MR ---
cc: Nidia Dorado DPM DATE: 05/26/2018 SURGEON: Nidia Dorado DPM SHOP CLERK: None. PREOPERATIVE DIAGNOSIS: 1. Right foot medial hallux ulceration. 2. Right foot submetatarsal 5 ulceration. POSTOPERATIVE DIAGNOSIS: 1. Right foot medial hallux ulceration. 2. Right foot submetatarsal 5 ulceration. PROCEDURE PERFORMED: 1. Debridement and irrigation of right medial first metatarsal ulceration with wound VAC placement. 2. Debridement and irrigation of segment 5 ulceration. ANESTHESIA: General. HEMOSTASIS: None. ESTIMATED BLOOD LOSS: 10 mL MATERIALS: None. INJECTABLES: 0.25% Marcaine plain infiltrated 20 mL total about the right foot. COMPLICATIONS: None. INDICATIONS FOR PROCEDURE: The patient is a 63-year-old male. The patient understands all alternatives, risks, and benefits associated with proceeding. He would like to proceed with planned procedure. DESCRIPTION OF PROCEDURE: The patient was brought to the operating room, and placed on the operating table in supine position. General anesthesia was then induced. Right foot was prepped and draped in the usual sterile manner. Attention was directed to the right medial first metatarsal ulceration where a 15 blade was utilized to remove and debride all necrotic tissue. Full-thickness excisional debridement was performed to bone. Following full-thickness excisional debridement, the site was copiously irrigated with 3 liters of normal saline. Wound VAC with white and black foam was applied. It was noted to be suctioning at 125 mmHg. Attention was then directed to submetatarsal 5 ulceration. A 15 blade was utilized to debride all necrotic tissue. Full-thickness debridement was performed to subcutaneous tissue. Following debridement of subcutaneous tissue, Xeroform, 4 x 4's, cast padding, Fabricio were applied to the right foot. The patient tolerated the procedure and anesthesia well. He will remain in-house and will consider graft placement. Nidia Dorado DPM JIP/mark , 03:37 PM , 03:43 PM
[2018-05-27] MEDS: Metoprolol Tartrate 25 MG Tablet PO SCH ×2 (09:09→21:22)
[2018-05-27] MEDS: hydrALAZINE 25 MG Tablet PO SCH (09:10)
[2018-05-27] MEDS: Heparin - SQ 10,000 UNITS/ML Vial SQ SCH ×2 (09:10→21:23)
[2018-05-27] MEDS: Famotidine 20 MG Tablet PO SCH ×2 (09:10→21:22)
[2018-05-27] MEDS: Senna/Docusate Sodium 8.6/50 MG Tablet PO SCH ×2 (09:10→21:23)
[2018-05-27] MEDS: amLODIPine 5 MG Tablet PO SCH (09:12)
--- NOTE | 2018-05-27 11:09 | P.PNIM ---
Subjective Interval history: Reports overall pain controlled. He wants a copy of his 2D echo sent to Dr.S. Hogan. He is worried about his blood pressure being elevated. Physical Exam Vital signs: Vital Signs 05/26/18 12:00 05/26/18 15:15 05/26/18 15:30 Temperature 97.4 F L 97.4 F L Pulse Rate 56 L 52 L 54 L Respiratory Rate 18 16 16 Blood Pressure 185/77 H 162/77 H 166/78 H Pulse Oximetry 93 L 94 L 95 05/26/18 15:47 05/26/18 16:00 05/26/18 17:31 Temperature 97.3 F L Pulse Rate 52 L 53 L Respiratory Rate 16 20 Blood Pressure 171/84 H 200/91 H Pulse Oximetry 94 L 93 L 93 L 05/26/18 18:27 05/26/18 20:00 05/27/18 00:00 Temperature 97.7 F 97.4 F L Pulse Rate 55 L 50 L Respiratory Rate 18 18 Blood Pressure 187/83 H 188/81 H 148/65 H Pulse Oximetry 95 96 05/27/18 04:00 05/27/18 08:00 Temperature 97.6 F 97.7 F Pulse Rate 54 L 56 L Respiratory Rate 18 18 Blood Pressure 178/86 H 175/77 H Pulse Oximetry 95 96 Intake & Output 05/26/18 05/27/18 05/27/18 18:59 06:59 18:59 Intake Total 1107.5 / 1107.5 540 / 540 Output Total 110 / 110 1025 / 1025 Balance 997.5 / 997.5 -485 / -485 Weight 106.9 kg Intake: IV 567.5 / 567.5 300 / 300 Zosyn 3.375 GM Premix 50 ML @ 50 / 50 100 mls/hr IV.SIG Q8H [facility] Rx#: [id number] Vancomycin Inj 1,750 MG In NS 517.5 / 517.5 Inj 500 ML @ 250 mls/hr IV.SIG Q24H [facility] Rx#:[id number] Flagyl 500 MG Inj 100 ML @ 100 300 / 300 mls/hr IV.SIG Q6H [facility] Rx#: [id number] Oral 240 / 240 240 / 240 Anesthesia Amount 300 / 300 Output: Urine 100 / 100 1000 / 1000 Estimated Blood Loss 10 / 10 Wound Vac Amount 25 / 25 Right Foot 25 Other: Mode Setting Right Foot Continuous Continuous # Bowel Movements 0 Narrative: GENERAL: Well-developed well-nourished. In no acute distress. SKIN: Warm and dry. No lesions noted. CARDIOVASCULAR: Regular rate and rhythm. 2/6 systolic murmur appreciated. RESPIRATORY: No accessory muscle use. Clear to auscultation. Breath sounds equal bilaterally. GASTROINTESTINAL: Abdomen soft, distended, positive bowel sounds in all quadrants. MUSCULOSKELETAL: Right foot with wound VAC in place with Fabricio bandage. NEUROLOGICAL: Awake and alert. Moves upper and lower extremities spontaneously. Normal speech. Results - Labs CBC & Chem 7: 05/25/18 05:30 05/27/18 05:44 Laboratory Results - last 24 hr 05/26/18 05/26/18 05/26/18 12:25 16:21 20:17 Creatinine Estimated GFR POC Glucose 113 H 101 234 H 05/27/18 05/27/18 05/27/18 04:38 05:44 07:50 Creatinine 1.45 H Estimated GFR 49 L POC Glucose 197 H 199 H Microbiology 05/22/18 17:20 Blood - Line Aerobic Blood Culture - Preliminary No growth in 4 days 05/22/18 17:20 Blood - Line Anaerobic Blood Culture - Preliminary No growth in 4 days 05/22/18 17:15 Blood - Line Aerobic Blood Culture - Preliminary No growth in 4 days 05/22/18 17:15 Blood - Line Anaerobic Blood Culture - Preliminary No growth in 4 days Assessment and Plan - Plan 63-year-old white male with a history of diabetes mellitus type 2 insulin- dependent admitted for 1. Diabetic foot wound ongoing for at least 3 weeks Foot MRI concerning for first metatarsal abscess, no osteomyelitis noted Failed outpatient antibiotic therapy Reportedly outpatient culture showed MRSA -Consulted infectious disease, Dr. Marcia Bhagat -Continue with vancomycin and Zosyn with pharmacy to dose the vancomycin -Consulted podiatry, appreciate input patient is status post incision and drainage of right foot with wound VAC placement 05/23/[address] Carson - Per Podiatry: Discussed with patient he will require another debridement and graft to the area Discussed will attempt salvage unless condition deteriorates to require amputation. Dr Dorado to continue follow-up who performed a right foot read debridement with wound VAC placement on 05/26 Continue IV antibiotics vancomycin and Zosyn Heel contact weightbearing only to right foot. -CBC improved, afebrile, wound culture showing MRSA 2. Acute renal failure superimposed on chronic kidney disease stage III Creatinine trending down with IVF Creatinine omission 2.02 -> improved at 1.45 Can restart lisinopril -Continue to monitor on on antibiotics Avoid nephrotoxins 3. Anemia, normocytic probable dilutional component -monitor labs 4. Diabetes mellitus, type II, insulin-dependent, with underlying diabetic nephropathy -Continue on Accu-Cheks before meals and at bedtime and q. 3 AM -community educator following, to bring in Treba for patient to continue while hospitalized. Patient states that he was on 16 units subcu every morning Discussed with pharmacy who states his FlexPen was not labeled and advise as to use Levemir. We will use Levemir 16 units subcu twice daily for blood sugar control. -Sliding scale coverage -Continue on long-acting insulin -Diabetic cardiac diet 5. Hyperlipidemia -continue on statin 6. Hypertension, chronic essential -continue on metoprolol -We will restart lisinopril 20 mg p.o. daily and add Norvasc, stop hydralazine. 7. Lower extremity swelling -Recommend compression stockings -Echocardiogram shows EF of 55-60% 8. History of prosthetic valve replacement -Monitor volume status -Echocardiogram results reviewed. -Continue plans for outpatient follow-up with CT surgery, Dr. Hogan 9. DVT prophylaxis with subcu heparin GI prophylaxis with Pepcid
[2018-05-27] MEDS: Insulin Detemir Inj 1,000 UNIT/10 ML Vial SQ SCH ×2 (12:25→21:24)
[2018-05-27] MEDS: Lisinopril 20 MG Tablet PO SCH (12:28)
[2018-05-27] MEDS ORDERED: Pharmacy Ordered Lab Info OTHER ONE (14:45)
[2018-05-27] MEDS: Vancomycin Inj 1,750 MG in Sodium Chlor 0.9% Inj 500 ML IV.SIG SCH (15:34)
--- NOTE | 2018-05-27 22:35 | P.PNPOD ---
Subjective Interval history: Patient seen bedside. Resting comfortably. No concerns at this time. Denies any N,V,F,Ch. Physical Exam Vital signs: Vital Signs 05/27/18 00:00 05/27/18 04:00 05/27/18 08:00 Temperature 97.4 F L 97.6 F 97.7 F Pulse Rate 50 L 54 L 56 L Respiratory Rate 18 18 18 Blood Pressure 148/65 H 178/86 H 175/77 H Pulse Oximetry 96 95 96 05/27/18 12:00 05/27/18 15:41 05/27/18 20:00 Temperature 97.3 F L 97.3 F L 97.3 F L Pulse Rate 59 L 63 64 Respiratory Rate 17 18 18 Blood Pressure 133/57 L 125/60 125/61 Pulse Oximetry 97 94 L Intake & Output 05/27/18 05/27/18 05/28/18 06:59 18:59 06:59 Intake Total 540 / 540 1060 / 1060 Output Total 1025 / 1025 Balance -485 / -485 1060 / 1060 Weight 106.9 kg Intake: IV 300 / 300 100 / 100 Flagyl 500 MG Inj 100 ML @ 100 300 / 300 100 / 100 mls/hr IV.SIG Q6H [facility] Rx#: [id number] Oral 240 / 240 960 / 960 Output: Urine 1000 / 1000 Wound Vac Amount 25 / 25 Right Foot 25 / 25 Other: Mode Setting Right Foot Continuous Continuous # Voids 3 Date of Last Bowel Movement 05/25/18 Narrative: Dressing intact to right foot. Wound vac functioning at 125 mmHg. EARLY CHILDHOOD AIDE CLASSROOM under 3 secs to digits x5 right LE. Medications and Allergies Active Medications: Active Medications Acetaminophen (Tylenol) 650 mg PO Q4H PRN PRN Reason: Temp > 100.4 Hydrocodone Bitart/Acetaminophen ([place] 5/325) 1 tab PO Q4H PRN PRN Reason: pain 1-5 Hydrocodone Bitart/Acetaminophen ([place] 10/325) 1 tab PO Q4H PRN PRN Reason: Pain 6-10. Last Admin: 05/27/18 17:40 Dose: 1 tab Al Hydroxide/Mg Hydroxide (Milk Of Magnesia Liq) 30 ml PO Q12H PRN PRN Reason: Mild Constipation Amlodipine Besylate (Norvasc) 5 mg PO DAILY [facility] Last Admin: 05/27/18 09:12 Dose: 5 mg Aspirin (Ecotrin) 81 mg PO DAILY [facility] Last Admin: 05/27/18 09:12 Dose: 81 mg Atorvastatin Calcium (Lipitor) 40 mg PO DAILY [facility] Last Admin: 05/27/18 09:12 Dose: 40 mg Benzonatate (Tessalon Perles) 200 mg PO BID PRN PRN Reason: COUGH Bisacodyl (Dulcolax Supp) 10 mg RECTAL DAILY PRN PRN Reason: SEVERE CONSITIPATION Clindamycin HCl (Cleocin) 300 mg PO QID [facility] Last Admin: 05/27/18 21:22 Dose: 300 mg Dextrose (D50w Vial) 50 ml IV.PUSH UNSCH PRN PRN Reason: PER HYPOGLYCEMIA PROTOCOL Enalaprilat (Vasotec Inj) 1.25 mg IV.PUSH Q6H PRN PRN Reason: SEE LABEL COMMENTS Last Admin: 05/26/18 18:44 Dose: 1.25 mg Famotidine (Pepcid) 10 mg PO BID [facility] Last Admin: 05/27/18 21:22 Dose: 10 mg Fluconazole (Diflucan) 150 mg PO WEEKLY [facility] Glucagon (Glucagon Inj) 1 mg OTHER PRN PRN PRN Reason: for Hypoglycemia Protocol Heparin Sodium (Porcine) (Heparin Inj) 5,000 units SQ Q12H [facility] Last Admin: 05/27/18 21:23 Dose: 5,000 units Hydromorphone HCl (Dilaudid Pf Inj) 0.5 mg IV.PUSH Q4H PRN PRN Reason: BREAKTHROUGH PAIN Last Admin: 05/25/18 14:02 Dose: 0.5 mg Pharmacy Profile Note (Vancomycin Consult Pharmacy) 0 mls @ 0 mls/hr OTHER UNSCH [facility] Vancomycin HCl 1,750 mg/ (Sodium Chloride) 517.5 mls @ 250 mls/hr IV.SIG Q24H [facility] Last Admin: 05/27/18 15:34 Dose: 280 mls/hr Metronidazole/Sodium Chloride (Flagyl 500 Mg Inj) 100 mls @ 100 mls/hr IV.SIG Q6H [facility] Last Admin: 05/27/18 17:39 Dose: 100 mls/hr Insulin Aspart (Novolog Insulin Correctional Sugar Inj) 0 unit SQ ACHS AND 3AM [facility]; Protocol Last Admin: 05/27/18 17:40 Dose: 4 unit Insulin Detemir (Levemir Inj) 16 unit SQ BID [facility]; Protocol Last Admin: 05/27/18 21:24 Dose: 16 unit Lactulose (Lactulose Liq) 30 ml PO DAILY PRN PRN Reason: SEVERE CONSITIPATION Lisinopril (Prinivil) 20 mg PO DAILY [facility] Last Admin: 05/27/18 12:28 Dose: 20 mg Metoprolol Tartrate (Lopressor) 25 mg PO BID [facility] Last Admin: 05/27/18 21:22 Dose: 25 mg Miscellaneous (Pill Splitter) 1 each OTHER UNSCH PRN PRN Reason: SEE LABEL COMMENTS Naloxone HCl (Narcan Inj) 0.4 mg IV.PUSH UNSCH PRN PRN Reason: SEE LABEL COMMENTS Ondansetron HCl (Zofran Inj) 4 mg IV.PUSH Q6H PRN PRN Reason: MILD NAUSEA OR VOMITING Last Admin: 05/25/18 08:30 Dose: 4 mg Prochlorperazine Edisylate (Compazine Inj) 5 mg IV.PUSH Q4H PRN PRN Reason: MODERATE NAUSEA OR VOMITING Last Admin: 05/24/18 09:25 Dose: 5 mg Senna/Docusate Sodium (Rozina-Colace) 1 tab PO BID [facility] Last Admin: 05/27/18 21:23 Dose: 1 tab Sennosides (Senokot) 17.2 mg PO Q12H PRN PRN Reason: Moderate Constipation Tamsulosin HCl (Flomax) 0.4 mg PO DAILY [facility] Last Admin: 05/27/18 09:09 Dose: 0.4 mg Allergies Allergy/AdvReac Type Severity Reaction Status Date / Time bee venom protein (honey bee) Allergy Severe Anaphylaxis Verified 05/22/18 20:28 Home Medications Medication Instructions Recorded Confirmed Type aspirin [Aspir-81] 81 mg PO DAILY 05/22/18 05/22/18 History benzonatate [Tessalon Perles] 200 mg PO BID PRN 05/22/18 05/22/18 History clindamycin HCl 300 mg PO QID 05/22/18 05/22/18 History fluconazole 150 mg PO WEEKLY 05/22/18 05/22/18 History furosemide [Lasix] 40 mg PO DAILY 05/22/18 05/22/18 History insulin degludec [Tresiba 8 unit SUB-Q DAILY 05/22/18 05/22/18 History FlexTouch U-100] lisinopril 5 mg PO DAILY 05/22/18 05/22/18 History metoprolol tartrate 25 mg PO DAILY 05/22/18 05/22/18 History rosuvastatin 20 mg PO DAILY 05/22/18 05/22/18 History Results - Labs CBC & Chem 7: 05/25/18 05:30 05/27/18 05:44 Laboratory Results - last 24 hr 05/27/18 05/27/18 05/27/18 04:38 05:44 07:50 Creatinine 1.45 H Estimated GFR 49 L POC Glucose 197 H 199 H Vancomycin Trough 05/27/18 05/27/18 05/27/18 11:52 14:45 17:21 Creatinine Estimated GFR POC Glucose 194 H 217 H Vancomycin Trough 14.9 H 05/27/18 20:39 Creatinine Estimated GFR POC Glucose 233 H Vancomycin Trough Microbiology 05/22/18 17:20 Blood - Line Aerobic Blood Culture - Final No growth in 5 days 05/22/18 17:20 Blood - Line Anaerobic Blood Culture - Final No growth in 5 days 05/22/18 17:15 Blood - Line Aerobic Blood Culture - Final No growth in 5 days 05/22/18 17:15 Blood - Line Anaerobic Blood Culture - Final No growth in 5 days Assessment and Plan - Assessment (1) Abscess of right foot Code(s): L02.611 - Cutaneous abscess of right foot Status: Acute Plan: 63-year-old male status post incision and drainage of right foot by Dr. Carson s/p repeat debridement and irrigation of right medial eminence ulceration as well as right submet 5 ulceration with wound vac placement medially. Wound care nurses to apply wound vac every [address] orders Xerform and DSD to the right submet 5 ulceration with DSD Anticipate return to OR for graft placement over the week Dr. Chapin to evaluate for graft placement Nonweightbearing to right foot (2) Gas gangrene Code(s): A48.0 - Gas gangrene Status: Acute
[2018-05-28] MEDS: Insulin NovoLOG Aspart Correctional Sugar Inj SQ SCH ×5 (03:35→23:12)
[2018-05-28] MEDS: Famotidine 20 MG Tablet PO SCH ×2 (08:04→20:09)
[2018-05-28] MEDS: Lisinopril 20 MG Tablet PO SCH (08:05)
[2018-05-28] MEDS: Senna/Docusate Sodium 8.6/50 MG Tablet PO SCH ×2 (08:05→20:09)
[2018-05-28] MEDS: Metoprolol Tartrate 25 MG Tablet PO SCH ×2 (08:05→20:09)
[2018-05-28] MEDS: Insulin Detemir Inj 1,000 UNIT/10 ML Vial SQ SCH ×2 (08:07→20:12)
[2018-05-28] MEDS: Heparin - SQ 10,000 UNITS/ML Vial SQ SCH ×2 (08:07→20:09)
[2018-05-28] MEDS: amLODIPine 5 MG Tablet PO SCH (08:08)
[2018-05-28] MEDS: Furosemide 40 MG Tablet PO SCH (10:57)
--- NOTE | 2018-05-28 11:07 | P.PNIM ---
Subjective Interval history: Patient had difficulty urinating overnight and had 1100 cc out with straight cath. He feels congested but no shortness of breath. Reports pain is controlled. Physical Exam Vital signs: Vital Signs 05/27/18 12:00 05/27/18 15:41 05/27/18 20:00 Temperature 97.3 F L 97.3 F L 97.3 F L Pulse Rate 59 L 63 64 Respiratory Rate 17 18 18 Blood Pressure 133/57 L 125/60 125/61 Pulse Oximetry 97 94 L 05/28/18 00:00 05/28/18 08:00 Temperature 97.5 F L 97.9 F Pulse Rate 53 L 54 L Respiratory Rate 20 20 Blood Pressure 130/61 147/65 H Pulse Oximetry 92 L 95 Intake & Output 05/27/18 05/28/18 05/28/18 18:59 06:59 18:59 Intake Total 1160 / 1160 617.5 / 617.5 100 / 100 Balance 1160 / 1160 617.5 / 617.5 100 / 100 Weight 112.9 kg Intake: IV 200 / 200 617.5 / 617.5 100 / 100 Vancomycin Inj 1,750 MG In NS 517.5 / 517.5 Inj 500 ML @ 250 mls/hr IV.SIG Q24H [facility] Rx#:[id number] Flagyl 500 MG Inj 100 ML @ 100 200 / 200 100 / 100 100 / 100 mls/hr IV.SIG Q6H [facility] Rx#: [id number] Oral 960 / 960 Other: Mode Setting Right Foot Continuous Continuous Continuous # Voids 3 Date of Last Bowel Movement 05/25/18 05/25/18 05/25/18 Narrative: GENERAL: Well-developed well-nourished. In no acute distress. SKIN: Warm and dry. No lesions noted. CARDIOVASCULAR: Regular rate and rhythm. 2/6 systolic murmur appreciated. RESPIRATORY: Few right-sided crackles GASTROINTESTINAL: Abdomen soft, distended, positive bowel sounds in all quadrants. MUSCULOSKELETAL: Right foot with wound VAC in place with Fabricio bandage. Trace edema right lower extremity NEUROLOGICAL: Awake and alert. Moves upper and lower extremities spontaneously. Normal speech. - Urinary Catheter Management 1000 Cath placed during this visit: no Results - Labs CBC & Chem 7: 05/25/18 05:30 05/28/18 04:30 Laboratory Results - last 24 hr 09/12/18 09/12/18 09/12/18 11:52 14:45 17:21 Creatinine Estimated GFR POC Glucose 194 H 217 H Vancomycin Trough 14.9 H 05/27/18 05/28/18 05/28/18 20:39 03:29 04:30 Creatinine 1.49 H Estimated GFR 47 L POC Glucose 233 H 182 H Vancomycin Trough 05/28/18 07:44 Creatinine Estimated GFR POC Glucose 163 H Vancomycin Trough Microbiology 05/22/18 17:20 Blood - Line Aerobic Blood Culture - Final No growth in 5 days 05/22/18 17:20 Blood - Line Anaerobic Blood Culture - Final No growth in 5 days 05/22/18 17:15 Blood - Line Aerobic Blood Culture - Final No growth in 5 days 05/22/18 17:15 Blood - Line Anaerobic Blood Culture - Final No growth in 5 days Assessment and Plan - Plan 63-year-old white male with a history of diabetes mellitus type 2 insulin- dependent admitted for 1. Diabetic foot wound ongoing for at least 3 weeks Foot MRI concerning for first metatarsal abscess, no osteomyelitis noted Failed outpatient antibiotic therapy Reportedly outpatient culture showed MRSA -Consulted infectious disease, Dr. Marcia Bhagat -Continue with vancomycin and Zosyn with pharmacy to dose the vancomycin -Consulted podiatry, appreciate input patient is status post incision and drainage of right foot with wound VAC placement 05/23/[address] Carson - Per Podiatry: Discussed with patient he will require another debridement and graft to the area Discussed will attempt salvage unless condition deteriorates to require amputation. Dr Dorado to continue follow-up who performed a right foot read debridement with wound VAC placement on 05/26 Continue IV antibiotics vancomycin and Zosyn Heel contact weightbearing only to right foot. -CBC improved, afebrile, wound culture showing MRSA For further surgical intervention with graft later this week per podiatry 2. Acute renal failure superimposed on chronic kidney disease stage III Creatinine trending down with IVF Creatinine omission 2.02 -> improved at 1.6 today Can restart lisinopril -Continue to monitor on on antibiotics Avoid nephrotoxins Restart Lasix today secondary to urinary retention 3. Urinary retentionFlomax obtain renal ultrasound to rule out any underlying obstruction, straight cath as needed, Lasix will be restarted today 3. Anemia, normocytic probable dilutional component -monitor labs 4. Diabetes mellitus, type II, insulin-dependent, with underlying diabetic nephropathy -Continue on Accu-Cheks before meals and at bedtime and q. 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 Blood sugars adequately controlled -Sliding scale coverage -Continue on long-acting insulin -Diabetic cardiac diet 5. Hyperlipidemia -continue on statin 6. Hypertension, chronic essential -continue on metoprolol -We will continue lisinopril 20 mg p.o. daily and Norvasc 5 mg p.o. nightly 7. Lower extremity swelling -Recommend compression stockings and elevation, Lasix to be restarted today -Echocardiogram shows EF of 55-60% 8. History of prosthetic valve replacement -Monitor volume status -Echocardiogram results reviewed. -Continue plans for outpatient follow-up with CT surgery, Dr. Hogan 9. DVT prophylaxis with subcu heparin GI prophylaxis with Pepcid Discussed Condition With: at bedside
[2018-05-28] MEDS: HYDROmorphone PF Inj 2 MG/ML Vial IV.PUSH PRN (12:01)
--- NOTE | 2018-05-28 13:53 | P.PNWCN ---
Wound Care Nurse Consult Description: Wound consult ordered by for wound vac management. Communicated with: Socorro DÍAZ, Wound/Pressure Injury - Wound Right Foot Wound Assessment: Ongoing Wound Type: Abscess Is This a Chronic Wound: No Requested from Provider a Wound Care Consult: No (Brody DÍAZ,[facility] seen 05/28) Length: 4.8 Width: 4.2 Depth: 1.1 Wound Bed Appearance: Opdyke, Red, Tunneling/Undermining (Tissue tunnel located from5-7 o'clock max depth 1.5) Wound Bed Appearance: Wound base 70% red moist tissue 20% fascia 105 beefy red granular tissue Surrounding Tissue Appearance: Opdyke Drainage Description: Serosanguinous Drainage Amount: Minimal Drainage Odor: No Odor Dressing Status: Changed Cleansing Solution: Saline Wound Packing Type: Woundvac Sponge Primary Dressing: Negative Pressure Wound Dressing Tape Type: archie wrap Wound Dressing Change Date: 05/28/18 Wound Vac - Wound Vac Right Foot Pressure Setting (mmHg): 125 Mode Setting: Continuous Drainage Description: Serosanguinous Foam type: Black, White Incision - Incision Right Foot Other Cover Dressing: archie wrap
[2018-05-28] MEDS: Vancomycin Inj 1,750 MG in Sodium Chlor 0.9% Inj 500 ML IV.SIG SCH (14:47)
--- NOTE | 2018-05-28 15:21 | US ---
EXAM DATE: 05/28/2018 3:02 PM EDT AGE/SEX: 63 years / Male INDICATIONS: Increased Bun and Creatinine. CLINICAL DATA: This is the patient's initial encounter. Patient reports that signs and symptoms have been present for 1 day and indicates a pain score of 5/10. MEDICAL/SURGICAL HISTORY: . CAD. Diabetes. diabetic foot infection. Neuropathy. Hyperlipide yazmin. HTN. . Mitral valve replaced. CABG. COMPARISON: [facility], KIDNEY/RENAL/BLADDER, 07/31/2015. . MEASUREMENTS: Right Kidney:__10.8 x 6.4 x 6.1 cm Left Kidney:__12.5 x 5.5 x 6.1 cm FINDINGS: Right Kidney: Normal echotexture and cortical thickness. No mass or hydronephrosis. Left Kidney: Normal echotexture and cortical thickness. No mass or hydronephrosis. Bladder: Moderately distended despite patient voiding. Prominent lobular protrusion of the prostate i nto the bladder base. Other: None. CONCLUSION: 1. Urinary bladder is distended despite attempted voiding. 2. Heterogeneous prostate enlargement Electronically signed by: Remigio Yo MD 05/28/2018 3:19 PM EDT
--- NOTE | 2018-05-28 20:13 | P.PNID ---
Subjective Remarks: afebrile GFR improved from 27 to 47 1100 cc of urine sp straight cathing c/o foot pain yday dw Dr Dorado sp repeat debridementy on 05/26: with wound VAC placement. Antibiotics: flagyl vancomycin Allergies/Adverse Reactions: Allergies bee venom protein (honey bee) Allergy (Severe, Verified 05/22/18 20:28) Anaphylaxis Objective Vital Signs 05/28/18 00:00 05/28/18 08:00 05/28/18 12:00 Temperature 97.5 F L 97.9 F 97.8 F Pulse Rate 53 L 54 L 57 L Respiratory Rate 20 20 18 Blood Pressure 130/61 145/65 H 122/60 Pulse Oximetry 92 L 95 93 L 05/28/18 14:25 05/28/18 16:00 Temperature 97.9 F 97.4 F L Pulse Rate 54 L 58 L Respiratory Rate 20 18 Blood Pressure 145/65 H 120/62 Pulse Oximetry 93 L Intake & Output 05/28/18 05/28/18 05/29/18 06:59 18:59 06:59 Intake Total 617.5 / 617.5 717.5 / 717.5 Output Total 1510 / 1510 Balance 617.5 / 617.5 -792.5 / -792.5 Weight 112.9 kg Intake: IV 617.5 / 617.5 717.5 / 717.5 Vancomycin Inj 1,750 MG In NS 517.5 / 517.5 517.5 / 517.5 Inj 500 ML @ 250 mls/hr IV.SIG Q24H [facility] Rx#:[id number] Flagyl 500 MG Inj 100 ML @ 100 100 / 100 200 / 200 mls/hr IV.SIG Q6H [facility] Rx#: [id number] Output: Urine 1510 / 1510 Other: Mode Setting Right Foot Continuous Continuous Date of Last Bowel Movement 05/25/18 05/25/18 05/22/18 17:20 Blood - Line Aerobic Blood Culture - Final No growth in 5 days 05/22/18 17:20 Blood - Line Anaerobic Blood Culture - Final No growth in 5 days 05/22/18 17:15 Blood - Line Aerobic Blood Culture - Final No growth in 5 days 05/22/18 17:15 Blood - Line Anaerobic Blood Culture - Final No growth in 5 days 05/23/18 13:16 Wound - Foot Acid Fast Bacilli Smear - Final No acid fast bacilli seen 05/23/18 13:16 Wound - Foot Mycobacterial Culture - Pending Lab - Chemistry Results 05/26/18 05/27/18 05/27/18 20:17 04:38 05:44 Creatinine 1.45 H Estimated GFR 49 L POC Glucose 234 H 197 H 05/27/18 05/27/18 05/27/18 07:50 11:52 17:21 Creatinine Estimated GFR POC Glucose 199 H 194 H 217 H 05/27/18 05/28/18 05/28/18 20:39 03:29 04:30 Creatinine 1.49 H Estimated GFR 47 L POC Glucose 233 H 182 H 05/28/18 05/28/18 05/28/18 07:44 11:20 16:48 Creatinine Estimated GFR POC Glucose 163 H 99 149 H Imaging: ITS Impressions Foot MRI 05/22/18 00:00 CONCLUSION: 1. Subcutaneous collection of air and fluid along the medial aspect of the right foot adjacent to the distal shaft and head of the first metatarsal which measures 2.4 x 1.8 cm raising possibility of abscess. Contrast-enhanced MRI would be helpful for confirmation if clinically indicated. No definite underlying marrow edema to suggest osteomyelitis is noted. 2. 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 Chest X-Ray 05/22/18 16:51 CONCLUSION: No evidence of pneumonia. Foot X-Ray 05/22/18 16:51 CONCLUSION: Negative Venous Doppler Study 05/22/18 16:58 CONCLUSION: 1. No evidence of thrombus, however, there is extensive subcutaneous edema identified throughout the right calf. Abdomen X-Ray 05/25/18 00:00 CONCLUSION: Nonspecific bowel gas pattern with moderate stool throughout the colon Abdomen/Bladder Ultrasound 05/28/18 00:00 CONCLUSION: 1. Urinary bladder is distended despite attempted voiding. 2. Heterogeneous prostate enlargement Physical Exam: GENERAL: NAD SKIN: Warm and dry. HEAD: Atraumatic. Normocephalic. EYES: Pupils equal and round. No scleral icterus. No injection or drainage. ENT: No nasal bleeding or discharge. Mucous membranes pink and moist. CARDIOVASCULAR: Regular rate and rhythm. RESPIRATORY: No accessory muscle use. Clear to auscultation. Breath sounds equal bilaterally. GASTROINTESTINAL: Abdomen soft, mildly tender w/o guarding or rebound and mildly distended. Hepatic and splenic margins not palpable. MUSCULOSKELETAL: Extremities without clubbing, cyanosis, R foot with surg dressing , VAC in place edema 1+ on the ankle NEUROLOGICAL: Awake and alert. 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
--- NOTE | 2018-05-28 21:49 | P.PNPOD ---
Subjective Interval history: s/p Right foot I and D DFI, gas, clincal OM. Comfortable at bedside. Physical Exam Vital signs: Vital Signs 05/28/18 00:00 05/28/18 08:00 05/28/18 12:00 Temperature 97.5 F L 97.9 F 97.8 F Pulse Rate 53 L 54 L 57 L Respiratory Rate 20 20 18 Blood Pressure 130/61 145/65 H 122/60 Pulse Oximetry 92 L 95 93 L 05/28/18 14:25 05/28/18 16:00 Temperature 97.9 F 97.4 F L Pulse Rate 54 L 58 L Respiratory Rate 20 18 Blood Pressure 145/65 H 120/62 Pulse Oximetry 93 L Intake & Output 05/28/18 05/28/18 05/29/18 06:59 18:59 06:59 Intake Total 617.5 / 617.5 717.5 / 717.5 Output Total 1510 / 1510 Balance 617.5 / 617.5 -792.5 / -792.5 Weight 112.9 kg Intake: IV 617.5 / 617.5 717.5 / 717.5 Vancomycin Inj 1,750 MG In NS 517.5 / 517.5 517.5 / 517.5 Inj 500 ML @ 250 mls/hr IV.SIG Q24H [facility] Rx#:[id number] Flagyl 500 MG Inj 100 ML @ 100 100 / 100 200 / 200 mls/hr IV.SIG Q6H PENDING SALE TO [facility] Rx#: [id number] Output: Urine 1510 / 1510 Other: Mode Setting Right Foot Continuous Continuous Date of Last Bowel Movement 05/25/18 05/25/18 Narrative: RLE intact VAC + mild drainage. Wound is 4.8x4.2x1.1 D fibrogranualr. + exposed medial metatarsal head. healthy bleeding. No puruelnce and no malodor. Medications and Allergies Active Medications: Active Medications Acetaminophen (Tylenol) 650 mg PO Q4H PRN PRN Reason: Temp > 100.4 Hydrocodone Bitart/Acetaminophen ([place] 5/325) 1 tab PO Q4H PRN PRN Reason: pain 1-5 Last Admin: 05/28/18 13:48 Dose: 1 tab Hydrocodone Bitart/Acetaminophen ([place] 10/325) 1 tab PO Q4H PRN PRN Reason: Pain 6-10. Last Admin: 05/28/18 17:28 Dose: 1 tab Al Hydroxide/Mg Hydroxide (Milk Of Geovanni Liq) 30 ml PO Q12H PRN PRN Reason: Mild Constipation Amlodipine Besylate (Norvasc) 5 mg PO DAILY [facility]ENDING [facility] Last Admin: 05/28/18 08:08 Dose: 5 mg Aspirin (Ecotrin) 81 mg PO DAILY PEND[facility] Last Admin: 05/28/18 08:06 Dose: 81 mg Atorvastatin Calcium (Lipitor) 40 mg PO DAILY [facility]END[facility] Last Admin: 05/28/18 08:04 Dose: 40 mg Benzonatate (Tessalon Perles) 200 mg PO BID PRN PRN Reason: COUGH Bisacodyl (Dulcolax Supp) 10 mg RECTAL DAILY PRN PRN Reason: SEVERE CONSITIPATION Dextrose (D50w Vial) 50 ml IV.PUSH UNSCH PRN PRN Reason: PER HYPOGLYCEMIA PROTOCOL Enalaprilat (Vasotec Inj) 1.25 mg IV.PUSH Q6H PRN PRN Reason: SEE LABEL COMMENTS Last Admin: 05/26/18 18:44 Dose: 1.25 mg Famotidine (Pepcid) 10 mg PO BID [facility]END[facility] Last Admin: 05/28/18 20:09 Dose: 10 mg Fluconazole (Diflucan) 150 mg PO WEEKLY PENDING S[facility] Furosemide (Lasix) 40 mg PO DAILY [facility]END[facility] Last Admin: 05/28/18 10:57 Dose: 40 mg Glucagon (Glucagon Inj) 1 mg OTHER PRN PRN PRN Reason: for Hypoglycemia Protocol Heparin Sodium (Porcine) (Heparin Inj) 5,000 units SQ Q12H [facility]END[facility] Last Admin: 05/28/18 20:09 Dose: 5,000 units Hydromorphone HCl (Dilaudid Pf Inj) 0.5 mg IV.PUSH Q4H PRN PRN Reason: BREAKTHROUGH PAIN Last Admin: 05/28/18 12:01 Dose: 0.5 mg Pharmacy Profile Note (Vancomycin Consult Pharmacy) 0 mls @ 0 mls/hr OTHER UNSCH [facility]ENDING SALE TO [facility] Vancomycin HCl 1,750 mg/ (Sodium Chloride) 517.5 mls @ 250 mls/hr IV.SIG Q24H [facility] Last Infusion: 05/28/18 17:20 Dose: Infused Metronidazole/Sodium Chloride (Flagyl 500 Mg Inj) 100 mls @ 100 mls/hr IV.SIG Q6H [facility]END[facility] Last Admin: 05/28/18 17:28 Dose: 100 mls/hr Insulin Aspart (Novolog Insulin Correctional Sugar Inj) 0 unit SQ ACHS AND 3AM PENDING SALE TO [facility]; Protocol Last Admin: 05/28/18 17:27 Dose: Not Given Insulin Detemir (Levemir Inj) 16 unit SQ BID [facility]END[facility]; Protocol Last Admin: 05/28/18 20:12 Dose: 16 unit Lactulose (Lactulose Liq) 30 ml PO DAILY PRN PRN Reason: SEVERE CONSITIPATION Lisinopril (Prinivil) 20 mg PO DAILY PENDING [facility] Last Admin: 05/28/18 08:05 Dose: 20 mg Metoprolol Tartrate (Lopressor) 25 mg PO BID PEND[facility] Last Admin: 05/28/18 20:09 Dose: 25 mg Miscellaneous (Pill Splitter) 1 each OTHER UNSCH PRN PRN Reason: SEE LABEL COMMENTS Naloxone HCl (Narcan Inj) 0.4 mg IV.PUSH UNSCH PRN PRN Reason: SEE LABEL COMMENTS Ondansetron HCl (Zofran Inj) 4 mg IV.PUSH Q6H PRN PRN Reason: MILD NAUSEA OR VOMITING Last Admin: 05/25/18 08:30 Dose: 4 mg Prochlorperazine Edisylate (Compazine Inj) 5 mg IV.PUSH Q4H PRN PRN Reason: MODERATE NAUSEA OR VOMITING Last Admin: 05/24/18 09:25 Dose: 5 mg Senna/Docusate Sodium (Rozina-Colace) 1 tab PO BID PENDING SALE [facility] Last Admin: 05/28/18 20:09 Dose: 1 tab Sennosides (Senokot) 17.2 mg PO Q12H PRN PRN Reason: Moderate Constipation Tamsulosin HCl (Flomax) 0.4 mg PO DAILY PENDING S[facility] Last Admin: 05/28/18 08:05 Dose: 0.4 mg Allergies Allergy/AdvReac Type Severity Reaction Status Date / Time bee venom protein (honey bee) Allergy Severe Anaphylaxis Verified 05/22/18 20:28 Home Medications Medication Instructions Recorded Confirmed Type aspirin [Aspir-81] 81 mg PO DAILY 05/22/18 05/22/18 History benzonatate [Tessalon Perles] 200 mg PO BID PRN 05/22/18 05/22/18 History clindamycin HCl 300 mg PO QID 05/22/18 05/22/18 History fluconazole 150 mg PO WEEKLY 05/22/18 05/22/18 History furosemide [Lasix] 40 mg PO DAILY 05/22/18 05/22/18 History insulin degludec [Tresiba 8 unit SUB-Q DAILY 05/22/18 05/22/18 History FlexTouch U-100] lisinopril 5 mg PO DAILY 05/22/18 05/22/18 History metoprolol tartrate 25 mg PO DAILY 05/22/18 05/22/18 History rosuvastatin 20 mg PO DAILY 05/22/18 05/22/18 History Results - Labs CBC & Chem 7: 05/25/18 05:30 05/28/18 04:30 Laboratory Results - last 24 hr 05/28/18 05/28/18 05/28/18 03:29 04:30 07:44 Creatinine 1.49 H Estimated GFR 47 L POC Glucose 182 H 163 H 05/28/18 05/28/18 05/28/18 11:20 16:48 20:11 Creatinine Estimated GFR POC Glucose 99 149 H 193 H - Imaging Impressions Abdomen/Bladder Ultrasound 05/28/18 00:00 CONCLUSION: 1. Urinary bladder is distended despite attempted voiding. 2. 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 Need to granulate 1cm to surface prior to skin substitute. Will need D/C with VAC for 2-3 mth possibly. Plan for d/c with wound VAC. Consult placed with Case management. 6 weeks of IV abx with clinical OM with exposed metatarsal.
[2018-05-29] MEDS: Insulin NovoLOG Aspart Correctional Sugar Inj SQ SCH ×5 (02:12→22:09)
[2018-05-29 07:20] LABS: Calcium 8.3 mg/dL (8.5-10.1); Carbon Dioxide 26.9 meq/L (21.0-32.0); Potassium 4.5 meq/L (3.5-5.1)
[2018-05-29] MEDS: Insulin Detemir Inj 1,000 UNIT/10 ML Vial SQ SCH ×2 (08:34→22:08)
[2018-05-29] MEDS: Heparin - SQ 10,000 UNITS/ML Vial SQ SCH ×2 (08:34→22:04)
[2018-05-29] MEDS: Famotidine 20 MG Tablet PO SCH ×2 (08:36→22:15)
[2018-05-29] MEDS: Senna/Docusate Sodium 8.6/50 MG Tablet PO SCH ×2 (08:36→22:16)
[2018-05-29] MEDS: Metoprolol Tartrate 25 MG Tablet PO SCH ×2 (08:37→22:16)
[2018-05-29] MEDS: amLODIPine 5 MG Tablet PO SCH (08:37)
[2018-05-29] MEDS: Furosemide 40 MG Tablet PO SCH (08:37)
[2018-05-29] MEDS: Lisinopril 20 MG Tablet PO SCH (08:40)
--- NOTE | 2018-05-29 12:19 | P.DCO ---
- Physical Therapy Order: Evaluate and treat - Home Health Nursing Order: Wound care and dressing changes, IV medication administration - Certification I have seen patient Néstor Anderson on 05/29/18. My clinical findings support the need for the requested home health care services because: Infection with risk of complications I certify that my clinical findings support that this patient is homebound because: Post-op weakness, Unsteady gait/balance
[2018-05-29] MEDS ORDERED: Polyethylene Glycol 3350 17 GM Packet PO ONE (14:24)
--- NOTE | 2018-05-29 14:35 | P.PNIM ---
Subjective Interval history: Reports not having bowel movement. Able to urinate without any difficulty now. Pain controlled on hydrocodone. Does not want breakthrough Dilaudid for pain. Physical Exam Vital signs: Vital Signs 05/28/18 16:00 05/28/18 20:00 05/29/18 00:00 Temperature 97.4 F L 97.9 F 97.2 F L Pulse Rate 58 L 61 62 Respiratory Rate 18 17 18 Blood Pressure 120/62 150/69 H 166/69 H Pulse Oximetry 93 L 93 L 92 L 05/29/18 07:30 05/29/18 11:53 Temperature 97.8 F 97.6 F Pulse Rate 57 L 57 L Respiratory Rate 18 20 Blood Pressure 171/79 H 157/64 H Pulse Oximetry 95 Intake & Output 05/28/18 05/29/18 05/29/18 18:59 06:59 18:59 Intake Total 817.5 / 817.5 200 / 200 Output Total 1510 / 1510 500 / 500 Balance -692.5 / -692.5 -300 / -300 Intake: IV 817.5 / 817.5 200 / 200 Vancomycin Inj 1,750 MG In NS 517.5 / 517.5 Inj 500 ML @ 250 mls/hr IV.SIG Q24H EBONY Rx#:[id number] Flagyl 500 MG Inj 100 ML @ 100 300 / 300 200 / 200 mls/hr IV.SIG Q6H EBONY Rx#: [id number] Output: Urine 1510 / 1510 500 / 500 Other: Mode Setting Right Foot Continuous Continuous Continuous Date of Last Bowel Movement 05/25/18 Narrative: GENERAL: Well-developed well-nourished. In no acute distress. SKIN: Warm and dry. No lesions noted. CARDIOVASCULAR: Regular rate and rhythm. 2/6 systolic murmur appreciated. RESPIRATORY: Relatively clear to auscultation bilaterally GASTROINTESTINAL: Abdomen soft, mildly distended, positive bowel sounds in all quadrants. MUSCULOSKELETAL: Right foot with wound VAC in place with Fabricio bandage. Trace edema right lower extremity NEUROLOGICAL: Awake and alert. Moves upper and lower extremities spontaneously. Normal speech. - Urinary Catheter Management 1000 Cath placed during this visit: no Results - Labs CBC & Chem 7: 05/25/18 05:30 05/29/18 05:59 Laboratory Results - last 24 hr 05/28/18 05/28/1818 16:48 20:11 02:09 Sodium Potassium Chloride Carbon Dioxide Anion Gap BUN Creatinine Estimated GFR POC Glucose 149 H 193 H 131 H Random Glucose Calcium 05/29/18 05/29/18 05/29/18 05:59 07:36 11:48 Sodium 142 Potassium 4.5 Chloride 108 H Carbon Dioxide 26.9 Anion Gap 7 BUN 23 H Creatinine 1.37 H Estimated GFR 52 L POC Glucose 140 H 149 H Random Glucose 123 H Calcium 8.3 L - Imaging Impressions Abdomen/Bladder Ultrasound 05/28/18 00:00 CONCLUSION: 1. Urinary bladder is distended despite attempted voiding. 2. Heterogeneous prostate enlargement Assessment and Plan - Assessment (1) Abscess of right foot Code(s): L02.611 - Cutaneous abscess of right foot Status: Acute - Plan 63-year-old white male with a history of diabetes mellitus type 2 insulin- dependent admitted for 1. Diabetic foot wound ongoing for at least 3 weeks Foot MRI concerning for first metatarsal abscess, no osteomyelitis noted Failed outpatient antibiotic therapy Reportedly outpatient culture showed MRSA -Consulted infectious disease, Dr. Marcia Bhagat -Continue with vancomycin and Flagyl with pharmacy to dose the vancomycin -Consulted podiatry, appreciate input patient is status post incision and drainage of right foot with wound VAC placement 05/23/[address] Carson - Per Podiatry: Discussed with patient he will require another debridement and graft to the area Discussed will attempt salvage unless condition deteriorates to require amputation. Dr Dorado to continue follow-up who performed a right foot read debridement with wound VAC placement on 05/26 Continue IV antibiotics vancomycin and Flagyl Heel contact weightbearing only to right foot. -CBC improved, afebrile, wound culture showing MRSA For further surgical intervention with the graft in the future Per podiatry Dr. Lin, patient will need a wound VAC for the next 2-3 months prior to consideration of graft. Will need [facility] wound care. 2. Acute renal failure superimposed on chronic kidney disease stage III Creatinine trending down with IVF Creatinine omission 2.02 -> improved at 1.6 today Can restart lisinopril -Continue to monitor on on antibiotics Avoid nephrotoxins Restart Lasix today secondary to urinary retention 3. Urinary retention Flomax now resolved. Renal ultrasound showed no obstruction. Enlarged prostate., Continue with Lasix. 4. Anemia, normocytic probable dilutional component -monitor labs 4. Diabetes mellitus, type II, insulin-dependent, with underlying diabetic nephropathy -Continue on Accu-Cheks before meals and at bedtime and q. 3 AM -clinical nurse educator following, Currently on Levemir 16 units subcu twice daily for blood sugar control. Will increase to 18 units twice daily for better sugar control blood sugars adequately controlled -Sliding scale coverage -Continue on long-acting insulin -Diabetic cardiac diet 5. Hyperlipidemia -continue on statin 6. Hypertension, chronic essential -continue on metoprolol -We will continue lisinopril 20 mg p.o. daily and Norvasc 5 mg p.o. nightly 7. Lower extremity swellingclinically improving. -Recommend compression stockings and elevation, Lasix to be restarted today -Echocardiogram shows EF of 55-60% 8. History of prosthetic valve replacement -Monitor volume status -Echocardiogram results reviewed. -Continue plans for outpatient follow-up with CT surgery, Dr. Hogan 9. Early ileus, constipationdose of MiraLAX and lactulose today, increase activity and up out of chair. DC Dilaudid counseled on side effects of pain medication narcotics. 10. DVT prophylaxis with subcu heparin GI prophylaxis with Pepcid Discharge Planning: Likely will need home health care with wound care.
[2018-05-29] MEDS: Vancomycin Inj 1,750 MG in Sodium Chlor 0.9% Inj 500 ML IV.SIG SCH (15:15)
[2018-05-29] MEDS: Morphine Inj 4 MG/ML Vial IV.PUSH PRN ×2 (17:40→22:00)
--- NOTE | 2018-05-29 19:44 | MP ---
cc: KennethrosalieJose Martin LYSSA DATE OF OPERATION: 05/23/2018 INDICATIONS: The patient was seen initially with a foul odor and drainage to the medial aspect of the right foot first metatarsophalangeal joint area. It was noted the patient had changes consistent with gas gangrene to that area with a dark necrotic area, purulent drainage and foul odor. I discussed with the patient, it was imperative that we at least debride, irrigate, drain, make an incision and remove as much necrotic tissue as possible from that area in order to reduce the infectious load to reduce the spread of infection as soon as possible. I discussed with the patient, he will likely need more surgery in the future versus continued wound care in order to heal the residual wound that will definitely be present. I discussed with him that it could lead to amputation in the future with lack of soft tissue coverage versus further soft tissue surgeries and then it would be undetermined at this time until after the surgery and determine what tissue would be viable in the future. The patient agreed to move forward with incision and drainage of right foot abscess. DESCRIPTION OF PROCEDURE: He was seen in preop holding by myself, nursing staff, and anesthesia, where the correct patient side, and site were all confirmed to be correct in the right foot. He was then taken to the surgical suite in supine position. Right foot was prepped and draped in normal sterile fashion. Following timeout as per facility protocol, attention was directed to the medial first metatarsophalangeal joint where an incision was made at the level of the joint. Purulent drainage was expressed with foul odor and necrotic tissue present down to but not including the first metatarsophalangeal joint capsule. All the tissue superficial to the capsule was removed. The abscess extended plantarly to the sesamoid apparatus area, but did not appear to communicate to bone. Proximally at the abscess extended to the first metatarsal neck area, necrotic tissue was excised with rongeur, curet, and #15 blade, followed by irrigation with 3 liters of normal saline and irrigant and a small wound VAC was placed at 125 mmHg medium continuous and a dressing consisting of cast padding, and Fabricio bandage was applied to the right foot. The patient tolerated procedure and anesthesia well without complications and was taken back to PACU with vital signs stable and vascular status intact to the remainder of the right foot. He will be nonweightbearing right lower extremity and will possibly need further surgery in the future to be determined. We will await cultures to determine further antibiotics. SHORT OPERATIVE NOTE SURGEON: Jose Martin Carson DPM DIRECTOR [employer]: Staff. PREOPERATIVE DIAGNOSIS: Abscess, right foot with gas gangrene. POSTOPERATIVE DIAGNOSIS: Abscess, right foot with gas gangrene. PROCEDURE PERFORMED: Incision and drainage, right foot with wound VAC. ESTIMATED BLOOD LOSS: 5 mL PATHOLOGY: Culture, right foot. No tourniquet utilized. TYPE OF ANESTHESIA: General endotracheal anesthesia. CONDITION: Stable to PACU. DISPOSITION: Nonweightbearing right lower extremity. We will assess tissue viability to determine if further surgery is necessary in the coming days. LYSSA Buenrostro/dunia , 03:41 PM , 03:50 PM
[2018-05-30] MEDS: Morphine Inj 4 MG/ML Vial IV.PUSH PRN ×5 (01:17→22:47)
[2018-05-30] MEDS: Insulin NovoLOG Aspart Correctional Sugar Inj SQ SCH ×5 (03:31→21:00)
[2018-05-30 06:17] LABS: Calcium 8.5 mg/dL (8.5-10.1); Carbon Dioxide 26.3 meq/L (21.0-32.0); Potassium 4.5 meq/L (3.5-5.1)
[2018-05-30] MEDS: Heparin - SQ 10,000 UNITS/ML Vial SQ SCH ×2 (08:40→20:04)
[2018-05-30] MEDS: Metoprolol Tartrate 25 MG Tablet PO SCH ×2 (08:41→20:03)
[2018-05-30] MEDS: Lisinopril 20 MG Tablet PO SCH (08:41)
[2018-05-30] MEDS: Famotidine 20 MG Tablet PO SCH ×2 (08:41→20:03)
[2018-05-30] MEDS: Senna/Docusate Sodium 8.6/50 MG Tablet PO SCH ×2 (08:41→20:03)
[2018-05-30] MEDS: Furosemide 40 MG Tablet PO SCH (08:42)
[2018-05-30] MEDS: Insulin Detemir Inj 1,000 UNIT/10 ML Vial SQ SCH ×2 (08:42→22:40)
[2018-05-30] MEDS: amLODIPine 5 MG Tablet PO SCH (08:44)
[2018-05-30] MEDS ORDERED: Magnesium Citrate Liq 300 ML Bottle PO ONE ×2 (11:33→13:38)
--- NOTE | 2018-05-30 12:50 | XR ---
EXAM DATE: 05/30/2018 12:41 PM EDT AGE/SEX: 63 years / Male INDICATIONS: Constipation. CLINICAL DATA: This is the patient's subsequent encounter. Patient reports that signs and symptoms h ave been present for 1 week and indicates a pain score of 0/10. MEDICAL/SURGICAL HISTORY: . Hypertension. Diabetes mellitus type II. . CABG. Left foot surger y. COMPARISON: [facility], ABDOMEN 1V KUB, 05/25/2018. . FINDINGS: Moderate amount of stool within the colon. No dilated loops of bowel are seen. Degenerative changes lumbar spine and hips. CONCLUSION: Moderate amount of stool. Electronically signed by: David Hale MD 05/30/2018 12:49 PM EDT
--- NOTE | 2018-05-30 12:54 | P.PNIM ---
Subjective Interval history: Patient states he had multiple episodes of nonbilious vomiting earlier this morning. Had poor appetite did not eat breakfast. Still has not had any bowel movement despite taking medications. Overall right foot pain controlled. Physical Exam Vital signs: Vital Signs 05/29/18 15:14 05/29/18 20:00 05/30/18 00:00 Temperature 98 F 97.9 F Pulse Rate 62 60 Respiratory Rate 14 20 20 Blood Pressure 168/76 H 144/66 H Pulse Oximetry 92 L 95 05/30/18 08:00 Temperature 97.3 F L Pulse Rate 58 L Respiratory Rate 20 Blood Pressure 166/75 H Pulse Oximetry 95 Intake & Output 05/29/18 05/30/18 05/30/18 18:59 06:59 18:59 Intake Total 1917.5 / 1917.5 100 / 100 200 / 200 Output Total 600 / 600 150 / 150 Balance 1317.5 / 1317.5 100 / 100 50 / 50 Weight 108.3 kg Intake: IV 717.5 / 717.5 100 / 100 200 / 200 Vancomycin Inj 1,750 MG In NS 517.5 / 517.5 Inj 500 ML @ 250 mls/hr IV.SIG Q24H EBONY Rx#:[id number] Flagyl 500 MG Inj 100 ML @ 100 200 / 200 100 / 100 200 / 200 mls/hr IV.SIG Q6H EBONY Rx#: [id number] Oral 1200 / 1200 Output: Urine 600 / 600 150 / 150 Other: Mode Setting Right Foot Continuous Continuous Continuous # Bowel Movements 1 Narrative: GENERAL: Well-developed well-nourished. In no acute distress. SKIN: Warm and dry. No lesions noted. CARDIOVASCULAR: Regular rate and rhythm. 2/6 systolic murmur appreciated. RESPIRATORY: Relatively clear to auscultation bilaterally GASTROINTESTINAL: Abdomen soft, mildly distended, positive bowel sounds in all quadrants. MUSCULOSKELETAL: Right foot with wound VAC in place with Fabricio bandage. Trace edema right lower extremity resolving NEUROLOGICAL: Awake and alert. Moves upper and lower extremities spontaneously. Normal speech. - Urinary Catheter Management 1000 Cath placed during this visit: no Results - Labs CBC & Chem 7: 05/25/18 05:30 05/30/18 04:27 Laboratory Results - last 24 hr 05/29/18 05/29/18 05/30/18 17:38 21:49 03:00 Sodium Potassium Chloride Carbon Dioxide Anion Gap BUN Creatinine Estimated GFR POC Glucose 176 H 181 H 148 H Random Glucose Calcium 05/30/18 05/30/18 05/30/18 04:27 07:37 11:31 Sodium 143 Potassium 4.5 Chloride 109 H Carbon Dioxide 26.3 Anion Gap 8 BUN 19 H Creatinine 1.45 H Estimated GFR 49 L POC Glucose 145 H 138 H Random Glucose 128 H Calcium 8.5 Assessment and Plan - Assessment (1) Abscess of right foot Code(s): L02.611 - Cutaneous abscess of right foot Status: Acute - Plan 63-year-old white male with a history of diabetes mellitus type 2 insulin- dependent admitted for 1. Diabetic foot wound ongoing for at least 3 weeks Foot MRI concerning for first metatarsal abscess, no osteomyelitis noted Failed outpatient antibiotic therapy Reportedly outpatient culture showed MRSA -Consulted infectious disease, Dr. Marcia Bhagat -Continue with vancomycin and Flagyl with pharmacy to dose the vancomycin -Consulted podiatry, appreciate input patient is status post incision and drainage of right foot with wound VAC placement 05/23/[address] Yamileth Dorado performed a right foot redebridement with wound VAC placement on 05/26 Continue IV antibiotics vancomycin and Flagyl Heel contact weightbearing only to right foot. -CBC improved, afebrile, wound culture showing MRSA For further surgical intervention with the graft in the future Per podiatry Dr. Lin, patient will need a wound VAC for the next 2-3 months prior to consideration of graft. Will need [facility] wound care. 2. Acute renal failure superimposed on chronic kidney disease stage III Creatinine trending down with IVF Creatinine omission 2.02 -> improved at 1.4 today Can restart lisinopril -Continue to monitor on on antibiotics Avoid nephrotoxins Continue with Lasix 3. Urinary retention now resolved. Continue with Flomax. Renal ultrasound showed no obstruction. Enlarged prostate., Continue with Lasix. 4. Anemia, normocytic probable dilutional component -monitor labs 4. Diabetes mellitus, type II, insulin-dependent, with underlying diabetic nephropathy -Continue on Accu-Cheks before meals and at bedtime and q. 3 AM -certified lactation educator following, Currently on Levemir 18 units subcu twice daily will decrease back to 16 units due to patient's poor oral intake controlled -Sliding scale coverage -Continue on long-acting insulin -Diabetic cardiac diet 5. Hyperlipidemia -continue on statin 6. Hypertension, chronic essential -continue on metoprolol -We will continue lisinopril 20 mg p.o. daily and Norvasc 5 mg p.o. nightly 7. Lower extremity swellingclinically improving. -Recommend compression stockings and elevation, Lasix -Echocardiogram shows EF of 55-60% 8. History of prosthetic valve replacement -Monitor volume status -Echocardiogram results reviewed. -Continue plans for outpatient follow-up with CT surgery, Dr. Hogan 9. Early ileus, constipationgive dose of mag citrate today along with lactulose, increase activity and up out of chair. DC Dilaudid counseled on side effects of pain medication narcotics. Check KUB, IV Zofran for nausea 10. DVT prophylaxis with subcu heparin GI prophylaxis with Pepcid Discharge Planning: Likely will need home health care with wound care.
[2018-05-30] MEDS: Vancomycin Inj 1,750 MG in Sodium Chlor 0.9% Inj 500 ML IV.SIG SCH (15:18)
--- NOTE | 2018-05-30 18:06 | P.PNID ---
Subjective Remarks: afebrile GFR cont to improve now to 49 co vomiting x 4 today, no BM + some abd discomfort, pain and distention on liquid diet foot bothers him less Antibiotics: flagyl vancomycin Allergies/Adverse Reactions: Allergies bee venom protein (honey bee) Allergy (Severe, Verified 05/22/18 20:28) Anaphylaxis Objective Vital Signs 05/29/18 20:00 05/30/18 00:00 05/30/18 08:00 Temperature 98 F 97.9 F 97.3 F L Pulse Rate 62 60 58 L Respiratory Rate 20 20 20 Blood Pressure 168/76 H 144/66 H 166/75 H Pulse Oximetry 92 L 95 95 05/30/18 12:00 05/30/18 16:00 Temperature 98 F 97.5 F L Pulse Rate 59 L 58 L Respiratory Rate 20 19 Blood Pressure 180/79 H 179/82 H Pulse Oximetry 95 95 Intake & Output 05/29/18 05/30/18 05/30/18 18:59 06:59 18:59 Intake Total 1917.5 / 1917.5 100 / 100 200 / 200 Output Total 600 / 600 650 / 650 Balance 1317.5 / 1317.5 100 / 100 -450 / -450 Weight 108.3 kg Intake: IV 717.5 / 717.5 100 / 100 200 / 200 Vancomycin Inj 1,750 MG In NS 517.5 / 517.5 Inj 500 ML @ 250 mls/hr IV.SIG Q24H EBONY Rx#:[id number] Flagyl 500 MG Inj 100 ML @ 100 200 / 200 100 / 100 200 / 200 mls/hr IV.SIG Q6H EBONY Rx#: [id number] Oral 1200 / 1200 Output: Urine 600 / 600 150 / 150 Emesis 500 / 500 Other: Mode Setting Right Foot Continuous Continuous Continuous # Bowel Movements 1 05/23/18 13:16 Wound - Foot Fungal Smear - Final No fungal elements seen 05/23/18 13:16 Wound - Foot Fungal Culture - Preliminary No growth in 1 week 05/23/18 13:16 Wound - Foot Acid Fast Bacilli Smear - Final No acid fast bacilli seen 05/23/18 13:16 Wound - Foot Mycobacterial Culture - Preliminary No growth in 1 week Lab - Chemistry Results 05/28/18 05/29/18 05/29/18 20:11 02:09 05:59 Sodium 142 Potassium 4.5 Chloride 108 H Carbon Dioxide 26.9 Anion Gap 7 BUN 23 H Creatinine 1.37 H Estimated GFR 52 L POC Glucose 193 H 131 H Random Glucose 123 H Calcium 8.3 L 05/29/18 05/29/18 05/29/18 07:36 11:48 17:38 Sodium Potassium Chloride Carbon Dioxide Anion Gap BUN Creatinine Estimated GFR POC Glucose 140 H 149 H 176 H Random Glucose Calcium 05/29/18 05/30/18 05/30/18 21:49 03:00 04:27 Sodium 143 Potassium 4.5 Chloride 109 H Carbon Dioxide 26.3 Anion Gap 8 BUN 19 H Creatinine 1.45 H Estimated GFR 49 L POC Glucose 181 H 148 H Random Glucose 128 H Calcium 8.5 05/30/18 05/30/18 05/30/18 07:37 11:31 16:05 Sodium Potassium Chloride Carbon Dioxide Anion Gap BUN Creatinine Estimated GFR POC Glucose 145 H 138 H 124 H Random Glucose Calcium Imaging: ITS Impressions Foot MRI 05/22/18 00:00 CONCLUSION: 1. Subcutaneous collection of air and fluid along the medial aspect of the right foot adjacent to the distal shaft and head of the first metatarsal which measures 2.4 x 1.8 cm raising possibility of abscess. Contrast-enhanced MRI would be helpful for confirmation if clinically indicated. No definite underlying marrow edema to suggest osteomyelitis is noted. 2. 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 Chest X-Ray 05/22/18 16:51 CONCLUSION: No evidence of pneumonia. Foot X-Ray 05/22/18 16:51 CONCLUSION: Negative Venous Doppler Study 05/22/18 16:58 CONCLUSION: 1. No evidence of thrombus, however, there is extensive subcutaneous edema identified throughout the right calf. Abdomen/Bladder Ultrasound 05/28/18 00:00 CONCLUSION: 1. Urinary bladder is distended despite attempted voiding. 2. Heterogeneous prostate enlargement Abdomen X-Ray 05/30/18 00:00 CONCLUSION: Moderate amount of stool. Physical Exam: GENERAL: NAD SKIN: Warm and dry. HEAD: Atraumatic. Normocephalic. EYES: Pupils equal and round. No scleral icterus. No injection or drainage. ENT: No nasal bleeding or discharge. Mucous membranes pink and moist. CARDIOVASCULAR: Regular rate and rhythm. RESPIRATORY: No accessory muscle use. Clear to auscultation. Breath sounds equal bilaterally. GASTROINTESTINAL: Abdomen soft, mildly tender in LLQ w/o guarding or rebound and quite distended. Hepatic and splenic margins not palpable. MUSCULOSKELETAL: Extremities without clubbing, cyanosis, R foot with surg dressing , VAC in place trace edema and improving erythema of the ankle NEUROLOGICAL: Awake and alert. 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
[2018-05-30 18:54] LABS: Baso # (Auto) 0.1 th/mm3 (0.0-0.2); Baso % (Auto) 1.2 % (0.0-2.0); Eos # (Auto) 0.1 th/mm3 (0.0-0.4); Hematocrit 34.1 % (39.0-51.0); Hemoglobin 11.4 gm/dL (13.0-17.0); Lymph # (Auto) 1.2 th/mm3 (1.0-4.8); Mean Corpuscular HGB Conc 33.3 % (32.0-36.0); Mean Corpuscular Hemoglobin 28.2 pg (27.0-34.0); Mean Corpuscular Volume 84.7 fL (80.0-100.0); Mean Platelet Volume 7.5 fL (7.0-11.0); Mono # (Auto) 0.6 th/mm3 (0.0-0.9); Neut # (Auto) 8.5 th/mm3 (1.8-7.7); Neut % (Auto) 80.8 % (16.0-70.0); Platelet Count 312 th/mm3 (150-450); Red Blood Count 4.03 mil/mm3 (4.50-5.90); Red Cell Distribution Width 13.5 % (11.6-17.2); White Blood Count 10.5 th/mm3 (4.0-11.0)
[2018-05-30 19:10] LABS: Albumin 2.8 g/dL (3.4-5.0); Anion Gap 10 meq/L (5-15); Aspartate Aminotransferase 34 U/L (15-37); Blood Urea Nitrogen 15 mg/dL (7-18); Calcium 8.8 mg/dL (8.5-10.1); Carbon Dioxide 25.9 meq/L (21.0-32.0); Chloride 105 meq/L (98-107); Glomerular Filtration Rate 58 mL/min (>89); Glucose,Random 119 mg/dL (74-106); Potassium 4.2 meq/L (3.5-5.1); Sodium 141 meq/L (136-145)
[2018-05-30 19:11] LABS: Alanine Aminotransferase 36 U/L (12-78)
[2018-05-30 19:14] LABS: Alkaline Phosphatase 56 U/L (45-117); Total Protein 7.4 g/dL (6.4-8.2)
[2018-05-30] MEDS ORDERED: Diatrizoate Meglum/Diatrizoate Sod Liq 9 ML UDC PO ONE (19:15)
--- NOTE | 2018-05-30 22:31 | CT ---
EXAM DATE: 05/30/2018 10:23 PM EDT AGE/SEX: 63 years / Male INDICATIONS: Abdomen pain with nausea and vomting. CLINICAL DATA: This is the patient's initial encounter. Patient reports that signs and symptoms have been present for 1 day and indicates a pain score of 2/10. MEDICAL/SURGICAL HISTORY: Cardiovascular disease. Hypertension. Diabetes mellitus type II. CA BG. ORAL CONTRAST: Prescribed oral contrast ingested. RADIATION DOSE: 24.86 CTDI (mGy) ; Patient body habitus COMPARISON: No prior exams available for comparison. TECHNIQUE: Multiple contiguous axial images were obtained through the abdomen and pelvis following b olus infusion of 95 ml Omnipaque 350 (iohexol) nonionic water-soluble contrast as a single exam dos e. Prescribed oral contrast ingested. Using automated exposure control and adjustment of the mA and/ or kV according to patient size, radiation dose was kept as low as reasonably achievable to obtain op timal diagnostic quality images. DICOM format image data is available electronically for review and comparison. FINDINGS: Lower Lungs: Small moderate-sized pleural effusions right greater than left. Bilateral lower lung ate lectasis. Liver: Triangular hypodensity in the anterior left lobe of the liver likely representing focal fat. L iver is otherwise homogeneous. Gallbladder within normal limits. Spleen: Homogeneous density without enlargement. Pancreas: Unremarkable without mass or calcification. Kidneys: Normal in size and shape. No evidence of mass or hydronephrosis. Adrenal Glands: Unremarkable. Aorta: The aorta and proximal iliac vessels are grossly unremarkable without aneurysmal dilation. Bowel/Mesentery: No evidence of bowel dilatation. No free air or free fluid. Appendix not identified . Abdominal Wall: Anasarca bilaterally at the flanks. Retroperitoneum: No evidence of adenopathy in the retrocrural, para-aortic, or deep pelvic regions. Bladder: Moderately distended. Reproductive Organs: Enlarged prostate measuring 6.8 cm in transverse dimension. Inguinal: The inguinal region is unremarkable without evidence of adenopathy. Bony Structures: Osteoarthritic findings of the hips. Degenerative findings of lumbar spine. CONCLUSION: 1. Bilateral pleural effusions right greater than left and anasarca. Question fluid overload or hypo albuminemia. 2. Markedly enlarged prostate and distended urinary bladder. 3. Osteoarthritic findings of the hips and degenerative findings of the lumbar spine. Electronically signed by: Sandoval Marlow MD 05/30/2018 10:30 PM EDT
[2018-05-31] MEDS: Morphine Inj 4 MG/ML Vial IV.PUSH PRN ×5 (03:36→19:45)
[2018-05-31] MEDS: Insulin NovoLOG Aspart Correctional Sugar Inj SQ SCH ×5 (03:45→21:11)
[2018-05-31 06:26] LABS: Calcium 8.8 mg/dL (8.5-10.1); Carbon Dioxide 27.9 meq/L (21.0-32.0); Potassium 3.8 meq/L (3.5-5.1)
[2018-05-31] MEDS: Heparin - SQ 10,000 UNITS/ML Vial SQ SCH ×2 (08:49→21:09)
[2018-05-31] MEDS: Furosemide 40 MG Tablet PO SCH (08:50)
[2018-05-31] MEDS: amLODIPine 5 MG Tablet PO SCH (08:50)
[2018-05-31] MEDS: Senna/Docusate Sodium 8.6/50 MG Tablet PO SCH ×2 (08:50→21:09)
[2018-05-31] MEDS: Lisinopril 20 MG Tablet PO SCH (08:51)
[2018-05-31] MEDS: Famotidine 20 MG Tablet PO SCH ×2 (08:51→21:09)
[2018-05-31] MEDS: Metoprolol Tartrate 25 MG Tablet PO SCH ×2 (08:52→21:09)
[2018-05-31] MEDS: Insulin Detemir Inj 1,000 UNIT/10 ML Vial SQ SCH ×2 (08:52→21:10)
[2018-05-31] MEDS ORDERED: Sod Phosphate/Sod Biphosphate (Adult) Enema 133 ML Bottle RECTAL ONE (12:11)
--- NOTE | 2018-05-31 12:16 | P.PNIM ---
Subjective Interval history: Patient continues to have nausea had one episode of vomiting this morning. No bowel movement yet despite taking the prescribed medication. Reports abdominal discomfort however no significant pain. No fevers or chills. Physical Exam Vital signs: Vital Signs 05/30/18 16:00 05/30/18 19:38 05/30/18 20:00 Temperature 97.5 F L 97.8 F Pulse Rate 58 L 61 Respiratory Rate 19 17 18 Blood Pressure 179/82 H 136/65 Pulse Oximetry 95 97 05/30/18 20:10 05/30/18 22:49 05/31/18 00:43 Temperature 97.8 F Pulse Rate 60 Respiratory Rate 18 17 18 Blood Pressure 159/72 H Pulse Oximetry 96 05/31/18 01:21 05/31/18 01:55 05/31/18 03:40 Temperature Pulse Rate Respiratory Rate 18 18 17 Blood Pressure Pulse Oximetry 05/31/18 05:11 05/31/18 05:45 05/31/18 08:00 Temperature 97.7 F Pulse Rate 58 L Respiratory Rate 17 17 18 Blood Pressure 187/79 H Pulse Oximetry 98 Intake & Output 05/30/18 05/31/18 05/31/18 18:59 06:59 18:59 Intake Total 817.5 / 817.5 680 / 680 100 / 100 Output Total 650 / 650 650 / 650 Balance 167.5 / 167.5 30 / 30 100 / 100 Weight 108 kg Intake: IV 817.5 / 817.5 200 / 200 100 / 100 Vancomycin Inj 1,750 MG In NS 517.5 / 517.5 Inj 500 ML @ 250 mls/hr IV.SIG Q24H EBONY Rx#:[id number] Flagyl 500 MG Inj 100 ML @ 100 300 / 300 200 / 200 100 / 100 mls/hr IV.SIG Q6H EBONY Rx#: [id number] Oral 480 / 480 Output: Urine 150 / 150 650 / 650 Emesis 500 / 500 Wound Vac Amount 0 / 0 Right Foot 0 / 0 Other: Mode Setting Right Foot Continuous Continuous Continuous Date of Last Bowel Movement 05/23/18 Narrative: GENERAL: Well-developed well-nourished. In no acute distress. SKIN: Warm and dry. No lesions noted. CARDIOVASCULAR: Regular rate and rhythm. 2/6 systolic murmur appreciated. RESPIRATORY: Relatively clear to auscultation bilaterally, slightly diminished breath sounds in the bases bilaterally GASTROINTESTINAL: Abdomen soft, mildly distended, few bowel sounds in all quadrants MUSCULOSKELETAL: Right foot with wound VAC in place with Fabricio bandage. Trace edema right lower extremity resolving NEUROLOGICAL: Awake and alert. Moves upper and lower extremities spontaneously. Normal speech. - Urinary Catheter Management 1000 Cath placed during this visit: no Results - Labs CBC & Chem 7: 05/30/18 18:29 05/31/18 05:34 Laboratory Results - last 24 hr 05/30/18 05/30/18 05/30/18 16:05 18:29 18:29 WBC 10.5 RBC 4.03 L Hgb 11.4 L Hct 34.1 L MCV 84.7 MCH 28.2 MCHC 33.3 RDW 13.5 Plt Count 312 D MPV 7.5 Neut % (Auto) 80.8 H Lymph % (Auto) 11.0 [place] % (Auto) 6.0 Eos % (Auto) 1.0 Baso % (Auto) 1.2 Neut # (Auto) 8.5 H Lymph # (Auto) 1.2 [place] # (Auto) 0.6 Eos # (Auto) 0.1 Baso # (Auto) 0.1 WBC Differential . Differential Comment Auto diff final Sodium 141 Potassium 4.2 Chloride 105 Carbon Dioxide 25.9 Anion Gap 10 BUN 15 Creatinine 1.25 Estimated GFR 58 L POC Glucose 124 H Random Glucose 119 H Calcium 8.8 Total Bilirubin 0.5 AST 34 ALT 36 Alkaline Phosphatase 56 Total Protein 7.4 Albumin 2.8 L 05/30/18 05/31/18 05/31/18 21:28 03:42 05:34 WBC RBC Hgb Hct MCV MCH MCHC RDW Plt Count MPV Neut % (Auto) Lymph % (Auto) [place] % (Auto) Eos % (Auto) Baso % (Auto) Neut # (Auto) Lymph # (Auto) [place] # (Auto) Eos # (Auto) Baso # (Auto) WBC Differential Differential Comment Sodium 140 Potassium 3.8 Chloride 105 Carbon Dioxide 27.9 Anion Gap 7 BUN 14 Creatinine 1.23 Estimated GFR 59 L POC Glucose 128 H 129 H Random Glucose 113 H Calcium 8.8 Total Bilirubin AST ALT Alkaline Phosphatase Total Protein Albumin 05/31/18 05/31/18 07:21 11:13 WBC RBC Hgb Hct MCV MCH MCHC RDW Plt Count MPV Neut % (Auto) Lymph % (Auto) [place] % (Auto) Eos % (Auto) Baso % (Auto) Neut # (Auto) Lymph # (Auto) [place] # (Auto) Eos # (Auto) Baso # (Auto) WBC Differential Differential Comment Sodium Potassium Chloride Carbon Dioxide Anion Gap BUN Creatinine Estimated GFR POC Glucose 127 H 125 H Random Glucose Calcium Total Bilirubin AST ALT Alkaline Phosphatase Total Protein Albumin Microbiology 05/23/18 13:16 Wound - Foot Fungal Smear - Final No fungal elements seen 05/23/18 13:16 Wound - Foot Fungal Culture - Preliminary No growth in 1 week 05/23/18 13:16 Wound - Foot Acid Fast Bacilli Smear - Final No acid fast bacilli seen 05/23/18 13:16 Wound - Foot Mycobacterial Culture - Preliminary No growth in 1 week - Imaging Impressions Abdomen X-Ray 05/30/18 00:00 CONCLUSION: Moderate amount of stool. Abdomen/Pelvis CT 05/30/18 00:00 CONCLUSION: 1. Bilateral pleural effusions right greater than left and anasarca. Question fluid overload or hypoalbuminemia. 2. Markedly enlarged prostate and distended urinary bladder. 3. Osteoarthritic findings of the hips and degenerative findings of the lumbar spine. Assessment and Plan - Assessment (1) Abscess of right foot Code(s): L02.611 - Cutaneous abscess of right foot Status: Acute - Plan 63-year-old white male with a history of diabetes mellitus type 2 insulin- dependent admitted for 1. Diabetic foot wound ongoing for at least 3 weeks Foot MRI concerning for first metatarsal abscess, no osteomyelitis noted Failed outpatient antibiotic therapy Reportedly outpatient culture showed MRSA -Consulted infectious disease, Dr. Marcia Bhagat who feels patient will need long-term antibiotics. -Continue with vancomycin and Flagyl with pharmacy to dose the vancomycin -Consulted podiatry, appreciate input patient is status post incision and drainage of right foot with wound VAC placement 05/23/[address] Yamileth Dorado performed a right foot redebridement with wound VAC placement on 05/26 Continue IV antibiotics vancomycin and Flagyl Heel contact weightbearing only to right foot. -CBC improved, afebrile, wound culture showing MRSA For further surgical intervention with the graft in the future Per podiatry Dr. Lin, patient will need a wound VAC for the next 2-3 months prior to consideration of graft. Will need [facility] wound care. 2. Acute renal failure superimposed on chronic kidney disease stage III Creatinine trending down with IVF Creatinine omission 2.02 -> improved at 1.2 today Can restart lisinopril -Continue to monitor on on antibiotics Avoid nephrotoxins Continue with Lasix 3. Urinary retention now resolved. Continue with Flomax. Renal ultrasound showed no obstruction. Enlarged prostate., Continue with Lasix. 4. Anemia, normocytic probable dilutional component -monitor labs 4. Diabetes mellitus, type II, insulin-dependent, with underlying diabetic nephropathy -Continue on Accu-Cheks before meals and at bedtime and q. 3 AM -public health educator following, Currently on Levemir 16 units subcu twice daily -Sliding scale coverage -Continue on long-acting insulin -Diabetic cardiac diet 5. Hyperlipidemia -continue on statin 6. Hypertension, chronic essential -continue on metoprolol -We will continue lisinopril 20 mg p.o. daily and Norvasc 5 mg p.o. nightly 7. Lower extremity swellingclinically improving. -Recommend compression stockings and elevation, Lasix -Echocardiogram shows EF of 55-60% 8. History of prosthetic valve replacement -Monitor volume status -Echocardiogram results reviewed. -Continue plans for outpatient follow-up with CT surgery, Dr. Hogan 9. Postop ileus, constipationstatus post mag citrate yesterday along with lactulose with still no bowel movement, patient will prefer not to have NG tube if avoidable, consult GI for further recommendations, Fleet enema 1 today, increase activity and up out of chair. DC Dilaudid counseled on side effects of pain medication narcotics. CT showed no acute findings, KUB with large amount of stool. 10. DVT prophylaxis with subcu heparin GI prophylaxis with Pepcid Discharge Planning: Likely will need home health care with wound care, wound VAC, IV antibiotics, physical therapy when stable.
[2018-05-31] MEDS: Vancomycin Inj 1,750 MG in Sodium Chlor 0.9% Inj 500 ML IV.SIG SCH (13:59)
--- NOTE | 2018-05-31 14:40 | P.CONGI ---
History of Present Illness Consult date: 05/31/18 Consult reason: ileus Chief complaint: RLE cellulitis, acute kidney injury History of Present Illness: This is a 63-year-old male past medical history of CHF, CABG of 3 vessels, DM, and neuropathy who is here for wound on the right foot. He is s/p I &D of right food with wound vac on 05/23/18. GI consulted for ileus. Patient hasn' t had a BM for 10 days. Abdomen X-Ray 05/30/18---> Moderate amount of stool. Abdomen/Pelvis CT 05/30/18 Bilateral pleural effusions right greater than left and anasarca. Question fluid overload or hypoalbuminemia. Markedly enlarged prostate and distended urinary bladder. Osteoarthritic findings of the hips and degenerative findings of the lumbar spine. Patient received fleet enema and is on bowel regimen. Patient had a very large Bm today s/p digital disimpaction done by pt himself. He reports immense relief afterwards. No bleeding. He had some nausea/vomiting yesterday but non today. <Rachelle Pedro - Last Filed: 05/31/18 14:26> Review of Systems All other systems reviewed negative except as stated in HPI <Rachelle Pedro - Last Filed: 05/31/18 14:26> PMFSH - History History Provided By: Patient - Medical History Medical History: Medical History (Last Reviewed 05/28/18 @ 14:25 by Jv Esqueda) CAD (coronary artery disease) Diabetes Diabetic foot infection Diabetic neuropathy Hyperlipidemia Hypertension - Surgical History Surgical History: Surgical History (Last Reviewed 05/29/18 @ 11:06 by Santa Osman) Mitral valve replaced S/P CABG x 3 - Family History Family History: Family History (Last Reviewed 05/24/18 @ 01:26 by Modesta Bhagat MD) Other Family history of diabetes mellitus Family history of hypertension - Tobacco History Second Hand Smoke Exposure: No Tobacco Use In Past 30 Days: No Smoking Status: Never smoker - Alcohol History How Often Do You Have a Drink Containing Alcohol: Never - Substance Use History Substance History: No History of Abuse - Travel History History of Recent Travel: No Recent Travel in the [place] Within the Last 8 Weeks: No Recent Travel Out of the Country Within the Last 8 Weeks: No - Immunization History Tetanus Immunization: <5 Years Hx Influenza Vaccine This Season: No <Rachelle Pedro - Last Filed: 05/31/18 14:26> - Medical History Medical History: Medical History (Last Reviewed 05/28/18 @ 14:25 by Jv Esqueda) CAD (coronary artery disease) Diabetes Diabetic foot infection Diabetic neuropathy Hyperlipidemia Hypertension - Surgical History Surgical History: Surgical History (Last Reviewed 05/29/18 @ 11:06 by Santa Osman) Mitral valve replaced S/P CABG x 3 - Family History Family History: Family History (Last Reviewed 05/24/18 @ 01:26 by Modesta Bhagat MD) Other Family history of diabetes mellitus Family history of hypertension <JenaerickieLisa krause - Last Filed: 05/31/18 16:28> Medications and Allergies Active Medications: Active Medications Acetaminophen (Tylenol) 650 mg PO Q4H PRN PRN Reason: Temp > 100.4 Hydrocodone Bitart/Acetaminophen ([place] 5/325) 1 tab PO Q4H PRN PRN Reason: pain 1-5 Last Admin: 05/28/18 13:48 Dose: 1 tab Hydrocodone Bitart/Acetaminophen ([place] 10/325) 1 tab PO Q4H PRN PRN Reason: Pain 6-10. Last Admin: 05/31/18 14:01 Dose: 1 tab Al Hydroxide/Mg Hydroxide (Milk Of Geovanni Jaime) 30 ml PO Q12H PRN PRN Reason: Mild Constipation Amlodipine Besylate (Norvasc) 5 mg PO DAILY [facility] Last Admin: 05/31/18 08:50 Dose: 5 mg Aspirin (Ecotrin) 81 mg PO DAILY [facility] Last Admin: 05/31/18 08:51 Dose: 81 mg Atorvastatin Calcium (Lipitor) 40 mg PO DAILY [facility] Last Admin: 05/31/18 08:50 Dose: 40 mg Benzonatate (Tessalon Perles) 200 mg PO BID PRN PRN Reason: COUGH Bisacodyl (Dulcolax Supp) 10 mg RECTAL DAILY PRN PRN Reason: SEVERE CONSITIPATION Dextrose (D50w Vial) 50 ml IV.PUSH UNSCH PRN PRN Reason: PER HYPOGLYCEMIA PROTOCOL Enalaprilat (Vasotec Inj) 1.25 mg IV.PUSH Q6H PRN PRN Reason: SEE LABEL COMMENTS Last Admin: 05/26/18 18:44 Dose: 1.25 mg Famotidine (Pepcid) 10 mg PO BID [facility] Last Admin: 05/31/18 08:51 Dose: 10 mg Fluconazole (Diflucan) 150 mg PO WEEKLY [facility] Furosemide (Lasix) 40 mg PO DAILY [facility] Last Admin: 05/31/18 08:50 Dose: 40 mg Glucagon (Glucagon Inj) 1 mg OTHER PRN PRN PRN Reason: for Hypoglycemia Protocol Heparin Sodium (Porcine) (Heparin Inj) 5,000 units SQ Q12H [facility] Last Admin: 05/31/18 08:49 Dose: 5,000 units Pharmacy Profile Note (Vancomycin Consult Pharmacy) 0 mls @ 0 mls/hr OTHER UNSCH [facility] Vancomycin HCl 1,750 mg/ (Sodium Chloride) 517.5 mls @ 250 mls/hr IV.SIG Q24H [facility] Last Admin: 05/31/18 13:59 Dose: 200 mls/hr Metronidazole/Sodium Chloride (Flagyl 500 Mg Inj) 100 mls @ 100 mls/hr IV.SIG Q6H [facility] Last Infusion: 05/31/18 11:15 Dose: Infused Insulin Aspart (Novolog Insulin Correctional Sugar Inj) 0 unit SQ ACHS AND 3AM [facility]; Protocol Last Admin: 05/31/18 11:22 Dose: Not Given Insulin Detemir (Levemir Inj) 16 unit SQ BID [facility]; Protocol Last Admin: 05/31/18 08:52 Dose: 16 unit Lactulose (Lactulose Liq) 30 ml PO DAILY PRN PRN Reason: SEVERE CONSITIPATION Last Admin: 05/29/18 08:45 Dose: 30 ml Lactulose (Lactulose Liq) 30 ml PO BID [facility] Last Admin: 05/31/18 08:53 Dose: 30 ml Lisinopril (Prinivil) 20 mg PO DAILY [facility] Last Admin: 05/31/18 08:51 Dose: 20 mg Metoprolol Tartrate (Lopressor) 25 mg PO BID [facility] Last Admin: 05/31/18 08:52 Dose: 25 mg Miscellaneous (Pill Splitter) 1 each OTHER UNSCH PRN PRN Reason: SEE LABEL COMMENTS Morphine Sulfate (Morphine Inj) 4 mg IV.PUSH Q3H PRN PRN Reason: BREAKTHROUGH PAIN Last Admin: 05/31/18 10:32 Dose: 4 mg Naloxone HCl (Narcan Inj) 0.4 mg IV.PUSH UNSCH PRN PRN Reason: SEE LABEL COMMENTS Ondansetron HCl (Zofran Inj) 4 mg IV.PUSH Q6H PRN PRN Reason: MILD NAUSEA OR VOMITING Last Admin: 05/31/18 01:33 Dose: 4 mg Prochlorperazine Edisylate (Compazine Inj) 5 mg IV.PUSH Q4H PRN PRN Reason: MODERATE NAUSEA OR VOMITING Last Admin: 05/30/18 13:27 Dose: 5 mg Senna/Docusate Sodium (Rozina-Colace) 1 tab PO BID [facility] Last Admin: 05/31/18 08:50 Dose: 1 tab Sennosides (Senokot) 17.2 mg PO Q12H PRN PRN Reason: Moderate Constipation Tamsulosin HCl (Flomax) 0.4 mg PO DAILY [facility] Last Admin: 05/31/18 08:53 Dose: 0.4 mg <Rachelle Pedro - Last Filed: 05/31/18 14:26> Active Medications: Active Medications Acetaminophen (Tylenol) 650 mg PO Q4H PRN PRN Reason: Temp > 100.4 Hydrocodone Bitart/Acetaminophen ([place] 5/325) 1 tab PO Q4H PRN PRN Reason: pain 1-5 Last Admin: 05/28/18 13:48 Dose: 1 tab Hydrocodone Bitart/Acetaminophen ([place] 10/325) 1 tab PO Q4H PRN PRN Reason: Pain 6-10. Last Admin: 05/31/18 14:01 Dose: 1 tab Al Hydroxide/Mg Hydroxide (Milk Of Magnnathan Liq) 30 ml PO Q12H PRN PRN Reason: Mild Constipation Amlodipine Besylate (Norvasc) 5 mg PO DAILY [facility] Last Admin: 05/31/18 08:50 Dose: 5 mg Aspirin (Ecotrin) 81 mg PO DAILY [facility] Last Admin: 05/31/18 08:51 Dose: 81 mg Atorvastatin Calcium (Lipitor) 40 mg PO DAILY [facility] Last Admin: 05/31/18 08:50 Dose: 40 mg Benzonatate (Tessalon Perles) 200 mg PO BID PRN PRN Reason: COUGH Bisacodyl (Dulcolax Supp) 10 mg RECTAL DAILY PRN PRN Reason: SEVERE CONSITIPATION Dextrose (D50w Vial) 50 ml IV.PUSH UNSCH PRN PRN Reason: PER HYPOGLYCEMIA PROTOCOL Enalaprilat (Vasotec Inj) 1.25 mg IV.PUSH Q6H PRN PRN Reason: SEE LABEL COMMENTS Last Admin: 05/26/18 18:44 Dose: 1.25 mg Famotidine (Pepcid) 10 mg PO BID [facility] Last Admin: 05/31/18 08:51 Dose: 10 mg Fluconazole (Diflucan) 150 mg PO WEEKLY [facility] Furosemide (Lasix) 40 mg PO DAILY [facility] Last Admin: 05/31/18 08:50 Dose: 40 mg Glucagon (Glucagon Inj) 1 mg OTHER PRN PRN PRN Reason: for Hypoglycemia Protocol Heparin Sodium (Porcine) (Heparin Inj) 5,000 units SQ Q12H [facility] Last Admin: 05/31/18 08:49 Dose: 5,000 units Pharmacy Profile Note (Vancomycin Consult Pharmacy) 0 mls @ 0 mls/hr OTHER UNSCH [facility] Vancomycin HCl 1,750 mg/ (Sodium Chloride) 517.5 mls @ 250 mls/hr IV.SIG Q24H [facility] Last Admin: 05/31/18 13:59 Dose: 200 mls/hr Metronidazole/Sodium Chloride (Flagyl 500 Mg Inj) 100 mls @ 100 mls/hr IV.SIG Q6H [facility] Last Infusion: 05/31/18 11:15 Dose: Infused Insulin Aspart (Novolog Insulin Correctional Sugar Inj) 0 unit SQ ACHS AND 3AM [facility]; Protocol Last Admin: 05/31/18 16:15 Dose: Not Given Insulin Detemir (Levemir Inj) 16 unit SQ BID [facility]; Protocol Last Admin: 05/31/18 08:52 Dose: 16 unit Lactulose (Lactulose Liq) 30 ml PO DAILY PRN PRN Reason: SEVERE CONSITIPATION Last Admin: 05/29/18 08:45 Dose: 30 ml Lactulose (Lactulose Liq) 30 ml PO BID [facility] Last Admin: 05/31/18 08:53 Dose: 30 ml Lisinopril (Prinivil) 20 mg PO DAILY [facility] Last Admin: 05/31/18 08:51 Dose: 20 mg Metoprolol Tartrate (Lopressor) 25 mg PO BID [facility] Last Admin: 05/31/18 08:52 Dose: 25 mg Miscellaneous (Pill Splitter) 1 each OTHER UNSCH PRN PRN Reason: SEE LABEL COMMENTS Morphine Sulfate (Morphine Inj) 4 mg IV.PUSH Q3H PRN PRN Reason: BREAKTHROUGH PAIN Last Admin: 05/31/18 10:32 Dose: 4 mg Naloxone HCl (Narcan Inj) 0.4 mg IV.PUSH UNSCH PRN PRN Reason: SEE LABEL COMMENTS Ondansetron HCl (Zofran Inj) 4 mg IV.PUSH Q6H PRN PRN Reason: MILD NAUSEA OR VOMITING Last Admin: 05/31/18 01:33 Dose: 4 mg Prochlorperazine Edisylate (Compazine Inj) 5 mg IV.PUSH Q4H PRN PRN Reason: MODERATE NAUSEA OR VOMITING Last Admin: 05/30/18 13:27 Dose: 5 mg Senna/Docusate Sodium (Rozina-Colace) 1 tab PO BID [facility] Last Admin: 05/31/18 08:50 Dose: 1 tab Sennosides (Senokot) 17.2 mg PO Q12H PRN PRN Reason: Moderate Constipation Tamsulosin HCl (Flomax) 0.4 mg PO DAILY [facility] Last Admin: 05/31/18 08:53 Dose: 0.4 mg <Lisa Becerra - Last Filed: 05/31/18 16:28> Allergies Allergy/AdvReac Type Severity Reaction Status Date / Time bee venom protein (honey bee) Allergy Severe Anaphylaxis Verified 05/22/18 20:28 Home Medications Medication Instructions Recorded Confirmed Type aspirin [Aspir-81] 81 mg PO DAILY 05/22/18 05/22/18 History benzonatate [Tessalon Perles] 200 mg PO BID PRN 05/22/18 05/22/18 History clindamycin HCl 300 mg PO QID 05/22/18 05/22/18 History fluconazole 150 mg PO WEEKLY 05/22/18 05/22/18 History furosemide [Lasix] 40 mg PO DAILY 05/22/18 05/22/18 History insulin degludec [Tresiba 8 unit SUB-Q DAILY 05/22/18 05/22/18 History FlexTouch U-100] lisinopril 5 mg PO DAILY 05/22/18 05/22/18 History metoprolol tartrate 25 mg PO DAILY 05/22/18 05/22/18 History rosuvastatin 20 mg PO DAILY 05/22/18 05/22/18 History Exam Vital signs: Vital Signs 05/30/18 16:00 05/30/18 19:38 05/30/18 20:00 Temperature 97.5 F L 97.8 F Pulse Rate 58 L 61 Respiratory Rate 19 17 18 Blood Pressure 179/82 H 136/65 Pulse Oximetry 95 97 05/30/18 20:10 05/30/18 22:49 05/31/18 00:43 Temperature 97.8 F Pulse Rate 60 Respiratory Rate 18 17 18 Blood Pressure 159/72 H Pulse Oximetry 96 05/31/18 01:21 05/31/18 01:55 05/31/18 03:40 Temperature Pulse Rate Respiratory Rate 18 18 17 Blood Pressure Pulse Oximetry 05/31/18 05:11 05/31/18 05:45 05/31/18 08:00 Temperature 97.7 F Pulse Rate 58 L Respiratory Rate 17 17 18 Blood Pressure 187/79 H Pulse Oximetry 98 05/31/18 12:00 Temperature 97.2 F L Pulse Rate 56 L Respiratory Rate 18 Blood Pressure 160/73 H Pulse Oximetry 98 Intake & Output 05/30/18 05/31/18 05/31/18 18:59 06:59 18:59 Intake Total 817.5 / 817.5 680 / 680 100 / 100 Output Total 650 / 650 650 / 650 Balance 167.5 / 167.5 30 / 30 100 / 100 Weight 108 kg Intake: IV 817.5 / 817.5 200 / 200 100 / 100 Vancomycin Inj 1,750 MG In NS 517.5 / 517.5 Inj 500 ML @ 250 mls/hr IV.SIG Q24H [facility] Rx#:[id number] Flagyl 500 MG Inj 100 ML @ 100 300 / 300 200 / 200 100 / 100 mls/hr IV.SIG Q6H [facility] Rx#: [id number] Oral 480 / 480 Output: Urine 150 / 150 650 / 650 Emesis 500 / 500 Wound Vac Amount 0 / 0 Right Foot 0 / 0 Other: Mode Setting Right Foot Continuous Continuous Continuous Date of Last Bowel Movement 05/31/18 # Bowel Movements 1 - Constitutional no acute distress - Routine HEENT Exam Head: Present: normocephalic - Routine Neck Exam Present: supple - Routine Respiratory Exam Present: CTA bilaterally - Routine Cardiovascular Exam Present: RRR - Routine Abdominal Exam Present: soft, normoactive bowel sounds. Absent: tenderness, distended - Routine Extremities Exam Comments: Right foot with Fabricio wrap dressing. 3+ left leg edema with erythema - Routine Skin Exam Absent: jaundice - Routine Neurological Exam Present: alert, oriented X3 <Rachelle Pedro - Last Filed: 05/31/18 14:26> Vital signs: Vital Signs 05/30/18 19:38 05/30/18 20:00 05/30/18 20:10 Temperature 97.8 F Pulse Rate 61 Respiratory Rate 17 18 18 Blood Pressure 136/65 Pulse Oximetry 97 05/30/18 22:49 05/31/18 00:43 05/31/18 01:21 Temperature 97.8 F Pulse Rate 60 Respiratory Rate 17 18 18 Blood Pressure 159/72 H Pulse Oximetry 96 05/31/18 01:55 05/31/18 03:40 05/31/18 05:11 Temperature Pulse Rate Respiratory Rate 18 17 17 Blood Pressure Pulse Oximetry 05/31/18 05:45 05/31/18 08:00 05/31/18 12:00 Temperature 97.7 F 97.2 F L Pulse Rate 58 L 56 L Respiratory Rate 17 18 18 Blood Pressure 187/79 H 160/73 H Pulse Oximetry 98 98 Intake & Output 05/30/18 05/31/18 05/31/18 18:59 06:59 18:59 Intake Total 817.5 / 817.5 680 / 680 100 / 100 Output Total 650 / 650 650 / 650 Balance 167.5 / 167.5 30 / 30 100 / 100 Weight 108 kg Intake: IV 817.5 / 817.5 200 / 200 100 / 100 Vancomycin Inj 1,750 MG In NS 517.5 / 517.5 Inj 500 ML @ 250 mls/hr IV.SIG Q24H [facility] Rx#:[id number] Flagyl 500 MG Inj 100 ML @ 100 300 / 300 200 / 200 100 / 100 mls/hr IV.SIG Q6H [facility] Rx#: [id number] Oral 480 / 480 Output: Urine 150 / 150 650 / 650 Emesis 500 / 500 Wound Vac Amount 0 / 0 Right Foot 0 / 0 Other: Mode Setting Right Foot Continuous Continuous Continuous Date of Last Bowel Movement 05/31/18 # Bowel Movements 1 <Lisa Becerra - Last Filed: 05/31/18 16:28> Results - Labs CBC & Chem 7: 05/30/18 18:29 05/31/18 05:34 Labs: Laboratory Results - last 24 hr 05/30/18 05/30/18 05/30/18 16:05 18:29 18:29 WBC 10.5 RBC 4.03 L Hgb 11.4 L Hct 34.1 L MCV 84.7 MCH 28.2 MCHC 33.3 RDW 13.5 Plt Count 312 D MPV 7.5 Neut % (Auto) 80.8 H Lymph % (Auto) 11.0 [place] % (Auto) 6.0 Eos % (Auto) 1.0 Baso % (Auto) 1.2 Neut # (Auto) 8.5 H Lymph # (Auto) 1.2 [place] # (Auto) 0.6 Eos # (Auto) 0.1 Baso # (Auto) 0.1 WBC Differential . Differential Comment Auto diff final Sodium 141 Potassium 4.2 Chloride 105 Carbon Dioxide 25.9 Anion Gap 10 BUN 15 Creatinine 1.25 Estimated GFR 58 L POC Glucose 124 H Random Glucose 119 H Calcium 8.8 Total Bilirubin 0.5 AST 34 ALT 36 Alkaline Phosphatase 56 Total Protein 7.4 Albumin 2.8 L 05/30/18 05/31/18 05/31/18 21:28 03:42 05:34 WBC RBC Hgb Hct MCV MCH MCHC RDW Plt Count MPV Neut % (Auto) Lymph % (Auto) [place] % (Auto) Eos % (Auto) Baso % (Auto) Neut # (Auto) Lymph # (Auto) [place] # (Auto) Eos # (Auto) Baso # (Auto) WBC Differential Differential Comment Sodium 140 Potassium 3.8 Chloride 105 Carbon Dioxide 27.9 Anion Gap 7 BUN 14 Creatinine 1.23 Estimated GFR 59 L POC Glucose 128 H 129 H Random Glucose 113 H Calcium 8.8 Total Bilirubin AST ALT Alkaline Phosphatase Total Protein Albumin 05/31/18 05/31/18 07:21 11:13 WBC RBC Hgb Hct MCV MCH MCHC RDW Plt Count MPV Neut % (Auto) Lymph % (Auto) [place] % (Auto) Eos % (Auto) Baso % (Auto) Neut # (Auto) Lymph # (Auto) [place] # (Auto) Eos # (Auto) Baso # (Auto) WBC Differential Differential Comment Sodium Potassium Chloride Carbon Dioxide Anion Gap BUN Creatinine Estimated GFR POC Glucose 127 H 125 H Random Glucose Calcium Total Bilirubin AST ALT Alkaline Phosphatase Total Protein Albumin - Imaging Impressions Abdomen/Pelvis CT 05/30/18 00:00 CONCLUSION: 1. Bilateral pleural effusions right greater than left and anasarca. Question fluid overload or hypoalbuminemia. 2. Markedly enlarged prostate and distended urinary bladder. 3. Osteoarthritic findings of the hips and degenerative findings of the lumbar spine. Foot MRI 05/22/18 00:00 CONCLUSION: 1. Subcutaneous collection of air and fluid along the medial aspect of the right foot adjacent to the distal shaft and head of the first metatarsal which measures 2.4 x 1.8 cm raising possibility of abscess. Contrast-enhanced MRI would be helpful for confirmation if clinically indicated. No definite underlying marrow edema to suggest osteomyelitis is noted. 2. 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 Chest X-Ray 05/22/18 16:51 CONCLUSION: No evidence of pneumonia. Foot X-Ray 05/22/18 16:51 CONCLUSION: Negative Venous Doppler Study 05/22/18 16:58 CONCLUSION: 1. No evidence of thrombus, however, there is extensive subcutaneous edema identified throughout the right calf. Abdomen X-Ray 05/25/18 00:00 CONCLUSION: Nonspecific bowel gas pattern with moderate stool throughout the colon Abdomen/Bladder Ultrasound 05/28/18 00:00 CONCLUSION: 1. Urinary bladder is distended despite attempted voiding. 2. Heterogeneous prostate enlargement Abdomen X-Ray 05/30/18 00:00 CONCLUSION: Moderate amount of stool. Abdomen/Pelvis CT 05/30/18 00:00 CONCLUSION: 1. Bilateral pleural effusions right greater than left and anasarca. Question fluid overload or hypoalbuminemia. 2. Markedly enlarged prostate and distended urinary bladder. 3. Osteoarthritic findings of the hips and degenerative findings of the lumbar spine. <Rachelle Pedro - Last Filed: 05/31/18 14:26> - Labs CBC & Chem 7: 05/30/18 18:29 05/31/18 05:34 Labs: Laboratory Results - last 24 hr 05/30/18 05/30/18 05/30/18 18:29 18:29 21:28 WBC 10.5 RBC 4.03 L Hgb 11.4 L Hct 34.1 L MCV 84.7 MCH 28.2 MCHC 33.3 RDW 13.5 Plt Count 312 D MPV 7.5 Neut % (Auto) 80.8 H Lymph % (Auto) 11.0 [place] % (Auto) 6.0 Eos % (Auto) 1.0 Baso % (Auto) 1.2 Neut # (Auto) 8.5 H Lymph # (Auto) 1.2 [place] # (Auto) 0.6 Eos # (Auto) 0.1 Baso # (Auto) 0.1 WBC Differential . Differential Comment Auto diff final Sodium 141 Potassium 4.2 Chloride 105 Carbon Dioxide 25.9 Anion Gap 10 BUN 15 Creatinine 1.25 Estimated GFR 58 L POC Glucose 128 H Random Glucose 119 H Calcium 8.8 Total Bilirubin 0.5 AST 34 ALT 36 Alkaline Phosphatase 56 Total Protein 7.4 Albumin 2.8 L 05/31/18 05/31/18 05/31/18 03:42 05:34 07:21 WBC RBC Hgb Hct MCV MCH MCHC RDW Plt Count MPV Neut % (Auto) Lymph % (Auto) [place] % (Auto) Eos % (Auto) Baso % (Auto) Neut # (Auto) Lymph # (Auto) [place] # (Auto) Eos # (Auto) Baso # (Auto) WBC Differential Differential Comment Sodium 140 Potassium 3.8 Chloride 105 Carbon Dioxide 27.9 Anion Gap 7 BUN 14 Creatinine 1.23 Estimated GFR 59 L POC Glucose 129 H 127 H Random Glucose 113 H Calcium 8.8 Total Bilirubin AST ALT Alkaline Phosphatase Total Protein Albumin 05/31/18 05/31/18 11:13 16:12 WBC RBC Hgb Hct MCV MCH MCHC RDW Plt Count MPV Neut % (Auto) Lymph % (Auto) [place] % (Auto) Eos % (Auto) Baso % (Auto) Neut # (Auto) Lymph # (Auto) [place] # (Auto) Eos # (Auto) Baso # (Auto) WBC Differential Differential Comment Sodium Potassium Chloride Carbon Dioxide Anion Gap BUN Creatinine Estimated GFR POC Glucose 125 H 128 H Random Glucose Calcium Total Bilirubin AST ALT Alkaline Phosphatase Total Protein Albumin - Imaging Impressions Abdomen/Pelvis CT 05/30/18 00:00 CONCLUSION: 1. Bilateral pleural effusions right greater than left and anasarca. Question fluid overload or hypoalbuminemia. 2. Markedly enlarged prostate and distended urinary bladder. 3. Osteoarthritic findings of the hips and degenerative findings of the lumbar spine. <Lisa Becerra - Last Filed: 05/31/18 16:28> Assessment and Plan - Plan - Ileus- Seems to have resolved. Abdomen X-Ray 05/30/18---> Moderate amount of stool. Abdomen/Pelvis CT 05/30/18 Bilateral pleural effusions right greater than left and anasarca. Question fluid overload or hypoalbuminemia. Markedly enlarged prostate and distended urinary bladder. Osteoarthritic findings of the hips and degenerative findings of the lumbar spine. Patient received fleet enema and is on bowel regimen. Patient had a very large Bm today s/p digital disimpaction done by pt himself. He reports immense relief afterwards. No bleeding. He had some nausea/vomiting yesterday but non today. - s/p I&D of right food with wound vac on 05/23/18 - history of CHF, CABG of 3 vessels, DM, and neuropathy Plan: - ALEX - cont. daily bowel regimen - GI will sign off - Supportive care - Pt seen and examined by Dr. Becerra and myself and this note is written on her behalf. <Rachelle Pedro - Last Filed: 05/31/18 14:26> - Attending Attestation seen, examined agree with above daily bowel regimen-stool softener, miralax, milk of magnesia consider Relistore if not better will need colonoscopy op if dc fu gi gi will sign off call us as needed <Lisa Becerra - Last Filed: 05/31/18 16:28>
[2018-06-01] MEDS: Morphine Inj 4 MG/ML Vial IV.PUSH PRN ×5 (01:11→20:16)
[2018-06-01] MEDS: Insulin NovoLOG Aspart Correctional Sugar Inj SQ SCH ×5 (02:53→21:40)
[2018-06-01 07:12] LABS: Baso % (Auto) 0.5 % (0.0-2.0); Eos # (Auto) 0.1 th/mm3 (0.0-0.4); Eos % (Auto) 1.6 % (0.0-4.0); Hematocrit 29.3 % (39.0-51.0); Hemoglobin 9.6 gm/dL (13.0-17.0); Lymph # (Auto) 0.9 th/mm3 (1.0-4.8); Lymph % (Auto) 9.6 % (9.0-44.0); Mean Corpuscular HGB Conc 32.9 % (32.0-36.0); Mean Corpuscular Hemoglobin 28.1 pg (27.0-34.0); Mean Corpuscular Volume 85.5 fL (80.0-100.0); Mean Platelet Volume 7.7 fL (7.0-11.0); Mono # (Auto) 0.7 th/mm3 (0.0-0.9); Mono % (Auto) 8.2 % (0.0-8.0); Neut # (Auto) 7.2 th/mm3 (1.8-7.7); Neut % (Auto) 80.1 % (16.0-70.0); Platelet Count 251 th/mm3 (150-450); Red Blood Count 3.42 mil/mm3 (4.50-5.90); Red Cell Distribution Width 13.9 % (11.6-17.2)
[2018-06-01 07:40] LABS: Calcium 8.2 mg/dL (8.5-10.1); Carbon Dioxide 26.1 meq/L (21.0-32.0)
--- NOTE | 2018-06-01 08:15 | P.PNPOD ---
Subjective Interval history: Doing well, understands plan. Physical Exam Vital signs: Vital Signs 05/31/18 12:00 05/31/18 16:00 05/31/18 19:47 Temperature 97.2 F L 97.4 F L Pulse Rate 56 L 59 L Respiratory Rate 18 19 17 Blood Pressure 160/73 H 157/77 H Pulse Oximetry 98 95 05/31/18 20:00 05/31/18 22:46 05/31/18 23:16 Temperature 97.8 F Pulse Rate 60 Respiratory Rate 18 17 18 Blood Pressure 138/67 Pulse Oximetry 96 06/01/18 00:41 06/01/18 01:15 06/01/18 02:50 Temperature 98.1 F Pulse Rate 55 L Respiratory Rate 18 17 17 Blood Pressure 122/59 L Pulse Oximetry 95 06/01/18 03:20 06/01/18 04:15 Temperature Pulse Rate Respiratory Rate 17 17 Blood Pressure Pulse Oximetry Intake & Output 05/31/18 06/01/18 06/01/18 18:59 06:59 18:59 Intake Total 717.5 / 717.5 680 / 680 Output Total 0 / 0 Balance 717.5 / 717.5 680 / 680 Weight 108 kg Intake: IV 717.5 / 717.5 200 / 200 Vancomycin Inj 1,750 MG In NS 517.5 / 517.5 Inj 500 ML @ 250 mls/hr IV.SIG Q24H [facility]ONY Rx#:[id number] Flagyl 500 MG Inj 100 ML @ 100 200 / 200 200 / 200 mls/hr IV.SIG Q6H EBONY Rx#: [id number] Oral 480 / 480 Output: Wound Vac Amount 0 / 0 Right Foot 0 / 0 Other: Mode Setting Right Foot Continuous Continuous # Voids 1 Date of Last Bowel Movement 05/31/18 05/31/18 # Bowel Movements 1 1 - Constitutional no acute distress - Neurological Alert and oriented x3 - Routine Extremities Exam Comments: Right LE: WOund vac intact to dorsum, medial foot, moderate redness localized to foot, foot is warm good CFT to digits. Sensation decreased to light touch. Medications and Allergies Active Medications: Active Medications Acetaminophen (Tylenol) 650 mg PO Q4H PRN PRN Reason: Temp > 100.4 Hydrocodone Bitart/Acetaminophen ([place] 5/325) 1 tab PO Q4H PRN PRN Reason: pain 1-5 Last Admin: 05/28/18 13:48 Dose: 1 tab Hydrocodone Bitart/Acetaminophen ([place] 10/325) 1 tab PO Q4H PRN PRN Reason: Pain 6-10. Last Admin: 06/01/18 02:50 Dose: 1 tab Al Hydroxide/Mg Hydroxide (Milk Of Magnnathan Liq) 30 ml PO Q12H PRN PRN Reason: Mild Constipation Amlodipine Besylate (Norvasc) 5 mg PO DAILY [facility] Last Admin: 05/31/18 08:50 Dose: 5 mg Aspirin (Ecotrin) 81 mg PO DAILY [facility] Last Admin: 05/31/18 08:51 Dose: 81 mg Atorvastatin Calcium (Lipitor) 40 mg PO DAILY [facility] Last Admin: 05/31/18 08:50 Dose: 40 mg Benzonatate (Tessalon Perles) 200 mg PO BID PRN PRN Reason: COUGH Bisacodyl (Dulcolax Supp) 10 mg RECTAL DAILY PRN PRN Reason: SEVERE CONSITIPATION Dextrose (D50w Vial) 50 ml IV.PUSH UNSCH PRN PRN Reason: PER HYPOGLYCEMIA PROTOCOL Enalaprilat (Vasotec Inj) 1.25 mg IV.PUSH Q6H PRN PRN Reason: SEE LABEL COMMENTS Last Admin: 05/26/18 18:44 Dose: 1.25 mg Famotidine (Pepcid) 10 mg PO BID [facility] Last Admin: 05/31/18 21:09 Dose: 10 mg Fluconazole (Diflucan) 150 mg PO WEEKLY [facility] Furosemide (Lasix) 40 mg PO DAILY [facility] Last Admin: 05/31/18 08:50 Dose: 40 mg Glucagon (Glucagon Inj) 1 mg OTHER PRN PRN PRN Reason: for Hypoglycemia Protocol Heparin Sodium (Porcine) (Heparin Inj) 5,000 units SQ Q12H [facility] Last Admin: 05/31/18 21:09 Dose: 5,000 units Pharmacy Profile Note (Vancomycin Consult Pharmacy) 0 mls @ 0 mls/hr OTHER UNSCH [facility] Vancomycin HCl 1,750 mg/ (Sodium Chloride) 517.5 mls @ 250 mls/hr IV.SIG Q24H [facility] Last Infusion: 05/31/18 16:37 Dose: Infused Metronidazole/Sodium Chloride (Flagyl 500 Mg Inj) 100 mls @ 100 mls/hr IV.SIG Q6H [facility] Last Infusion: 06/01/18 05:14 Dose: Infused Insulin Aspart (Novolog Insulin Correctional Sugar Inj) 0 unit SQ ACHS AND 3AM [facility]; Protocol Last Admin: 06/01/18 07:56 Dose: Not Given Insulin Detemir (Levemir Inj) 16 unit SQ BID [facility]; Protocol Last Admin: 05/31/18 21:10 Dose: 16 unit Lactulose (Lactulose Liq) 30 ml PO DAILY PRN PRN Reason: SEVERE CONSITIPATION Last Admin: 05/29/18 08:45 Dose: 30 ml Lactulose (Lactulose Liq) 30 ml PO BID [facility] Last Admin: 05/31/18 21:09 Dose: 30 ml Lisinopril (Prinivil) 20 mg PO DAILY [facility] Last Admin: 05/31/18 08:51 Dose: 20 mg Metoprolol Tartrate (Lopressor) 25 mg PO BID [facility] Last Admin: 05/31/18 21:09 Dose: 25 mg Miscellaneous (Pill Splitter) 1 each OTHER UNSCH PRN PRN Reason: SEE LABEL COMMENTS Morphine Sulfate (Morphine Inj) 4 mg IV.PUSH Q3H PRN PRN Reason: BREAKTHROUGH PAIN Last Admin: 06/01/18 04:13 Dose: 4 mg Naloxone HCl (Narcan Inj) 0.4 mg IV.PUSH UNSCH PRN PRN Reason: SEE LABEL COMMENTS Ondansetron HCl (Zofran Inj) 4 mg IV.PUSH Q6H PRN PRN Reason: MILD NAUSEA OR VOMITING Last Admin: 05/31/18 01:33 Dose: 4 mg Prochlorperazine Edisylate (Compazine Inj) 5 mg IV.PUSH Q4H PRN PRN Reason: MODERATE NAUSEA OR VOMITING Last Admin: 05/30/18 13:27 Dose: 5 mg Senna/Docusate Sodium (Rozina-Colace) 1 tab PO BID [facility] Last Admin: 05/31/18 21:09 Dose: 1 tab Sennosides (Senokot) 17.2 mg PO Q12H PRN PRN Reason: Moderate Constipation Tamsulosin HCl (Flomax) 0.4 mg PO DAILY [facility] Last Admin: 05/31/18 08:53 Dose: 0.4 mg Allergies Allergy/AdvReac Type Severity Reaction Status Date / Time bee venom protein (honey bee) Allergy Severe Anaphylaxis Verified 05/22/18 20:28 Home Medications Medication Instructions Recorded Confirmed Type aspirin [Aspir-81] 81 mg PO DAILY 05/22/18 05/22/18 History benzonatate [Tessalon Perles] 200 mg PO BID PRN 05/22/18 05/22/18 History clindamycin HCl 300 mg PO QID 05/22/18 05/22/18 History fluconazole 150 mg PO WEEKLY 05/22/18 05/22/18 History furosemide [Lasix] 40 mg PO DAILY 05/22/18 05/22/18 History insulin degludec [Tresiba 8 unit SUB-Q DAILY 05/22/18 05/22/18 History FlexTouch U-100] lisinopril 5 mg PO DAILY 05/22/18 05/22/18 History metoprolol tartrate 25 mg PO DAILY 05/22/18 05/22/18 History rosuvastatin 20 mg PO DAILY 05/22/18 05/22/18 History Results - Labs CBC & Chem 7: 06/01/18 06:03 06/01/18 06:03 Laboratory Results - last 24 hr 05/31/18 05/31/18 05/31/18 11:13 16:12 19:48 WBC RBC Hgb Hct MCV MCH MCHC RDW Plt Count MPV Neut % (Auto) Lymph % (Auto) [place] % (Auto) Eos % (Auto) Baso % (Auto) Neut # (Auto) Lymph # (Auto) [place] # (Auto) Eos # (Auto) Baso # (Auto) WBC Differential Differential Comment Sodium Potassium Chloride Carbon Dioxide Anion Gap BUN Creatinine Estimated GFR POC Glucose 125 H 128 H 145 H Random Glucose Calcium 06/01/18 06/01/18 06/01/18 02:52 06:03 06:03 WBC 9.0 RBC 3.42 L Hgb 9.6 L Hct 29.3 L MCV 85.5 MCH 28.1 MCHC 32.9 RDW 13.9 Plt Count 251 MPV 7.7 Neut % (Auto) 80.1 H Lymph % (Auto) 9.6 [place] % (Auto) 8.2 H Eos % (Auto) 1.6 Baso % (Auto) 0.5 Neut # (Auto) 7.2 Lymph # (Auto) 0.9 L [place] # (Auto) 0.7 Eos # (Auto) 0.1 Baso # (Auto) 0.0 WBC Differential . Differential Comment Auto diff final Sodium 142 Potassium 4.0 Chloride 107 Carbon Dioxide 26.1 Anion Gap 9 BUN 15 Creatinine 1.20 Estimated GFR 61 L POC Glucose 103 Random Glucose 91 Calcium 8.2 L Assessment and Plan - Assessment (1) Abscess of right foot Code(s): L02.611 - Cutaneous abscess of right foot Status: Acute (2) Gas gangrene Code(s): A48.0 - Gas gangrene Status: Acute - Plan SP I and D left foot with exposed bone, ok to DC home for MWF wound vac changes and IV ABX, orders in Chart. Recommend non WB. Will need staged graft procedure on outpt basis once accelerated granulation tissue noted.
[2018-06-01] MEDS: Heparin - SQ 10,000 UNITS/ML Vial SQ SCH ×2 (08:58→21:52)
[2018-06-01] MEDS: amLODIPine 5 MG Tablet PO SCH (08:59)
[2018-06-01] MEDS: Famotidine 20 MG Tablet PO SCH ×3 (09:00→21:53)
[2018-06-01] MEDS: Lisinopril 20 MG Tablet PO SCH (09:00)
[2018-06-01] MEDS: Furosemide 40 MG Tablet PO SCH ×2 (09:00→19:45)
[2018-06-01] MEDS: Metoprolol Tartrate 25 MG Tablet PO SCH ×3 (09:03→21:53)
[2018-06-01] MEDS: Insulin Detemir Inj 1,000 UNIT/10 ML Vial SQ SCH ×2 (09:15→21:40)
[2018-06-01] MEDS: Senna/Docusate Sodium 8.6/50 MG Tablet PO SCH ×2 (10:55→21:53)
--- NOTE | 2018-06-01 11:10 | P.PNIM ---
Subjective Interval history: Patient reports that he continues to have loose bowel movements. Denies any chest pain or shortness of breath. He says that he is generally very weak, does not feel that he can do everything he needs to do at home, does not feel the can take care of wound VAC. Physical Exam Vital signs: Vital Signs 05/31/18 12:00 05/31/18 16:00 05/31/18 19:47 Temperature 97.2 F L 97.4 F L Pulse Rate 56 L 59 L Respiratory Rate 18 19 17 Blood Pressure 160/73 H 157/77 H Pulse Oximetry 98 95 05/31/18 20:00 05/31/18 22:46 05/31/18 23:16 Temperature 97.8 F Pulse Rate 60 Respiratory Rate 18 17 18 Blood Pressure 138/67 Pulse Oximetry 96 06/01/18 00:41 06/01/18 01:15 06/01/18 02:50 Temperature 98.1 F Pulse Rate 55 L Respiratory Rate 18 17 17 Blood Pressure 122/59 L Pulse Oximetry 95 06/01/18 03:20 06/01/18 04:15 06/01/18 08:00 Temperature 98.1 F Pulse Rate 60 Respiratory Rate 17 17 18 Blood Pressure 176/82 H Pulse Oximetry 92 L Intake & Output 05/31/18 06/01/18 06/01/18 18:59 06:59 18:59 Intake Total 717.5 / 717.5 680 / 680 Output Total 0 / 0 Balance 717.5 / 717.5 680 / 680 Weight 108 kg Intake: IV 717.5 / 717.5 200 / 200 Vancomycin Inj 1,750 MG In NS 517.5 / 517.5 Inj 500 ML @ 250 mls/hr IV.SIG Q24H [facility]ONY Rx#:[id number] Flagyl 500 MG Inj 100 ML @ 100 200 / 200 200 / 200 mls/hr IV.SIG Q6H [facility]ONY Rx#: [id number] Oral 480 / 480 Output: Wound Vac Amount 0 / 0 Right Foot 0 / 0 Other: Mode Setting Right Foot Continuous Continuous # Voids 1 Date of Last Bowel Movement 05/31/18 05/31/18 # Bowel Movements 1 1 Narrative: GENERAL: Sitting up in bed. Appears comfortable. Well-developed well- nourished. SKIN: Warm and dry. No lesions noted. CARDIOVASCULAR: Regular rate and rhythm. 2/6 systolic murmur appreciated. RESPIRATORY: Relatively clear to auscultation bilaterally, slightly diminished breath sounds in the bases bilaterally GASTROINTESTINAL: Abdomen soft, mildly distended, few bowel sounds in all quadrants MUSCULOSKELETAL: Right foot with wound VAC in place with Fabricio bandage. Trace edema right lower extremity resolving NEUROLOGICAL: Awake and alert. Moves upper and lower extremities spontaneously. Normal speech. - Urinary Catheter Management 1000 Cath placed during this visit: no Results - Labs CBC & Chem 7: 06/01/18 06:03 06/01/18 06:03 Laboratory Results - last 24 hr 05/31/18 05/31/18 05/31/18 11:13 16:12 19:48 WBC RBC Hgb Hct MCV MCH MCHC RDW Plt Count MPV Neut % (Auto) Lymph % (Auto) [place] % (Auto) Eos % (Auto) Baso % (Auto) Neut # (Auto) Lymph # (Auto) [place] # (Auto) Eos # (Auto) Baso # (Auto) WBC Differential Differential Comment Sodium Potassium Chloride Carbon Dioxide Anion Gap BUN Creatinine Estimated GFR POC Glucose 125 H 128 H 145 H Random Glucose Calcium 06/01/18 06/01/18 06/01/18 02:52 06:03 06:03 WBC 9.0 RBC 3.42 L Hgb 9.6 L Hct 29.3 L MCV 85.5 MCH 28.1 MCHC 32.9 RDW 13.9 Plt Count 251 MPV 7.7 Neut % (Auto) 80.1 H Lymph % (Auto) 9.6 [place] % (Auto) 8.2 H Eos % (Auto) 1.6 Baso % (Auto) 0.5 Neut # (Auto) 7.2 Lymph # (Auto) 0.[address] [place] # (Auto) 0.7 Eos # (Auto) 0.1 Baso # (Auto) 0.0 WBC Differential . Differential Comment Auto diff final Sodium 142 Potassium 4.0 Chloride 107 Carbon Dioxide 26.1 Anion Gap 9 BUN 15 Creatinine 1.20 Estimated GFR 61 L POC Glucose 103 Random Glucose 91 Calcium 8.2 L 06/01/18 09:08 WBC RBC Hgb Hct MCV MCH MCHC RDW Plt Count MPV Neut % (Auto) Lymph % (Auto) [place] % (Auto) Eos % (Auto) Baso % (Auto) Neut # (Auto) Lymph # (Auto) [place] # (Auto) Eos # (Auto) Baso # (Auto) WBC Differential Differential Comment Sodium Potassium Chloride Carbon Dioxide Anion Gap BUN Creatinine Estimated GFR POC Glucose 103 Random Glucose Calcium Assessment and Plan - Assessment (1) Abscess of right foot Code(s): L02.611 - Cutaneous abscess of right foot Status: Acute - Plan 63-year-old white male with a history of diabetes mellitus type 2 insulin- dependent admitted for // Diabetic foot wound ongoing for at least 3 weeks Foot MRI concerning for first metatarsal abscess, no osteomyelitis noted Failed outpatient antibiotic therapy Reportedly outpatient culture showed MRSA -Consulted infectious disease, Dr. Marcia Bhagat who feels patient will need long-term antibiotics. -Continue with vancomycin and Flagyl with pharmacy to dose the vancomycin -Consulted podiatry, appreciate input patient is status post incision and drainage of right foot with wound VAC placement 05/23/[address] Yamileth Dorado performed a right foot redebridement with wound VAC placement on 05/26 Continue IV antibiotics vancomycin and Flagyl Heel contact weightbearing only to right foot. -CBC improved, afebrile, wound culture showing MRSA For further surgical intervention with the graft in the future Per podiatry Dr. Lin, patient will need a wound VAC for the next 2-3 months prior to consideration of graft. Will need [facility] wound care. = 06/01. Patient says he is very weak, does not feel that he can do everything he needs to do at home. We will reconsult PT. Follow-up infectious disease recommendations. Will likely need prolonged IV antibiotic treatment. // Acute renal failure superimposed on chronic kidney disease stage III Creatinine trending down with IVF Creatinine omission 2.02 -> improved at 1.2 today Can restart lisinopril -Continue to monitor on on antibiotics Avoid nephrotoxins Continue with Lasix // Urinary retention now resolved. Continue with Flomax. Renal ultrasound showed no obstruction. Enlarged prostate., Continue with Lasix. // Anemia, normocytic probable dilutional component -monitor labs // Diabetes mellitus, type II, insulin-dependent, with underlying diabetic nephropathy -Continue on Accu-Cheks before meals and at bedtime and q. 3 AM -certified adapted physical educator following, Currently on Levemir 16 units subcu twice daily -Sliding scale coverage -Continue on long-acting insulin -Diabetic cardiac diet // Hyperlipidemia -continue on statin // Hypertension, chronic essential -continue on metoprolol -We will continue lisinopril 20 mg p.o. daily and Norvasc 5 mg p.o. nightly // Lower extremity swellingclinically improving. -Recommend compression stockings and elevation, Lasix -Echocardiogram shows EF of 55-60% // History of prosthetic valve replacement -Monitor volume status -Echocardiogram results reviewed. -Continue plans for outpatient follow-up with CT surgery, Dr. Hogan // Postop ileus, constipationstatus post mag citrate yesterday along with lactulose with still no bowel movement, patient will prefer not to have NG tube if avoidable, consult GI for further recommendations, Fleet enema 1 today, increase activity and up out of chair. DC Dilaudid counseled on side effects of pain medication narcotics. CT showed no acute findings, KUB with large amount of stool. // DVT prophylaxis with subcu heparin GI prophylaxis with Pepcid Discharge Planning: Reconsult PT for home versus SNF recommendations Await infectious disease antibiotic recommendations Cleared by podiatry. We will need wound VAC at home.
--- NOTE | 2018-06-01 15:05 | XR ---
EXAM DATE: 06/01/2018 2:41 PM EDT AGE/SEX: 63 years / Male INDICATIONS: Right knee pain. Patient fell on knee today. CLINICAL DATA: This is the patient's subsequent encounter. Patient reports that signs and symptoms h ave been present for 1 day and indicates a pain score of 2/10. MEDICAL/SURGICAL HISTORY: . Hypertension. Diabetes mellitus type II. . CABG. Left foot surger y. COMPARISON: No prior exams available for comparison. FINDINGS: Mild osteoarthritis is noted involving the patellofemoral and femorotibial joints. There is no acute fracture or dislocation. No knee joint effusion is noted. CONCLUSION: 1. Mild osteoarthritis involving the patellofemoral and femorotibial joints. 2. No acute fracture or dislocation. Electronically signed by: Bob Batista MD 06/01/2018 3:04 PM EDT
--- NOTE | 2018-06-01 15:32 | P.PNWCN ---
Wound Care Nurse Consult Description: Wound consult ordered by for wound vac management. Wound/Pressure Injury - Patient Status Premedicated for Pain Prior to Dressing Change: No - Wound Right Foot Wound Assessment: Ongoing Wound Type: Abscess Is This a Chronic Wound: Yes Requested from Provider a Wound Care Consult: No (Brody seen 06/01) Length: 4.8 Width: 4.2 Depth: 1.1 Wound Bed Appearance: [place] Wound Bed Appearance: Wound base 70% red moist tissue 20% fascia 10% beefy red granular tissue Surrounding Tissue Appearance: [place] Drainage Description: Serosanguinous Drainage Amount: Minimal Drainage Odor: No Odor Dressing Status: Changed Cleansing Solution: Saline Wound Packing Type: Woundvac Sponge Primary Dressing: Negative Pressure Wound Dressing Cover Dressing: Transparent Tape Type: Transparent Wound Dressing Change Date: 06/01/18 Wound Vac - Wound Vac Right Foot Pressure Setting (mmHg): 125 Mode Setting: Continuous Drainage Description: Serosanguinous Foam type: Black, Other (Single layer od adaptic gauze) Incision - Patient Status Premedicated for Pain Prior to Dressing Change: No - Incision Right Foot Other Cover Dressing: archie wrap
[2018-06-01] MEDS: Vancomycin Inj 1,750 MG in Sodium Chlor 0.9% Inj 500 ML IV.SIG SCH (15:57)
[2018-06-02] MEDS: Morphine Inj 4 MG/ML Vial IV.PUSH PRN ×3 (00:10→14:02)
[2018-06-02] MEDS: Insulin NovoLOG Aspart Correctional Sugar Inj SQ SCH ×5 (02:58→21:25)
[2018-06-02] MEDS: Heparin - SQ 10,000 UNITS/ML Vial SQ SCH ×2 (08:08→21:15)
[2018-06-02] MEDS: Insulin Detemir Inj 1,000 UNIT/10 ML Vial SQ SCH ×2 (08:08→21:24)
[2018-06-02] MEDS: Furosemide 40 MG Tablet PO SCH (08:09)
[2018-06-02] MEDS: amLODIPine 5 MG Tablet PO SCH (08:11)
[2018-06-02] MEDS: Metoprolol Tartrate 25 MG Tablet PO SCH ×2 (08:11→21:14)
[2018-06-02] MEDS: Famotidine 20 MG Tablet PO SCH ×2 (08:11→21:14)
[2018-06-02] MEDS: Lisinopril 20 MG Tablet PO SCH (08:12)
[2018-06-02] MEDS: Senna/Docusate Sodium 8.6/50 MG Tablet PO SCH ×2 (08:13→21:15)
--- NOTE | 2018-06-02 08:50 | P.PNADD ---
Addendum to Inpatient Note Additional information: dw Dr Lafleur. OK to dc on vancomycin, oral flagyl x 6 weeks fronm the last debridement (05/26) . Longer duration if not healed by 6 weeks and/or still elevated ESR/CRP OPAT PICC
--- NOTE | 2018-06-02 09:05 | P.DCO ---
Post Hospital Infusion Therapy Location of Infusion Therapy: Home Health Care IV Infusion Order Patient Weight: 108 kg - Diagnosis (1) Abscess of right foot Code(s): L02.611 - Cutaneous abscess of right foot - Administer Medication Vancomycin Directions: q 24 hours Additional Dosing Instructions: 1750 mg IV daily Start Treatment: 06/03/18 Stop Treatment: 07/08/18 - Additional Information Venous Access: PICC Line Additional Instructions: [x] Peripheral flush and dressing changes per protocol [x] Implanted port and central line director: * Implanted port: 10 ml Normal Saline followed by 5 ml Heparin 100 units/ml Heparin flush after each use and monthly to maintain. [] May leave port accessed during therapy. [] May leave peripheral site accessed for duration of therapy. [x] If patient has SOB or respiratory distress, check oxygen saturation. If less than 90% or clinical signs of respiratory distress, administer oxygen at 2 L/min. via nasal cannula and notify physician. [x] Anaphylaxis/Reaction orders: * Stop infusion. * Keep IV line open with saline flush. * Notify physician. * Monitor vital signs every 15 minutes until symptoms resolve. * Check Oxygen saturation; Oxygen at 2 L/min. via nasal cannula if less than 90% or clinical signs of respiratory distress. * Administer diphenhydramine (Benadryl) 25 mg IV STAT, (unless patient has received as pre-med). May repeat once, if necessary. * Solu-Cortef 250 mg IVP over 30-60 seconds, use 100 mg vials for each dissolution. * Epinephrine (1mg/1 ml) 0.3 mg subcutaneously or IVP now with any signs of respiratory distress. * Check with physician for new additional pre-med orders if patient is re- challenged or re-treated. [x] May remove PICC line when treatment complete, after confirming with Physician. [x] If the patient is admitted to the hospital, the ED, or transferred via [facility] , complete transfer form including medication reconciliation order sheet. Weekly Labs: CBC w/diff, CMP, CRP, SED Rate, Vancomycin Trough Allergies bee venom protein (honey bee) Allergy (Severe, Verified 05/22/18 20:28) Anaphylaxis
--- NOTE | 2018-06-02 13:38 | P.PNIM ---
Subjective Interval history: Patient says he is feeling all right. Denies any chest pain or shortness of breath. Requesting bedside commode. Physical Exam Vital signs: Vital Signs 06/01/18 16:00 06/01/18 20:00 06/02/18 00:00 Temperature 98.1 F 97.9 F 98.0 F Pulse Rate 62 69 54 L Respiratory Rate 22 17 16 Blood Pressure 174/77 H 135/64 146/69 H Pulse Oximetry 97 96 93 L 06/02/18 08:00 06/02/18 11:57 Temperature 98.3 F 97.8 F Pulse Rate 57 L 62 Respiratory Rate 17 16 Blood Pressure 167/77 H 110/59 L Pulse Oximetry 96 99 Intake & Output 06/01/18 06/02/18 06/02/18 18:59 06:59 18:59 Intake Total 900 / 900 830 / 830 Output Total 600 / 600 Balance 300 / 300 830 / 830 Weight 108 kg Intake: IV 100 / 100 830 / 830 Vancomycin Inj 1,750 MG In NS 530 / 530 Inj 500 ML @ 250 mls/hr IV.SIG Q24H EBONY Rx#:[id number] Flagyl 500 MG Inj 100 ML @ 100 100 / 100 300 / 300 mls/hr IV.SIG Q6H EBONY Rx#: [id number] Oral 800 / 800 Output: Urine 600 / 600 Other: Mode Setting Right Foot Continuous Continuous Continuous Date of Last Bowel Movement 05/31/18 05/31/18 05/31/18 # Bowel Movements 1 # Incontinent Bowel Movements 2 Narrative: GENERAL: Patient sitting up in chair. Appears comfortable. SKIN: Warm and dry. HEAD: Normocephalic. EYES: No scleral icterus. No injection or drainage. NECK: Supple, trachea midline. No JVD or lymphadenopathy. CARDIOVASCULAR: Regular rate and rhythm without murmurs, gallops, or rubs. RESPIRATORY: Breath sounds equal bilaterally. No accessory muscle use. GASTROINTESTINAL: Abdomen soft, non-tender, nondistended. MUSCULOSKELETAL: No cyanosis, or edema. Right lower extremity with wound VAC, dressing. BACK: Nontender without obvious deformity. No CVA tenderness. - Urinary Catheter Management 1000 Cath placed during this visit: no Results - Labs CBC & Chem 7: 06/01/18 06:03 06/01/18 06:03 Laboratory Results - last 24 hr 06/01/18 06/02/18 06/02/18 19:51 02:53 07:54 POC Glucose 79 75 88 06/02/18 11:28 POC Glucose 96 - Imaging Impressions Knee X-Ray 06/01/18 00:00 CONCLUSION: 1. Mild osteoarthritis involving the patellofemoral and femorotibial joints. 2. No acute fracture or dislocation. Assessment and Plan - Assessment (1) Abscess of right foot Code(s): L02.611 - Cutaneous abscess of right foot Status: Acute - Plan 63-year-old white male with a history of diabetes mellitus type 2 insulin- dependent admitted for // Diabetic foot wound ongoing for at least 3 weeks Foot MRI concerning for first metatarsal abscess, no osteomyelitis noted Failed outpatient antibiotic therapy Reportedly outpatient culture showed MRSA -Consulted infectious disease, Dr. Marcia Bhagat who feels patient will need long-term antibiotics. -Continue with vancomycin and Flagyl with pharmacy to dose the vancomycin -Consulted podiatry, appreciate input patient is status post incision and drainage of right foot with wound VAC placement 05/23/[address] Yamileth Dorado performed a right foot redebridement with wound VAC placement on 05/26 Continue IV antibiotics vancomycin and Flagyl Heel contact weightbearing only to right foot. -CBC improved, afebrile, wound culture showing MRSA For further surgical intervention with the graft in the future Per podiatry Dr. Lin, patient will need a wound VAC for the next 2-3 months prior to consideration of graft. Will need [facility] wound care. = 06/01. Patient says he is very weak, does not feel that he can do everything he needs to do at home. We will reconsult PT. Follow-up infectious disease recommendations. Will likely need prolonged IV antibiotic treatment. = 06/02. Status post mechanical fall yesterday. Right knee imaging with no acute findings. Patient reports that pain has resolved. // Acute renal failure superimposed on chronic kidney disease stage III Creatinine trending down with IVF Creatinine omission 2.02 -> improved at 1.2 today Can restart lisinopril -Continue to monitor on on antibiotics Avoid nephrotoxins Continue with Lasix // Urinary retention now resolved. Continue with Flomax. Renal ultrasound showed no obstruction. Enlarged prostate., Continue with Lasix. // Anemia, normocytic probable dilutional component -monitor labs // Diabetes mellitus, type II, insulin-dependent, with underlying diabetic nephropathy -Continue on Accu-Cheks before meals and at bedtime and q. 3 AM -perinatal educator following, Currently on Levemir 16 units subcu twice daily -Sliding scale coverage -Continue on long-acting insulin -Diabetic cardiac diet = 06/02. Relative hypoglycemia with blood sugars in the 70s today. Will decrease Levemir. // Hyperlipidemia -continue on statin // Hypertension, chronic essential -continue on metoprolol -We will continue lisinopril 20 mg p.o. daily and Norvasc 5 mg p.o. nightly // Lower extremity swellingclinically improving. -Recommend compression stockings and elevation, Lasix -Echocardiogram shows EF of 55-60% // History of prosthetic valve replacement -Monitor volume status -Echocardiogram results reviewed. -Continue plans for outpatient follow-up with CT surgery, Dr. Hogan // Postop ileus, constipationstatus post mag citrate yesterday along with lactulose with still no bowel movement, patient will prefer not to have NG tube if avoidable, consult GI for further recommendations, Fleet enema 1 today, increase activity and up out of chair. DC Dilaudid counseled on side effects of pain medication narcotics. CT showed no acute findings, KUB with large amount of stool. = Resolved. // DVT prophylaxis with subcu heparin GI prophylaxis with Pepcid Discharge Planning: Patient will need rehab. IV antibiotics as per infectious disease. Cleared by podiatry. We will need wound VAC. Follow-up with podiatry as outpatient.
--- NOTE | 2018-06-02 13:39 | P.DS ---
Date of admission: 05/22/18 18:21 Primary care physician: No Primary Care Physician Brief History from admission: Patient is a 63-year-old male past medical history of CHF and history of bullying mitral valve replacement and CABG of 3 vessels as well as diabetes mellitus and neuropathy who presented to the emergency department for multiple weeks long history of a wound on the right foot. Patient states the wound started as a blisters cannot tell why he had an injury but was walking multiple miles a day. He states that is been treated outpatient with Cipro, Bactrim and now clindamycin. With only some mild improvement of the redness. But no resolution of the wounds. He states that his PCP which is [facility] told him that his wound cultures grew MRSA and was sent today for IV antibiotics. He states that he has had some chills. An 8 out of 10 pain in the right foot. Has had increased edema of the right lower extremity. Has had decreased activity since the onset of this problem. He denies any headache or dizziness or chest pain or palpitations or shortness of breath or abdominal pain or nausea or vomiting or dysuria. He describes the pain is aching worsened by touch. No alleviating factors. He was treated with clindamycin without any real improvement as well as the Bactrim and the Cipro. Found to be in acute renal failure on labs We will continue with fluids and hold his lisinopril and Lasix Has been started on vancomycin and Zosyn Podiatry has been consult Family history of hypertension and diabetes DS: Medications - Discharge Medications Prescriptions: hydrocodone-acetaminophen 1 tab PO Q4H PRN #20 tab PRN Reason: Pain 6-10. metronidazole [Flagyl] 500 mg PO QID #120 tab DS: Summary Hospital Course: MRI foot concerning for first metatarsal abscess without osteomyelitis. Patient underwent incision and debridement by podiatry. Was started on broad- spectrum antibiotics by infectious disease. Wound cultures grew out MRSA. Patient will need to continue on vancomycin to complete treatment course as per infectious disease. Will need wound VAC as per podiatry. Will need to follow- up with podiatry as outpatient Patient also found to have urinary retention on admission, likely secondary to pain/pain medications. He'll be continued on Flomax, and we'll start finasteride. Side effects discussed. Blood pressure found to be elevated during admission and blood pressure medications were adjusted. For problem-based summary from most recent progress note, please see below. 63-year-old white male with a history of diabetes mellitus type 2 insulin- dependent admitted for // Diabetic foot wound ongoing for at least 3 weeks Foot MRI concerning for first metatarsal abscess, no osteomyelitis noted Failed outpatient antibiotic therapy Reportedly outpatient culture showed MRSA -Consulted infectious disease, Dr. Marcia Bhagat who feels patient will need long-term antibiotics. -Continue with vancomycin and Flagyl with pharmacy to dose the vancomycin -Consulted podiatry, appreciate input patient is status post incision and drainage of right foot with wound VAC placement 05/23/[address] Yamileth Dorado performed a right foot redebridement with wound VAC placement on 05/26 Continue IV antibiotics vancomycin and Flagyl Heel contact weightbearing only to right foot. -CBC improved, afebrile, wound culture showing MRSA For further surgical intervention with the graft in the future Per podiatry Dr. Lin, patient will need a wound VAC for the next 2-3 months prior to consideration of graft. Will need [facility] wound care. = 06/01. Patient says he is very weak, does not feel that he can do everything he needs to do at home. We will reconsult PT. Follow-up infectious disease recommendations. Will likely need prolonged IV antibiotic treatment. = 06/02. Status post mechanical fall yesterday. Right knee imaging with no acute findings. Patient reports that pain has resolved. // Acute renal failure superimposed on chronic kidney disease stage III Creatinine trending down with IVF Creatinine omission 2.02 -> improved at 1.2 today Can restart lisinopril -Continue to monitor on on antibiotics Avoid nephrotoxins Continue with Lasix // Urinary retention now resolved. Continue with Flomax. Renal ultrasound showed no obstruction. Enlarged prostate., Continue with Lasix. // Anemia, normocytic probable dilutional component -monitor labs // Diabetes mellitus, type II, insulin-dependent, with underlying diabetic nephropathy -Continue on Accu-Cheks before meals and at bedtime and q. 3 AM -nursing educator following, Currently on Levemir 16 units subcu twice daily -Sliding scale coverage -Continue on long-acting insulin -Diabetic cardiac diet = 06/02. Relative hypoglycemia with blood sugars in the 70s today. Will decrease Levemir. // Hyperlipidemia -continue on statin // Hypertension, chronic essential -continue on metoprolol -We will continue lisinopril 20 mg p.o. daily and Norvasc 5 mg p.o. nightly // Lower extremity swellingclinically improving. -Recommend compression stockings and elevation, Lasix -Echocardiogram shows EF of 55-60% // History of prosthetic valve replacement -Monitor volume status -Echocardiogram results reviewed. -Continue plans for outpatient follow-up with CT surgery, Dr. Hogan // Postop ileus, constipationstatus post mag citrate yesterday along with lactulose with still no bowel movement, patient will prefer not to have NG tube if avoidable, consult GI for further recommendations, Fleet enema 1 today, increase activity and up out of chair. DC Dilaudid counseled on side effects of pain medication narcotics. CT showed no acute findings, KUB with large amount of stool. = Resolved. // DVT prophylaxis with subcu heparin GI prophylaxis with Pepcid Discharge Planning: Patient will need rehab. IV antibiotics as per infectious disease. Cleared by podiatry. We will need wound VAC. Follow-up with podiatry as outpatient. - Time Spent with Patient Total time spent providing and/or coordinating discharge services: Greater than 30 minutes - Quality: VTE Deep Vein Thrombosis/Pulmonary Embolism Present on Admission: No Exam Vital signs: Vital Signs 06/01/18 16:00 06/01/18 20:00 06/02/18 00:00 Temperature 98.1 F 97.9 F 98.0 F Pulse Rate 62 69 54 L Respiratory Rate 22 17 16 Blood Pressure 174/77 H 135/64 146/69 H Pulse Oximetry 97 96 93 L 06/02/18 08:00 06/02/18 11:57 Temperature 98.3 F 97.8 F Pulse Rate 57 L 62 Respiratory Rate 17 16 Blood Pressure 167/77 H 110/59 L Pulse Oximetry 96 99 Intake & Output 06/01/18 06/02/18 06/02/18 18:59 06:59 18:59 Intake Total 900 / 900 830 / 830 100 / 100 Output Total 600 / 600 Balance 300 / 300 830 / 830 100 / 100 Weight 108 kg Intake: IV 100 / 100 830 / 830 100 / 100 Vancomycin Inj 1,750 MG In NS 530 / 530 Inj 500 ML @ 250 mls/hr IV.SIG Q24H EBONY Rx#:[id number] Flagyl 500 MG Inj 100 ML @ 100 100 / 100 300 / 300 100 / 100 mls/hr IV.SIG Q6H EBONY Rx#: [id number] Oral 800 / 800 Output: Urine 600 / 600 Other: Mode Setting Right Foot Continuous Continuous Continuous Date of Last Bowel Movement 05/31/18 05/31/18 05/31/18 # Bowel Movements 1 # Incontinent Bowel Movements 2 Results Procedures completed during hospitalization: incision and debridement of right foot abscess. Labs on day of discharge: Labs from last 24 hours 06/02/18 06/02/18 06/02/18 11:28 07:54 02:53 POC Glucose 96 88 75 06/01/18 19:51 POC Glucose 79 Preliminary micro results at discharge 05/23/18 13:16 Fungal Culture - Preliminary Wound - Foot No growth in 1 week 05/23/18 13:16 Mycobacterial Culture - Preliminary Wound - Foot No growth in 1 week - Impressions ITS Impressions Foot MRI 05/22/18 00:00 CONCLUSION: 1. Subcutaneous collection of air and fluid along the medial aspect of the right foot adjacent to the distal shaft and head of the first metatarsal which measures 2.4 x 1.8 cm raising possibility of abscess. Contrast-enhanced MRI would be helpful for confirmation if clinically indicated. No definite underlying marrow edema to suggest osteomyelitis is noted. 2. 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 Chest X-Ray 05/22/18 16:51 CONCLUSION: No evidence of pneumonia. Foot X-Ray 05/22/18 16:51 CONCLUSION: Negative Venous Doppler Study 05/22/18 16:58 CONCLUSION: 1. No evidence of thrombus, however, there is extensive subcutaneous edema identified throughout the right calf. Abdomen/Bladder Ultrasound 05/28/18 00:00 CONCLUSION: 1. Urinary bladder is distended despite attempted voiding. 2. Heterogeneous prostate enlargement Abdomen X-Ray 05/30/18 00:00 CONCLUSION: Moderate amount of stool. Abdomen/Pelvis CT 05/30/18 00:00 CONCLUSION: 1. Bilateral pleural effusions right greater than left and anasarca. Question fluid overload or hypoalbuminemia. 2. Markedly enlarged prostate and distended urinary bladder. 3. Osteoarthritic findings of the hips and degenerative findings of the lumbar spine. Knee X-Ray 06/01/18 00:00 CONCLUSION: 1. Mild osteoarthritis involving the patellofemoral and femorotibial joints. 2. No acute fracture or dislocation. Discharge Plan - Discharge Disposition Patient Disposition: 60 Rehab Inpatient - Discharge Condition Condition: Good - Discharge Order Discharge Orders: Discharge Order (Routine); Ordered 06/02/18 Ordered By: Luiz Lafleur - Discharge Details Anticipated Discharge Date: 06/02/18 Discharge Comment: discharge when cleared by infectious disease and antibiotics RX is in. - Physicians Team Primary Care Provider: Primary Care Phillipi,Adriana Attending Provider: Luiz Lafleur Other Providers: Modesta Bhagat MD ; Jose Martin Carson DPM ; [employer] ; [facility],Agency ; Lisa Becerra MD
[2018-06-02] MEDS ORDERED: Pharmacy Ordered Lab Info OTHER ONE (14:45)
[2018-06-02] MEDS: Vancomycin Inj 1,750 MG in Sodium Chlor 0.9% Inj 500 ML IV.SIG SCH (15:53)
[2018-06-03] MEDS: Insulin NovoLOG Aspart Correctional Sugar Inj SQ SCH ×5 (03:45→21:13)
[2018-06-03] MEDS: Insulin Detemir Inj 1,000 UNIT/10 ML Vial SQ SCH ×2 (08:29→21:10)
[2018-06-03] MEDS: Metoprolol Tartrate 25 MG Tablet PO SCH ×2 (08:30→21:09)
[2018-06-03] MEDS: Famotidine 20 MG Tablet PO SCH ×2 (08:30→21:09)
[2018-06-03] MEDS: Furosemide 40 MG Tablet PO SCH (08:30)
[2018-06-03] MEDS: Heparin - SQ 10,000 UNITS/ML Vial SQ SCH ×2 (08:30→21:10)
[2018-06-03] MEDS: amLODIPine 5 MG Tablet PO SCH (08:31)
[2018-06-03] MEDS: Senna/Docusate Sodium 8.6/50 MG Tablet PO SCH ×2 (08:31→21:09)
[2018-06-03] MEDS: Lisinopril 20 MG Tablet PO SCH (08:32)
[2018-06-03] MEDS: Vancomycin Inj 2,000 MG in Sodium Chlor 0.9% Inj 500 ML IV.SIG SCH (17:41)
--- NOTE | 2018-06-03 18:03 | P.PNWCN ---
Wound Care Nurse Consult Description: Wound consult ordered by for wound vac management. Wound/Pressure Injury - Patient Status Premedicated for Pain Prior to Dressing Change: No - Wound Right Foot Wound Assessment: Ongoing Wound Type: Abscess Is This a Chronic Wound: Yes Requested from Provider a Wound Care Consult: No (Brody DÍAZ,[facility] seen 06/03) Length: 4.8 Width: 4.0 Depth: 0.9 Wound Bed Appearance: [place], Red, White Wound Bed Appearance: Wound base 70% red moist tissue 20% fascia 10% beefy red granular tissue Surrounding Tissue Appearance: [place] Drainage Description: Serosanguinous Drainage Amount: Minimal Drainage Odor: No Odor Dressing Status: Dry & Intact Cleansing Solution: Saline Wound Packing Type: Woundvac Sponge Primary Dressing: Negative Pressure Wound Dressing Wound Dressing Change Date: 06/03/18 Wound Vac - Wound Vac Right Foot Pressure Setting (mmHg): 125 Mode Setting: Intermittent Drainage Description: Serosanguinous Foam type: Black, Other (single layer adaptic) Incision - Patient Status Premedicated for Pain Prior to Dressing Change: No - Incision Right Foot Incision Assessment: Ongoing Incision Type: Incision Incision Description: Open Incision Bed Appearance: [place] Surrounding Tissue Appearance: [place] Drainage Description: Serosanguinous Drainage Amount: Minimal Drainage Odor: No Odor Incision Dressing Status: Dry & Intact Incision Packing Type: Woundvac Sponge Primary Dressing: Negative Pressure Wound Dressing Cover Dressing: Transparent Other Cover Dressing: archie wrap Tape Type: Transparent
[2018-06-03] MEDS ORDERED: Heparin Central Flush 100 UNIT/ML 5 ML Vial IV.FLUSH PRN (18:33)
--- NOTE | 2018-06-03 19:28 | P.PNIM ---
Subjective Interval history: patient says he is feeling all right. Still with difficulty urinating as before. Reports pain is controlled. Physical Exam Vital signs: Vital Signs 06/02/18 20:00 06/03/18 00:00 06/03/18 08:00 Temperature 98.6 F 97.9 F 98.1 F Pulse Rate 63 67 58 L Respiratory Rate 16 17 17 Blood Pressure 137/64 124/61 154/70 H Pulse Oximetry 97 98 96 06/03/18 10:30 06/03/18 12:00 Temperature 98.2 F Pulse Rate 63 Respiratory Rate 18 17 Blood Pressure 159/72 H Pulse Oximetry 96 Intake & Output 06/03/18 06/03/18 06/04/18 06:59 18:59 06:59 Intake Total 1210 / 1210 100 / 100 100 / 100 Output Total 700 / 700 600 / 600 Balance 510 / 510 -500 / -500 100 / 100 Intake: IV 730 / 730 100 / 100 100 / 100 Vancomycin Inj 1,750 MG In NS 530 / 530 Inj 500 ML @ 250 mls/hr IV.SIG Q24H EBONY Rx#:[id number] Flagyl 500 MG Inj 100 ML @ 100 200 / 200 100 / 100 100 / 100 mls/hr IV.SIG Q6H EBONY Rx#: [id number] Oral 480 / 480 Output: Urine 700 / 700 600 / 600 Other: Mode Setting Right Foot Continuous Intermittent Date of Last Bowel Movement 06/03/18 # Bowel Movements 2 Narrative: GENERAL: Patient lying in bed. Appears comfortable. SKIN: Warm and dry. HEAD: Normocephalic. EYES: No scleral icterus. No injection or drainage. NECK: Supple, trachea midline. No JVD or lymphadenopathy. CARDIOVASCULAR: Regular rate and rhythm without murmurs, gallops, or rubs. RESPIRATORY: Breath sounds equal bilaterally. No accessory muscle use. GASTROINTESTINAL: Abdomen soft, non-tender, nondistended. MUSCULOSKELETAL: No cyanosis, or edema. Right lower extremity with wound VAC, dressing. BACK: Nontender without obvious deformity. No CVA tenderness. - Urinary Catheter Management 1000 Cath placed during this visit: no Results - Labs CBC & Chem 7: 06/01/18 06:03 06/01/18 06:03 Laboratory Results - last 24 hr 06/02/18 06/03/18 06/03/18 21:10 03:42 07:36 POC Glucose 198 H 116 H 101 06/03/18 06/03/18 11:02 17:39 POC Glucose 133 H 175 H Assessment and Plan - Assessment (1) Abscess of right foot Code(s): L02.611 - Cutaneous abscess of right foot Status: Acute - Plan 63-year-old white male with a history of diabetes mellitus type 2 insulin- dependent admitted for // Diabetic foot wound ongoing for at least 3 weeks Foot MRI concerning for first metatarsal abscess, no osteomyelitis noted Failed outpatient antibiotic therapy Reportedly outpatient culture showed MRSA -Consulted infectious disease, Dr. Marcia Bhagat who feels patient will need long-term antibiotics. -Continue with vancomycin and Flagyl with pharmacy to dose the vancomycin -Consulted podiatry, appreciate input patient is status post incision and drainage of right foot with wound VAC placement 05/23/[address] Yamileth Dorado performed a right foot redebridement with wound VAC placement on 05/26 Continue IV antibiotics vancomycin and Flagyl Heel contact weightbearing only to right foot. -CBC improved, afebrile, wound culture showing MRSA For further surgical intervention with the graft in the future Per podiatry Dr. Lin, patient will need a wound VAC for the next 2-3 months prior to consideration of graft. Will need [facility] wound care. = 06/01. Patient says he is very weak, does not feel that he can do everything he needs to do at home. We will reconsult PT. Follow-up infectious disease recommendations. Will likely need prolonged IV antibiotic treatment. = 06/02. Status post mechanical fall yesterday. Right knee imaging with no acute findings. Patient reports that pain has resolved. // Acute renal failure superimposed on chronic kidney disease stage III Creatinine trending down with IVF Creatinine omission 2.02 -> improved at 1.2 today Can restart lisinopril -Continue to monitor on on antibiotics Avoid nephrotoxins Continue with Lasix // Urinary retention //suspected BPH now resolved. Continue with Flomax. Renal ultrasound showed no obstruction. Enlarged prostate., Continue with Lasix. =06/03. Discussed with patient starting finasteride, including side effects. Will start on finasteride. // Anemia, normocytic probable dilutional component -monitor labs // Diabetes mellitus, type II, insulin-dependent, with underlying diabetic nephropathy -Continue on Accu-Cheks before meals and at bedtime and q. 3 AM -inclusion special educator following, Currently on Levemir 16 units subcu twice daily -Sliding scale coverage -Continue on long-acting insulin -Diabetic cardiac diet = 06/02. Relative hypoglycemia with blood sugars in the 70s today. Will decrease Levemir. =06/03. Blood sugars stable. Continue current regimen. // Hyperlipidemia -continue on statin // Hypertension, chronic essential -continue on metoprolol -We will continue lisinopril 20 mg p.o. daily and Norvasc 5 mg p.o. nightly // Lower extremity swellingclinically improving. -Recommend compression stockings and elevation, Lasix -Echocardiogram shows EF of 55-60% // History of prosthetic valve replacement -Monitor volume status -Echocardiogram results reviewed. -Continue plans for outpatient follow-up with CT surgery, Dr. Hogan // Postop ileus, constipationstatus post mag citrate yesterday along with lactulose with still no bowel movement, patient will prefer not to have NG tube if avoidable, consult GI for further recommendations, Fleet enema 1 today, increase activity and up out of chair. DC Dilaudid counseled on side effects of pain medication narcotics. CT showed no acute findings, KUB with large amount of stool. = Resolved. // DVT prophylaxis with subcu heparin GI prophylaxis with Pepcid Discharge Planning: Patient will need rehab. IV antibiotics as per infectious disease. Cleared by podiatry. We will need wound VAC. Follow-up with podiatry as outpatient.
[2018-06-04] MEDS: Insulin NovoLOG Aspart Correctional Sugar Inj SQ SCH ×3 (03:00→11:25)
[2018-06-04 08:54] VITALS: RESP 16
[2018-06-04] MEDS ORDERED: Heparin Central Flush 100 UNIT/ML 5 ML Vial IV.FLUSH SCH (09:00)
[2018-06-04] MEDS: Insulin Detemir Inj 1,000 UNIT/10 ML Vial SQ SCH (09:20)
[2018-06-04] MEDS: Heparin - SQ 10,000 UNITS/ML Vial SQ SCH (09:20)
[2018-06-04] MEDS: Famotidine 20 MG Tablet PO SCH (09:21)
[2018-06-04] MEDS: amLODIPine 5 MG Tablet PO SCH (09:21)
[2018-06-04] MEDS: Furosemide 40 MG Tablet PO SCH (09:21)
[2018-06-04] MEDS: Metoprolol Tartrate 25 MG Tablet PO SCH (09:22)
[2018-06-04] MEDS: Lisinopril 20 MG Tablet PO SCH (09:22)
[2018-06-04] MEDS: Senna/Docusate Sodium 8.6/50 MG Tablet PO SCH (09:23)
[2018-06-04 13:42] VITALS: BP 154/73; PULSE 53; TEMP 97.7; O2SAT 99
[2018-06-04] MEDS ORDERED: Pharmacy Ordered Lab Info OTHER ONE (15:45)
[2018-06-04] MEDS: Vancomycin Inj 2,000 MG in Sodium Chlor 0.9% Inj 500 ML IV.SIG SCH (15:55)
== END 2018-06-04 17:06 ==
LOC: NEPE 13:39 → NEDA 18:21 → N07 22:20
PROVIDERS: ADMIT Internal Medicine; ATTEND Internal Medicine
PROC: [UNRECOGNIZED PROCEDURE] (2018-05-23 12:50)